=== PATIENT | female | born 1955 | race Caucasian/White ===

== ENCOUNTER 2016-10-15 13:09 | Emergency (ER) | payer MEDICARE, OTHER ==
[~2016-10-15 13:09] MED LIST: CIPR500T89 PO; CYMB60CA3 PO; OMEP40CA2 PO; SYNT150T PO; VICO5TAB PO
[2016-10-15 13:54] LABS: YEAST LIKE CELL URINE AUTO LARGE
[2016-10-15] MEDS ORDERED: BACTRIM 160MG/800MG DS TAB As Ordered ONE (16:17)
[2016-10-15] MEDS ORDERED: PHENAZOPYRIDINE 100 MG TAB As Ordered ONE (16:20)
--- NOTE | 2016-10-15 16:30 | EDDOCDS ---
Physician Documentation [facility] Name: Trina Frye Age: 60 yrs Sex: Female : 1955 Arrival Date: 10/15/2016 Time: 13:09 Bed TR7 Private MD: NO PRIMARY PHYSICIAN, . Disposition: 10/15/16 16:18 Discharged to Home/Self Care. Impression: Urinary tract infection, site not specified. - Condition is Stable. - Discharge Instructions: Urinary Tract Infection. - Prescriptions for Bactrim DS 800- 160 mg Oral Tablet - take 1 tablet by ORAL route every 12 hours for 10 days; 20 tablet. Pyridium 200 mg Oral Tablet - take 1 tablet by ORAL route every 8 hours for 3 days; 9 tablet. - Medication Reconciliation, Local Pharmacy Hours form. - Follow up: Private Physician; When: Call to arrange an appointment; Reason: Recheck today's complaints, Continuance of care. - Problem is new. - Symptoms are unchanged. Historical: - Allergies: no known allergies; - Home Meds: 1. duloxetine 60 mg Oral cpDR 1 cap once daily 2. folic acid 1 mg Oral tab 1 tab once daily 3. levothyroxine 125 mcg Oral cap once daily 4. magnesium oxide 400 mg Oral tab daily 5. pantoprazole 40 mg oral TbEC 1 tab once daily 6. vit B comp & C-calcium carb 1000mg oral tab daily 7. Vitamin B-12 Oral daily - PMHx: Depression; GERD; Hypothyroidism; Non-Hodgkin's Lymphoma; - PSHx: Appendectomy; Hysterectomy; Cholecystectomy; - Social history: Smoking status: Patient uses tobacco products, heavy tobacco smoker. No barriers to communication noted, The patient speaks fluent Slovak. - Family history: Not pertinent. - : The pt / caregiver states he / she is not on anticoagulants. Home medication list is obtained from the patient, [employer] import data. - Exposure Risk Screening:: None identified. Vital Signs: 10/15 13:12 BP 128 / 81; Pulse 86; Resp 18 S; Temp 97.0(O); Pulse Ox 98% on R/A; Weight 72.57 kg / gr2 159.99 lbs (R); Height 5 ft. 2 in. (157.48 cm) (R); Pain 3/10; 13:12 Body Mass Index 29.26 (72.57 kg, 157.48 cm) gr2 MDM: 13:29 Urinalysis Ordered. EDMS 15:08 Urinalysis Reviewed. cc10 16:15 Trimethoprim-Sulfamethoxazole 160 mg-800 mg (DS) 1 tabs PO once ordered. mo1 16:17 Urine Culture Ordered. EDMS 16:19 Phenazopyridine 200 mg PO once ordered. mo1 Administered Medications: 16:18 Drug: Trimethoprim-Sulfamethoxazole 1 tabs [sulfamethoxazole 800 mg-trimethoprim 160 mg mk4 tablet (1 tabs)] Route: PO; 16:29 Follow up: Response: Pt left department before re-evaluation is appropriate mk4 16:29 Follow up: Response: Pt left department before re-evaluation is appropriate mk4 16:24 Drug: Phenazopyridine 200 mg [phenazopyridine 100 mg tablet (2 tabs)] Route: PO; mk4 Signatures: Dispatcher [employer] Yaquelin Valencia RN RN dls Marcus Dias PA PA mo1 Katt Umana RN RN mk4 Forrest Llamas PA-C PABnei cc10 MICHAELLE
--- NOTE | 2016-10-15 16:31 | EDDOCDS ---
Nurse's Notes [facility] Name: Trina Frye Age: 60 yrs Sex: Female : 1955 Arrival Date: 10/15/2016 Time: 13:09 Bed TR7 Private MD: NO PRIMARY PHYSICIAN, . Diagnosis: Urinary tract infection, site not specified Presentation: 10/15 13:19 Presenting complaint: Patient states: Pt presents with c/o UTI sx x 5 days was out of [facility] town tried AZO ran out today still having burning urgency and frequency. Adult Sepsis Screening: The patient does not have new or worsening altered mentation. Patient's respiratory rate is less than 22. Systolic blood pressure is greater than 100. Patient has a qSOFA score of 0- Negative Sepsis Screen. Suicide/Homicide risk assessment- the patient denies having any suicidal and/or homicidal ideations and does not present with any other emotional, behavioral or mental health complaints. 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 Transition of care: patient was not received from another setting of care. 13:19 Acuity: TRUNG Level 4 dls 13:19 Method Of Arrival: Walkin/Carried/Asstd dls Triage Assessment: 13:22 General: Appears in no apparent distress, well developed, Behavior is cooperative. dls Pain: Pain currently is 9 out of 10 on a pain scale. HIV screening NA for this visit Offered previously. Historical: - Allergies: no known allergies; - Home Meds: 1. duloxetine 60 mg Oral cpDR 1 cap once daily 2. folic acid 1 mg Oral tab 1 tab once daily 3. levothyroxine 125 mcg Oral cap once daily 4. magnesium oxide 400 mg Oral tab daily 5. pantoprazole 40 mg oral TbEC 1 tab once daily 6. vit B comp & C-calcium carb 1000mg oral tab daily 7. Vitamin B-12 Oral daily - PMHx: Depression; GERD; Hypothyroidism; Non-Hodgkin's Lymphoma; - PSHx: Appendectomy; Hysterectomy; Cholecystectomy; - Social history: Smoking status: Patient uses tobacco products, heavy tobacco smoker. No barriers to communication noted, The patient speaks fluent Chinese. - Family history: Not pertinent. - : The pt / caregiver states he / she is not on anticoagulants. Home medication list is obtained from the patient, [employer] import data. - Exposure Risk Screening:: None identified. Screenin:24 Screening information is obtained from the patient. Fall risk: No risks identified. mk4 Assistance ADL's: requires no assistance with activities of daily living. Abuse/DV Screen: The patient / caregiver reports he/she is: not in a situation that causes fear, pain or injury. Nutritional screening: No deficits noted. Advance Directives: Currently, there is no health care proxy. There is no active DNR order. There is no living will. There is no Power of [employer]. Advance directive information has not previously been placed in an [facility] medical record. home support is adequate. Assessment: 16:24 General: Appears in no apparent distress, comfortable, Behavior is cooperative. mk4 Neurological: Level of Consciousness is awake, alert. GI: Abdomen is non- distended Abd is soft and non tender. : Reports burning with urination hematuria urgency since a few days ago urinary frequency. Vital Signs: 13:12 BP 128 / 81; Pulse 86; Resp 18 S; Temp 97.0(O); Pulse Ox 98% on R/A; Weight 72.57 kg gr2 (R); Height 5 ft. 2 in. (157.48 cm) (R); Pain 3/10; 13:12 Body Mass Index 29.26 (72.57 kg, 157.48 cm) gr2 Vitals: 13:12 Log In Time: October 15, 2016 at 13:12. gr2 ED Course: 13:11 Patient visited by Dariel Roberts. gr2 13:11 Patient moved to Waiting gr2 13:12 NO PRIMARY PHYSICIAN, . is Private Physician. gr2 13:12 Patient visited by Dariel Roberts. gr2 13:13 Patient moved to Pre RCE gr2 13:20 Triage Initiated dls 15:52 Patient moved to Triage 1 kcs 16:08 Marcus Dias PA is PHCP. mo1 16:08 Katherine Pratt MD is Attending Physician. mo1 16:13 Patient visited by Marcus Dias PA. mo1 16:18 Urine Culture Sent. mk4 16:23 Patient moved to TR7 kcs 16:24 The patient / caregiver is instructed regarding the plan of care and ED course. mk4 16:24 No IV's were initiated during this patient's visit. No procedures done that require mk4 assistance. Administered Medications: 16:18 Drug: Trimethoprim-Sulfamethoxazole 1 tabs [sulfamethoxazole 800 mg-trimethoprim 160 mg mk4 tablet (1 tabs)] Route: PO; 16:29 Follow up: Response: Pt left department before re-evaluation is appropriate mk4 16:29 Follow up: Response: Pt left department before re-evaluation is appropriate mk4 16:24 Drug: Phenazopyridine 200 mg [phenazopyridine 100 mg tablet (2 tabs)] Route: PO; mk4 Order Results: Lab Order: Urinalysis; SPEC'M 10/15/16 13:31 Test: APPEARANCE, URINE; Value: CLOUDY; Range: CLEAR; Abnormal: Above high normal; Status: F Test: COLOR, URINE; Value: STEVE; Range: YELLOW; Status: F Test: PH,URINE; Value: 6.0; Range: 5.0-9.0; Units: UNITS; Status: F Test: SPECIFIC GRAVITY URINE AUTO; Value: 1.011; Range: 1.002-1.035; Status: F Test: PROTEIN, URINE AUTO; Value: 2+; Range: NEGATIVE; Abnormal: Above high normal; Units: mg/dL; Status: F Test: GLUCOSE, URINE (UA) AUTO; Value: NEGATIVE; Range: NEGATIVE; Units: mg/dL; Status: F Test: KETONE, URINE AUTO; Value: NEGATIVE; Range: NEGATIVE; Units: mg/dL; Status: F Test: UROBILINOGEN, URINE AUTO; Value: 2.0; Range: 0.0-2.0; Abnormal: Above high normal; Units: mg/dL; Status: F Test: BILIRUBIN, URINE AUTO; Value: NEGATIVE; Range: NEGATIVE; Status: F Test: NITRITE, URINE AUTO; Value: POSITIVE; Range: NEGATIVE; Status: F Test: LEUKOCYTE ESTERASE, URINE AUTO; Value: 3+; Range: NEGATIVE; Abnormal: Above high normal; Status: F Test: BLOOD, URINE BLOOD; Value: 2+; Range: NEGATIVE; Abnormal: Above high normal; Status: F Test: WBC, URINE AUTO; Value: TNTC; Range: 0-3; Abnormal: Above high normal; Units: /HPF; Status: F Test: RBC, URINE AUTO; Value: 86; Range: 0-3; Abnormal: Above high normal; Units: /HPF; Status: F Test: BACTERIA, URINE AUTO; Value: 3+; Range: NEGATIVE; Abnormal: Above high normal; Status: F Test: YEAST LIKE CELL URINE AUTO; Value: LARGE; Range: NONE; Abnormal: Above high normal; Status: F Test: SQUAMOUS EPITHELIAL CELL UR AU; Value: 2; Range: 0-6; Units: /HPF; Status: F Test: MUCUS, URINE; Value: SMALL; Range: NEGATIVE; Status: F Test: HYALINE CAST, URINE AUTO; Value: 0; Range: 0-1; Units: /LPF; Status: F Outcome: 16:18 Discharge ordered by Provider. mo1 16:24 Discharge Assessment: Patient awake, alert and oriented x 3. No cognitive and/or mk4 functional deficits noted. Patient verbalized understanding of disposition instructions. Patient awake and alert. Discharge Assessment: patient administered narcotics - no. The following High Risk Discharge criteria are identified: None. Condition: good Condition: stable. No special radiology studies were completed. Property sent home with patient. 16:28 Patient left the ED. mk4 Signatures: Yoli Jennings RN RN Yaquelin Porter RN RN Dariel Montez gr2 Marcus Dias PA PA mo1 Katt Umana RN RN mk4 MICHAELLE
--- NOTE | 2016-10-17 17:30 | EDDOCDS ---
Physician Documentation [facility] Name: Trina Frye Age: 60 yrs Sex: Female : 1955 Arrival Date: 10/15/2016 Time: 13:09 Bed TR7 Private MD: NO PRIMARY PHYSICIAN, . Disposition: 10/15/16 16:18 Discharged to Home/Self Care. Impression: Urinary tract infection, site not specified. - Condition is Stable. - Discharge Instructions: Urinary Tract Infection. - Prescriptions for Bactrim DS 800- 160 mg Oral Tablet - take 1 tablet by ORAL route every 12 hours for 10 days; 20 tablet. Pyridium 200 mg Oral Tablet - take 1 tablet by ORAL route every 8 hours for 3 days; 9 tablet. - Medication Reconciliation, Local Pharmacy Hours form. - Follow up: Private Physician; When: Call to arrange an appointment; Reason: Recheck today's complaints, Continuance of care. - Problem is new. - Symptoms are unchanged. Historical: - Allergies: no known allergies; - Home Meds: 1. duloxetine 60 mg Oral cpDR 1 cap once daily 2. folic acid 1 mg Oral tab 1 tab once daily 3. levothyroxine 125 mcg Oral cap once daily 4. magnesium oxide 400 mg Oral tab daily 5. pantoprazole 40 mg oral TbEC 1 tab once daily 6. vit B comp & C-calcium carb 1000mg oral tab daily 7. Vitamin B-12 Oral daily - PMHx: Depression; GERD; Hypothyroidism; Non-Hodgkin's Lymphoma; - PSHx: Appendectomy; Hysterectomy; Cholecystectomy; - Social history: Smoking status: Patient uses tobacco products, heavy tobacco smoker. No barriers to communication noted, The patient speaks fluent Burundian. - Family history: Not pertinent. - : The pt / caregiver states he / she is not on anticoagulants. Home medication list is obtained from the patient, [employer] import data. - Exposure Risk Screening:: None identified. Vital Signs: 10/15 13:12 BP 128 / 81; Pulse 86; Resp 18 S; Temp 97.0(O); Pulse Ox 98% on R/A; Weight 72.57 kg / gr2 159.99 lbs (R); Height 5 ft. 2 in. (157.48 cm) (R); Pain 3/10; 13:12 Body Mass Index 29.26 (72.57 kg, 157.48 cm) gr2 MDM: 13:29 Urinalysis Ordered. EDMS 15:08 Urinalysis Reviewed. cc10 16:15 Trimethoprim-Sulfamethoxazole 160 mg-800 mg (DS) 1 tabs PO once ordered. mo1 16:17 Urine Culture Ordered. EDMS 16:19 Phenazopyridine 200 mg PO once ordered. mo1 16:55 [facility] Payment Agreement was scanned into [employer] and attached to record. gjb 16:55 Financial registration complete. gjb 10/16 13:51 T-Sheet-- Draft Copy was scanned into [employer] and attached to record. gb Administered Medications: 10/15 16:18 Drug: Trimethoprim-Sulfamethoxazole 1 tabs [sulfamethoxazole 800 mg-trimethoprim 160 mg mk4 tablet (1 tabs)] Route: PO; 16:29 Follow up: Response: Pt left department before re-evaluation is appropriate mk4 16:29 Follow up: Response: Pt left department before re-evaluation is appropriate mk4 16:24 Drug: Phenazopyridine 200 mg [phenazopyridine 100 mg tablet (2 tabs)] Route: PO; mk4 Signatures: Dispatcher [employer] EDMS Yaquelin Singh, RN RN dls Liliana Du, Reg Reg gb Marcus Dias PA PA mo1 Katt Umana RN RN mk4 Forrest Llamas, PA-C PA-C cc10 Suzanne Forbes [facility] The chart was reviewed and I authenticate all verbal orders and agree with the evaluation and treatment provided.Attachments: 16:55 [facility] Payment Agreement [facility] 10/16 13:51 T-Sheet-- Draft Copy gb Chart Complete MTDD
--- NOTE | 2016-10-17 17:30 | EDDOCDS ---
Nurse's Notes [facility] Name: Trina Frye Age: 60 yrs Sex: Female : 1955 Arrival Date: 10/15/2016 Time: 13:09 Bed TR7 Private MD: NO PRIMARY PHYSICIAN, . Diagnosis: Urinary tract infection, site not specified Presentation: 10/15 13:19 Presenting complaint: Patient states: Pt presents with c/o UTI sx x 5 days was out of [facility] town tried AZO ran out today still having burning urgency and frequency. Adult Sepsis Screening: The patient does not have new or worsening altered mentation. Patient's respiratory rate is less than 22. Systolic blood pressure is greater than 100. Patient has a qSOFA score of 0- Negative Sepsis Screen. Suicide/Homicide risk assessment- the patient denies having any suicidal and/or homicidal ideations and does not present with any other emotional, behavioral or mental health complaints. 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 Transition of care: patient was not received from another setting of care. 13:19 Acuity: TRUNG Level 4 dls 13:19 Method Of Arrival: Walkin/Carried/Asstd dls Triage Assessment: 13:22 General: Appears in no apparent distress, well developed, Behavior is cooperative. dls Pain: Pain currently is 9 out of 10 on a pain scale. HIV screening NA for this visit Offered previously. Historical: - Allergies: no known allergies; - Home Meds: 1. duloxetine 60 mg Oral cpDR 1 cap once daily 2. folic acid 1 mg Oral tab 1 tab once daily 3. levothyroxine 125 mcg Oral cap once daily 4. magnesium oxide 400 mg Oral tab daily 5. pantoprazole 40 mg oral TbEC 1 tab once daily 6. vit B comp & C-calcium carb 1000mg oral tab daily 7. Vitamin B-12 Oral daily - PMHx: Depression; GERD; Hypothyroidism; Non-Hodgkin's Lymphoma; - PSHx: Appendectomy; Hysterectomy; Cholecystectomy; - Social history: Smoking status: Patient uses tobacco products, heavy tobacco smoker. No barriers to communication noted, The patient speaks fluent Lao. - Family history: Not pertinent. - : The pt / caregiver states he / she is not on anticoagulants. Home medication list is obtained from the patient, [employer] import data. - Exposure Risk Screening:: None identified. Screenin:24 Screening information is obtained from the patient. Fall risk: No risks identified. mk4 Assistance ADL's: requires no assistance with activities of daily living. Abuse/DV Screen: The patient / caregiver reports he/she is: not in a situation that causes fear, pain or injury. Nutritional screening: No deficits noted. Advance Directives: Currently, there is no health care proxy. There is no active DNR order. There is no living will. 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 Advance directive information has not previously been placed in an [facility] medical record. home support is adequate. Assessment: 16:24 General: Appears in no apparent distress, comfortable, Behavior is cooperative. mk4 Neurological: Level of Consciousness is awake, alert. GI: Abdomen is non- distended Abd is soft and non tender. : Reports burning with urination hematuria urgency since a few days ago urinary frequency. Vital Signs: 13:12 BP 128 / 81; Pulse 86; Resp 18 S; Temp 97.0(O); Pulse Ox 98% on R/A; Weight 72.57 kg gr2 (R); Height 5 ft. 2 in. (157.48 cm) (R); Pain 3/10; 13:12 Body Mass Index 29.26 (72.57 kg, 157.48 cm) gr2 Vitals: 13:12 Log In Time: October 15, 2016 at 13:12. gr2 ED Course: 13:11 Patient visited by Dariel Roberts. gr2 13:11 Patient moved to Waiting gr2 13:12 NO PRIMARY PHYSICIAN, . is Private Physician. gr2 13:12 Patient visited by Dariel Roberts. gr2 13:13 Patient moved to Pre RCE gr2 13:20 Triage Initiated dls 15:52 Patient moved to Triage 1 kcs 16:08 Marcus Dias PA is PHCP. mo1 16:08 Katherine Pratt MD is Attending Physician. mo1 16:13 Patient visited by Marcus Dias PA. mo1 16:18 Urine Culture Sent. mk4 16:23 Patient moved to TR7 kcs 16:24 The patient / caregiver is instructed regarding the plan of care and ED course. mk4 16:24 No IV's were initiated during this patient's visit. No procedures done that require mk4 assistance. 16:55 [facility] Payment Agreement was scanned into [employer] and attached to record. gjb 10/16 13:51 T-Sheet-- Draft Copy was scanned into [employer] and attached to record. gb Administered Medications: 10/15 16:18 Drug: Trimethoprim-Sulfamethoxazole 1 tabs [sulfamethoxazole 800 mg-trimethoprim 160 mg mk4 tablet (1 tabs)] Route: PO; 16:29 Follow up: Response: Pt left department before re-evaluation is appropriate mk4 16:29 Follow up: Response: Pt left department before re-evaluation is appropriate mk4 16:24 Drug: Phenazopyridine 200 mg [phenazopyridine 100 mg tablet (2 tabs)] Route: PO; mk4 Order Results: Lab Order: Urinalysis; SPEC'M 10/15/16 13:31 Test: APPEARANCE, URINE; Value: CLOUDY; Range: CLEAR; Abnormal: Above high normal; Status: F Test: COLOR, URINE; Value: STEVE; Range: YELLOW; Status: F Test: PH,URINE; Value: 6.0; Range: 5.0-9.0; Units: UNITS; Status: F Test: SPECIFIC GRAVITY URINE AUTO; Value: 1.011; Range: 1.002-1.035; Status: F Test: PROTEIN, URINE AUTO; Value: 2+; Range: NEGATIVE; Abnormal: Above high normal; Units: mg/dL; Status: F Test: GLUCOSE, URINE (UA) AUTO; Value: NEGATIVE; Range: NEGATIVE; Units: mg/dL; Status: F Test: KETONE, URINE AUTO; Value: NEGATIVE; Range: NEGATIVE; Units: mg/dL; Status: F Test: UROBILINOGEN, URINE AUTO; Value: 2.0; Range: 0.0-2.0; Abnormal: Above high normal; Units: mg/dL; Status: F Test: BILIRUBIN, URINE AUTO; Value: NEGATIVE; Range: NEGATIVE; Status: F Test: NITRITE, URINE AUTO; Value: POSITIVE; Range: NEGATIVE; Status: F Test: LEUKOCYTE ESTERASE, URINE AUTO; Value: 3+; Range: NEGATIVE; Abnormal: Above high normal; Status: F Test: BLOOD, URINE BLOOD; Value: 2+; Range: NEGATIVE; Abnormal: Above high normal; Status: F Test: WBC, URINE AUTO; Value: TNTC; Range: 0-3; Abnormal: Above high normal; Units: /HPF; Status: F Test: RBC, URINE AUTO; Value: 86; Range: 0-3; Abnormal: Above high normal; Units: /HPF; Status: F Test: BACTERIA, URINE AUTO; Value: 3+; Range: NEGATIVE; Abnormal: Above high normal; Status: F Test: YEAST LIKE CELL URINE AUTO; Value: LARGE; Range: NONE; Abnormal: Above high normal; Status: F Test: SQUAMOUS EPITHELIAL CELL UR AU; Value: 2; Range: 0-6; Units: /HPF; Status: F Test: MUCUS, URINE; Value: SMALL; Range: NEGATIVE; Status: F Test: HYALINE CAST, URINE AUTO; Value: 0; Range: 0-1; Units: /LPF; Status: F Lab Order: Urine Culture; SPEC'M 10/15/16 13:31 Test: URINE CULTURE; Value: <EXTERNAL COMMENT eCWMed> FULL REPORT IN LAB NOTES (eCW and Medent).; Status: F Test: URINE CULTURE; Value: ORGANISM 1: ESCHERICHIA COLI; Status: F Test: URINE CULTURE; Value: ESCHERICHIA COLI; Status: F Test: URINE CULTURE; Value: COLONY COUNT CFU/ml >100,000; Status: F Test: URINE CULTURE; Value: GRAM NEG SENSI - VITEK 80; Status: F Test: URINE CULTURE; Value: Method: VIT2; Status: F Test: URINE CULTURE; Value: EXTD BRD SPCTRM BETA LACTAMASE -; Status: F Test: URINE CULTURE; Value: TRIMETHOPRIM/SULFAMETHOXAZOLE <=20 S; Status: F Test: URINE CULTURE; Value: AMPICILLIN <=2 S; Status: F Test: URINE CULTURE; Value: GENTAMICIN <=1 S; Status: F Test: URINE CULTURE; Value: NITROFURANTOIN 64 I; Status: F Test: URINE CULTURE; Value: CEFAZOLIN <=4 S; Status: F Test: URINE CULTURE; Value: LEVOFLOXACIN <=0.12 S; Status: F Test: URINE CULTURE; Value: TOBRAMYCIN <=1 S; Status: F Test: URINE CULTURE; Value: CEFTRIAXONE <=1 S; Status: F Test: URINE CULTURE; Value: CEFTAZIDIME <=1 S; Status: F Test: URINE CULTURE; Value: AMPICILLIN/SULBACTAM <=2 S; Status: F Test: URINE CULTURE; Value: PIPERACILLIN/TAZOBACTAM <=4 S; Status: F Test: URINE CULTURE; Value: AZTREONAM <=1 S; Status: F Test: URINE CULTURE; Value: ERTAPENEM <=0.5 S; Status: F Test: URINE CULTURE; Value: MEROPENEM <=0.25 S; Status: F Test: URINE CULTURE; Value: TIGECYCLINE <=0.5 S; Status: F Test: URINE CULTURE; Value: CEFEPIME <=1 S; Status: F Outcome: 16:18 Discharge ordered by Provider. mo1 16:24 Discharge Assessment: Patient awake, alert and oriented x 3. No cognitive and/or mk4 functional deficits noted. Patient verbalized understanding of disposition instructions. Patient awake and alert. Discharge Assessment: patient administered narcotics - no. The following High Risk Discharge criteria are identified: None. Condition: good Condition: stable. No special radiology studies were completed. Property sent home with patient. 16:28 Patient left the ED. 4 Signatures: Yoli Jennings RN RN Yaquelin Porter RN RN dls Liliana Du, Reg Reg gb Dariel Roberts gr2 Marcus Dias PA PA mo1 Katt Umana RN RN Suzanne Santana Chart Complete MTDD
--- NOTE | 2016-10-17 17:30 | EDDOCDS ---
Physician Documentation [facility] Name: Trina Frye Age: 60 yrs Sex: Female : 1955 Arrival Date: 10/15/2016 Time: 13:09 Bed TR7 Private MD: NO PRIMARY PHYSICIAN, . Disposition: 10/15/16 16:18 Discharged to Home/Self Care. Impression: Urinary tract infection, site not specified. - Condition is Stable. - Discharge Instructions: Urinary Tract Infection. - Prescriptions for Bactrim DS 800- 160 mg Oral Tablet - take 1 tablet by ORAL route every 12 hours for 10 days; 20 tablet. Pyridium 200 mg Oral Tablet - take 1 tablet by ORAL route every 8 hours for 3 days; 9 tablet. - Medication Reconciliation, Local Pharmacy Hours form. - Follow up: Private Physician; When: Call to arrange an appointment; Reason: Recheck today's complaints, Continuance of care. - Problem is new. - Symptoms are unchanged. Historical: - Allergies: no known allergies; - Home Meds: 1. duloxetine 60 mg Oral cpDR 1 cap once daily 2. folic acid 1 mg Oral tab 1 tab once daily 3. levothyroxine 125 mcg Oral cap once daily 4. magnesium oxide 400 mg Oral tab daily 5. pantoprazole 40 mg oral TbEC 1 tab once daily 6. vit B comp & C-calcium carb 1000mg oral tab daily 7. Vitamin B-12 Oral daily - PMHx: Depression; GERD; Hypothyroidism; Non-Hodgkin's Lymphoma; - PSHx: Appendectomy; Hysterectomy; Cholecystectomy; - Social history: Smoking status: Patient uses tobacco products, heavy tobacco smoker. No barriers to communication noted, The patient speaks fluent Maldivian. - Family history: Not pertinent. - : The pt / caregiver states he / she is not on anticoagulants. Home medication list is obtained from the patient, [employer] import data. - Exposure Risk Screening:: None identified. Vital Signs: 10/15 13:12 BP 128 / 81; Pulse 86; Resp 18 S; Temp 97.0(O); Pulse Ox 98% on R/A; Weight 72.57 kg / gr2 159.99 lbs (R); Height 5 ft. 2 in. (157.48 cm) (R); Pain 3/10; 13:12 Body Mass Index 29.26 (72.57 kg, 157.48 cm) gr2 MDM: 13:29 Urinalysis Ordered. EDMS 15:08 Urinalysis Reviewed. cc10 16:15 Trimethoprim-Sulfamethoxazole 160 mg-800 mg (DS) 1 tabs PO once ordered. mo1 16:17 Urine Culture Ordered. EDMS 16:19 Phenazopyridine 200 mg PO once ordered. mo1 16:55 [facility] Payment Agreement was scanned into [employer] and attached to record. gjb 16:55 Financial registration complete. gjb 10/16 13:51 T-Sheet-- Draft Copy was scanned into [employer] and attached to record. gb Administered Medications: 10/15 16:18 Drug: Trimethoprim-Sulfamethoxazole 1 tabs [sulfamethoxazole 800 mg-trimethoprim 160 mg mk4 tablet (1 tabs)] Route: PO; 16:29 Follow up: Response: Pt left department before re-evaluation is appropriate mk4 16:29 Follow up: Response: Pt left department before re-evaluation is appropriate mk4 16:24 Drug: Phenazopyridine 200 mg [phenazopyridine 100 mg tablet (2 tabs)] Route: PO; mk4 Signatures: Dispatcher [employer] EDMS Yaquelin Singh, RN RN dls Liliana Du, Reg Reg gb Marcus Dias PA PA mo1 Katt Umana RN RN mk4 Forrest Llamas, PA-C PA-C cc10 Suzanne Forbes [facility] The chart was reviewed and I authenticate all verbal orders and agree with the evaluation and treatment provided.Attachments: 16:55 [facility] Payment Agreement [facility] 10/16 13:51 T-Sheet-- Draft Copy gb Chart Complete MTDD
--- NOTE | 2016-10-19 16:14 | EDDOCDS ---
Physician Documentation [facility] Name: Trina Frye Age: 60 yrs Sex: Female : 1955 Arrival Date: 10/15/2016 Time: 13:09 Bed TR7 Private MD: NO PRIMARY PHYSICIAN, . Disposition: 10/15/16 16:18 Discharged to Home/Self Care. Impression: Urinary tract infection, site not specified. - Condition is Stable. - Discharge Instructions: Urinary Tract Infection. - Prescriptions for Bactrim DS 800- 160 mg Oral Tablet - take 1 tablet by ORAL route every 12 hours for 10 days; 20 tablet. Pyridium 200 mg Oral Tablet - take 1 tablet by ORAL route every 8 hours for 3 days; 9 tablet. - Medication Reconciliation, Local Pharmacy Hours form. - Follow up: Private Physician; When: Call to arrange an appointment; Reason: Recheck today's complaints, Continuance of care. - Problem is new. - Symptoms are unchanged. Historical: - Allergies: no known allergies; - Home Meds: 1. duloxetine 60 mg Oral cpDR 1 cap once daily 2. folic acid 1 mg Oral tab 1 tab once daily 3. levothyroxine 125 mcg Oral cap once daily 4. magnesium oxide 400 mg Oral tab daily 5. pantoprazole 40 mg oral TbEC 1 tab once daily 6. vit B comp & C-calcium carb 1000mg oral tab daily 7. Vitamin B-12 Oral daily - PMHx: Depression; GERD; Hypothyroidism; Non-Hodgkin's Lymphoma; - PSHx: Appendectomy; Hysterectomy; Cholecystectomy; - Social history: Smoking status: Patient uses tobacco products, heavy tobacco smoker. No barriers to communication noted, The patient speaks fluent Dominican. - Family history: Not pertinent. - : The pt / caregiver states he / she is not on anticoagulants. Home medication list is obtained from the patient, [employer] import data. - Exposure Risk Screening:: None identified. Vital Signs: 10/15 13:12 BP 128 / 81; Pulse 86; Resp 18 S; Temp 97.0(O); Pulse Ox 98% on R/A; Weight 72.57 kg / gr2 159.99 lbs (R); Height 5 ft. 2 in. (157.48 cm) (R); Pain 3/10; 13:12 Body Mass Index 29.26 (72.57 kg, 157.48 cm) gr2 MDM: 13:29 Urinalysis Ordered. EDMS 15:08 Urinalysis Reviewed. cc10 16:15 Trimethoprim-Sulfamethoxazole 160 mg-800 mg (DS) 1 tabs PO once ordered. mo1 16:17 Urine Culture Ordered. EDMS 16:19 Phenazopyridine 200 mg PO once ordered. mo1 16:55 [facility] Payment Agreement was scanned into [employer] and attached to record. gjb 16:55 Financial registration complete. gjb 10/16 13:51 T-Sheet-- Draft Copy was scanned into [employer] and attached to record. gb Administered Medications: 10/15 16:18 Drug: Trimethoprim-Sulfamethoxazole 1 tabs [sulfamethoxazole 800 mg-trimethoprim 160 mg mk4 tablet (1 tabs)] Route: PO; 16:29 Follow up: Response: Pt left department before re-evaluation is appropriate mk4 16:29 Follow up: Response: Pt left department before re-evaluation is appropriate mk4 16:24 Drug: Phenazopyridine 200 mg [phenazopyridine 100 mg tablet (2 tabs)] Route: PO; mk4 Signatures: Dispatcher [employer] EDMS Yaquelin Singh, RN RN dls Liliana Du, Reg Reg gb Marcus Dias PA PA mo1 Katt Umana RN RN mk4 Forrest Llamas, PA-C PA-C cc10 Suzanne Forbes [facility] The chart was reviewed and I authenticate all verbal orders and agree with the evaluation and treatment provided.Attachments: 16:55 [facility] Payment Agreement [facility] 10/16 13:51 T-Sheet-- Draft Copy gb Chart Complete MTDD
--- NOTE | 2016-10-19 16:14 | EDDOCDS ---
Physician Documentation [facility] Name: Trina Frye Age: 60 yrs Sex: Female : 1955 Arrival Date: 10/15/2016 Time: 13:09 Bed TR7 Private MD: NO PRIMARY PHYSICIAN, . Disposition: 10/15/16 16:18 Discharged to Home/Self Care. Impression: Urinary tract infection, site not specified. - Condition is Stable. - Discharge Instructions: Urinary Tract Infection. - Prescriptions for Bactrim DS 800- 160 mg Oral Tablet - take 1 tablet by ORAL route every 12 hours for 10 days; 20 tablet. Pyridium 200 mg Oral Tablet - take 1 tablet by ORAL route every 8 hours for 3 days; 9 tablet. - Medication Reconciliation, Local Pharmacy Hours form. - Follow up: Private Physician; When: Call to arrange an appointment; Reason: Recheck today's complaints, Continuance of care. - Problem is new. - Symptoms are unchanged. Historical: - Allergies: no known allergies; - Home Meds: 1. duloxetine 60 mg Oral cpDR 1 cap once daily 2. folic acid 1 mg Oral tab 1 tab once daily 3. levothyroxine 125 mcg Oral cap once daily 4. magnesium oxide 400 mg Oral tab daily 5. pantoprazole 40 mg oral TbEC 1 tab once daily 6. vit B comp & C-calcium carb 1000mg oral tab daily 7. Vitamin B-12 Oral daily - PMHx: Depression; GERD; Hypothyroidism; Non-Hodgkin's Lymphoma; - PSHx: Appendectomy; Hysterectomy; Cholecystectomy; - Social history: Smoking status: Patient uses tobacco products, heavy tobacco smoker. No barriers to communication noted, The patient speaks fluent Syrian. - Family history: Not pertinent. - : The pt / caregiver states he / she is not on anticoagulants. Home medication list is obtained from the patient, [employer] import data. - Exposure Risk Screening:: None identified. Vital Signs: 10/15 13:12 BP 128 / 81; Pulse 86; Resp 18 S; Temp 97.0(O); Pulse Ox 98% on R/A; Weight 72.57 kg / gr2 159.99 lbs (R); Height 5 ft. 2 in. (157.48 cm) (R); Pain 3/10; 13:12 Body Mass Index 29.26 (72.57 kg, 157.48 cm) gr2 MDM: 13:29 Urinalysis Ordered. EDMS 15:08 Urinalysis Reviewed. cc10 16:15 Trimethoprim-Sulfamethoxazole 160 mg-800 mg (DS) 1 tabs PO once ordered. mo1 16:17 Urine Culture Ordered. EDMS 16:19 Phenazopyridine 200 mg PO once ordered. mo1 16:55 [facility] Payment Agreement was scanned into [employer] and attached to record. gjb 16:55 Financial registration complete. gjb 10/16 13:51 T-Sheet-- Draft Copy was scanned into [employer] and attached to record. gb Administered Medications: 10/15 16:18 Drug: Trimethoprim-Sulfamethoxazole 1 tabs [sulfamethoxazole 800 mg-trimethoprim 160 mg mk4 tablet (1 tabs)] Route: PO; 16:29 Follow up: Response: Pt left department before re-evaluation is appropriate mk4 16:29 Follow up: Response: Pt left department before re-evaluation is appropriate mk4 16:24 Drug: Phenazopyridine 200 mg [phenazopyridine 100 mg tablet (2 tabs)] Route: PO; mk4 Signatures: Dispatcher [employer] EDMS Yaquelin Singh, RN RN dls Liliana Du, Reg Reg gb Marcus Dias PA PA mo1 Katt Umana RN RN mk4 Forrest Lalmas, PA-C PA-C cc10 Suzanne Forbes [facility] The chart was reviewed and I authenticate all verbal orders and agree with the evaluation and treatment provided.Attachments: 16:55 [facility] Payment Agreement [facility] 10/16 13:51 T-Sheet-- Draft Copy gb Chart Complete MTDD
--- NOTE | 2016-10-19 16:14 | EDDOCDS ---
Nurse's Notes [facility] Name: Trina Frye Age: 60 yrs Sex: Female : 1955 Arrival Date: 10/15/2016 Time: 13:09 Bed TR7 Private MD: NO PRIMARY PHYSICIAN, . Diagnosis: Urinary tract infection, site not specified Presentation: 10/15 13:19 Presenting complaint: Patient states: Pt presents with c/o UTI sx x 5 days was out of [facility] tried AZO ran out today still having burning urgency and frequency. Adult Sepsis Screening: The patient does not have new or worsening altered mentation. Patient's respiratory rate is less than 22. Systolic blood pressure is greater than 100. Patient has a qSOFA score of 0- Negative Sepsis Screen. Suicide/Homicide risk assessment- the patient denies having any suicidal and/or homicidal ideations and does not present with any other emotional, behavioral or mental health complaints. Status: Patient is not a senior administrative services officer or dependent. Transition of care: patient was not received from another setting of care. 13:19 Acuity: TRUNG Level 4 dls 13:19 Method Of Arrival: Walkin/Carried/Asstd dls Triage Assessment: 13:22 General: Appears in no apparent distress, well developed, Behavior is cooperative. dls Pain: Pain currently is 9 out of 10 on a pain scale. HIV screening NA for this visit Offered previously. Historical: - Allergies: no known allergies; - Home Meds: 1. duloxetine 60 mg Oral cpDR 1 cap once daily 2. folic acid 1 mg Oral tab 1 tab once daily 3. levothyroxine 125 mcg Oral cap once daily 4. magnesium oxide 400 mg Oral tab daily 5. pantoprazole 40 mg oral TbEC 1 tab once daily 6. vit B comp & C-calcium carb 1000mg oral tab daily 7. Vitamin B-12 Oral daily - PMHx: Depression; GERD; Hypothyroidism; Non-Hodgkin's Lymphoma; - PSHx: Appendectomy; Hysterectomy; Cholecystectomy; - Social history: Smoking status: Patient uses tobacco products, heavy tobacco smoker. No barriers to communication noted, The patient speaks fluent Estonian. - Family history: Not pertinent. - : The pt / caregiver states he / she is not on anticoagulants. Home medication list is obtained from the patient, [employer] import data. - Exposure Risk Screening:: None identified. Screenin:24 Screening information is obtained from the patient. Fall risk: No risks identified. mk4 Assistance ADL's: requires no assistance with activities of daily living. Abuse/DV Screen: The patient / caregiver reports he/she is: not in a situation that causes fear, pain or injury. Nutritional screening: No deficits noted. Advance Directives: Currently, there is no health care proxy. There is no active DNR order. There is no living will. There is no Power of Urgent Care Physician Assistant. Advance directive information has not previously been placed in an [facility] medical record. home support is adequate. Assessment: 16:24 General: Appears in no apparent distress, comfortable, Behavior is cooperative. mk4 Neurological: Level of Consciousness is awake, alert. GI: Abdomen is non- distended Abd is soft and non tender. : Reports burning with urination hematuria urgency since a few days ago urinary frequency. Vital Signs: 13:12 BP 128 / 81; Pulse 86; Resp 18 S; Temp 97.0(O); Pulse Ox 98% on R/A; Weight 72.57 kg gr2 (R); Height 5 ft. 2 in. (157.48 cm) (R); Pain 3/10; 13:12 Body Mass Index 29.26 (72.57 kg, 157.48 cm) gr2 Vitals: 13:12 Log In Time: October 15, 2016 at 13:12. gr2 ED Course: 13:11 Patient visited by Dariel Roberts. gr2 13:11 Patient moved to Waiting gr2 13:12 NO PRIMARY PHYSICIAN, . is Private Physician. gr2 13:12 Patient visited by Dariel Roberts. gr2 13:13 Patient moved to Pre RCE gr2 13:20 Triage Initiated dls 15:52 Patient moved to Triage 1 kcs 16:08 Marcus Dias PA is PHCP. mo1 16:08 Katherine Pratt MD is Attending Physician. mo1 16:13 Patient visited by Marcus Dias PA. mo1 16:18 Urine Culture Sent. mk4 16:23 Patient moved to TR7 kcs 16:24 The patient / caregiver is instructed regarding the plan of care and ED course. mk4 16:24 No IV's were initiated during this patient's visit. No procedures done that require mk4 assistance. 16:55 [facility] Payment Agreement was scanned into [employer] and attached to record. gjb 10/16 13:51 T-Sheet-- Draft Copy was scanned into [employer] and attached to record. gb Administered Medications: 10/15 16:18 Drug: Trimethoprim-Sulfamethoxazole 1 tabs [sulfamethoxazole 800 mg-trimethoprim 160 mg mk4 tablet (1 tabs)] Route: PO; 16:29 Follow up: Response: Pt left department before re-evaluation is appropriate mk4 16:29 Follow up: Response: Pt left department before re-evaluation is appropriate mk4 16:24 Drug: Phenazopyridine 200 mg [phenazopyridine 100 mg tablet (2 tabs)] Route: PO; mk4 Order Results: Lab Order: Urinalysis; SPEC'M 10/15/16 13:31 Test: APPEARANCE, URINE; Value: CLOUDY; Range: CLEAR; Abnormal: Above high normal; Status: F Test: COLOR, URINE; Value: STEVE; Range: YELLOW; Status: F Test: PH,URINE; Value: 6.0; Range: 5.0-9.0; Units: UNITS; Status: F Test: SPECIFIC GRAVITY URINE AUTO; Value: 1.011; Range: 1.002-1.035; Status: F Test: PROTEIN, URINE AUTO; Value: 2+; Range: NEGATIVE; Abnormal: Above high normal; Units: mg/dL; Status: F Test: GLUCOSE, URINE (UA) AUTO; Value: NEGATIVE; Range: NEGATIVE; Units: mg/dL; Status: F Test: KETONE, URINE AUTO; Value: NEGATIVE; Range: NEGATIVE; Units: mg/dL; Status: F Test: UROBILINOGEN, URINE AUTO; Value: 2.0; Range: 0.0-2.0; Abnormal: Above high normal; Units: mg/dL; Status: F Test: BILIRUBIN, URINE AUTO; Value: NEGATIVE; Range: NEGATIVE; Status: F Test: NITRITE, URINE AUTO; Value: POSITIVE; Range: NEGATIVE; Status: F Test: LEUKOCYTE ESTERASE, URINE AUTO; Value: 3+; Range: NEGATIVE; Abnormal: Above high normal; Status: F Test: BLOOD, URINE BLOOD; Value: 2+; Range: NEGATIVE; Abnormal: Above high normal; Status: F Test: WBC, URINE AUTO; Value: TNTC; Range: 0-3; Abnormal: Above high normal; Units: /HPF; Status: F Test: RBC, URINE AUTO; Value: 86; Range: 0-3; Abnormal: Above high normal; Units: /HPF; Status: F Test: BACTERIA, URINE AUTO; Value: 3+; Range: NEGATIVE; Abnormal: Above high normal; Status: F Test: YEAST LIKE CELL URINE AUTO; Value: LARGE; Range: NONE; Abnormal: Above high normal; Status: F Test: SQUAMOUS EPITHELIAL CELL UR AU; Value: 2; Range: 0-6; Units: /HPF; Status: F Test: MUCUS, URINE; Value: SMALL; Range: NEGATIVE; Status: F Test: HYALINE CAST, URINE AUTO; Value: 0; Range: 0-1; Units: /LPF; Status: F Lab Order: Urine Culture; SPEC'M 10/15/16 13:31 Test: URINE CULTURE; Value: <EXTERNAL COMMENT eCWMed> FULL REPORT IN LAB NOTES (eCW and Medent).; Status: F Test: URINE CULTURE; Value: ORGANISM 1: ESCHERICHIA COLI; Status: F Test: URINE CULTURE; Value: ESCHERICHIA COLI; Status: F Test: URINE CULTURE; Value: COLONY COUNT CFU/ml >100,000; Status: F Test: URINE CULTURE; Value: GRAM NEG SENSI - VITEK 80; Status: F Test: URINE CULTURE; Value: Method: VIT2; Status: F Test: URINE CULTURE; Value: EXTD BRD SPCTRM BETA LACTAMASE -; Status: F Test: URINE CULTURE; Value: TRIMETHOPRIM/SULFAMETHOXAZOLE <=20 S; Status: F Test: URINE CULTURE; Value: AMPICILLIN <=2 S; Status: F Test: URINE CULTURE; Value: GENTAMICIN <=1 S; Status: F Test: URINE CULTURE; Value: NITROFURANTOIN 64 I; Status: F Test: URINE CULTURE; Value: CEFAZOLIN <=4 S; Status: F Test: URINE CULTURE; Value: LEVOFLOXACIN <=0.12 S; Status: F Test: URINE CULTURE; Value: TOBRAMYCIN <=1 S; Status: F Test: URINE CULTURE; Value: CEFTRIAXONE <=1 S; Status: F Test: URINE CULTURE; Value: CEFTAZIDIME <=1 S; Status: F Test: URINE CULTURE; Value: AMPICILLIN/SULBACTAM <=2 S; Status: F Test: URINE CULTURE; Value: PIPERACILLIN/TAZOBACTAM <=4 S; Status: F Test: URINE CULTURE; Value: AZTREONAM <=1 S; Status: F Test: URINE CULTURE; Value: ERTAPENEM <=0.5 S; Status: F Test: URINE CULTURE; Value: MEROPENEM <=0.25 S; Status: F Test: URINE CULTURE; Value: TIGECYCLINE <=0.5 S; Status: F Test: URINE CULTURE; Value: CEFEPIME <=1 S; Status: F Outcome: 16:18 Discharge ordered by Provider. mo1 16:24 Discharge Assessment: Patient awake, alert and oriented x 3. No cognitive and/or mk4 functional deficits noted. Patient verbalized understanding of disposition instructions. Patient awake and alert. Discharge Assessment: patient administered narcotics - no. The following High Risk Discharge criteria are identified: None. Condition: good Condition: stable. No special radiology studies were completed. Property sent home with patient. 16:28 Patient left the ED. 4 Signatures: Yoli Jennings RN RN Yaquelin Porter RN RN dls Liliana Du, Reg Reg gb Dariel Roberts gr2 Marcus Dias PA PA mo1 Katt Umana RN RN Suzanne Santana Chart Complete MTDD
== END 2016-10-15 16:28 | disposition home or self-care (01) ==
LOC: M ED 13:09
DX: N30.00 Acute cystitis without hematuria (principal); F32.9 Major depressive disorder, single episode, unspecified; C85.90 Non-Hodgkin lymphoma, unspecified, unspecified site; K21.9 Gastro-esophageal reflux disease without esophagitis; E03.9 Hypothyroidism, unspecified; Z79.899 Other long term (current) drug therapy; F17.210 Nicotine dependence, cigarettes, uncomplicated

== ENCOUNTER → 2016-10-24 | Outpatient (CLI) | payer MEDICARE, OTHER ==
--- NOTE | 2016-10-26 08:48 | RADONC ---
RADIATION ONCOLOGY FOLLOWUP NOTE DATE: 10/24/2016 CHART NUMBER: [id number] DIAGNOSIS: Non-Hodgkin's lymphoma. STAGE: IV, recurrent. ECOG PERFORMANCE STATUS: 0 ASSESSMENT: Ms. Frye is a very pleasant, 61-year-old white female with the diagnosis of a stage IV follicular and diffuse grade 1 non-Hodgkin's lymphoma who is presenting to us today for routine followup visit 1 year and 8 months post completion of external beam radiation therapy to her left pelvis and femoral region. The patient presents today reporting that she is doing quite well with no complaints at this time related to her radiation therapy or disease. She has no urinary or bowel difficulties. No bone pain. REVIEW OF SYSTEMS: The patient's review of systems is noncontributory. Denies nausea, vomiting, fevers, chills, night sweats, diplopia, headaches, anxiety or depression, anorexia, weight loss, visual disturbances, chest pain, urinary or bowel difficulties, bone pain, or neurological problems. PHYSICAL EXAMINATION: The patient is a well-developed, well-nourished, 60-year-old female, in no acute distress. HEENT exam is normocephalic, atraumatic. Extraocular movements are intact. There is no palpable cervical, supraclavicular, infraclavicular, axillary, or inguinal lymphadenopathy present. Lungs are clear to auscultation and percussion. Heart has a regular rate and rhythm. Abdomen is benign with no hepatosplenomegaly, masses, or tenderness. Skeletal examination reveals no tenderness to pressure or percussion of the bony skeleton. Extremities reveal no clubbing, cyanosis, or edema. Neurologic exam is grossly intact, as is the remainder of the physical examination. ASSESSMENT: The patient is clinically JORGE at this time and will be seen by us again in 6 months for further followup. She will also continue to be followed by her other physicians as well. cc: Sherri Brewster RN *Clara Boykin MD
== END ==
LOC: M ONCR 15:28
PROVIDERS: ATTEND Radiology Radiation Oncology
DX: C82.05 Follicular lymphoma grade I, lymph nodes of inguinal region and lower limb (principal)

== ENCOUNTER → 2017-01-14 | Outpatient (CLI) | payer MEDICARE, OTHER ==
[2017-01-14 13:08] LABS: BASO % 0.6 % (0.0-1.0); EOS # 0.3 K/mm3 (0.0-0.50); EOS % 3.4 % (0.0-3.0); LARGE UNSTAINED CELL # 0.2 K/mm3 (0.0-0.4); LARGE UNSTAINED CELL % 2.1 % (0.0-4.0); LYMPH # 2.3 K/mm3 (1.5-4.5); LYMPH % 29.1 % (24.0-44.0); MEAN CORPUSCULAR HEMOGLOBIN 30.7 pg (27.0-33.0); MEAN CORPUSCULAR HGB CONC 33.9 g/dl (32.0-36.5); MEAN CORPUSCULAR VOLUME 90.6 fl (80.0-96.0); MONO # 0.4 K/mm3 (0.0-0.8); MONO % 4.4 % (0.0-5.0); NEUTROPHILS # 4.7 K/mm3 (1.8-7.7); NEUTROPHILS % 60.4 % (36.0-66.0); PLATELET COUNT, AUTOMATED 198 k/mm3 (150-450); RED CELL DISTRIBUTION WIDTH 13.5 % (11.5-14.5); WHITE BLOOD COUNT 7.8 K/mm3 (4.0-10.0)
[2017-01-14 13:36] LABS: VITAMIN B12 LEVEL 982 PG/ML
[2017-01-14 13:37] LABS: FOLATE > 24.0 NG/ML
[2017-01-14 13:41] LABS: ALBUMIN 3.6 GM/DL (3.2-5.2); ALBUMIN/GLOBULIN RATIO 1.16 (1.00-1.93); ALKALINE PHOSPHATASE 81 U/L (45-117); ALT/SGPT 23 U/L (12-78); ANION GAP 7 MEQ/L (8-16); AST/SGOT 16 U/L (15-37); BILIRUBIN,TOTAL 0.5 MG/DL (0.2-1.0); BLOOD UREA NITROGEN 13 MG/DL (7-18); CARBON DIOXIDE LEVEL 30 MEQ/L (21-32); CHLORIDE LEVEL 103 MEQ/L (98-107); CREATININE FOR GFR 1.31 MG/DL (0.55-1.02); GLOMERULAR FILTRATION RATE 43.7 (>45); GLUCOSE, FASTING 85 MG/DL (80-110); POTASSIUM SERUM 4.2 MEQ/L (3.5-5.1); SODIUM LEVEL 140 MEQ/L (136-145); TOTAL PROTEIN 6.7 GM/DL (6.4-8.2)
== END ==
LOC: M LAB 12:01
PROVIDERS: ATTEND Psychiatry & Neurology Neurology
DX: E55.9 Vitamin D deficiency, unspecified (principal)

== ENCOUNTER 2017-02-14 04:17 | Inpatient (IN) | payer MEDICARE, OTHER ==
[~2017-02-14] VITALS: Ht 160 cm; Wt 75.5 kg
[2017-02-14] MEDS ORDERED: ONDA1TAB15 PO (04:41)
[2017-02-14] MEDS ORDERED: PRED10TA PO (04:41)
[2017-02-14] MEDS ORDERED: SYMB16INH INH (04:41)
[2017-02-14] MEDS ORDERED: PRIM50TA6 PO (04:41)
[2017-02-14] MEDS ORDERED: PANT40TA2 PO (04:41)
[2017-02-14 05:11] LABS: BASO % 0.1 % (0.0-1.0); EOS % 0.2 % (0.0-3.0); LARGE UNSTAINED CELL # 0.2 K/mm3 (0.0-0.4); LYMPH # 2.1 K/mm3 (1.5-4.5); LYMPH % 10.4 % (24.0-44.0); MEAN CORPUSCULAR HEMOGLOBIN 30.4 pg (27.0-33.0); MEAN CORPUSCULAR HGB CONC 34.2 g/dl (32.0-36.5); MEAN CORPUSCULAR VOLUME 88.8 fl (80.0-96.0); MONO # 0.6 K/mm3 (0.0-0.8); MONO % 3.1 % (0.0-5.0); NEUTROPHILS # 17.3 K/mm3 (1.8-7.7); NEUTROPHILS % 85.2 % (36.0-66.0); PLATELET COUNT, AUTOMATED 273 k/mm3 (150-450); RED CELL DISTRIBUTION WIDTH 13.4 % (11.5-14.5); WHITE BLOOD COUNT 20.3 K/mm3 (4.0-10.0)
[2017-02-14] MEDS ORDERED: ACETAMINOPHEN TAB 650MG DOSE (2X325MG) PO ONE (05:15)
[2017-02-14] MEDS ORDERED: dexameTHASONE 20 MG/5 ML VIAL (J1100) IV ONE (05:15)
[2017-02-14] MEDS: IPRATROPIUM 0.5MG/ALBUTEROL 2.5MG INH SOL UD 3ML (DUONEB)(J7620) NEB SCH ×6 (05:24→20:00)
[2017-02-14 05:57] LABS: CALCIUM LEVEL 8.9 MG/DL (8.8-10.2); CREATININE FOR GFR 1.24 MG/DL (0.55-1.02); GLOMERULAR FILTRATION RATE 46.5 (>45); POTASSIUM SERUM 3.3 MEQ/L (3.5-5.1)
[2017-02-14] MEDS ORDERED: FOLI1TAB2 PO (05:58)
[2017-02-14] MEDS ORDERED: MAGN400T PO (05:58)
[2017-02-14] MEDS ORDERED: DULO1CAP3 PO (05:58)
[2017-02-14] MEDS ORDERED: VITA50TA43 PO (05:58)
[2017-02-14] MEDS ORDERED: SYNT125T PO (05:58)
[2017-02-14] MEDS ORDERED: VITA10002 PO (05:58)
[2017-02-14] MEDS ORDERED: AZITHROMYCIN INJ 500 MG, VIAL MATE ADAPTER 1 EACH in D5W 250 ML IV ONE (06:00)
[2017-02-14] MEDS ORDERED: CEFUROXIME SODIUM 1.5 GM in D5W MINI-BAG PLUS 50 ML IV ONE (06:00)
[2017-02-14] MEDS ORDERED: AZITHROMYCIN INJ 500 MG, VIAL MATE ADAPTER 1 EACH in D5W 250 ML IV SCH ×2 (06:00→09:00)
[2017-02-14] MEDS ORDERED: IPRATROPIUM 0.5MG/ALBUTEROL 2.5MG INH SOL UD 3ML (DUONEB)(J7620) NEB PRN (06:15)
[2017-02-14] MEDS ORDERED: ACETAMINOPHEN TAB 650MG DOSE (2X325MG) PO PRN (06:15)
[2017-02-14] MEDS ORDERED: ONDANSETRON 4MG/2ML VIAL (J2405) IV PRN (06:15)
[2017-02-14] MEDS ORDERED: KCL 20MEQ in NS 1000ML 1,000 ML IV SCH (06:30)
[2017-02-14] MEDS ORDERED: POTASSIUM CHLORIDE 10 MEQ SR TABLET PO ONE (06:30)
[2017-02-14] MEDS: LEVOTHYROXINE 125MCG TABLET (0.125MG) PO SCH (06:42)
[2017-02-14 06:49] LABS: ABG HCO3 23.7 MEQ/L (22.0-26.0); ABG PARTIAL PRESSURE O2 71.3 mmHg (75.0-100.0); ABG STANDARD HCO3 26.2 MEQ/L (22.0-26.0); ABG TOTAL CO2 24.6 MEQ/L (23.0-31.0); ABG pH (ARTERIAL) 7.531 UNITS (7.350-7.450)
--- NOTE | 2017-02-14 06:53 | HPE ---
DATE OF ADMISSION: 02/14/2017 PRIMARY CARE PROVIDER: Sherri Brewster. CHIEF COMPLAINT: Shortness of breath and cough. HISTORY OF PRESENT ILLNESS: This is a 61-year-old female patient, active smoker, history of chronic obstructive pulmonary disease (COPD), not oxygen dependent or steroid dependent, history of non-Hodgkin lymphoma status post stem-cell transplant in 2009, follows hematology/oncology in [facility], hypothyroidism, fibromyalgia, depression, history of kidney stone with nephrostomy, who presented with three weeks of progressively worsening shortness of breath and cough productive of yellow, thick sputum with nasal congestion, subjective fevers and chills, with at home who recently had upper respiratory infection (URI) and is recovering. No recent hospital admission for the last three months. No recent travels. Recently started on prednisone by patient's primary care provider. Denies any chest pain, pressure, discomfort, abdominal pain, diabetes, history of coronary arterial disease, congestive heart failure (CHF). PAST MEDICAL HISTORY: 1. Non-Hodgkin lymphoma status post stem-cell transplant 2009. 2. Hypothyroidism. 3. Fibromyalgia. 4. Depression. 5. Smoker. 6. Kidney stone. PAST SURGICAL HISTORY: 1. Hysterectomy. 2. Ovarian cyst removal. 3. Appendectomy. 4. Cholecystectomy. 5. Nephrostomy tube. ALLERGIES: 1. CODEINE 2. BACTRIM. 3. STATIN. FAMILY HISTORY: Mother at age 69 from CHF. SOCIAL HISTORY: The patient is a current smoker. Smokes one pack per day. Interested in quitting. Denies alcohol usage or illicit drug use. REVIEW OF SYSTEMS: Other than shortness of breath and cough with nasal congestion, chills and fevers, other review of systems has been negative. HOME MEDICATIONS: - Symbicort 160/4.5 mcg inhalation twice a day - vitamin B12 1000 mcg by mouth twice a day - duloxetine 60 mg by mouth at bedtime - folic acid 1 mg by mouth daily - Synthroid 125 mcg by mouth daily - magnesium oxide 400 mg by mouth twice a day - Zofran 4 mg by mouth three times a day - Protonix 40 mg by mouth daily - prednisone taper - primidone 50 mg by mouth twice a day - vitamin B6 50 mg by mouth twice a day PHYSICAL EXAMINATION: VITAL SIGNS: Temperature 101.1, pulse 130, respirations 25, blood pressure 143/67, pulse oximetry 89% on room air. GENERAL: The patient in mild respiratory distress. Alert and oriented times three. Speaks in full sentences. HEENT: Normocephalic, atraumatic. PULMONARY: Diminished breath sounds bilaterally. Bilateral expiratory wheeze. Fine crackles. CARDIAC: Regular, tachycardia. No murmurs detected. ABDOMEN: Soft, nontender, nondistended. EXTREMITIES: No edema bilateral lower extremities. LABORATORY DATA: WBC 20.3, hemoglobin and hematocrit 14 over 40.9, platelets 273. Chemistry: Sodium 133, potassium 3.3, chloride 98, bicarbonate 25, BUN 12, creatinine 1.24. IMAGING: Chest x-ray no focal consolidations. ASSESSMENT AND PLAN: This is a 61-year-old female patient with underlying medical history of non-Hodgkin lymphoma, depression, hypothyroidism, fibromyalgia, smoker, admitted for acute COPD exacerbation. 1. Acute chronic obstructive pulmonary disease (COPD) exacerbation, likely secondary to acute bronchitis versus early community-acquired bacterial pneumonia. Azithromycin, Rocephin, Solu-Medrol, nebulizer treatments. Respiratory panel. Sputum culture, blood cultures. Followup C-reactive protein. Continue Symbicort, DuoNeb. Monitor for clinical improvement. 2. Fevers with tachycardia. Patient's tachycardia possibly secondary to nebulizer treatment. Will get EKG. Started on antibiotics. Followup cultures. Started on Rocephin and Azithromycin. Follow blood cultures, sputum culture. 3. Hypothyroidism. Followup thyroid panel. Continue Synthroid. 4. Depression. Continue home medication. 5. Smoking. Smoking cessation counseling provided. The patient preferred to be Chantix. 6. Constipation. Bowel regimen ordered. 7. Hypokalemia. Potassium supplemented. Followup magnesium. 8. Fibromyalgia. Continue current medication. 9. Chronic kidney disease (CKD), creatinine at baseline. Continue to monitor. 10. Deep venous thrombosis (DVT) prophylaxis. Lovenox subcutaneous. DISPOSITION PLANNING: Pending clinical improvement.
[2017-02-14 07:55] VITALS: BP 111/65
[2017-02-14] MEDS ORDERED: cefTRIAXone SOD 2 GM in D5W MINI-BAG PLUS 50 ML IV SCH ×2 (08:00→12:00)
--- NOTE | 2017-02-14 08:35 | REP ---
Chest two views HISTORY: Dyspnea Comparison: 07/25/2016 A minimal increase in interstitial markings is present in the lungs consistent with chronic interstitial change. The heart is normal in size. The pulmonary vasculature is normal in appearance. The bony structure is intact. IMPRESSION: Chronic interstitial change. Signed by Erasmo Castano MD 02/14/2017 08:26 A
[2017-02-14] MEDS: methylPREDNISolone INJ 125 MG/2 ML VIAL (J2930) IV SCH ×2 (08:54→16:23)
[2017-02-14] MEDS: ENOXAPARIN 30 MG/0.3 ML SYR (J1650) SC SCH (08:54)
[2017-02-14] MEDS: CYANOCOBALAMIN 500 MCG TAB PO SCH ×2 (08:55→21:31)
[2017-02-14] MEDS: MAGNESIUM OXIDE 400 MG TAB (MAG-OX) PO SCH ×2 (08:55→21:30)
[2017-02-14] MEDS: guaiFENesin ER 600 MG TAB PO SCH ×2 (08:55→21:30)
[2017-02-14] MEDS: SENOKOT S TAB PO SCH ×2 (08:55→21:30)
[2017-02-14] MEDS: FOLIC ACID 1 MG TAB PO SCH (08:55)
[2017-02-14] MEDS: PANTOPRAZOLE 40MG TAB (PROTONIX) PO SCH (08:55)
[2017-02-14] MEDS: VARENICLINE 0.5 MG TABLET PO SCH (10:05)
[2017-02-14] MEDS: PRIMIDONE 50 MG TAB PO SCH ×2 (10:06→21:30)
[2017-02-14] MEDS: PYRIDOXINE 50 MG TAB PO SCH ×2 (10:06→21:30)
[2017-02-14] MEDS: SYMBICORT 160/4.5MCG INHALER 6GM INH SCH ×2 (11:10→21:15)
[2017-02-14 11:11] VITALS: O2SAT 96
[2017-02-14 12:00] VITALS: BP 96/65
[2017-02-14 16:00] VITALS: BP 115/68
--- NOTE | 2017-02-14 17:08 | ECGEPIP ---
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
[2017-02-14 17:47] VITALS: BP 129/67
[2017-02-14] MEDS ORDERED: SLF 3 ML SYR IV PRN (18:30)
[2017-02-14 19:30] VITALS: BP 143/72
[2017-02-14] MEDS: DULoxetine 30 MG CAP (CYMBALTA) PO SCH (21:30)
[2017-02-14] MEDS: SLF 3 ML SYR IV SCH (21:31)
[2017-02-15] VITALS (7 sets, daily range): BP systolic 110–143; BP diastolic 61–86; O2SAT 93
[2017-02-15] MEDS: methylPREDNISolone INJ 125 MG/2 ML VIAL (J2930) IV SCH (01:22)
[2017-02-15] MEDS: IPRATROPIUM 0.5MG/ALBUTEROL 2.5MG INH SOL UD 3ML (DUONEB)(J7620) NEB SCH ×3 (02:00→20:00)
[2017-02-15 05:28] LABS: MEAN CORPUSCULAR HEMOGLOBIN 30.2 pg (27.0-33.0); MEAN CORPUSCULAR HGB CONC 34.2 g/dl (32.0-36.5); MEAN CORPUSCULAR VOLUME 88.4 fl (80.0-96.0); RED CELL DISTRIBUTION WIDTH 13.7 % (11.5-14.5); WHITE BLOOD COUNT 13.2 K/mm3 (4.0-10.0)
[2017-02-15 05:49] LABS: CALCIUM LEVEL 8.9 MG/DL (8.8-10.2); CREATININE FOR GFR 1.13 MG/DL (0.55-1.02); GLOMERULAR FILTRATION RATE 51.8 (>45); MAGNESIUM LEVEL 2.5 MG/DL (1.8-2.4); POTASSIUM SERUM 4.1 MEQ/L (3.5-5.1)
[2017-02-15] MEDS: SLF 3 ML SYR IV SCH ×3 (05:58→22:17)
[2017-02-15] MEDS: LEVOTHYROXINE 125MCG TABLET (0.125MG) PO SCH (05:58)
[2017-02-15] MEDS: SYMBICORT 160/4.5MCG INHALER 6GM INH SCH ×2 (07:29→20:18)
[2017-02-15] MEDS ORDERED: PRED10TA PO (08:17)
[2017-02-15] MEDS ORDERED: AVEL1TAB PO (08:17)
[2017-02-15] MEDS ORDERED: VARE05TA PO (08:20)
[2017-02-15] MEDS: FOLIC ACID 1 MG TAB PO SCH (08:53)
[2017-02-15] MEDS: guaiFENesin ER 600 MG TAB PO SCH ×2 (08:53→22:17)
[2017-02-15] MEDS: VARENICLINE 0.5 MG TABLET PO SCH (08:53)
[2017-02-15] MEDS: MAGNESIUM OXIDE 400 MG TAB (MAG-OX) PO SCH ×2 (08:53→21:00)
[2017-02-15] MEDS: PYRIDOXINE 50 MG TAB PO SCH ×2 (08:54→21:00)
[2017-02-15] MEDS: CYANOCOBALAMIN 500 MCG TAB PO SCH ×2 (08:54→21:00)
[2017-02-15] MEDS: predniSONE 20 MG TAB PO SCH (08:54)
[2017-02-15] MEDS: PANTOPRAZOLE 40MG TAB (PROTONIX) PO SCH (08:54)
[2017-02-15] MEDS: PRIMIDONE 50 MG TAB PO SCH ×2 (08:55→22:17)
[2017-02-15] MEDS: SENOKOT S TAB PO SCH ×2 (08:56→22:16)
[2017-02-15] MEDS: ENOXAPARIN 30 MG/0.3 ML SYR (J1650) SC SCH (08:56)
[2017-02-15] MEDS ORDERED: MOXIFLOXACIN 400 MG TAB PO ONE (09:00)
[2017-02-15] MEDS: DULoxetine 30 MG CAP (CYMBALTA) PO SCH (22:16)
--- NOTE | 2017-02-15 23:13 | IPN ---
DATE: 02/15/2017 The patient is seen and examined at the bedside. Chart has been reviewed. This morning, the patient is anxious to go home. She remains on 3 liters of oxygen, 89% on room air with ambulation. Decrease in cough. Still slightly short of breath. Decrease in wheezing. Afebrile overnight. No complaints of chest, pain, pressure, tightness, lightheadedness, dizziness. Complains of some fatigue when she walked around the nurses station once this morning. Temperature 96.9, pulse 89, respiratory rate 18, blood pressure 118/86, 94% on 3 liters nasal cannula. GENERAL: The patient is awake, alert and oriented times three. Answering questions appropriately. LUNGS: Diminished but with occasional wheezing. HEART: S1, S2. Sinus rhythm. ABDOMEN: Soft, nontender, nondistended. EXTREMITIES: Have no pitting edema. LABORATORY DATA: White count 13, hemoglobin 11, hematocrit 34, platelet count 206. Sodium 134, potassium 4, chloride 101, bicarbonate 27, BUN 21, creatinine 1.13. Glucose of 131. Microbiology: Human rhinovirus, enterovirus. Respiratory panel, sputum culture: Preliminary normal parish present. IMAGING: Chest x-ray shows chronic interstitial changes. ASSESSMENT AND PLAN: This is a 61-year-old female with history of non-Hodgkin lymphoma status post stem cell transplant 201, hypothyroidism, fibromyalgia, depression, smoker, and kidney stone. No prior diagnosis of chronic obstructive pulmonary disease (COPD). Not oxygen dependent with found to be hypoxic, admitted for subjective fevers and chills, and upper respiratory infection, most likely viral in nature. Chest x-ray shows chronic fibrosis and chronic interstitial changes. IMPRESSION: 1. Acute COPD exacerbation. No pulmonary function testing has been done as outpatient. Strongly recommend obtaining pulmonary function test once acute issues are resolved and pulmonary referral. Currently on IV Solu-Medrol. Decrease to prednisone taper. DC azithromycin, Rocephin, one dose of Avelox for now. Once sputum culture is formalized, will discontinue antibiotics. 2. Upper respiratory infection, secondary to viral infection, causing acute bronchitis and COPD exacerbation. At this time the patient is still on antibiotics. Will decide in the morning once sputum culture is finalized, discontinue antibiotics and discharge her on a steroid taper, nebulizer treatments. Will need referral as outpatient. 3. Hypothyroidism. On Synthroid. 3. Depression. Controlled on home medication. 4. Active smoking. Currently tobacco cessation counseling and Chantix. 5. Constipation. On bowel regimen. 6. Hypokalemia. Supplemented. 7. Fibromyalgia. Continue on home medications. 8. Chronic kidney disease. At baseline. Avoid nephrotoxins. Renally dose all medications.
[2017-02-16] MEDS: IPRATROPIUM 0.5MG/ALBUTEROL 2.5MG INH SOL UD 3ML (DUONEB)(J7620) NEB SCH ×2 (02:00→07:41)
[2017-02-16] MEDS: SLF 3 ML SYR IV SCH (05:50)
[2017-02-16] MEDS: LEVOTHYROXINE 125MCG TABLET (0.125MG) PO SCH (05:50)
[2017-02-16 06:00] VITALS: BP 131/83
[2017-02-16] MEDS ORDERED: MOXIFLOXACIN 400 MG TAB PO SCH (06:00)
[2017-02-16 06:03] LABS: MEAN CORPUSCULAR HEMOGLOBIN 29.6 pg (27.0-33.0); MEAN CORPUSCULAR HGB CONC 33.5 g/dl (32.0-36.5); MEAN CORPUSCULAR VOLUME 88.5 fl (80.0-96.0); RED CELL DISTRIBUTION WIDTH 13.9 % (11.5-14.5)
[2017-02-16 06:33] LABS: CALCIUM LEVEL 8.6 MG/DL (8.8-10.2); CREATININE FOR GFR 1.24 MG/DL (0.55-1.02); GLOMERULAR FILTRATION RATE 46.5 (>45); POTASSIUM SERUM 3.4 MEQ/L (3.5-5.1)
[2017-02-16] MEDS: SYMBICORT 160/4.5MCG INHALER 6GM INH SCH (07:33)
[2017-02-16] MEDS ORDERED: POTASSIUM CHLORIDE 10 MEQ SR TABLET PO ONE (09:00)
[2017-02-16] MEDS: ENOXAPARIN 30 MG/0.3 ML SYR (J1650) SC SCH (09:09)
[2017-02-16] MEDS: MAGNESIUM OXIDE 400 MG TAB (MAG-OX) PO SCH (09:09)
[2017-02-16] MEDS: PANTOPRAZOLE 40MG TAB (PROTONIX) PO SCH (09:09)
[2017-02-16] MEDS: predniSONE 20 MG TAB PO SCH (09:09)
[2017-02-16] MEDS: guaiFENesin ER 600 MG TAB PO SCH (09:09)
[2017-02-16] MEDS: PYRIDOXINE 50 MG TAB PO SCH (09:09)
[2017-02-16] MEDS: SENOKOT S TAB PO SCH (09:09)
[2017-02-16] MEDS: PRIMIDONE 50 MG TAB PO SCH (09:10)
[2017-02-16] MEDS: VARENICLINE 0.5 MG TABLET PO SCH (09:10)
[2017-02-16] MEDS: FOLIC ACID 1 MG TAB PO SCH (09:10)
[2017-02-16] MEDS: CYANOCOBALAMIN 500 MCG TAB PO SCH (09:10)
[2017-02-16] MEDS ORDERED: ALBU83IN INH (09:17)
--- NOTE | 2017-02-17 11:21 | DSES ---
DATE OF ADMISSION: 02/14/2017 DATE OF DISCHARGE: 02/16/2017 Patient was adamant about being discharged today as she has her anniversary coming up and would like to be home. She is still wheezing on examination. PRIMARY CARE PHYSICIAN: Sherri Brewster. PRIMARY DISCHARGE DIAGNOSES: 1. Acute chronic obstructive pulmonary disease (COPD) exacerbation with acute bronchitis and possible reactive airway disease. Patient has not had any pulmonary function testing officially as outpatient. 2. Human rhinovirus, Enterovirus and respiratory syncytial virus (RSV). 3. Early bacterial pneumonia, community acquired. 4. Hypothyroidism. 5. Depression. 6. Active smoking. 7. Constipation. 8. Hypokalemia. 9. Fibromyalgia. 10. Chronic kidney disease at baseline creatinine of 1.2. Low potassium level. DISCHARGE MEDICATIONS: - Avelox 400 mg to complete a 5 day course - prednisone taper - nebulizer albuterol every 2 hours as needed for wheezing - Chantix 0.5 daily - Symbicort two puffs twice daily - Vitamin B12 1 mg twice daily - duloxetine 60 daily at bedtime - folic acid 1 mg daily - levothyroxine 125 mcg daily - magnesium oxide 400 twice daily - Zofran 4 mg twice daily - Protonix 40 daily - primidone 50 twice daily - pyridoxine 50 twice daily HOSPITAL COURSE: This is a 61-year-old female active smoker stencil transplant with non-Hodgkin's lymphoma, hypothyroidism, fibromyalgia, depression, kidney stone, prior diagnosis of chronic obstructive pulmonary disease (COPD), no prior pulmonary tests, not oxygen dependent, was found to be hypoxic admitted for subjective fevers and chills, possible upper respiratory infection. Respiratory panel is positive for human rhinovirus. Chest x-ray showed chronic fibrosis and interstitial changes. Patient was started on ceftriaxone, azithromycin, transitioned to Avelox. Sputum culture grew out Haemophilus influenzae and treated for community acquired pneumonia to complete a full course as outpatient. Patient improved slightly with IV Solu-Medrol. She was adamant about going home for her anniversary and was given Chantix for smoking cessation.
== END 2017-02-16 10:10 | disposition home or self-care (01) | DRG 190 ==
LOC: M ED 05:23 → M ED INP 06:14 → M ICU 07:40 → M PCU 17:40 → M MS5PR 02-15 11:15
PROVIDERS: ADMIT Hospitalist; ATTEND General Practice
DX: J44.1 Chronic obstructive pulmonary disease with (acute) exacerbation (principal); J14 Pneumonia due to Hemophilus influenzae; Z94.84 Stem cells transplant status; J44.0 Chronic obstructive pulmonary disease with (acute) lower respiratory infection; E03.9 Hypothyroidism, unspecified; F32.9 Major depressive disorder, single episode, unspecified; F17.200 Nicotine dependence, unspecified, uncomplicated; K59.00 Constipation, unspecified; N18.9 Chronic kidney disease, unspecified; E87.6 Hypokalemia; M79.7 Fibromyalgia; Z79.899 Other long term (current) drug therapy; Z88.5 Allergy status to narcotic agent; Z88.8 Allergy status to other drugs, medicaments and biological substances; R00.0 Tachycardia, unspecified

== ENCOUNTER → 2017-03-07 | Outpatient (CLI) | payer MEDICARE, OTHER ==
[~2017-03-07] MED LIST changes: +ALBU1.25 INH; +ALBU83IN INH; +AVEL1TAB3 PO; +DULO1CAP3 PO; +FOLI1TAB4 PO; +MAGN400T PO; +METHACHOLINE KIT (J7674) INH ONE; +ONDA4TAB5 PO; +PANT40TA2 PO; +PRED10TA2 PO; +PRIM50TA6 PO; +SYMB16INH INH; +SYNT125T PO; +VARE05TA PO; +VITA10002 PO; +VITA400T13 PO; +VITA500T3 PO; +VITA50TA43 PO; +VITACAP9 PO
--- NOTE | 2017-03-07 14:40 | PFTRPT ---
Tech: Jarvis JAY RRT Age: 61 Sex: Female Race: Height: 62.00 Inches Weight: 163.00 Lbs BSA: 1.75 Diagnosis: J44.1 PULMONARY FUNCTION REPORT ORDERING PROVIDER: CHECO Rosas DATE OF SERVICE: 03/07/17 SPIROMETRY: Excellent technical quality. The forced vital capacity is normal. The FEV1 is in proportion. The obstructive index is, therefore, normal. FLOW VOLUME LOOP: The expiratory limb of the flow volume loop is reasonably normal. LUNG VOLUMES: The total lung capacity mildly elevated. The residual volume suggests air trapping. DIFFUSION CAPACITY: The diffusion capacity is reduced and is borderline when corrected for alveolar volume. HEMOGLOBIN: No hemoglobin is available for correction. AIRWAY MECHANICS: Airways resistance and conductance are normal. IMPRESSION: Suspect some degree of air trapping. Diffusion capacity impairment. Please correlate clinically. MTDD
--- NOTE | 2017-03-07 14:40 | PFTRPT ---
Tech: Jarvis JAY RRT Age: 61 Sex: Female Race: Height: 62.00 Inches Weight: 163.00 Lbs BSA: 1.75 Diagnosis: J44.1 METHACHOLINE CHALLENGE REPORT: ORDERING PROVIDER: CHECO Rosas DATE OF SERVICE: 03/07/17 INTERPRETATION: The study was of excellent technical quality. Under protocol, methacholine was administered. At a dose of 0.25 mg (1.375 CDUs), a 45% decline in the FEV1 was noted. The PC20 of 0.03 is significant. Flow rates returned to baseline post bronchodilator administration. IMPRESSION: Positive methacholine challenge study. MTDD
== END ==
LOC: M CARPUL 12:48
PROVIDERS: ATTEND Nurse Practitioner Adult Health
DX: J44.1 Chronic obstructive pulmonary disease with (acute) exacerbation (principal); Z72.0 Tobacco use
CPT/HCPCS: 94010; 94070; 94726; 94729; 95070; J7674

== ENCOUNTER 2017-04-09 06:44 | Outpatient (CLI) | payer MEDICARE, OTHER ==
[~2017-04-09] VITALS: Ht 157.5 cm; Wt 76.7 kg
[~2017-04-09 06:44] MED LIST changes: -ALBU1.25 INH; -METHACHOLINE KIT (J7674) INH ONE; -VITA400T13 PO
[2017-04-09] MEDS ORDERED: VITA400T13 PO (07:08)
[2017-04-09] MEDS ORDERED: NS 1,000 ML IV SCH (07:15)
[2017-04-09] MEDS ORDERED: ALBU1.25 INH (07:29)
[2017-04-09] MEDS ORDERED: PROPOFOL 200 MG/20 ML VIAL As Ordered ONE ×2 (07:36→08:02)
[2017-04-09] MEDS ORDERED: LIDOCAINE 2% INJ 100 MG/5 ML SDV (FOR ANES.) As Ordered ONE (07:37)
--- NOTE | 2017-04-09 08:23 | ROOR ---
Patient Name: Trina Frye Procedure Date: 04/09/2017 7:24 AM Date of : 1955 Age: 61 Room: [facility] Gender: Female Note Status: Finalized Procedure: Total Colonoscopy to Cecum + Cold Snare Polypectomy + Hemoclip Indications: High risk colon cancer surveillance: Personal history of colonic polyps, Last colonoscopy: 2009 Providers: Cesar Badillo MD Referring MD: Sherri Brewster NP Requesting Provider: Medicines: Monitored Anesthesia Care Complications: No immediate complications. Procedure: Pre-Anesthesia Assessment: - The heart rate, respiratory rate, oxygen saturations, blood pressure, adequacy of pulmonary ventilation, and response to care were monitored throughout the procedure. The Colonoscope was introduced through the anus and advanced to the cecum, identified by appendiceal orifice and ileocecal valve. The colonoscopy was performed without difficulty. The patient tolerated the procedure well. The quality of the bowel preparation was excellent. Findings: The perianal and digital rectal examinations were normal. Non-bleeding internal hemorrhoids were found during retroflexion. The hemorrhoids were small and Grade I (internal hemorrhoids that do not prolapse). Scattered small-mouthed diverticula were found in the recto-sigmoid colon, sigmoid colon and descending colon. A small polyp was found in the cecum. The polyp was sessile. The polyp was removed with a jumbo cold forceps. Resection and retrieval were complete. A medium polyp was found in the hepatic flexure. The polyp was sessile. The polyp was removed with a cold snare. Resection and retrieval were complete. Multiple sessile polyps were found at 50 cm proximal to the anus. The polyps were medium in size. These polyps were removed with a cold snare. Resection and retrieval were complete. To prevent bleeding after the polypectomy, four hemostatic clips were successfully placed (MR conditional). There was no bleeding at the end of the procedure. The exam was otherwise without abnormality on direct and retroflexion views. Impression: - Non-bleeding internal hemorrhoids. - Diverticulosis in the recto-sigmoid colon, in the sigmoid colon and in the descending colon. - One small polyp in the cecum, removed with a jumbo cold forceps. Resected and retrieved. - One medium polyp at the hepatic flexure, removed with a cold snare. Resected and retrieved. - Multiple medium polyps at 50 cm proximal to the anus, removed with a cold snare. Resected and retrieved. Clips (MR conditional) were placed. - The examination was otherwise normal on direct and retroflexion views. - The exam was otherwise normal to the cecum. Recommendation: - Patient has a contact number available for emergencies. The signs and symptoms of potential delayed complications were discussed with the patient. Return to normal activities tomorrow. Written discharge instructions were provided to the patient. - High fiber diet. - Discharge patient to home. - Continue present medications. - Await pathology results. - Telephone GI clinic for pathology results in 1 week. - Repeat colonoscopy for surveillance based on pathology results. - Return to referring physician. - The findings and recommendations were discussed with the patient's family. Cesar Badillo MD Cesar Badillo MD 04/09/2017 8:23:11 AM This report has been signed electronically. Number of Addenda: 0 Note Initiated On: 04/09/2017 7:24 AM Estimated Blood Loss: Estimated blood loss: none.
[2017-04-09 08:35] VITALS: BP 114/66
== END 2017-04-09 08:40 | disposition home or self-care (01) ==
LOC: M OPP 06:44
PROVIDERS: ATTEND Internal Medicine Gastroenterology
DX: Z12.11 Encounter for screening for malignant neoplasm of colon (principal); D12.0 Benign neoplasm of cecum; D12.3 Benign neoplasm of transverse colon; D12.5 Benign neoplasm of sigmoid colon; K64.0 First degree hemorrhoids; K57.30 Diverticulosis of large intestine without perforation or abscess without bleeding; Z86.010 Personal history of colon polyps; E03.9 Hypothyroidism, unspecified; E04.1 Nontoxic single thyroid nodule; E05.00 Thyrotoxicosis with diffuse goiter without thyrotoxic crisis or storm; R19.7 Diarrhea, unspecified; R12 Heartburn; Z85.72 Personal history of non-Hodgkin lymphomas; F41.9 Anxiety disorder, unspecified; F32.9 Major depressive disorder, single episode, unspecified; J45.909 Unspecified asthma, uncomplicated; J44.9 Chronic obstructive pulmonary disease, unspecified; Z92.21 Personal history of antineoplastic chemotherapy; Z92.3 Personal history of irradiation; Z87.891 Personal history of nicotine dependence; Z88.5 Allergy status to narcotic agent; Z88.8 Allergy status to other drugs, medicaments and biological substances; Z79.899 Other long term (current) drug therapy

== ENCOUNTER → 2017-05-01 | Outpatient (CLI) | payer MEDICARE, OTHER ==
[~2017-05-01] MED LIST changes: +ALBU1.25 INH; +VITA400T13 PO
--- NOTE | 2017-05-03 09:16 | RADONC ---
RADIATION ONCOLOGY FOLLOWUP NOTE DATE: 05/01/2017 CHART NUMBER: [id number] DIAGNOSIS: Non-Hodgkin's lymphoma. STAGE: IV, recurrent. ECOG PERFORMANCE STATUS: 0 FOLLOWUP NOTE: Ms. Frye is a very pleasant 61-year-old white female with the diagnosis of a stage IV follicular and diffuse grade 1 non-Hodgkin's lymphoma, who is presenting to us today for routine followup visit 2 years and 1 month post completion of external beam radiation therapy to her left pelvis and femoral region. The patient presents today reporting that she is doing quite well with no complaints at this time related to her radiation therapy or disease. She is having no fevers, chills, or night sweats. The patient's review of systems is noncontributory. She denies nausea, vomiting, fevers, chills, night sweats, diplopia, headaches, anxiety or depression, anorexia, weight loss, visual disturbances, chest pain, urinary or bowel difficulties, bone pain, or neurological problems. PHYSICAL EXAMINATION: The patient is a well-developed, well-nourished female in no acute distress. HEENT exam is normocephalic, atraumatic. Extraocular movements are intact. There is no palpable cervical, supraclavicular, infraclavicular, axillary, or inguinal lymphadenopathy present. Lungs are clear to auscultation and percussion. Heart has a regular rate and rhythm. Abdomen is benign with no hepatosplenomegaly, masses, or tenderness. Skeletal examination reveals no tenderness to pressure or percussion of the bony skeleton. Extremities reveal no clubbing, cyanosis, or edema. Neurologic exam is grossly intact, as is the remainder of the physical examination. ASSESSMENT: The patient is clinically JORGE at this time and will be seen by us again in 6 months for further followup. She will also continue to be followed by her other physicians as well. cc: MD Sherri Simmons RN
== END ==
LOC: M ONCR 13:56
PROVIDERS: ATTEND Radiology Radiation Oncology
DX: C82.05 Follicular lymphoma grade I, lymph nodes of inguinal region and lower limb (principal)

== ENCOUNTER → 2017-05-10 | Outpatient (REF) | payer MEDICARE, OTHER ==
[2017-05-10 16:19] LABS: FOLATE > 24.0 NG/ML; VITAMIN B12 LEVEL 1277 PG/ML
[2017-05-10 16:22] LABS: ALBUMIN 3.6 GM/DL (3.2-5.2); ALBUMIN/GLOBULIN RATIO 1.13 (1.00-1.93); ALKALINE PHOSPHATASE 67 U/L (45-117); ALT/SGPT 30 U/L (12-78); ANION GAP 9 MEQ/L (8-16); AST/SGOT 19 U/L (15-37); BILIRUBIN,TOTAL 0.3 MG/DL (0.2-1.0); BLOOD UREA NITROGEN 16 MG/DL (7-18); CALCIUM LEVEL 8.5 MG/DL (8.8-10.2); CARBON DIOXIDE LEVEL 28 MEQ/L (21-32); CHLORIDE LEVEL 105 MEQ/L (98-107); CREATININE FOR GFR 1.17 MG/DL (0.55-1.02); FREE T4 1.53 NG/DL (0.76-1.46); GLOMERULAR FILTRATION RATE 49.7 (>45); GLUCOSE, FASTING 81 MG/DL (80-110); SODIUM LEVEL 142 MEQ/L (136-145); TOTAL PROTEIN 6.8 GM/DL (6.4-8.2)
[2017-05-10 18:28] LABS: BASO % 0.7 % (0.0-1.0); EOS # 0.3 K/mm3 (0.0-0.50); EOS % 4.5 % (0.0-3.0); LARGE UNSTAINED CELL # 0.1 K/mm3 (0.0-0.4); LARGE UNSTAINED CELL % 1.9 % (0.0-4.0); LYMPH # 2.1 K/mm3 (1.5-4.5); MEAN CORPUSCULAR HEMOGLOBIN 29.3 pg (27.0-33.0); MEAN CORPUSCULAR HGB CONC 33.2 g/dl (32.0-36.5); MEAN CORPUSCULAR VOLUME 88.3 fl (80.0-96.0); MONO # 0.3 K/mm3 (0.0-0.8); MONO % 5.2 % (0.0-5.0); NEUTROPHILS # 3.4 K/mm3 (1.8-7.7); NEUTROPHILS % 55.7 % (36.0-66.0); PLATELET COUNT, AUTOMATED 165 k/mm3 (150-450); RED CELL DISTRIBUTION WIDTH 14.3 % (11.5-14.5); WHITE BLOOD COUNT 6.1 K/mm3 (4.0-10.0)
== END ==
LOC: M SFHCPLAZ 12:02
PROVIDERS: ATTEND Nurse Practitioner Family
DX: R53.83 Other fatigue (principal); E55.9 Vitamin D deficiency, unspecified; E53.8 Deficiency of other specified B group vitamins
CPT/HCPCS: 80053; 82306; 82607; 82746; 84439; 84443; 85025; G0463

== ENCOUNTER → 2017-07-23 | Outpatient (CLI) | payer MEDICARE, OTHER | LOC: M WUC 11:33 | PROVIDERS: ATTEND Nurse Practitioner Adult Health | DX: E03.9 Hypothyroidism, unspecified (principal) ==

== ENCOUNTER 2017-10-27 12:49 | Emergency (ER) | payer MEDICARE, OTHER ==
[2017-10-27 13:29] LABS: CALCIUM OXALATE CRYSTALS RFX SMALL; KETONE, URINE AUTO RFX NEGATIVE (NEGATIVE); MUCUS, URINE RFX SMALL (NEGATIVE); NITRITE, URINE AUTO RFX NEGATIVE (NEGATIVE); RBC, URINE AUTO RFX 60 /HPF (0-3); SPECIFIC GRAVITY UR AUTO RFX 1.012 (1.002-1.035); SQUAM EPITHELIAL CELL UR AURFX 2 /HPF (0-6)
[2017-10-27 13:34] LABS: LEUKOCYTE ESTERASE UR AUTO RFX 3+ (NEGATIVE); WBC, URINE AUTO RFX TNTC /HPF (0-3)
[2017-10-27] MEDS: PHENAZOPYRIDINE 100 MG TAB PO (14:15)
== END 2017-10-27 15:18 | disposition home or self-care (01) ==
LOC: M ED 12:49
DX: N30.90 Cystitis, unspecified without hematuria (principal); Z87.440 Personal history of urinary (tract) infections; Z87.891 Personal history of nicotine dependence; Z88.5 Allergy status to narcotic agent; Z88.8 Allergy status to other drugs, medicaments and biological substances; Z79.899 Other long term (current) drug therapy
CPT/HCPCS: 81001

== ENCOUNTER → 2018-01-21 | Outpatient (REF) | payer MEDICARE, OTHER ==
[2018-01-25 00:08] LABS: CALPROTECTIN STOOL <16 ug/g (0-120)
== END ==
LOC: M LAB REF 12:47
DX: R19.7 Diarrhea, unspecified (principal); R10.31 Right lower quadrant pain
CPT/HCPCS: 83993

== ENCOUNTER → 2018-01-28 | Outpatient (CLI) | payer MEDICARE, OTHER | LOC: M RAD 17:56 | DX: R19.7 Diarrhea, unspecified (principal); R10.31 Right lower quadrant pain; Z83.79 Family history of other diseases of the digestive system | CPT/HCPCS: 74176 ==

== ENCOUNTER → 2018-03-11 | Outpatient (CLI) | payer MEDICARE, OTHER | LOC: M WUC 11:36 | DX: E03.9 Hypothyroidism, unspecified (principal) | CPT/HCPCS: 84443 ==

== ENCOUNTER 2018-03-12 16:44 | Emergency (ER) | payer MEDICARE, OTHER ==
[2018-03-12 17:43] LABS: VENOUS BASE EXCESS -0.4 (-2.0-2.0); VENOUS HCO3 22.6 MEQ/L (23.0-27.0); VENOUS O2 SATURATION 97.3 % (60.0-80.0); VENOUS PARTIAL PRESSURE CO2 32.7 mmHg (38.0-50.0); VENOUS PARTIAL PRESSURE O2 92.3 mmHg (30.0-50.0); VENOUS PH 7.458 UNITS (7.330-7.430); VENOUS STANDARD HCO3 24.2 MEQ/L; VENOUS TOTAL CO2 23.6 MEQ/L (24.0-28.0)
[2018-03-12 17:44] LABS: BASO % 0.3 % (0.0-1.0); EOS # 0.1 10^3/uL (0.0-0.50); EOS % 1.3 % (0.0-3.0); HEMATOCRIT 40.7 % (36.0-47.0); IMMATURE GRANULOCYTE % 0.3 % (0-3.0); LYMPH # 1.6 10^3/uL (1.5-4.5); LYMPH % 22.7 % (24.0-44.0); MEAN CORPUSCULAR HEMOGLOBIN 29.8 pg (27.0-33.0); MEAN CORPUSCULAR HGB CONC 34.4 g/dl (32.0-36.5); MEAN CORPUSCULAR VOLUME 86.6 fl (80.0-96.0); MONO # 0.4 10^3/uL (0.0-0.8); MONO % 6.1 % (0.0-5.0); NEUTROPHILS # 4.8 10^3/uL (1.8-7.7); NEUTROPHILS % 69.3 % (36.0-66.0); PLATELET COUNT, AUTOMATED 127 10^3/uL (150-450); RED CELL DISTRIBUTION WIDTH 14.6 % (11.5-14.5); WHITE BLOOD COUNT 6.9 10^3/uL (4.0-10.0)
[2018-03-12 17:55] LABS: PROTHROMBIN TIME 12.3 SECONDS (12.1-14.4)
[2018-03-12 18:02] LABS: LACTIC ACID SEPSIS PROTOCOL 1.1 MMOL/L (0.4-2.0)
[2018-03-12 18:05] LABS: ALBUMIN 3.9 GM/DL (3.2-5.2); ALBUMIN/GLOBULIN RATIO 1.05 (1.00-1.93); ALKALINE PHOSPHATASE 73 U/L (45-117); ALT/SGPT 61 U/L (12-78); ANION GAP 11 MEQ/L (8-16); AST/SGOT 37 U/L (7-37); BILIRUBIN,DIRECT 0.1 MG/DL (0.0-0.2); BILIRUBIN,TOTAL 0.4 MG/DL (0.2-1.0); BLOOD UREA NITROGEN 12 MG/DL (7-18); CALCIUM LEVEL 8.6 MG/DL (8.8-10.2); CARBON DIOXIDE LEVEL 24 MEQ/L (21-32); CHLORIDE LEVEL 103 MEQ/L (98-107); CPK CREATINE PHOSPHOKINASE 98 U/L (26-192); CREATININE FOR GFR 1.39 MG/DL (0.55-1.30); GLOMERULAR FILTRATION RATE 40.6 (>45); GLUCOSE, FASTING 117 MG/DL (70-100); POTASSIUM SERUM 3.6 MEQ/L (3.5-5.1); SODIUM LEVEL 138 MEQ/L (136-145); TOTAL PROTEIN 7.6 GM/DL (6.4-8.2); TROPONIN I < 0.02 NG/ML (< 0.10)
[2018-03-12 18:11] LABS: CK-MB VALUE MASS < 1.0 NG/ML (<3.6); MB/CK RELATIVE INDEX 1.02 (< OR =4); NT-PRO BNP 188 PG/ML (<125)
[2018-03-12] MEDS: IPRATROPIUM 0.5MG/ALBUTEROL 2.5MG INH SOL UD 3ML (DUONEB)(J7620) NEB ×3 (20:11→21:35)
[2018-03-12] MEDS: MOXIFLOXACIN HCL 400 MG in APPROPRIATE DILUENT 1 EA IV (20:11)
[2018-03-12] MEDS: methylPREDNISolone INJ 125 MG/2 ML VIAL (J2930) IV (20:11)
== END 2018-03-12 22:05 | disposition home or self-care (01) ==
LOC: M ED 16:44
DX: J44.1 Chronic obstructive pulmonary disease with (acute) exacerbation (principal); R00.0 Tachycardia, unspecified; K21.9 Gastro-esophageal reflux disease without esophagitis; J98.9 Respiratory disorder, unspecified; Z87.891 Personal history of nicotine dependence; Z79.899 Other long term (current) drug therapy; Z88.5 Allergy status to narcotic agent; Z88.8 Allergy status to other drugs, medicaments and biological substances
CPT/HCPCS: J2280

== ENCOUNTER 2018-05-28 11:48 | Emergency (ER) | payer MEDICARE, OTHER ==
[2018-05-28] MEDS: ALBUTEROL SULFATE 2.5 MG/0.5 ML INH NEB SOLN NEB (13:27)
[2018-05-28] MEDS: predniSONE 20 MG TAB PO (13:28)
== END 2018-05-28 14:03 | disposition home or self-care (01) ==
LOC: M ED 11:48
DX: J44.1 Chronic obstructive pulmonary disease with (acute) exacerbation (principal); H66.91 Otitis media, unspecified, right ear; J45.909 Unspecified asthma, uncomplicated; F41.9 Anxiety disorder, unspecified; F32.9 Major depressive disorder, single episode, unspecified; E03.9 Hypothyroidism, unspecified; K21.9 Gastro-esophageal reflux disease without esophagitis; C85.90 Non-Hodgkin lymphoma, unspecified, unspecified site; Z87.442 Personal history of urinary calculi; Z88.8 Allergy status to other drugs, medicaments and biological substances; Z88.5 Allergy status to narcotic agent; Z79.899 Other long term (current) drug therapy; Z79.51 Long term (current) use of inhaled steroids
CPT/HCPCS: 71046

== ENCOUNTER 2018-06-16 09:33 | Emergency (ER) | payer MEDICARE, OTHER ==
[2018-06-16 10:36] LABS: AMORPHOUS SEDIMENT RFX SMALL (NEGATIVE); KETONE, URINE AUTO RFX NEGATIVE (NEGATIVE); LEUKOCYTE ESTERASE UR AUTO RFX 3+ (NEGATIVE); NITRITE, URINE AUTO RFX NEGATIVE (NEGATIVE); RBC, URINE AUTO RFX TNTC /HPF (0-3); SPECIFIC GRAVITY UR AUTO RFX 1.014 (1.002-1.035); SQUAM EPITHELIAL CELL UR AURFX 4 /HPF (0-6); TRANSITIONAL EPITHELIAL AU RFX 2 /HPF; WBC, URINE AUTO RFX TNTC /HPF (0-3)
[2018-06-16] MEDS: CIPROFLOXACIN 250 MG TAB PO (11:10)
[2018-06-16] MEDS: PHENAZOPYRIDINE 100 MG TAB PO (11:10)
== END 2018-06-16 11:15 | disposition home or self-care (01) ==
LOC: M ED 09:33
DX: N30.90 Cystitis, unspecified without hematuria (principal); J44.9 Chronic obstructive pulmonary disease, unspecified; J45.909 Unspecified asthma, uncomplicated; C85.90 Non-Hodgkin lymphoma, unspecified, unspecified site; K21.9 Gastro-esophageal reflux disease without esophagitis; E03.9 Hypothyroidism, unspecified; F33.9 Major depressive disorder, recurrent, unspecified; F41.9 Anxiety disorder, unspecified; Z87.442 Personal history of urinary calculi; Z79.899 Other long term (current) drug therapy; Z79.890 Hormone replacement therapy; Z88.5 Allergy status to narcotic agent; Z88.8 Allergy status to other drugs, medicaments and biological substances
CPT/HCPCS: 81001

== ENCOUNTER → 2018-07-04 | Outpatient (CLI) | payer MEDICARE, OTHER ==
[2018-07-04 14:12] LABS: HEMOGLOBIN 12.2 g/dl (12.0-15.5); MEAN CORPUSCULAR HEMOGLOBIN 29.7 pg (27.0-33.0); PLATELET COUNT, AUTOMATED 133 10^3/uL (150-450); RED BLOOD COUNT 4.11 10^6/uL (4.00-5.40); RED CELL DISTRIBUTION WIDTH 14.7 % (11.5-14.5); WHITE BLOOD COUNT 7.1 10^3/uL (4.0-10.0)
[2018-07-04 14:45] LABS: ALBUMIN 3.2 GM/DL (3.2-5.2); ALBUMIN/GLOBULIN RATIO 0.97 (1.00-1.93); ALKALINE PHOSPHATASE 71 U/L (45-117); ALT/SGPT 30 U/L (12-78); ANION GAP 11 MEQ/L (8-16); AST/SGOT 20 U/L (7-37); BILIRUBIN,TOTAL 0.3 MG/DL (0.2-1.0); BLOOD UREA NITROGEN 10 MG/DL (7-18); CALCIUM LEVEL 8.1 MG/DL (8.8-10.2); CARBON DIOXIDE LEVEL 26 MEQ/L (21-32); CHLORIDE LEVEL 104 MEQ/L (98-107); CHOLESTEROL LEVEL 195 MG/DL (<200); CHOLESTEROL RISK RATIO 3.362 (<5); CREATININE FOR GFR 1.27 MG/DL (0.55-1.30); GLOMERULAR FILTRATION RATE 45.1 (>45); GLUCOSE, FASTING 107 MG/DL (70-100); HDL CHOLESTEROL 58 MG/DL (>40); LDL CHOLESTEROL 100 MG/DL (<100); NON-HDL-C 137 MG/DL; POTASSIUM SERUM 3.8 MEQ/L (3.5-5.1); SODIUM LEVEL 141 MEQ/L (136-145); TOTAL 25(OH) VITAMIN D 27.4 NG/ML (30.0-100.0); TOTAL PROTEIN 6.5 GM/DL (6.4-8.2); TRIGLYCERIDES LEVEL 187 MG/DL (<150)
== END ==
LOC: M WUC 11:45
DX: G25.0 Essential tremor (principal); E55.9 Vitamin D deficiency, unspecified; E03.9 Hypothyroidism, unspecified
CPT/HCPCS: 84443

== ENCOUNTER 2018-10-14 05:51 | Emergency (ER) | payer MEDICARE ==
[~2018-10-14] VITALS: Ht 157.5 cm; Wt 81.8 kg
[~2018-10-14 05:51] MED LIST changes: +AUGM875T28 PO; +BACT800T5 PO; +CIPR-250 PO; +COLE1TAB PO; +FOLI1TAB11 PO; -FOLI1TAB4 PO; -PANT40TA2 PO; +PANT40TA3 PO; +PRED20TA PO; +PROBCAP14 PO; +PYRI1TAB5 PO
[2018-10-14] MEDS ORDERED: FAMOTIDINE IV BAG 20 MG in APPROPRIATE DILUENT 1 EA IV ONE (06:30)
[2018-10-14] MEDS ORDERED: NS 1,000 ML IV ONE (06:30)
[2018-10-14 06:49] LABS: BASO # 0.1 10^3/uL (0.0-0.2); BASO % 0.8 % (0.0-1.0); EOS # 0.1 10^3/uL (0.0-0.50); EOS % 2.1 % (0.0-3.0); HEMOGLOBIN 13.1 g/dl (12.0-15.5); LYMPH # 1.7 10^3/uL (1.5-4.5); LYMPH % 26.3 % (24.0-44.0); MEAN CORPUSCULAR HEMOGLOBIN 29.6 pg (27.0-33.0); MEAN CORPUSCULAR HGB CONC 34.5 g/dl (32.0-36.5); MONO # 0.6 10^3/uL (0.0-0.8); MONO % 9.2 % (0.0-5.0); NEUTROPHILS # 3.9 10^3/uL (1.8-7.7); NEUTROPHILS % 61.1 % (36.0-66.0); RED BLOOD COUNT 4.42 10^6/uL (4.00-5.40); WHITE BLOOD COUNT 6.3 10^3/uL (4.0-10.0)
[2018-10-14 07:00] LABS: INR 0.96; PROTHROMBIN TIME 12.9 SECONDS (12.1-14.4)
[2018-10-14 07:01] LABS: PARTIAL THROMBOPLASTIN TIME 27.9 SECONDS (25.4-37.6)
[2018-10-14 07:19] LABS: ALBUMIN 3.9 GM/DL (3.2-5.2); BILIRUBIN,DIRECT 0.2 MG/DL (0.0-0.2); BILIRUBIN,TOTAL 0.6 MG/DL (0.2-1.0); C REACTIVE PROTEIN QUANTITATIV 0.93 MG/DL (0.00-0.30); CALCIUM LEVEL 9.1 MG/DL (8.8-10.2); CREATININE FOR GFR 1.28 MG/DL (0.55-1.30); ERYTHROCYTE SEDIMENTATION RATE 44 mm/hr (0-30); GLOMERULAR FILTRATION RATE 44.7 (>45); POTASSIUM SERUM 3.4 MEQ/L (3.5-5.1); TOTAL PROTEIN 7.4 GM/DL (6.4-8.2)
[2018-10-14 07:45] LABS: PLATELET COUNT, AUTOMATED 76 10^3/uL (150-450)
[2018-10-14] MEDS ORDERED: ISOVUE-370 76% 100ML VIAL (Q9967) As Ordered ONE (09:12)
[2018-10-14] MEDS ORDERED: MORPHINE 4 MG/ML 1ML VIAL/SYRINGE (J2270) IV ONE (09:15)
--- NOTE | 2018-10-14 10:11 | REP ---
CT of the abdomen pelvis with IV contrast, without bowel contrast: Comparison is 01/28/2018. The visualized lung hoang demonstrate a small parenchymal scar at the inferior tip of the lingula, unchanged. The hepatic parenchyma is homogeneous and unremarkable. There are surgical clips in the gallbladder fossa. This is unchanged. The pancreas is unremarkable. The spleen is enlarged measuring 13.8 x 13.8 by 6.3 cm of for a splenic index of 1199. Normal is up to 480. There are no focal splenic lesions. The adrenals are unremarkable. The kidneys are unremarkable except for cortical scarring of the left kidney anteriorly. Abdominal aorta is unremarkable except for calcified atheroma. There are occasional periaortic nodes measuring up to 8 mm short axis, not significantly changed from the prior study. There is no bowel distension or obstruction. There is wall thickening of the sigmoid colon, nonspecific, artifact from under distension versus colitis in the appropriate clinical setting. This is not significantly changed from the prior study. Pelvis: The the patient reportedly has an appendectomy. There is a hysterectomy. Vaginal cuff and adnexa are unremarkable. The bladder is adequately distended and cannot be further evaluated. There is no ascites or adenopathy. Impression: Splenomegaly. Stable periaortic nodes. Findings compatible with colitis of the sigmoid colon in the appropriate clinical setting versus artifact from under distension. Cholecystectomy, appendectomy, hysterectomy. Electronically Signed by Ralph Stark MD 10/14/2018 10:02 A
[2018-10-14 10:30] VITALS: BP 115/73
[2018-10-14 10:31] LABS: APPEARANCE, URINE CLEAR (CLEAR); BACTERIA, URINE AUTO NEGATIVE (NEGATIVE); BILIRUBIN, URINE AUTO NEGATIVE (NEGATIVE); BLOOD, URINE BLOOD 1+ (NEGATIVE); COLOR, URINE STRAW (YELLOW); GLUCOSE, URINE (UA) AUTO NEGATIVE (NEGATIVE); KETONE, URINE AUTO NEGATIVE (NEGATIVE); LEUKOCYTE ESTERASE, URINE AUTO NEGATIVE (NEGATIVE); NITRITE, URINE AUTO NEGATIVE (NEGATIVE); PROTEIN, URINE AUTO NEGATIVE (NEGATIVE); RBC, URINE AUTO 1 /HPF (0-3); SPECIFIC GRAVITY URINE AUTO 1.029 (1.002-1.035); SQUAMOUS EPITHELIAL CELL UR AU 1 /HPF (0-6); UROBILINOGEN, URINE AUTO 0.2 mg/dL (0.0-2.0); WBC, URINE AUTO 0 /HPF (0-3)
[2018-10-14] MEDS ORDERED: CLAR1TAB2 PO (10:32)
[2018-10-14] MEDS ORDERED: FAMO20TA PO (10:32)
--- NOTE | 2018-10-14 11:48 | ED PDOC ---
Post-Departure Follow-Up sandi perales faxed formal report of ct abd/p for fu Katherine Connors MD Oct 14, 2018 11:48
== END 2018-10-14 10:39 | disposition home or self-care (01) ==
LOC: M ED 05:51
DX: K29.70 Gastritis, unspecified, without bleeding (principal); R10.13 Epigastric pain
CPT/HCPCS: 74177; 80048; 80076; 81001; 82150; 83690; 85025; 85049; 85055; 85610; 85652; 85730; 86140; 96361; 96365; 96375; 99284; J2270; Q9967

== ENCOUNTER → 2019-01-05 | Outpatient (CLI) | payer MEDICARE ==
[~2019-01-05] MED LIST changes: +CLAR1TAB2 PO; +FAMO20TA PO
[2019-01-05 13:24] LABS: HEMATOCRIT 36.4 % (36.0-47.0); HEMOGLOBIN 12.5 g/dl (12.0-15.5); MEAN CORPUSCULAR HEMOGLOBIN 29.7 pg (27.0-33.0); MEAN CORPUSCULAR HGB CONC 34.3 g/dl (32.0-36.5); MEAN CORPUSCULAR VOLUME 86.5 fl (80.0-96.0); PLATELET COUNT, AUTOMATED 127 10^3/uL (150-450); RED BLOOD COUNT 4.21 10^6/uL (4.00-5.40); WHITE BLOOD COUNT 6.7 10^3/uL (4.0-10.0)
[2019-01-05 13:52] LABS: ALBUMIN 3.5 GM/DL (3.2-5.2); BILIRUBIN,TOTAL 0.3 MG/DL (0.2-1.0); CALCIUM LEVEL 8.5 MG/DL (8.8-10.2); CREATININE FOR GFR 1.07 MG/DL (0.55-1.30); GLOMERULAR FILTRATION RATE 54.8 (>45); POTASSIUM SERUM 3.7 MEQ/L (3.5-5.1); THYROID STIMULATING HORMONE 2.75 uIU/ML (0.358-3.740)
[2019-01-05 14:08] LABS: TOTAL 25(OH) VITAMIN D 36.1 NG/ML (30.0-100.0)
== END ==
LOC: M LAB 12:25
PROVIDERS: ATTEND Nurse Practitioner Adult Health
DX: C85.90 Non-Hodgkin lymphoma, unspecified, unspecified site (principal); G25.0 Essential tremor; E03.9 Hypothyroidism, unspecified; E55.9 Vitamin D deficiency, unspecified; R25.1 Tremor, unspecified

== ENCOUNTER → 2019-01-05 | Outpatient (CLI) | payer MEDICARE ==
[2019-01-05 13:47] LABS: ALBUMIN 3.4 GM/DL (3.2-5.2); BILIRUBIN,TOTAL 0.4 MG/DL (0.2-1.0); CALCIUM LEVEL 8.4 MG/DL (8.8-10.2); CREATININE FOR GFR 1.1 MG/DL (0.55-1.30); GLOMERULAR FILTRATION RATE 53.1 (>45); POTASSIUM SERUM 3.6 MEQ/L (3.5-5.1); TOTAL PROTEIN 6.9 GM/DL (6.4-8.2)
== END ==
LOC: M LAB 12:21
PROVIDERS: ATTEND Psychiatry & Neurology Neurology
DX: R25.1 Tremor, unspecified (principal)

== ENCOUNTER 2019-06-28 12:56 | Emergency (ER) | payer MEDICARE ==
[~2019-06-28] VITALS: Ht 157.5 cm; Wt 82.8 kg
[~2019-06-28 12:56] MED LIST changes: +CYAN100049 PO; +CYAN500T8 PO; -DULO1CAP3 PO; +DULO1CAP6 PO; -MAGN400T PO; +MAGN400T3 PO; -VITA10002 PO; -VITA500T3 PO
[2019-06-28] MEDS ORDERED: PRIM50TA6 PO (13:06)
[2019-06-28] MEDS ORDERED: LEVO125T4 PO (13:06)
[2019-06-28] MEDS ORDERED: LEVA1TAB2 PO (14:11)
[2019-06-28] MEDS ORDERED: PYRI1TAB5 PO (14:26)
[2019-06-28 14:30] VITALS: BP 123/70
== END 2019-06-28 14:31 | disposition home or self-care (01) ==
LOC: M ED 12:56
DX: N39.0 Urinary tract infection, site not specified (principal); E03.9 Hypothyroidism, unspecified; J44.9 Chronic obstructive pulmonary disease, unspecified; Z88.8 Allergy status to other drugs, medicaments and biological substances; Z87.891 Personal history of nicotine dependence

== ENCOUNTER → 2019-07-06 | Outpatient (REF) | payer MEDICARE ==
[~2019-07-06] MED LIST changes: +LEVA1TAB2 PO; +LEVO125T4 PO
[2019-07-06 15:41] LABS: HEMATOCRIT 37.4 % (36.0-47.0); HEMOGLOBIN 12.8 g/dl (12.0-15.5); MEAN CORPUSCULAR HEMOGLOBIN 29.4 pg (27.0-33.0); MEAN CORPUSCULAR HGB CONC 34.2 g/dl (32.0-36.5); PLATELET COUNT, AUTOMATED 150 10^3/uL (150-450); RED BLOOD COUNT 4.35 10^6/uL (4.00-5.40); WHITE BLOOD COUNT 11.2 10^3/uL (4.0-10.0)
[2019-07-06 16:15] LABS: ALBUMIN 3.6 GM/DL (3.2-5.2); BILIRUBIN,TOTAL 0.3 MG/DL (0.2-1.0); CALCIUM LEVEL 8.8 MG/DL (8.8-10.2); CREATININE FOR GFR 1.16 MG/DL (0.55-1.30); GLOMERULAR FILTRATION RATE 49.9 (>45); POTASSIUM SERUM 3.1 MEQ/L (3.5-5.1); THYROID STIMULATING HORMONE 3.14 uIU/ML (0.358-3.740)
[2019-07-06 16:17] LABS: TOTAL 25(OH) VITAMIN D 28.9 NG/ML (30.0-100.0)
== END ==
LOC: M SFHCPLAZ 14:37
PROVIDERS: ATTEND Nurse Practitioner Adult Health
DX: C85.90 Non-Hodgkin lymphoma, unspecified, unspecified site (principal); E03.9 Hypothyroidism, unspecified; E55.9 Vitamin D deficiency, unspecified
CPT/HCPCS: 36415; 80053; 82306; 84443; 85027; 90682; G0008

== ENCOUNTER 2020-02-02 13:22 | Emergency (ER) | payer MEDICARE ==
[~2020-02-02] VITALS: Ht 157.5 cm; Wt 84.7 kg
[~2020-02-02 13:22] MED LIST changes: +ONDA-83 PO; -ONDA4TAB5 PO
[2020-02-02] MEDS ORDERED: VITATAB74 PO (13:34)
[2020-02-02] MEDS ORDERED: PRIM50TA6 PO (13:34)
[2020-02-02] MEDS ORDERED: MICR1TAB5 PO (13:34)
[2020-02-02 13:39] VITALS: BP 146/72
[2020-02-02] MEDS ORDERED: VENTAER INH (13:39)
[2020-02-02] MEDS ORDERED: VITAD1000T PO (13:39)
[2020-02-02] MEDS ORDERED: METH1TAB40 PO (14:36)
--- NOTE | 2020-02-02 16:11 | REP ---
CHEST, TWO VIEWS: Two views of the chest performed and compared to a prior study of 05/28/2018. There is mild linear fibroatelectatic change in each lung base essentially unchanged compared to the prior study. There is no acute infiltrate or pulmonary edema. The heart is normal in size. The mediastinal silhouette is unchanged. There are moderate degenerative changes of the spine. . IMPRESSION: No evidence of acute pulmonary disease. Electronically Signed by Ralph Sanchez MD 02/03/2020 12:35 P
--- NOTE | 2020-02-02 18:54 | ECGEPIP ---
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
== END 2020-02-02 14:42 | disposition home or self-care (01) ==
LOC: M ED 13:22
DX: S23.3XXA Sprain of ligaments of thoracic spine, initial encounter (principal); M62.830 Muscle spasm of back; Z87.891 Personal history of nicotine dependence; Z88.8 Allergy status to other drugs, medicaments and biological substances; Y92.89 Other specified places as the place of occurrence of the external cause; Y93.9 Activity, unspecified

== ENCOUNTER → 2020-06-09 | Outpatient (CLI) | payer MEDICARE ==
[~2020-06-09] MED LIST changes: +D31000TA2 PO; +METH1TAB40 PO; +MICR1TAB5 PO; +PANT40TA29 PO; -PANT40TA3 PO; +VENTAER INH; +VITATAB74 PO
[2020-06-09 11:22] LABS: HEMATOCRIT 39.9 % (36.0-47.0); HEMOGLOBIN 13.3 g/dl (12.0-15.5); MEAN CORPUSCULAR HEMOGLOBIN 28.9 pg (27.0-33.0); MEAN CORPUSCULAR HGB CONC 33.3 g/dl (32.0-36.5); MEAN CORPUSCULAR VOLUME 86.6 fl (80.0-96.0); PLATELET COUNT, AUTOMATED 180 10^3/uL (150-450); RED BLOOD COUNT 4.61 10^6/uL (4.00-5.40); WHITE BLOOD COUNT 6.9 10^3/uL (4.0-10.0)
[2020-06-09 11:57] LABS: ALBUMIN 3.5 GM/DL (3.2-5.2); BILIRUBIN,TOTAL 0.5 MG/DL (0.2-1.0); CALCIUM LEVEL 9.1 MG/DL (8.8-10.2); CHOLESTEROL RISK RATIO 3.766 (<5); CREATININE FOR GFR 1.19 MG/DL (0.55-1.30); GLOMERULAR FILTRATION RATE 48.3 (>45); POTASSIUM SERUM 3.8 MEQ/L (3.5-5.1); THYROID STIMULATING HORMONE 0.546 uIU/ML (0.358-3.740)
== END ==
LOC: M LAB 10:20
PROVIDERS: ATTEND Nurse Practitioner Adult Health
DX: C85.90 Non-Hodgkin lymphoma, unspecified, unspecified site (principal); E55.9 Vitamin D deficiency, unspecified; E03.9 Hypothyroidism, unspecified; E53.8 Deficiency of other specified B group vitamins; Z13.220 Encounter for screening for lipoid disorders; Z79.899 Other long term (current) drug therapy

== ENCOUNTER → 2020-10-06 | Outpatient (CLI) | payer MEDICARE ==
[~2020-10-06] MED LIST changes: +CYAN500T14 PO; -CYAN500T8 PO
== END ==
LOC: M LAB 12:12
PROVIDERS: ATTEND Ophthalmology
DX: E05.00 Thyrotoxicosis with diffuse goiter without thyrotoxic crisis or storm (principal)

== ENCOUNTER 2020-12-23 23:32 | Emergency (ER) | payer MEDICARE ==
[~2020-12-23] VITALS: Ht 160 cm; Wt 90.1 kg
[~2020-12-23 23:32] MED LIST changes: +METH-1164 PO; -METH1TAB40 PO
[2020-12-24] MEDS ORDERED: PHENAZOPYRIDINE 100 MG TAB PO ONE (00:45)
[2020-12-24] MEDS ORDERED: BACTRIM 160MG/800MG DS TAB PO ONE (01:45)
[2020-12-24] MEDS ORDERED: traMADol 50 MG TAB PO ONE (01:45)
[2020-12-24] MEDS ORDERED: PYRI1TAB5 PO (01:51)
[2020-12-24] MEDS ORDERED: BACT800T5 PO (01:51)
[2020-12-24 02:08] VITALS: BP 145/70
== END 2020-12-24 02:12 | disposition home or self-care (01) ==
LOC: M ED 23:32
DX: N39.0 Urinary tract infection, site not specified (principal); J44.9 Chronic obstructive pulmonary disease, unspecified; F17.200 Nicotine dependence, unspecified, uncomplicated

== ENCOUNTER 2021-02-07 09:52 | Outpatient (CLI) | payer MEDICARE ==
[~2021-02-07] VITALS: Ht 160 cm; Wt 86.1 kg
[2021-02-07] MEDS ORDERED: NS IV ONE (10:00)
[2021-02-07] MEDS ORDERED: TEPROTUMUMAB TRBW IV ONE (10:00)
[2021-02-07] MEDS ORDERED: methylPREDNISolone (125 MG/2 ML) IV IV PRN (10:00)
[2021-02-07 10:12] VITALS: BP 132/88
[2021-02-07 10:18] VITALS: BP 132/88
[2021-02-07 12:40] VITALS: BP 126/79
== END 2021-02-07 12:40 | disposition home or self-care (01) ==
LOC: M INFU 09:52
PROVIDERS: ATTEND Ophthalmology
DX: H05.242 Constant exophthalmos, left eye (principal)
CPT/HCPCS: 96413; J3241

== ENCOUNTER 2021-02-28 09:50 | Outpatient (CLI) | payer MEDICARE ==
[~2021-02-28] VITALS: Ht 160 cm; Wt 86.5 kg
[2021-02-28] MEDS ORDERED: TEPROTUMUMAB TRBW IV ONE (10:00)
[2021-02-28] MEDS ORDERED: NS IV ONE (10:00)
[2021-02-28 10:29] VITALS: BP 132/74
[2021-02-28 10:34] VITALS: BP 132/74
[2021-02-28 12:53] VITALS: BP 122/83
== END 2021-02-28 12:55 | disposition home or self-care (01) ==
LOC: M INFU 09:50
PROVIDERS: ATTEND Ophthalmology
DX: H05.242 Constant exophthalmos, left eye (principal)
CPT/HCPCS: 96413; J3241

== ENCOUNTER → 2021-03-15 | Outpatient (REF) | payer MEDICARE | LOC: M LAB REF 20:40 | PROVIDERS: ATTEND Physician Assistant | DX: R30.0 Dysuria (principal) ==

== ENCOUNTER 2021-03-21 09:48 | Outpatient (CLI) | payer MEDICARE ==
[~2021-03-21] VITALS: Ht 160 cm; Wt 87.0 kg
[2021-03-21] MEDS ORDERED: NS IV ONE (10:00)
[2021-03-21] MEDS ORDERED: TEPROTUMUMAB TRBW IV ONE (10:00)
[2021-03-21 10:04] VITALS: BP 141/86
== END 2021-03-21 12:10 | disposition home or self-care (01) ==
LOC: M INFU 09:48
PROVIDERS: ATTEND Ophthalmology
DX: H05.242 Constant exophthalmos, left eye (principal); Z88.8 Allergy status to other drugs, medicaments and biological substances
CPT/HCPCS: 96365; J3241

== ENCOUNTER 2021-03-29 10:47 | Emergency (ER) | payer MEDICARE ==
[~2021-03-29] VITALS: Ht 157.5 cm; Wt 88.2 kg
[2021-03-29] MEDS ORDERED: AZO-95TA3 PO (11:29)
[2021-03-29 11:40] LABS: BILIRUBIN, URINE MANUAL OBSCURED (NEGATIVE); GLUCOSE, URINE (UA) MANUAL OBSCURED mg/dL (NEGATIVE); KETONE, URINE MANUAL OBSCURED mg/dL (NEGATIVE); UROBILINOGEN, URINE MANUAL OBSCURED mg/dl (NORMAL)
[2021-03-29 11:56] LABS: RBC, URINE TNTC /hpf (0-3); SQUAMOUS EPITHELIAL CELL URINE SMALL AMOUNT /hpf (SMALL AMT)
[2021-03-29 11:57] LABS: BACTERIA, URINE SMALL AMOUNT; MUCUS, URINE SMALL AMOUNT (NEGATIVE); TRANSITIONAL EPI CELLS, URINE SMALL AMOUNT /hpf
[2021-03-29] MEDS ORDERED: PHENAZOPYRIDINE 100 MG TAB PO ONE (13:05)
[2021-03-29] MEDS ORDERED: ACETAMINOPHEN 325 MG TAB PO ONE (13:05)
[2021-03-29 13:20] LABS: BASO # 0.1 10^3/uL (0.0-0.2); EOS # 0.2 10^3/uL (0.0-0.5); EOS % 1.5 % (0.0-3.0); HEMATOCRIT 40.8 % (36.0-47.0); HEMOGLOBIN 13.9 g/dl (12.0-15.5); LYMPH # 2.5 10^3/uL (1.5-5.0); LYMPH % 21.7 % (24.0-44.0); MEAN CORPUSCULAR HEMOGLOBIN 30.4 pg (27.0-33.0); MEAN CORPUSCULAR HGB CONC 34.1 g/dl (32.0-36.5); MEAN CORPUSCULAR VOLUME 89.3 fl (80.0-96.0); MONO # 0.5 10^3/uL (0.0-0.8); MONO % 4.3 % (2.0-8.0); NEUTROPHILS # 8.2 10^3/uL (1.5-8.5); NEUTROPHILS % 71.2 % (36.0-66.0); PLATELET COUNT, AUTOMATED 156 10^3/uL (150-450); RED BLOOD COUNT 4.57 10^6/uL (4.00-5.40); WHITE BLOOD COUNT 11.5 10^3/uL (4.0-10.0)
[2021-03-29] MEDS ORDERED: BACT800T5 PO (13:28)
[2021-03-29 13:47] VITALS: BP 126/78
== END 2021-03-29 13:49 | disposition home or self-care (01) ==
LOC: M ED 10:47
DX: N30.00 Acute cystitis without hematuria (principal); J44.9 Chronic obstructive pulmonary disease, unspecified; E03.9 Hypothyroidism, unspecified; C85.90 Non-Hodgkin lymphoma, unspecified, unspecified site; Z79.899 Other long term (current) drug therapy

== ENCOUNTER 2021-04-11 09:51 | Outpatient (CLI) | payer MEDICARE ==
[~2021-04-11] VITALS: Ht 160 cm; Wt 86.3 kg
[~2021-04-11 09:51] MED LIST changes: +AZO-95TA3 PO
[2021-04-11 10:00] VITALS: BP 127/71
[2021-04-11] MEDS ORDERED: NS IV ONE (10:00)
[2021-04-11] MEDS ORDERED: TEPROTUMUMAB TRBW IV ONE (10:00)
[2021-04-11 12:05] VITALS: BP 138/86
== END 2021-04-11 12:05 | disposition home or self-care (01) ==
LOC: M INFU 09:51
PROVIDERS: ATTEND Ophthalmology
DX: H05.242 Constant exophthalmos, left eye (principal); Z88.8 Allergy status to other drugs, medicaments and biological substances
CPT/HCPCS: 96365; J3241

== ENCOUNTER 2021-05-02 09:42 | Outpatient (CLI) | payer MEDICARE ==
[~2021-05-02] VITALS: Ht 160 cm; Wt 86.1 kg
[~2021-05-02 09:42] MED LIST changes: +methylPREDNISolone 250 MG in D5W 100 ML IV PRN
[2021-05-02] MEDS ORDERED: TEPROTUMUMAB TRBW IV ONE (10:00)
[2021-05-02] MEDS ORDERED: NS IV ONE (10:00)
[2021-05-02 10:10] VITALS: BP 119/70
[2021-05-02 12:27] VITALS: BP 144/78
== END 2021-05-02 12:30 | disposition home or self-care (01) ==
LOC: M INFU 09:42
PROVIDERS: ATTEND Ophthalmology
DX: H05.242 Constant exophthalmos, left eye (principal); Z88.8 Allergy status to other drugs, medicaments and biological substances
CPT/HCPCS: 96365; J3241

== ENCOUNTER 2021-05-23 10:00 | Outpatient (CLI) | payer MEDICARE ==
[~2021-05-23] VITALS: Ht 157.5 cm; Wt 86.8 kg
[~2021-05-23 10:00] MED LIST changes: -methylPREDNISolone 250 MG in D5W 100 ML IV PRN
[2021-05-23 10:12] VITALS: BP 130/78
[2021-05-23] MEDS ORDERED: NS IV ONE (10:30)
[2021-05-23] MEDS ORDERED: methylPREDNISolone 250 MG in D5W 100 ML IV PRN (10:30)
[2021-05-23] MEDS ORDERED: TEPROTUMUMAB TRBW IV ONE (10:30)
[2021-05-23 12:55] VITALS: BP 140/80
== END 2021-05-23 12:55 | disposition home or self-care (01) ==
LOC: M INFU 10:00
PROVIDERS: ATTEND Ophthalmology
DX: H05.242 Constant exophthalmos, left eye (principal); Z88.8 Allergy status to other drugs, medicaments and biological substances
CPT/HCPCS: 96365; J3241

== ENCOUNTER 2021-05-29 16:21 | Emergency (ER) | payer MEDICARE ==
[~2021-05-29] VITALS: Ht 157.5 cm; Wt 86.4 kg
[2021-05-29 16:22] VITALS: BP 165/80
== END 2021-05-29 17:43 | disposition left against medical advice (07) ==
LOC: M ED 16:21
DX: Z53.21 Procedure and treatment not carried out due to patient leaving prior to being seen by health care provider (principal)

== ENCOUNTER → 2021-06-13 | Outpatient (CLI) | payer MEDICARE ==
[~2021-06-13] MED LIST changes: +BENZ-18; +CYAN100050 PO; +D200CAP PO; +DOXY100C3 PO; +DOXY100T; +DULO30CA9 PO; +NS IV ONE; +PROAAER10 INH; +SYMB80INH INH; +TEPROTUMUMAB TRBW IV ONE; +TESS100C PO; +methylPREDNISolone 250 MG in D5W 100 ML IV PRN
== END ==
LOC: M INFU 09:48
PROVIDERS: ATTEND Ophthalmology
DX: Z53.9 Procedure and treatment not carried out, unspecified reason (principal)

== ENCOUNTER 2021-06-14 14:40 | Inpatient (IN) | payer MEDICARE ==
[~2021-06-14] VITALS: Ht 157.5 cm; Wt 89.0 kg
[~2021-06-14 14:40] MED LIST changes: -BENZ-18; -CYAN100050 PO; -D200CAP PO; -DOXY100C3 PO; -DOXY100T; -DULO30CA9 PO; -NS IV ONE; -PROAAER10 INH; -SYMB80INH INH; -TEPROTUMUMAB TRBW IV ONE; -TESS100C PO; -methylPREDNISolone 250 MG in D5W 100 ML IV PRN
--- OUTSIDE RECORDS SUMMARY | 2021-06-14 14:48 | CCD ---
Author Author Jarvis Choi MD [facility] Organization Jarvis Choi MD [facility] Address [phone] [address] Phone Care Team Providers Care Waist Pleater Name Role Phone Jimbo MEDEL, Jarvis WHITMORE Unavailable [phone] Reason for Referral No Reason for Referral Recorded Problems Includes: Active, inactive, and resolved Problems All Visits Onset Date - Time Resolved Date - Time Provider Co ndition Status Cataract Senile Cortical 10/05/2020 - 12:00AM Jarvis Choi MD, MYRANDA Active Cataract Senile Nuclear 10/05/2020 - 12:00AM Jarvis Choi MD, FACS Active Dry Eye Syndrome Both Eyes 10/05/2020 - 12:00AM Jarvis Choi MD, MYRANDA Active Graves' Ophthalmopathy 10/05/2020 - 12:00AM Jarvis Cohen MD, MYRANDA Active 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 10/05/2020 - 12:00AM Jarvis Choi MD, MYRANDA Active Vitreous Disorders Degeneration 10/05/2020 - 12:00AM Jarvis Choi MD, FACS Active Plan of Treatment Future Appointments Date Time Location Provider 5 Month Follow-Up 05/17/2021 12:15PM [facility] Jarvis Rowell MD, FACS Assessments Includes: Assessments for all patient encounters Findings Encounter Date Dry eye syndrome of both eyes 3 Month Follow-Up with Yael Choi MD, FACS 12/15/2020 Graves' ophthalmopathy 3 Month Follow-Up with Jarvis Coronel MD, MYRANDA 12/15/2020 Cortical senile cataract NEW PATIENT WITH REFERRAL [facility] Jarvis Choi MD, MYRANDA 10/05/2020 Dry eye syndrome of both eyes NEW PATIENT WITH REFERRA L with Jarvis Choi MD, FACS 10/05/2020 Graves' ophthalmopathy NEW PATIENT WITH REFERRAL [facility] Jarvis Choi MD, FACS 10/05/2020 Nuclear senile cataract NEW PATIENT WITH REFERRAL [facility] Jarvis Choi MD, FACS 10/05/2020 Vitreous degeneration NEW PATIENT WITH REFERRAL [facility] Jarvis Choi MD, MYRANDA 10/05/2020 Instructions Instructions not supported for this document typeNo Instructions Recorded Medical Equipment - Implanted Devices Includes: Current and historical DevicesNo Medical Equipment Recorded Medications Includes: Current and historical MedicationsNo Medications Taken Medications Administered Includes: Administered Medications in patient's chartNo Administered Medications Recorded Vital Signs Includes: Vital Signs from 05/10/2020 through 05/10/2021No Vital Signs Recorded For Specified Dates Results Includes: Results from 05/10/2020 through 05/10/2021 Thyroid Stimulating Immunoglobulin [facility] enter Lab Ordered by Jarvis Choi MD, FACS on 10/05/[address] [place] [address], [facility] Collected: Reported: 10/08/2020 00:00 tel:[phone] Thyroid Stimulating Immunoglobulin <0.10 IU/L (0.00-0.55) N (Normal) Reviewed by Jarvis Choi MD, FACS on 02/07/2021; All test results are final unless otherwise noted. 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, Dry eye syndrome of bilateral lacrimal glands Jarvis Choi MD, FACS Jarvis Choi MD [facility] 12/15/2020 Medical Eye Exam 68035 Thyrotoxicosis w dif fuse goiter w/o thyrotoxic crisis, Dry eye syndrome of bilateral lacrimal glands, Cortical age-related cataract, bilateral, Age-related nuclear cataract, bilateral Jarvis Choi MD, FACS Jarvis Choi MD [facility] 10/05/2020 Surgical History Last Updated Surgical / procedural history Gall Blad seng 2015, Appendectomy 2012, Hysterectomy 2019, 10/05/2020 Medical History Includes: Medical History in patient's chart Description Last Updated Currently wearing eyeglasses 12/15/2020 No recent change in medical history 12/15/2020 History of arthritis 10/05/2020 Reported medical history COPD, Graves D isease, Fast Heart Rate, Hearing loss, Anxiety, Depression, Cancer 10/05/2020 History of thyroid disorder 10/05/2020 Family History Includes: Family History in patient's chart Description Last Updated Maternal history of blindness 12/15/2020 Maternal history of cataract 12/15/2020 Maternal history of diabetes mellitus 12/15/2020 Maternal history of heart disease 12/15/2020 Sororal history of stroke/cerebrovascular accident Review of Systems Review of Systems not supported for this document typeNo Review of Systems Recorded Mental Status Mental Status not supported for this document type Description Oriented to time, place, and person Anxiety Functional Status Functional Status not supported for this document typeNo Functional Status Recorded Physical Exam Physical Exam not supported for this document typeNo Physical Exam Recorded Immunizations Includes: Immunizations in patient's chartNo Immunizations Recorded Allergies Includes: Active, inactive, and resolved AllergiesNo Known Allergies Encounters Includes: Encounters from 05/10/2020 through 05/10/2021 Encounter Provider Location Date Check-In Time Check-Out Time D iagnosis 3 Month Follow-Up Jarvis Choi MD, FACS Jarvis Choi MD [facility] 12/15/2020 12:17PM 1:01PM Graves' Ophthalmopat hy, Dry Eye Syndrome Both Eyes NEW PATIENT WITH REFERRAL Jarvis Choi MD, MYRANDA Kirkland MD [facility] 10/05/2020 1:36PM 2:51PM Cataract Senile Dc ical, Cataract Senile Nuclear, Vitreous Disorders Degeneration, Dry Eye Syndrome Both Eyes, Graves' Ophthalmopathy Insurance Includes: Active Insurance Policies Plan Name Member ID Group # Subscriber Relationship Effective Da khalida 1 - [employer] MEDICARE ADVANTAGE [id number] Trina peters Advance Directives Includes: Current Advance DirectivesNo Advance Directives Recorded Health Concerns Includes: Active Health ConcernsNo Active Health Concerns Recorded Goals Includes: Active GoalsNo Active Goals Recorded Interventions Includes: Interventions for active GoalsNo Interventions Recorded Evaluations & Outcomes Includes: Evaluations & Outcomes for active GoalsNo Outcomes Recorded
--- OUTSIDE RECORDS SUMMARY | 2021-06-14 14:48 | CCD ---
Author Author [facility] Organization [facility] Address Unknown Phone Unavailable Care Team Providers Care Money Market Clerk Name Role Phone Sherri Brewster Unavailable PROBLEMS Type Condition ICD9-CM Code [id number] Code Onset Dates Condition S tatus W/U Status Risk SNOMED Code Notes Problem Hiatal hernia K44.9 Active confirmed 635730 09 Problem Tobacco abuse Z72.0 Active confirmed 795455 05 Problem Fibromyalgia M79.7 Active confirmed 2733197 7 Problem Hypothyroidism E03.9 Active confirmed 73302 008 Problem Vaginal atrophy N95.2 Active confirmed 2971 15800 Problem Depressed mood F32.9 Active confirmed 25210 9004 Problem Moderate persistent asthma with status asthmaticus J45.42 Active confirmed 480502045 Problem Non Hodgkin's lymphoma C85.90 Active confirmed 238920614 Problem 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 Active confirmed 30748782 Problem Altered bowel habits R19.4 Active confirmed 43236455 Problem Follicular lymphoma C82.90 Active confirmed 028016617 Problem COPD exacerbation J44.1 Active confirmed 19 2961386 Problem Chronic obstructive pulmonary disease, unspecified COPD ty pe J44.9 Active confirmed 30140627 Problem Adenomatous polyp D36.9 Active confirmed 44 0001493 Problem Vitamin D deficiency E55.9 Active confirmed 55518886 Problem Functional diarrhea K59.1 Active confirmed 69690236 Problem Xerosis cutis L85.3 Active confirmed 278591 00 Problem Actinic keratoses L57.0 Active confirmed 40 7667975 Problem COPD with exacerbation J44.1 Active confirmed 082287800 Problem Gastroesophageal reflux disease K21.9 Active confi rmed 603636424 Problem Stress incontinence N39.3 Active confirmed 28630188 Problem Benign essential tremor G25.0 Active confirmed 208903364 Problem Vitamin B12 deficiency E53.8 Active confirmed 129285461 Problem Seborrheic dermatitis L21.9 Active confirmed 57910055 Problem Seborrheic keratoses L82.1 Active confirmed 030817967 Problem Acrochordon L91.8 Active confirmed 97911301 2 Problem Quit smoking Z87.891 Active confirmed 270073 001 ALLERGIES Allergen (clinical drug ingredient) Drug/Non Drug Allergy do cumented on EMR Reaction Allergy Type Onset Date Status Statins Support([facility] Code:41094-20665) Unknown Drug [employer] [facility] Active BAXTRA DYSPNEA Non Drug Allergy Active ENCOUNTERS from 1955 to 2021-06-07 Encounter Location Date Provider Diagnosis [address] [phone] [place] [address] Jun, Sherri Servage Hypothyroidism E03.9 ; Non H odgkin's lymphoma C85.90 ; Gastroesophageal reflux disease K21.9 ; Benign essential tremor G25.0 ; Fibromyalgia M79.7 ; Chronic obstructive pulmonary disease, unspecified COPD type J44.9 ; Adenomatous polyp D36.9 ; Functional diarrhea K59.1 ; Encounter for immunization Z23 ; Vitamin D deficiency E55.9 ; Quit smoking Z87.891 ; Stress incontinence N39.3 and Vision changes H53.9 IMMUNIZATIONS Vaccine Route Administration Date Status COVID-19 dose #2 given elsewhere Unspecified Unknown Dec Administered Influenza 18 yrs & older Flublok IM Intramuscular Jun 06, 2021 Administered [facility] Given Unknown May 23, 2020 Administ ered COVID-19 dose #1 given elsewhere Unspecified Unknown Oct Administered Influenza 6mo & up Fluzone Unknown December 17, 2014 Refus ed Influenza 18 yrs & older Flublok IM Intramuscular Jun 07, 2020 Administered Influenza 18 yrs & older Flublok IM Intramuscular Jul 06, 2019 Administered Influenza 18 yrs & older Flublok IM Intramuscular Jun 26, 2018 Administered Pneumococcal Adult 0.5mL Pneumovax 23 Unknown Aug 19 12 Administered Pneumococcal 0.5mL Prevnar 13 IM Intramuscular Aug 14, 2016 A dministered Influenza 6mo & up Fluzone IM Intramuscular Jun 20, 2017 Admi nistered Influenza 6mo & up Fluzone IM Intramuscular Jun 13, 2016 Admi nistered Influenza 6mo & up Fluzone IM Intramuscular Jun 15, 2015 Admi nistered SOCIAL HISTORY Tobacco Use: Social History Observation Description Date Details (start date - stop date) Former Smoker Sex Assigned At : Social History Observation Description Sex Assigned At Unknown Education: Question Answer Notes Level of Education: Finished High School Audit Question Answer Notes Total Score: 0 Interpretation: Alcohol Education Drug and Alcohol Question Answer Notes Total Score: 0 Interpretation: No problems reported BMI Care Goal Follow-Up Question Answer Notes Above Normal BMI Follow-Up Giving encouragement to exercise Tobacco Use: Question Answer Notes Are you a: former smoker How long has it been since you last smoked? 6-12 months quit February 23, 2017 REASON FOR REFERRAL from 1955 to 2021-06-07 Reason please eval and treat for in crease issues with incontinence to the point where urine will run out of her wears pads 25/03 Diagnosis 1 Stress incontinence (N39.3) Referral Organization [facility] Donte Referring Provider First Name Sherri Referring Provider Last Name Ney Referring Provider Specialty Family Medicine Referred Organization [facility] Urology Referred Provider Cali Euceda Referred Address [address] ,[phone] ,[place], [place],[address] Referred Provider Specialty Urology Referral Priority Routine Referral Appointment Date 2021-07-20 General Notes Yesenia Ward 06/06/2021 2:3 1:01 PM > referral faxed and sent electronically VITAL SIGNS Weight 198.6 lbs Jun, Weight-kg 90.08 kg Jun, Height 62 in Jun, BMI 36.32 kg/m2 Jun, Heart Rate 85 /min Jun, Respiratory Rate 18 /min Jun, Temperature 97.9 degrees Fahrenheit Jun, Oximetry 100 Jun, Blood pressure systolic 122 mm Hg Jun, Blood pressure diastolic 74 mm Hg Jun, MEDICATIONS Medication SIG (Take, Route, Frequency, Duration) Notes Start Da te End Date Status Vitamin B-Complex 1000mg as directed Orally Not-Taking Betamethasone Dipropionate Aug 0.05 % 1 application to affected area Externally Once a day prn itchy pink rash on scalp for 30 day(s) 18 Feb, 20 19 Not-Taking Albuterol Sulfate 0.63 MG/3ML 3 ml as needed Inhalatio n every 6 hrs Dx:J44.9 for 30 day(s) Active Colestipol HCl 1 GM 1 tab Orally twice daily December, Active Cymbalta 30 MG 1 capsule Orally Once a day with 60 mg = 90 mg for 90 days Active Symbicort 160-4.5 MCG/ACT 2 puffs Inhalation Twice a day for 30 day(s) Jan, Active Vitamin B-6 100 MG 1 tablet Orally Once a day for 30 day(s) weaning down Dr. Garcia Active Folic Acid 1 MG 1 tablet Orally Once a day for 30 day(s) Active Cymbalta 60 MG 1 capsule Orally Once a day with 30 mg=9 0 mg for 90 days pain management Active Vitamin B 12 1000 mcg 1 lozenge Orally Once a day thru Dr. Souza Active Synthroid 125 MCG 1 tablet on an empty stomach in the morning Orally Once a day for 90 days Jul, Active Vitamin D 50 MCG (2000 UT) 2 capsule Orally Once a day Active Albuterol Sulfate HFA 2 puffs Inhalation every 4 hours as needed Active Primidone 50 MG [address] Souza Act gregg Temovate 0.05 % 1 application topically to h airline rash Twice a day prn itching for 10 day(s) Dec, Not-Taking PROCEDURES from 1955 to 2021-06-07 Procedure Date Ordered Result Body Site Imm: Flublok Quadrivalent 18 years & older 0.5mL IM Influenza 20 22-06-05 N/A RESULTS No Results REASON FOR VISIT 6m MEDICAL (GENERAL) HISTORY Type Description Date Medical History Cancer follicular lymphoma s tage IV diagnosesd 2008, R-CVP, R- CHOP relapase December 2009 off chemo [facility] 2011 SHANE Simmons Hematology/Oncology Medical History Hypothyroidism Medical History fibromyalgia Medical History depression Medical History Benign Essential Tremor Medical History Tobacco Abuse Medical History Stress Test 2003 LVEF 50-55% wants no fu rther follow up Medical History Hiatel HerniaEDG 2011...LVY5021 (biliary stent removal) Medical History Kidney Stones Medical History Flu vaccine 07/09/14 Medical History Refuses Mammograms several s cripts given in past. 02/24/18. 06/07/20 Medical History Stem Cell Transplant history of Medical History 03/08/2017, PFTs with methac holine challenge, study was positive, patient has some degree of air trapping, diffusion capacity impairment. Medical History CT of the abdomen pelvis no acute cardiopulmonary process Medical History Colonoscopy 2004 and 2011 and 04/09/2017 and 01/2018 Medical History colonoscopy June 2012 sma ll nonbleeding hemorrhoids small polyp removed x4 (adenomatousx3 /hyperplastic x 1) Medical History colonoscopy 04/09/2017, dive rticulosis in the rectosigmoid colon, sigmoid colon, descending colon. Polyps removed, tubular adenoma IV year follow-up Medical History Colonoscopy 02/19/18 Dr. Vanessa Garcia 6-8 polyps removed, requested report Medical History Fall 2019 PET Scan [place] [address] Boykin -negative Surgical History Hysterectomy Surgical History Cyst on ovaries Surgical History Appendectomy Surgical History cholecystectomy Surgical History colonoscopy 04-09-17 Hospitalization History Cancer 2008 Hospitalization History surgical related Hospitalization History UTI-ER 09/2014 Hospitalization History [facility]-COPD with acute bronchit is, possible reactive airway disease, RSV, early bacterial pneumonia, hypothyroidism, depression, active smoking, constipation, hypokalemia, fibromyalgia, CKD 02/14-02/16/2017 Goals Section No Information Health Concerns No Information MEDICAL EQUIPMENT No Information MENTAL STATUS No Information FUNCTIONAL STATUS No Information ASSESSMENTS Encounter Date Diagnosis Assessment Notes Treatment Notes Treatm ent Clinical Notes Jun, Hypothyroidism (ICD-10 - E03.9) Requesting 90 day prescription TSH levels are always variable, stressed with patient to take thyroid on an empty stomach half an hour before she eats Jun, Non Hodgkin's lymphoma (ICD-10 - C85.90) followied with Dr. Gaxiola and Dr. Tracey Chávez in [place]. She has finished all her treatents at the current time. had diarrhea from radiation controlled with colestipol, Dr. Gaxiola retired, is going back to Dr. Boykin at [facility], PET scan 2019 fall negative Jun, Gastroesophageal reflux disease (ICD-10 - K21.9) controlled at the current time with protonix EDG 2012, bilary stent removed. Dr. Vaughan has her her wean off the Protonix uses it on a prn basis Jun, Benign essential tremor (ICD-10 - G25.0) follows with Dr. Gilliland, remains on primidone with effect Jun, Fibromyalgia (ICD-10 - M79.7) on Cymbalta initially through Dr. Campoverde this office took over remains effective Jun, Chronic obstructive pulmonar y disease, unspecified COPD type (ICD- 10 - J44.9) chest xray chronic interstitial changes and chronic linear fibrosis in the left lung base. She had PFTs March 2017, with a positive methacholine challenge study 45% decline in FEV1 was noted. Patient had degree of air trapping, diffusion capacity impairment. using symbicot with effect refuses referral to pulmonary at the current time fall 2019 PET Scan negative 05/22/2021, stable today per patient Jun, Adenomatous polyp (ICD-10 - D36.9) Last colonoscopy was 04/19 Dr. Garcia, nonbleeding internal hemorrhoids, diverticulosis in the rectosigmoid colon, and the sigmoid colon and in the descending colon. Polyps removed. Polyps returned tubular adenoma, five-year follow-up follows with Dr. Vanessa Vaughan . 06/21/2021, colonoscopy just completed on 927, 3-year follow-up Jun, Functional diarrhea (ICD-10 - K59.1) 05/29/17:At her last visit she was started on WelChol 625 mg tab twice a day. 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 She has loose stools, numerous times per day without warning. 06/20/17 states it did not help,feels it made her stool looser, will continue to take immodium discussed she can take up to 4 tabs per day for control. 06/26/18 on colestipol with effect [address] Garcia 07/21 remains on colestipol with effect 06/21 remains on colestipol with effect 12/2020 remains on colestipol with effect 06/22 remains on colestipol with effect Jun, Encounter for immunization (ICD-10 - Z23) Jun, Vitamin D deficiency (ICD-10 - E55.9) checking levels remains on replacement otc Jun, Quit smoking (ICD-10 - Z87.891) Quit smoking in 2016, has not restarted!! Jun, Stress incontinence (ICD-10 - N39.3) Discussed physical therapy, discussed pessaries, discussed surgical interventions, as well as medications, agrees to referral today wears pas 24/Jun, Vision changes (ICD-10 - H53.9) saw Dr. Badillo for examination, now with Dr. Escoto, receiving eye infusions PLAN OF TREATMENT Medication Medication Name Sig Start Date Stop Date Cymbalta 60 MG 1 capsule Orally Once a day with 30 mg=90 mg for 90 days Cymbalta 30 MG 1 capsule Orally Once a day with 60 mg = 90 mg f or 90 days Primidone 50 MG 1 tab Orally bid Treatment Notes Assessment Notes Clinical Notes Hypothyroidism Requesting 90 day pr escriptionTSH levels are always variable, stressed with patient to take thyroid on an empty stomach half an hour before she eats Non Hodgkin's lymphoma followied with Dr Rama Gaxiola and Dr. Tracey Chávez in [place]. She has finished all her treatents at the current time. had diarrhea from radiation controlled with colestipol, Dr. Gaxiola retired, is going back to Dr. Boykin at [facility], PET scan 2019 fall negative Gastroesophageal reflux disease controll ed at the current time with protonix EDG 2012, bilary stent removed.Dr. Vaughan has her her wean off the Protonix uses it on a prn basis Benign essential tremor follows with Dr. Gilliland, remains on primidone with effect Fibromyalgia on Cymbalta initiall y through Dr. Campoverde this office took over remains effective Chronic obstructive pulmonary disease, unspecified COPD type chest xray chronic interstitial changes and chronic linear fibrosis in the left lung base. She had PFTs March 2017, with a positive methacholine challenge study 45% decline in FEV1 was noted. Patient had degree of air trapping, diffusion capacity impairment.using symbicot with effect refuses referral to pulmonary at the current timefall 2019 PET Scan negative05/22/2021, stable today per patient Adenomatous polyp Last colonoscopy was 04/19 Dr. Garcia, nonbleeding internal hemorrhoids, diverticulosis in the rectosigmoid colon, and the sigmoid colon and in the descending colon. Polyps removed. Polyps returned tubular adenoma, five-year follow-up follows with Dr. Vanessa Vaughan .06/21/2021, colonoscopy just completed on 92, 3-year follow-up Functional diarrhea 05/29/17:At her last visit she was started on WelChol 625 mg tab twice a day.She has a history of stage IV follicular and diffuse grade 1 non-Hodgkin's lymphoma, she has completed external beam radiation therapy to her left pelvis and femoral region, and 2014.She has loose stools, numerous times per day without warning.06/20/17 states it did not help,feels it made her stool looser, will continue to take immodium discussed she can take up to 4 tabs per day for control.06/26/18 on colestipol with effect [address] Garcia07/21 remains on colestipol with rhefey01/20 remains on colestipol with effect12/2020 remains on colestipol with txyrbn78/21 remains on colestipol with effect Vitamin D deficiency checking levels rem ains on replacement otc Quit smoking Quit smoking in 2016 , has not restarted!! Vision changes saw Dr. Badillo fo r examination, now with Dr. Escoto, receiving eye infusions Stress incontinence Discussed physical t herapy, discussed pessaries, discussed surgical interventions, as well as medications, agrees to referral today wears pas 25/03 Treatment Notes Test Name Order Date Comprehensive Metabolic Profile (CMP) 2021-06-06 VITAMIN D 25-HYDROXY 2021-06-06 TSH 2021-06-06 Referrals Referral Date Details 2021-07-20 2021-07-20, please eval and treat for increase issues with incontinence to the point where urine will run out of her wears pads 25/03, Cali Euceda, [address], [place], [address], Next Appt Details december Reason: Provider Name:Shannon Gallegos Max, 2021-07-03 8 02:30:00 PM, [address], , [place], [address], Insurance Providers Payer Name Payer Address Payer Phone Insured Name Patient Relati onship to Insured Coverage Start Date Coverage End Date A[employer]NA MEDICARE [employer] [address] [place] [address] ROMEL ALEXANDRE
--- OUTSIDE RECORDS SUMMARY | 2021-06-14 14:48 | CCD | Continuity of Care Document ---
Author Author Trina WILKINSON [place] Organization Unknown Address [address] [place] [id number] Phone [phone] Care Team Providers Care Kaiako Kohanga Reo Name Role Phone Sherri Brewster [facility] AUTM [phone] Problems Description No Information Available Social History Type Date Description Comments Sex Unknown ETOH Use Rarely consumes alcohol Tobacco Use Start: Unknown End: Unknown Patient is a former smoker quit 2016 Tobacco Use Start: Unknown The patient has never vaped Allergies, Adverse Reactions, Alerts Description No Known Drug Allergies Medications Active Medications SIG Qnty Indications Ordering Provide r Date Macrobid 100mg Capsules 1 tab by mouth twice a day x 7 days 14caps R30.0 Kamila Zhang JR. 03/15/2021 Azo Unknown Levothyroxine Sodium Unknown Cymbalta Unknown B-6 Unknown B 3 Unknown Colestipol HCL 1gm Tablets Take 1 Tablet By Mouth Twice Daily Unknown Primidone 50mg Tablets Take 1 Tablet By Mouth Twice Daily . DO Not Exceed 2 Per 24 Hours Unknown Folic Acid 1mg Tablets Take 1 Tablet By Mouth Once Daily . DO Not Exceed 1 Per 24 Hours Unknown Infusions Q 3 Weeks Unknown Immunizations Description No Information Available Vital Signs Date Vital Result Comment 03/15/2021 4:54pm BP Systolic 114 mmHg BP Diastolic 74 mmHg Heart Rate 98 /min Respiratory Rate 18 /min O2 % BldC Oximetry 97 % Body Temperature 96.8 F Weight 190.00 lb Height 62 inches 5'2" BMI (Body Mass Index) 34.7 kg/m2 Pain Level 10 Results Test Acquired Date Facility Test Result H/L Range Note Laboratory test finding 03/15/2021 [facility] [address] [place] [address] [phone] Urine Culture FULL REPORT IN L <SEE NOTE> Normal 1 1 FULL REPORT IN LAB NOTES ([facility] and [facility]). SPECIMEN APPEARS CONTAMINATED Procedures Date Code Description Status 03/15/2021 [address] Office/Outpatient New Low MDM 30 -44 Minutes Completed Medical Devices Description No Information Available Encounters Type Date Location Provider Dx Diagnosis Office Visit 03/15/2021 4:50p Main Office [facility] R30 .0 Dysuria Assessments Date Code Description Provider 03/15/2021 R30.0 Dysuria [facility] [place] Plan of Treatment No Information Available Functional Status Description No Information Available Mental Status Description No Information Available Referrals Description No Information Available
--- OUTSIDE RECORDS SUMMARY | 2021-06-14 14:49 | CCD ---
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 Name Role Phone Servage, L Sherri GRINDING ROOM INSPECTOR Unavailable Unavailable Servage, L Sherri GRINDING ROOM INSPECTOR Unavailable Unavailable Servage, L Sherri GRINDING ROOM INSPECTOR Unavailable Unavailable Servage, L Sherri GRINDING ROOM INSPECTOR Unavailable Unavailable Servage, L Sherri GRINDING ROOM INSPECTOR Unavailable Unavailable Servage, L Sherri GRINDING ROOM INSPECTOR Unavailable Unavailable Servage, L Sherri GRINDING ROOM INSPECTOR Unavailable Unavailable Servage, L Sherri GRINDING ROOM INSPECTOR Unavailable Unavailable Servage, L Sherri GRINDING ROOM INSPECTOR Unavailable Unavailable Servage, L Sherri GRINDING ROOM INSPECTOR Unavailable Unavailable Servage, L Sherri GRINDING ROOM INSPECTOR Unavailable Unavailable Servage, L Sherri GRINDING ROOM INSPECTOR Unavailable Unavailable Servage, L Sherri GRINDING ROOM INSPECTOR Unavailable Unavailable Servage, L Sherri GRINDING ROOM INSPECTOR Unavailable Unavailable Servage, L Sherri GRINDING ROOM INSPECTOR Unavailable Unavailable Servage, L Sherri GRINDING ROOM INSPECTOR Unavailable Unavailable Servage, L Sherri GRINDING ROOM INSPECTOR Unavailable Unavailable Servage, L Sherri GRINDING ROOM INSPECTOR Unavailable Unavailable Servage, L Sherri GRINDING ROOM INSPECTOR Unavailable Unavailable Servage, L Sherri GRINDING ROOM INSPECTOR Unavailable Unavailable Servage, L Sherri GRINDING ROOM INSPECTOR Unavailable Unavailable Servage, L Sherri GRINDING ROOM INSPECTOR Unavailable Unavailable Servage, L Sherri GRINDING ROOM INSPECTOR Unavailable Unavailable Servage, L Sherri GRINDING ROOM INSPECTOR Unavailable Unavailable Servage, L Sherri GRINDING ROOM INSPECTOR Unavailable Unavailable Servage, L Sherri GRINDING ROOM INSPECTOR Unavailable Unavailable Servage, L Sherri GRINDING ROOM INSPECTOR Unavailable Unavailable Servage, L Sherri GRINDING ROOM INSPECTOR Unavailable Unavailable Servage, L Sherri GRINDING ROOM INSPECTOR Unavailable Unavailable Servage, L Sherri GRINDING ROOM INSPECTOR Unavailable Unavailable Servage, L Sherri GRINDING ROOM INSPECTOR Unavailable Unavailable Servage, L Sherri GRINDING ROOM INSPECTOR Unavailable Unavailable Servage, L Sherri GRINDING ROOM INSPECTOR Unavailable Unavailable Servage, L Sherri GRINDING ROOM INSPECTOR Unavailable Unavailable Servage, L Sherri GRINDING ROOM INSPECTOR Unavailable Unavailable Servage, L Sherri GRINDING ROOM INSPECTOR Unavailable Unavailable Servage, L Sherri GRINDING ROOM INSPECTOR Unavailable Unavailable Servage, L Sherri GRINDING ROOM INSPECTOR Unavailable Unavailable Servage, L Sherri GRINDING ROOM INSPECTOR Unavailable Unavailable Servage, L Sherri GRINDING ROOM INSPECTOR Unavailable Unavailable Servage, L Sherri GRINDING ROOM INSPECTOR Unavailable Unavailable Servage, L Sherri GRINDING ROOM INSPECTOR Unavailable Unavailable Servage, L Sherri GRINDING ROOM INSPECTOR Unavailable Unavailable Servage, L Sherri GRINDING ROOM INSPECTOR Unavailable Unavailable Servage, L Sherri GRINDING ROOM INSPECTOR Unavailable Unavailable Servage, L Sherri GRINDING ROOM INSPECTOR Unavailable Unavailable Servage, L Sherri GRINDING ROOM INSPECTOR Unavailable Unavailable Servage, L Sherri GRINDING ROOM INSPECTOR Unavailable Unavailable Servage, L Sherri GRINDING ROOM INSPECTOR Unavailable Unavailable Servage, L Sherri GRINDING ROOM INSPECTOR Unavailable Unavailable Servage, L Sherri GRINDING ROOM INSPECTOR Unavailable Unavailable Servage, L Sherri GRINDING ROOM INSPECTOR Unavailable Unavailable Servage, L Sherri GRINDING ROOM INSPECTOR Unavailable Unavailable Servage, L Sherri GRINDING ROOM INSPECTOR Unavailable Unavailable Servage, L Sherri GRINDING ROOM INSPECTOR Unavailable Unavailable Servage, L Sherri GRINDING ROOM INSPECTOR Unavailable Unavailable Servage, L Sherri GRINDING ROOM INSPECTOR Unavailable Unavailable Servage, L Sherri GRINDING ROOM INSPECTOR Unavailable Unavailable Servage, L Sherri GRINDING ROOM INSPECTOR Unavailable Unavailable Servage, L Sherri GRINDING ROOM INSPECTOR Unavailable Unavailable Servage, L Sherri GRINDING ROOM INSPECTOR Unavailable Unavailable Servage, L Sherri GRINDING ROOM INSPECTOR Unavailable Unavailable Servage, L Sherri GRINDING ROOM INSPECTOR Unavailable Unavailable Servage, L Sherri GRINDING ROOM INSPECTOR Unavailable Unavailable Servage, L Sherri GRINDING ROOM INSPECTOR Unavailable Unavailable LETTIERE, Rohit BOBBY PA Unavailable Unavailable LETTIERE, Rohit BOBBY PA Unavailable Unavailable LETTIERE, Rohit BOBBY PA Unavailable Unavailable LETTIERE, Rohit BOBBY PA Unavailable Unavailable LETTIERE, Rohit BOBBY PA Unavailable Unavailable LETTIERE, Rohit BOBBY PA Unavailable Unavailable LETTIERE, Rohit BOBBY PA Unavailable Unavailable LETTIERE, Rohit BOBBY PA Unavailable Unavailable LETTIERE, Rohit BOBBY PA Unavailable Unavailable LETTIERE, A DIAMANTE PA Unavailable Unavailable LETTIERE, A DIAMANTE PA Unavailable Unavailable LETTIERE, A DIAMANTE PA Unavailable Unavailable LETTIERE, A DIAMANTE PA Unavailable Unavailable LETTIERE, A DIAMANTE PA Unavailable Unavailable LETTIERE, A DIAMANTE PA Unavailable Unavailable LETTIERE, A DIAMANTE PA Unavailable Unavailable LETTIERE, A DIAMANTE PA Unavailable Unavailable LETTIERE, A DIAMANTE PA Unavailable Unavailable LETTIERE, A DIAMANTE PA Unavailable Unavailable LETTIERE, A DIAMANTE PA Unavailable Unavailable LETTIERE, A DIAMANTE PA Unavailable Unavailable LETTIERE, A DIAMANTE PA Unavailable Unavailable LETTIERE, A DIAMANTE PA Unavailable Unavailable LETTIERE, A DIAMANTE PA Unavailable Unavailable LETTIERE, A DIAMANTE PA Unavailable Unavailable LETTIERE, A DIAMANTE PA Unavailable Unavailable LETTIERE, A DIAMANTE PA Unavailable Unavailable LETTIERE, A DIAMANTE PA Unavailable Unavailable LETTIERE, A DIAMANTE PA Unavailable Unavailable LETTIERE, A DIAMANTE PA Unavailable Unavailable LETTIERE, A DIAMANTE PA Unavailable Unavailable CATHERINE (LORI), Janie MARCOS MD Unavailable Unavailab le CATHERINE (LORI), Janie MARCOS MD Unavailable Unavailab le CATHERINE (LORI), Janie MARCOS MD Unavailable Unavailab le CATHERINE (LORI), Janie MARCOS MD Unavailable Unavailab le CATHERINE (LORI), Janie MARCOS MD Unavailable Unavailab le CATHERINE (LORI), Janie MARCOS MD Unavailable Unavailab le CATHERINE (LORI), Janie MARCOS MD Unavailable Unavailab le CATHERINE (LORI), Janie MARCOS MD Unavailable Unavailab le CATHERINE (LORI), Janie MARCOS MD Unavailable Unavailab le CATHERINE (LORI), Janie MARCOS MD Unavailable Unavailab le CATHERINE (LORI), Janie MARCOS MD Unavailable Unavailab le CATHERINE (LORI), Janie MARCOS MD Unavailable Unavailab le CATHERINE (LORI), Janie MARCOS MD Unavailable Unavailab le CAHTERINE (LORI), Janie MARCOS MD Unavailable Unavailab le CATHERINE (LORI), Janie MARCOS MD Unavailable Unavailab le CATHERINE (LORI), Janie MARCOS MD Unavailable Unavailab le CATHERINE (LORI), Janie MARCOS MD Unavailable Unavailab le CATHERINE (LORI), Janie MARCOS MD Unavailable Unavailab le CATHERINE (LORI), Janie MARCOS MD Unavailable Unavailab le CATHERINE (LORI), Janie MARCOS MD Unavailable Unavailab le CATHERINE (LORI), Janie MARCOS MD Unavailable Unavailab le CATHERNIE (LORI), Janie MARCOS MD Unavailable Unavailab le CATHERINE (LORI), Janie MARCOS MD Unavailable Unavailab le CATHERINE (LORI), Janie MARCOS MD Unavailable Unavailab le CATHERINE (LORI), Janie MARCOS MD Unavailable Unavailab le CATHERINE (LORI), Janie MARCOS MD Unavailable Unavailab le CATHERINE (LORI), Janie MARCOS MD Unavailable Unavailab le CATHERINE (LORI), Janie MARCOS MD Unavailable Unavailab le CATHERINE (LORI), Janie MARCOS MD Unavailable Unavailab le CATHERINE (LORI), Janie MARCOS MD Unavailable Unavailab le CATHERINE (LORI), Janie MARCOS MD Unavailable Unavailab le CATHERINE (LORI), Janie MARCOS MD Unavailable Unavailab le CATHERINE (LORI), Janie MARCOS MD Unavailable Unavailab le CATHERINE (LORI), Janie MARCOS MD Unavailable Unavailab le CATHERINE (LORI), Janie MARCOS MD Unavailable Unavailab le CATHERINE (LORI), Janie MARCOS MD Unavailable Unavailab le CATHERINE (LORI), Janie MARCOS MD Unavailable Unavailab le CATHERINE (LORI), Janie MARCOS MD Unavailable Unavailab le CATHERINE (LORI), Janie MARCOS MD Unavailable Unavailab le CATHERINE (LORI), Janie MARCOS MD Unavailable Unavailab le CATHERINE (LORI), Janie MARCOS MD Unavailable Unavailab le CATHERINE (LORI), Janie MARCOS MD Unavailable Unavailab le CATHERINE (LORI), Janie MARCOS MD Unavailable Unavailab le CATHERINE (LORI), Janie MARCOS MD Unavailable Unavailab le CATHERINE (LORI), Janie MARCOS MD Unavailable Unavailab le CATHERINE (LORI), Janie MARCOS MD Unavailable Unavailab le CATHERINE (LORI), Janie MARCOS MD Unavailable Unavailab le CATHERINE (LORI), Janie MARCOS MD Unavailable Unavailab le CATHERINE (LORI), Janie MARCOS MD Unavailable Unavailab le CATHERINE (LORI), Janie MARCOS MD Unavailable Unavailab le CATHERINE (LORI), Janie MARCOS MD Unavailable Unavailab le CATHERINE (LORI), Janie MARCOS MD Unavailable Unavailab le CATHERINE (LORI), Janie MARCOS MD Unavailable Unavailab le CATHERINE (LORI), Janie MARCOS MD Unavailable Unavailab le CATHERINE (LORI), Janie MARCOS MD Unavailable Unavailab le CATHERINE (LORI), Janie MARCOS MD Unavailable Unavailab le CATHERINE (LORI), Janie MARCOS MD Unavailable Unavailab le CATHERINE (LORI), Janie MARCOS MD Unavailable Unavailab le CATHERINE (LORI), Janie MARCOS MD Unavailable Unavailab le CATHERINE (LORI), Janie MARCOS MD Unavailable Unavailab le CATHERINE (LORI), Janie MARCOS MD Unavailable Unavailab le CATHERINE (LORI), Janie MARCOS MD Unavailable Unavailab le CATHERINE (LORI), Janie MARCOS MD Unavailable Unavailab le CATHERINE (LORI), Janie MARCOS MD Unavailable Unavailab le CATHERINE (LORI), Janie MARCOS MD Unavailable Unavailab le CATHERINE (LORI), Janie MARCOS MD Unavailable Unavailab le CATHERINE (LORI), Janie MARCOS MD Unavailable Unavailab le CATHERINE (LORI), Janie MARCOS MD Unavailable Unavailab le CATHERINE (LORI), Janie MARCOS MD Unavailable Unavailab le CATHERINE (LORI), Janie MARCOS MD Unavailable Unavailab le CATHERINE (LORI), Janie MARCOS MD Unavailable Unavailab le CATHERINE (LORI), Janie MARCOS MD Unavailable Unavailab le CATHERINE (LORI), Janie MARCOS MD Unavailable Unavailab le CATHERINE (LORI), Janie MARCOS MD Unavailable Unavailab le CATHERINE (LORI), Janie MARCOS MD Unavailable Unavailab le CATHERINE (LORI), Janie MARCOS MD Unavailable Unavailab le CATHERINE (LORI), Janie MARCOS MD Unavailable Unavailab le CATHERINE (LORI), Janie MARCOS MD Unavailable Unavailab le CATHERINE (LORI), Janie MARCOS MD Unavailable Unavailab le CATHERINE (LORI), Janie MARCOS MD Unavailable Unavailab le CATHERINE (LORI), Janie MARCOS MD Unavailable Unavailab le CATHERINE (LORI), Janie MARCOS MD Unavailable Unavailab le CATHERINE (LORI), Janie MARCOS MD Unavailable Unavailab le CATHERINE (LORI), Janie MARCOS MD Unavailable Unavailab le CATHERINE (LORI), Janie MARCOS MD Unavailable Unavailab le CATHERINE (LORI), Janie MARCOS MD Unavailable Unavailab le CATHERINE (LORI), Janie MARCOS MD Unavailable Unavailab TATIANA Morgan MD Unavailable Unavailable TATIANA SMITH MD Unavailable Unavailable TATIANA SMITH MD Unavailable Unavailable TATIANA SMITH MD Unavailable Unavailable Florina Souza MD Unavailable Unavailable Florina Souza MD Unavailable Unavailable Florina Souza MD Unavailable Unavailable Florina Souza MD Unavailable Unavailable Florina Souza MD Unavailable Unavailable Florina Souza MD Unavailable Unavailable Florina Souza MD Unavailable Unavailable Ali, Florina MD Unavailable Unavailable Ali, Florina MD Unavailable Unavailable Ali, Florina MD Unavailable Unavailable Ali, Florina MD Unavailable Unavailable Ali, Florina MD Unavailable Unavailable Ali, Florina MD Unavailable Unavailable Ali, Florina MD Unavailable Unavailable Ali, Florina MD Unavailable Unavailable Ali, Florina MD Unavailable Unavailable Ali, Florina MD Unavailable Unavailable Ali, Florina MD Unavailable Unavailable Ali, Florina MD Unavailable Unavailable Ali, Florina MD Unavailable Unavailable Ali, Florina MD Unavailable Unavailable Ali, Florina MD Unavailable Unavailable Ali, Florina MD Unavailable Unavailable Ali, Florina MD Unavailable Unavailable Ali, Florina MD Unavailable Unavailable Ali, Florina MD Unavailable Unavailable Ali, Florina MD Unavailable Unavailable Ali, Florina MD Unavailable Unavailable Ali, Florina MD Unavailable Unavailable Ali, Florina MD Unavailable Unavailable Ali, Florina MD Unavailable Unavailable Ali, Florina MD Unavailable Unavailable Ali, Florina MD Unavailable Unavailable Ali, Florina MD Unavailable Unavailable Ali, Florina MD Unavailable Unavailable Ali, Florina MD Unavailable Unavailable Ali, Florina MD Unavailable Unavailable Ali, Florina MD Unavailable Unavailable Ali, Florina MD Unavailable Unavailable Ali, Florina MD Unavailable Unavailable Ali, Florina MD Unavailable Unavailable Ali, Florina MD Unavailable Unavailable Ali, Florina MD Unavailable Unavailable Ali, Florina MD Unavailable Unavailable Ali, Florina MD Unavailable Unavailable Ali, Florina MD Unavailable Unavailable Ali, Florina MD Unavailable Unavailable Ali, Florina MD Unavailable Unavailable Ali, Florina MD Unavailable Unavailable Ali, Florina MD Unavailable Unavailable Janie ANTON MD Unavailable Unavailable Janie ANTON MD Unavailable Unavailable Janie ANTON MD Unavailable Unavailable Janie ANTON MD Unavailable Unavailable Janie ANTON MD Unavailable Unavailable Janie ANTON MD Unavailable Unavailable Janie ANTON MD Unavailable Unavailable Janie ANTON MD Unavailable Unavailable Janie ANTON MD Unavailable Unavailable Janie ANTON MD Unavailable Unavailable Janie ANTON MD Unavailable Unavailable Janie ANTON MD Unavailable Unavailable Janie ANTON MD Unavailable Unavailable Janie ANTON MD Unavailable Unavailable Janie ANTON MD Unavailable Unavailable Janie ANTON MD Unavailable Unavailable Janie ANTON MD Unavailable Unavailable Janie ANTON MD Unavailable Unavailable Janie ANTON MD Unavailable Unavailable Janie ANTON MD Unavailable Unavailable Janie ANTON MD Unavailable Unavailable Janie ANTON MD Unavailable Unavailable Janie ANTON MD Unavailable Unavailable Janie ANTON MD Unavailable Unavailable Janie ANTON MD Unavailable Unavailable Janie ANTON MD Unavailable Unavailable Janie ANTON MD Unavailable Unavailable Janie ANTON MD Unavailable Unavailable Janie ANTON MD Unavailable Unavailable Janie ANTON MD Unavailable Unavailable Janie ANTON MD Unavailable Unavailable Janie ANTON MD Unavailable Unavailable Janie ANTON MD Unavailable Unavailable Janie ANTON MD Unavailable Unavailable Janie ANTON MD Unavailable Unavailable Janie ANTON MD Unavailable Unavailable Janie ANTON MD Unavailable Unavailable Janie ANTON MD Unavailable Unavailable Janie ANTON MD Unavailable Unavailable Janie ANTON MD Unavailable Unavailable Janie ANTON MD Unavailable Unavailable Janie ANTON MD Unavailable Unavailable Janie ANTON MD Unavailable Unavailable Janie ANTON MD Unavailable Unavailable Janie ANTON MD Unavailable Unavailable Janie ANTON MD Unavailable Unavailable Janie ANTON MD Unavailable Unavailable Janie ANTON MD Unavailable Unavailable Janie ANTON MD Unavailable Unavailable Janie ANTON MD Unavailable Unavailable Janie ANTON MD Unavailable Unavailable Janie ANTON MD Unavailable Unavailable Janie ANTON MD Unavailable Unavailable Janie ANTON MD Unavailable Unavailable Janie ANTON MD Unavailable Unavailable Janie ANTON MD Unavailable Unavailable Janie ANTON MD Unavailable Unavailable Janie ANTON MD Unavailable Unavailable Janie ANTON MD Unavailable Unavailable MADISON RESTREPO MD Unavailable Unavailable MADISON RESTREPO MD Unavailable Unavailable MADISON RESTREPO MD Unavailable Unavailable MADISON RESTREPO MD Unavailable Unavailable MADISON RESTREPO MD Unavailable Unavailable MADISON RESTREPO MD Unavailable Unavailable MADISON RESTREPO MD Unavailable Unavailable MADISON RESTREPO MD Unavailable Unavailable MADISON RESTREPO MD Unavailable Unavailable MADISON RESTREPO MD Unavailable Unavailable MADISON RESTREPO MD Unavailable Unavailable MADISON RESTREPO MD Unavailable Unavailable MADISON RESTREPO MD Unavailable Unavailable MADISON RESTREPO MD Unavailable Unavailable MADISON RESTREPO MD Unavailable Unavailable MADISON RESTREPO MD Unavailable Unavailable MADISON RESTREPO MD Unavailable Unavailable MADISON RESTREPO MD Unavailable Unavailable MADISON RESTREPO MD Unavailable Unavailable MADISON RESTREPO MD Unavailable Unavailable MADISON RESTREPO MD Unavailable Unavailable RESTREPO, MADISON MD Unavailable Unavailable RESTREPO, MADISON MD Unavailable Unavailable RESTREPO, MADISON MD Unavailable Unavailable RESTREPO, MADISON MD Unavailable Unavailable RESTREPO, MADISON MD Unavailable Unavailable RESTREPO, MADISON MD Unavailable Unavailable RESTREPO, MADISON MD Unavailable Unavailable RESTREPO, MADISON MD Unavailable Unavailable RESTREPO, MADISON MD Unavailable Unavailable RESTREPO, MADISON MD Unavailable Unavailable RESTREPO, MADISON MD Unavailable Unavailable RESTREPO, MADISON MD Unavailable Unavailable RESTREPO, MADISON MD Unavailable Unavailable RESTREPO, MADISON MD Unavailable Unavailable RESTREPO, MADISON MD Unavailable Unavailable RESTREPO, MADISON MD Unavailable Unavailable RESTREPO, MADISON MD Unavailable Unavailable RESTREPO, MADISON MD Unavailable Unavailable RESTREPO, MADISON MD Unavailable Unavailable RESTREPO, MADISON MD Unavailable Unavailable RESTREPO, MADISON MD Unavailable Unavailable RESTREPO, MADISON MD Unavailable Unavailable RESTREPO, MADISON MD Unavailable Unavailable RESTREPO, MADISON MD Unavailable Unavailable RESTREPO, MADISON MD Unavailable Unavailable RESTREPO, MADISON MD Unavailable Unavailable RESTREPO, MADISON MD Unavailable Unavailable Cronin Rowell, Rohit Conley MD, FACS Unavailable Unavailable Cronin Rowell, Rohit Conley MD, FACS Unavailable Unavailable Cronin Rowell, Rohit Conley MD, FACS Unavailable Unavailable Cronin Rowell, Rohit Conley MD, FACS Unavailable Unavailable Cronin Rowell, Rohit Conley MD, FACS Unavailable Unavailable Cronin Rowell, Rohit Conley MD, FACS Unavailable Unavailable Cronin Rowell, Rohit Conley MD, FACS Unavailable Unavailable Cronin Rowell, Rohit Conley MD, FACS Unavailable Unavailable Cornin Rowell, Rohit Conley MD, FACS Unavailable Unavailable Cronin Rowell, Rohit Conley MD, FACS Unavailable Unavailable Croinn Rowell, Rohit Conley MD, FACS Unavailable Unavailable Cronin Rowell, Rohit Conley MD, FACS Unavailable Unavailable Cronin Rowell, Rohit Conley MD, FACS Unavailable Unavailable Cronin Rowell, Rohit Conley MD, FACS Unavailable Unavailable Cronin Rowell, Rohit Conley MD, FACS Unavailable Unavailable Cronin Rowell, Rohit Conley MD, FACS Unavailable Unavailable Cronin Rowell, Rohit Conley MD, FACS Unavailable Unavailable Cronin Rowell, Rohit Conley MD, FACS Unavailable Unavailable Cronin Rowell, Rohit Conley MD, FACS Unavailable Unavailable Cronin Rowell, Rohit Conley MD, FACS Unavailable Unavailable Cronin Rowell, Rohit Conley MD, FACS Unavailable Unavailable Cronin Rowell, Rohit Conley MD, FACS Unavailable Unavailable Cronin Rowell, Rohit Conley MD, FACS Unavailable Unavailable Cronin Rowell, Rohit Conley MD, FACS Unavailable Unavailable Cronin Rowell, Rohit Conley MD, FACS Unavailable Unavailable Cronin Rowell, Rohit Conley MD, FACS Unavailable Unavailable Cronin Rowell, Rohit Conley MD, FACS Unavailable Unavailable Cronin Rowell, Rohit Conley MD, FACS Unavailable Unavailable Cronin Rowell, Rohit Conley MD, FACS Unavailable Unavailable Cronin Rowell, Rohit Conley MD, FACS Unavailable Unavailable Mehrdad Rowell, Rohit Conley MD, FACS Unavailable Unavailable Mehrdad Rowell, Rohit Conley MD, FACS Unavailable Unavailable Mehrdad Rowell, Rohit Conley MD, FACS Unavailable Unavailable Mehrdad Rowell, Rohit Conley MD, FACS Unavailable Unavailable Mehrdad Rowell, Rohit Conley MD, FACS Unavailable Unavailable Mehrdad Rowell, Rohit Conley MD, FACS Unavailable Unavailable Mehrdad Rowell, Rohit Conley MD, FACS Unavailable Unavailable Mehrdad Rowell, Rohit Conley MD, FACS Unavailable Unavailable Mehrdad Rowell, Rohit Conley MD, FACS Unavailable Unavailable YeisonAbbie escamilla MD Unavailable Unavailable YeisonAbbie escamilla MD Unavailable Unavailable YeisonAbbie escamilla MD Unavailable Unavailable YeisonAbbie escamilla MD Unavailable Unavailable YeisonAbbie escamilla MD Unavailable Unavailable YeisonAbbie escamilla MD Unavailable Unavailable YeisonAbbie escamilla MD Unavailable Unavailable YeisonAbbie escamilla MD Unavailable Unavailable YeisonAbbie escamilla MD Unavailable Unavailable YeisonAbbie escamilla MD Unavailable Unavailable YeisonAbbie escamilla MD Unavailable Unavailable YeisonAbbie escamilla MD Unavailable Unavailable YeisonAbbie escamilla MD Unavailable Unavailable YeisonAbbie escamilla MD Unavailable Unavailable YeisonAbbie escamilla MD Unavailable Unavailable YeisonAbbie escamilla MD Unavailable Unavailable YeisonAbbie escamilla MD Unavailable Unavailable YeisonAbbie escamilla MD Unavailable Unavailable YeisonAbbie escamilla MD Unavailable Unavailable YeisonAbbie escamilla MD Unavailable Unavailable YeisonAbbie escamilla MD Unavailable Unavailable YeisonAbbie escamilla MD Unavailable Unavailable YeisonAbbie escamilla MD Unavailable Unavailable YeisonAbbie escamilla MD Unavailable Unavailable YeisonAbbie escamilla MD Unavailable Unavailable YeisonAbbie escamilla MD Unavailable Unavailable YeisonAbbie escamilla MD Unavailable Unavailable YeisonAbbie escamilla MD Unavailable Unavailable YeisonAbbie escamilla MD Unavailable Unavailable YeisonAbbie escamilla MD Unavailable Unavailable YeisonAbbie escamilla MD Unavailable Unavailable YeisonAbbie escamilla MD Unavailable Unavailable YeisonAbbie escamilla MD Unavailable Unavailable YeisonAbbie escamilla MD Unavailable Unavailable YeisonAbbie escamilla MD Unavailable Unavailable YeisonAbbie escamilla MD Unavailable Unavailable YeisonAbbie escamilla MD Unavailable Unavailable YeisonAbbie escamilla MD Unavailable Unavailable YeisonAbbie escamilla MD Unavailable Unavailable Yeison, C Dina MD Unavailable Unavailable Yeison, C Dina MD Unavailable Unavailable Yeison, C Dina MD Unavailable Unavailable Yeison, C Dina MD Unavailable Unavailable Yeison, C Dina MD Unavailable Unavailable Yeison, C Dina MD Unavailable Unavailable Yeison, C Dina MD Unavailable Unavailable Yeison, C Dina MD Unavailable Unavailable Yeison, C Dina MD Unavailable Unavailable Yeison, C Dina MD Unavailable Unavailable Yeison, C Dina MD Unavailable Unavailable Yeison, C Dina MD Unavailable Unavailable Yeison, C Dina MD Unavailable Unavailable Yeison, C Dina MD Unavailable Unavailable Yeison, C Dina MD Unavailable Unavailable Yeison, C Dina MD Unavailable Unavailable Yeison, C Dina MD Unavailable Unavailable Yeison, C Dina MD Unavailable Unavailable Yeison, C Dina MD Unavailable Unavailable Yeison, C Dina MD Unavailable Unavailable Re-disclosure Warning The records that you are about to access may contain information from federally-assisted alcohol or drug abuse programs. If such information is present, then the following federally mandated warning applies: This information has been disclosed to you from records protected by federal confidentiality rules (42 CFR part 2). The federal rules prohibit you from making any further disclosure of this information unless further disclosure is expressly permitted by the written consent of the person to whom it pertains or as otherwise permitted by 42 CFR part 2. A general authorization for the release of medical or other information is NOT sufficient for this purpose. The Federal rules restrict any use of the information to criminally investigate or prosecute any alcohol or drug abuse patient.The records that you are about to access may contain highly sensitive health information, the redisclosure of which is protected by Article 27-F of the [facility] law. If you continue you may have access to information: Regarding HIV / AIDS; Provided by facilities licensed or operated by the [facility] Office of Mental Health; or Provided by the [facility] Office for People With Developmental Disabilities. If such information is present, then the following [facility] mandated warning applies: This information has been disclosed to you from confidential records which are protected by state law. State law prohibits you from making any further disclosure of this information without the specific written consent of the person to whom it pertains, or as otherwise permitted by law. Any unauthorized further disclosure in violation of state law may result in a fine or skilled nursing sentence or both. A general authorization for the release of medical or other information is NOT sufficient authorization for further disc losure. Allergies and Adverse Reactions Type Description Substance Reaction Status Data Source(s ) Allergy to substance No Known Allergies No known allergies (situation ) BRUNO (Jarvis Rowell MD [facility]) Family History Family Member Name Family Member Gender Family Member Status Date o f Status Description Data Source(s) Unknown Female Problem MEDENT ([facility]) Encounters Encounter Providers Location Date Indications Data Source(s ) Outpatient Attender: TR ANTON MD 07/24/2021 12:00:00 AM [facility] Outpatient Attender: TR ANTON MD 07/17/2021 12:00:00 AM [facility] [address] [facility] [address] 06/13/2021 12:00:00 AM EDT eCW1 ([facility]) Office Visit, Est Pt., Level 4 [address] [place] [address] 06/06/2021 12:00:00 AM EDT eCW1 ([facility]) Attender: PRITI MOREJON) MDReferrer: B onnie Servage GRINDING ROOM INSPECTOR 04/25/2021 08:21:08 PM EDT [facility] Attender: PRITI MOREJON) MDReferrer: B onnie Servage GRINDING ROOM INSPECTOR 03/28/2021 08:21:07 PM EDT [facility] Attender: PRITI MOREJON) MDReferrer: B onnie Servage GRINDING ROOM INSPECTOR 03/28/2021 08:21:07 PM EDT [facility] Attender: PRITI MOREJON) MDReferrer: B onnie Servage GRINDING ROOM INSPECTOR 03/28/2021 08:21:07 PM EDT [facility] Attender: PRITI MOREJON) MDReferrer: B onnie Servage GRINDING ROOM INSPECTOR 03/28/2021 08:21:07 PM EDT [facility] Attender: PRITI ALEXANDER ([place]) MDReferrer: Digna Brewster GRINDING ROOM INSPECTOR 03/28/2021 08:21:07 PM EDT [facility] Outpatient Attender: DIAMANTE corrales 03/15/2021 04:50:00 PM EDT MEDENT ([facility], [facility]) Office Visit Attender: Florina Souza MD Main office - [place] 01/11/2021 10:45:00 AM EDT MEDENT ([facility] [address] [facility], [facility] [address] 12/22/2020 12:00:00 AM EDT eCW1 ([facility]) Outpatient<td ID="encounterTypeDescripti onID0">3 Month Follow-Up</td><td>Jarvis Choi MD, FACS</td><td>Jarvis Choi MD [facility]</td><td>12/15/2020</td><td>12:17PM</td><td>1:01PM</td><td><content ID="encounterDiagnosisID0-0">Graves' Ophthalmopathy</content>, <content ID="encounterDiagnosisID0-1">Dry Eye Syndrome Both Eyes</content></td> Attender: Jarvis Rowell MD, MYRANDA Choi MD [facility] 12/15/2020 12:17:00 PM EDT - 12/15/2020 01:01:00 PM EDT Dry Eye Syndrome Both EyesGraves' Ophthalmopathy [place] (Jarvis Rowell MD [facility]) Dry Eye Syndrome Both Eyes Graves' Ophthalmopathy Office Visit, Est Pt., Level 2 FC [address] [place] [address] 12/06/2020 12:00:00 AM EDT eCW1 ([facility]) Outpatient<td ID="encounterTypeDescripti onID1">NEW PATIENT WITH REFERRAL</td><td>Jarvis Choi MD, FACS</td><td>Jarvis Choi MD [facility]</td><td>10/05/2020</td><td>1:36PM</td><td>2:51PM</td><td><content ID="encounterDiagnosisID1-0">Cataract Senile Cortical</content>, <content ID="encounterDiagnosisID1-1">Cataract Senile Nuclear</content>, <content ID="encounterDiagnosisID1-2">Vitreous Disorders Degeneration</content>, <content ID="encounterDiagnosisID1-3">Dry Eye Syndrome Both Eyes</content>, <content ID="encounterDiagnosisID1-4">Graves' Ophthalmopathy</content></td> Attender: Jarvis Rowell MD, FACS Jarvis Choi MD [facility] 10/05/2020 01:36:00 PM EST - 10/05/2020 02:51:00 PM EST Graves' OphthalmopathyDry Eye Syndrome B oth EyesVitreous Disorders DegenerationCataract Senile NuclearCataract Senile Cortical BRUNO (Jarvis Rowell MD [facility]) Graves' Ophthalmopathy Dry Eye Syndrome Both Eyes Vitreous Disorders Degeneration Cataract Senile Nuclear Cataract Senile Cortical Unknown [address] [facility] [address] 09/05/2020 12:00:00 AM EST eCW1 ([facility]) Outpatient Attender: TR ANTON MD [id number] 07/18/2020 12 :00:00 AM [facility] Outpatient Referrer: TATIANA SMITH MD 07/14/2020 12:00: 00 AM EST Follicular lymphoma, unspecified, unspecified site [facility] Follicular lymphoma, unspecified, unspec ified site Outpatient Attender: TR ANTON MD 07/11/2020 12:00:00 AM [facility] Outpatient Attender: TR Hayden-ONCCACTR 06/03 12:00:00 AM EDT - 06/27/2020 12:01:41 PM EDT Follicular lymphoma, unspecified, unspecified site [facility] Follicular lymphoma, unspecified, unspec ified site [place] [address] [facility] [address] 06/16/2020 12:00:00 AM EDT eCW1 ([facility]) Outpatient [address] [facility] [address] 06/07/2020 12:00:00 AM EDT eCW1 ([facility]) Attender: PRITI MOREJON) MDReferrer: Digna Brewster NP 04/18/2020 08:20:08 PM EDT [facility] Outpatient Attender: Dina Latham MDReferrer: MADISON GUZMAN MD 08/09/2011 10:42:45 AM [facility] - 08/09/2011 10:42:45 AM [facility] Outpatient Attender: MADISON RESTREPO MD 04/2011 10:42:45 AM [facility] - 08/09/2011 10:42:45 AM [facility] Inpatient Referrer: MADISON RESTREPO MD 12/2009 08:25:00 AM [facility] - 10/10/2009 10:00:00 AM [facility] Immunizations Vaccine Date Status Description Data Source(s) influenza, recombinant, quadrIvalent,injectable, prese rvative free 06/06/2021 01:24:00 PM EDT completed eCW1 ([facility]) influenza, recombinant, quadrIvalent,injectable, prese rvative free 06/06/2021 01:24:00 PM EDT completed eCW1 ([facility]) COVID-19 dose #2 given elsewhere Unspecified 12/02/2020 01:5 1:00 PM EDT completed eCW1 ([facility]) COVID-19 dose #2 given elsewhere Unspecified 12/02/2020 01:5 1:00 PM EDT completed eCW1 ([facility]) COVID-19 dose #2 given elsewhere Unspecified 12/02/2020 01:5 1:00 PM EDT completed eCW1 ([facility]) COVID-19 dose #2 given elsewhere Unspecified 12/02/2020 01:5 1:00 PM EDT completed eCW1 ([facility]) COVID-19 VACCINE Moderna 12/02/2020 12:00:00 AM EDT completed [facility] Vaccine Series Complete: YESThis Data wa s Submitted to [facility] Via [employer]. COVID-19 dose #1 given elsewhere Unspecified 11/04/2020 01:5 1:00 PM EST completed eCW1 ([facility]) COVID-19 dose #1 given elsewhere Unspecified 11/04/2020 01:5 1:00 PM EST completed eCW1 ([facility]) COVID-19 dose #1 given elsewhere Unspecified 11/04/2020 01:5 1:00 PM EST completed eCW1 ([facility]) COVID-19 dose #1 given elsewhere Unspecified 11/04/2020 01:5 1:00 PM EST completed eCW1 ([facility]) COVID-19 VACCINE Moderna 11/04/2020 12:00:00 AM EST completed [facility] Vaccine Series Complete: NOThis Data was Submitted to [facility] Via [employer]. influenza, recombinant, quadrIvalent,injectable, prese rvative free 06/07/2020 01:55:00 PM EDT completed eCW1 ([facility]) influenza, recombinant, quadrIvalent,injectable, prese rvative free 06/07/2020 01:55:00 PM EDT completed eCW1 ([facility]) influenza, recombinant, quadrIvalent,injectable, prese rvative free 06/07/2020 01:55:00 PM EDT completed eCW1 ([facility]) influenza, recombinant, quadrIvalent,injectable, prese rvative free 06/07/2020 01:55:00 PM EDT completed eCW1 ([facility]) influenza, recombinant, quadrIvalent,injectable, prese rvative free 06/07/2020 01:55:00 PM EDT completed eCW1 ([facility]) influenza, recombinant, quadrIvalent,injectable, prese rvative free 06/07/2020 01:55:00 PM EDT completed eCW1 ([facility]) influenza, recombinant, quadrIvalent,injectable, prese rvative free 06/07/2020 01:55:00 PM EDT completed eCW1 ([facility]) zoster 05/23/2020 01:33:00 PM EDT completed e CW1 ([facility]) zoster 05/23/2020 01:33:00 PM EDT completed e CW1 ([facility]) zoster 05/23/2020 01:33:00 PM EDT completed e CW1 ([facility]) zoster 05/23/2020 01:33:00 PM EDT completed e CW1 ([facility]) zoster 05/23/2020 01:33:00 PM EDT completed e CW1 ([facility]) zoster 05/23/2020 01:33:00 PM EDT completed e CW1 ([facility]) zoster 05/23/2020 01:33:00 PM EDT completed e CW1 ([facility]) Medications Medication Brand Name Start Date Product Form Dose Route Admi nistrative Instructions Pharmacy Instructions Status Indications Reaction Description Data Source(s) doxycycline hyclate 100 MG Oral Tablet Doxycycline Hyc late 100 MG Doxycycline Hyclate 100 MG 06/13/2021 12:00:00 AM EDT 1.0 {tablet} active Doxycycline Hyclate 100 MG eCW1 ([facility]) benzonatate 100 MG Oral Capsule [Tessalon Perles] Halima glenna Perles 100 MG Tessalon Perles 100 MG 06/13/2021 12:00:00 AM EDT 1.0 {capsule} active Tessalon Perles 100 MG eCW1 ([facility]) NITROFURANTOIN, MACROCRYSTALS 25 MG / Ni trofurantoin, Monohydrate 75 MG Oral Capsule [Macrobid] Macrobid 03/15/2021 12:00:00 AM EDT ORAL active MEDENT ([facility]) Clobetasol Propionate 0.0005 MG/MG Topical Ointment [T emovate] Temovate 0.05 % Temovate 0.05 % 12/06/2020 12:00:00 AM EDT 1.0 {application} active Temovate 0.05 % eCW1 ([facility]) Clobetasol Propionate 0.0005 MG/MG Topical Ointment [T emovate] Temovate 0.05 % Temovate 0.05 % 12/06/2020 12:00:00 AM EDT 1.0 {application} active Temovate 0.05 % eCW1 ([facility]) Clobetasol Propionate 0.0005 MG/MG Topical Ointment [T emovate] Temovate 0.05 % Temovate 0.05 % 12/06/2020 12:00:00 AM EDT 1.0 {application} suspended Temovate 0.05 % eCW1 ([facility]) Clobetasol Propionate 0.0005 MG/MG Topical Ointment [T emovate] Temovate 0.05 % Temovate 0.05 % 12/06/2020 12:00:00 AM EDT 1.0 {application} suspended Temovate 0.05 % eCW1 ([facility]) duloxetine 30 MG Delayed Release Oral Capsule [Cymbalt a] Cymbalta 30 MG Cymbalta 30 MG 06/07/2020 12:00:00 AM EDT 1.0 {capsule} acti ve Cymbalta 30 MG eCW1 ([facility]) duloxetine 30 MG Delayed Release Oral Capsule [Cymbalt a] Cymbalta 30 MG Cymbalta 30 MG 06/07/2020 12:00:00 AM EDT 1.0 {capsule} acti ve Cymbalta 30 MG eCW1 ([facility]) duloxetine 30 MG Delayed Release Oral Capsule [Cymbalt a] Cymbalta 30 MG Cymbalta 30 MG 06/07/2020 12:00:00 AM EDT 1.0 {capsule} acti ve Cymbalta 30 MG eCW1 ([facility]) Insurance Providers Payer name Policy type / Coverage type Policy ID Covered green party ID Covered green party's relationship to humphrey Policy Humphrey Plan Information MEDICARE [id number] SP [id number] A MEDICARE A [id number] Self [id number] A HUMANA HMO [id number] SP [id number] HUMANA H [id number] Self [id number] HUMANA HMO [id number] SP [id number] HUMANA H [id number] Self [id number] HUMANA H [id number] Self [id number] HUMANA H [id number] Self [id number] HUMANA HMO [id number] SP [id number] HUMANA HMO [id number] SP [id number] HUMANA CLAIMS PFFS [id number] Medicare Part B [facility] [id number] 0 [id number] HUMANA CLAIMS (PFFS) [id number] HUMANA CLAIMS (PFFS) [id number] [facility] [id number] 0 [id number] Medicare Part B [facility] [id number] 0 [id number] [facility] [id number] 0 [id number] [facility] Option [id number] 0 [id number] [employer] HEALTH PLANS CLAIMS DEPT [id number] [employer] PLANS CLAIMS DEPT [id number] [employer]ICARE HMO G [id number] Self [id number] AETNA MEDICARE [id number] SP [id number] AETNA MEDICARE [id number] 0 [id number] ANSI-Commercial [id number] ANSI-Medicare Part B [id number] HUMANA HMO [id number] SP [id number] MEDICARE [id number] SP [id number] A HUMANA HMO [id number] SP [id number] ANSI-Medicare Part B [id number] ANSI-Commercial [id number] ANSI-Medicare Part B [id number] ANSI-Commercial [id number] ANSI-Medicare Part B [id number] ANSI-Commercial [id number] ANSI-Medicare Part B [id number] ANSI-Commercial [id number] ANSI-Commercial [id number] ANSI-Medicare Part B [id number] ANSI-Medicare Part B [id number] ANSI-Commercial [id number] HUMANA HMO O [id number] S [id number] MEDICARE C [id number] S [id number] A MEDICARE [id number] SP [id number] A HUMANA HMO [id number] SP [id number] Hum[employer] Claims Office Commercial [id number] Self [place] Primary [id number] Self HUMANA HMO S [id number] S [id number] HUMANA PPO [id number] [employer] O [id number] S [id number] [employer] O [id number] S [id number] MEDICARE OUTPATIENT M [id number] S [id number] AETNA MEDICARE [id number] SP [id number] AETNA MEDICARE [id number] SP [id number] [facility] [id number] SP [id number] [facility] HEALTH CARE OPTIONS [id number] SP [id number] MEDICARE [id number] SP [id number] MEDICARE [id number] SELF [id number] HUMANA MEDICARE [id number] SELF [id number] HUMANA MEDICARE [id number] SELF [id number] [id number] ANSI-Commercial [id number] ANSI-Medicare Part B [id number] ANSI-Commercial [id number] ANSI-Commercial [id number] ANSI-Commercial [id number] ANSI-Medicare Part B [id number] ANSI-Medicare Part B [id number] ANSI-Commercial [id number] ANSI-Commercial [id number] ANSI-Medicare Part B [id number] ANSI-Commercial [id number] ANSI-Commercial [id number] ANSI-Medicare Part B [id number] ANSI-Commercial [id number] ANSI-Commercial [id number] Problems, Conditions, and Diagnoses Code Display Name Description Problem Type Effective Dates Data Source(s) D51.3 Cobalamin deficiency Cobalamin deficiency Problem 01/11/2021 12:00:00 AM EDT MEDENT ([facility] ) 379.21 Vitreous Disorders Degeneration Vitreous Disorders Deg eneration Problem 10/05/2020 12:00:00 AM EST BRUNO (Jarvis Rowell MD [facility]) [id number] 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) Graves' Dis (Diff Toxic Goiter) with Thyrotoxic Crisis/storm Problem 10/05 12:00:00 AM EST BRUNO (Jarvis Rowell MD [facility]) 242.00 Graves' Ophthalmopathy Graves' Ophthalmopathy Problem 10/05/2020 12:00:00 AM EST BRNUO (Jarvis Rowell MD [facility]) [id number] Dry Eye Syndrome Both Eyes Dry Eye Syndrome Both Eyes Problem 10/05/2020 12:00:00 AM EST BRUNO (Jarvis Rowell MD [facility]) 366.16 Cataract Senile Nuclear Cataract Senile Nuclear Proble m 10/05/2020 12:00:00 AM EST BRUNO (Jarvis Rowell MD [facility]) 366.15 Cataract Senile Cortical Cataract Senile Cortical Prob jennifer 10/05/2020 12:00:00 AM EST BRUNO (Jarvis Rowell MD [facility]) N39.3 [id number] Stress incontinence Problem 06/07/2020 12:00 :00 AM EDT eCW1 ([facility]) Surgeries/Procedures Procedure Description Date Indications Data Source(s) Imm: Flublok Quadrivalent 18 years & older 0.5mL IM Influenz a 06/06/2021 12:00:00 AM EDT eCW1 ([facility]) OFFICE OUTPATIENT NEW 30 MINUTES 03/15/2021 12:00:00 A M EDT MEDENT ([facility], [facility]) Intermediate Eye Exam Established Patient Intermediate Eye Exam Established Patient 12/15/2020 12:00:00 AM EDT BRUNO (Forest Rowell MD [facility]) Surgical / procedural history Gall Blad seng 2016, Appendectomy 2012, Hysterectomy 2019, Surgical / procedural history Gall Blad seng 2016, Appendectomy 2012, Hysterectomy 2019, 10/05/2020 12:00:[address] [facility] (Jarvis Rowell MD [facility]) Medical Eye Exam Medical Eye Exam 10/05/2020 12:00:[address] [facility] (Jarvis Rowell MD [facility]) BLOOD COUNT COMPLETE AUTO&AUTO DIFRNTL WBC COUNT <td>C BC AND DIFFERENTIAL</td><td>STAT</td><td>06/27/2020 12:20 PM EDT</td><td> Follicular lymphoma, unspecified follicular lymphoma type, unspecified body region</td><td> </td> 06/27/2020 12:20:00 PM EDT Follicular lymphoma, unspecified follicu lar lymphoma type, unspecified body region [facility] Follicular lymphoma, unspecified follicu lar lymphoma type, unspecified body region THYROID STIMULATING HORMONE TSH <td>TSH</td><td>Routin e</td><td>06/27/2020 12:20 PM EDT</td><td> Follicular lymphoma, unspecified follicular lymphoma type, unspecified body region</td><td> </td> 06/27/2020 12:20:00 PM EDT Follicular lymphoma, unspecified follicu lar lymphoma type, unspecified body region [facility] Follicular lymphoma, unspecified follicu lar lymphoma type, unspecified body region LACTATE DEHYDROGENASE LDH <td>LACTATE DEHYDROGENASE</td><td>STAT</td><td>06/27/2020 12:20 PM EDT</td><td> Follicular lymphoma, unspecified follicular lymphoma type, unspecified body region</td><td> </td> 06/27/2020 12:20:00 PM EDT Follicular lymphoma, unspecified follicu lar lymphoma type, unspecified body region [facility] Follicular lymphoma, unspecified follicu lar lymphoma type, unspecified body region COMPREHENSIVE METABOLIC PANEL <td>COMPREHENSIVE METABO LIC PANEL</td><td>Routine</td><td>06/27/2020 12:20 PM EDT</td><td> Follicular lymphoma, unspecified follicular lymphoma type, unspecified body region</td><td> </td> 06/27/2020 12:20:00 PM EDT Follicular lymphoma, unspecified follicu lar lymphoma type, unspecified body region [facility] Follicular lymphoma, unspecified follicu lar lymphoma type, unspecified body region Immunization: Flublok Quadrivalent (18 years & older) 0.5mL IM (Influenza) 06/07/2020 12:00:00 AM EDT eCW1 ([facility]) Results ID Date Data Source [id number] 05/25/2021 08:45:00 AM EDT [facility] Name Value Range Interpretation Code Description Data Brenna rce(s) Supporting Document(s) Colonoscopy [facility] VEIYZy4sPeUFGmFcIEUwFoxAIPdsMLdhWLHaT2L5SGjgSc6BCBgpdtOtYVMvMr2+DMMxSH4hde0vCLBe gMy [file] H/fPwwYdA+paaFH+FSd07mBg/e7CgDQk6vQgbDm+svp digital ad sales [file] HD72P3O9m8mm1hmzsk4zg5Gx2deyCjIT13wwLDtlJUaE4e5mpDayZriugXbcbC/qK163Zs/Misty+qeb01 t30ueEEo0qdMtKTFpL4X9N25YbsJBpW78kpThcdcmWWHJgxkgbixq8Abch64/EEmdQQN5MM1bImPMf7D etdJb9im/4Yj8+Amg8smv2DPPUfJP2bHBACq/A2snn 27Djlz3IHnRCsQOQqc87nmVu/L2oeXXiwjqMSZ2TNw4pPBz7zDQDgd0pUYGJw/xEuPP4GfjgLzxiSErj Il0iIem+9g0YFW/kMoISRmaDWL0WygRc33GxOuEGPvHbi9ylzcobmlLXtB0Ijw3L53a7FR+kPImw96Ua iLYkcL4TCeP0sqJrsd/6IR2NcWkH1JfxIlX+T6S3F2 qcDT+iOcZ8O+t0DPHivIPN85j+pZw4ViAoCwku3vF/cFnQVXt+UtnXc4HYARaD5stHa/mR/g8TuYUAPA 0Jp/U3GLNZdrG50gaRk4fuYa4agOtrn0hCDuIjrDPCbTsIHt2tSwFLHlwNGsybMlh/Miqbiz5FV9W5dO 1wyetk3yOCT+marco antonio/VEAoBKCtvw21xl4GljvvXWGSQG [file] rep [file] guqUUJW2qw4k+lLaZ1CeAoXNWMxBkg+Vw82Lhr42sLzluGVdCZ3MDHpY5VubUSrg/+NURSE OFFICE+kILJFN3Rpl [file] zoPkWtdFlKeF33T4aJUq1lVDEWpOrrRrnZ33sEUY9X8fPEebBdET6CjNLd7jXAybAESWnTKt9OI+quotation clerk [file] M0VU0BYtn2i+R2Nb/6c7iN7qkjP55+I8DX2Is3E/F9RaYOF5aMkie7ppLW8lKmSnqUe58NZbJ1dl+Vp & General Counsel WEubxrlGcORiNXy7yrjQT8rJDzrwqiWpN4schAFMsOQuqucQlCeUToj1iAD73NnTf4UekMgzARPN+zAU EVdampRXKo+XrqnHw7gRHhfiZkeMn20U8sZRjUR5GM 0zxZksRqU3g0VAGEHZwE+uRNjY22PjVAY8cqz8SA9O3QA5h5rZoeFpfBSJaEN0SAMjfg/kH9n1kIk0sv 2TFg1cFb24qrj+XCl2yrzoVuRG1GSoguaDcv29JWstwnRp25NMJnl+PbmzpJeVgooZM3OD0cGO9eWENy tJ/hVwUia7B10uji1+GBn5LbHjFvn2Uw6Bjlg9h38q rosy/CO30XpRBnHrccglf0YvSS4DDQBzy6Ui4R3QfzS5OeOCMsdY6JYqTuAaY34VEQexpXNe/PITCN7mkE [file] xKcHzkkC6ULK9i5AcAunSmsYlOYYBlSr+GRINDING ROOM INSPECTOR+bJVDru [file] X+Artist Representative+Medc4n7HRRRr0B+tM/Bu0BDsOGAWcGUiwWXSP [file] KJA3drZsdE2SOV9qw0EpXO7Kp4NtlvN2vlApLZd0SWBdPwAZZeIqZN6B ID Date Data Source [id number] 03/28/2021 10:45:00 AM EDT [facility] Name Value Range Interpretation Code Description Data Brenna rce(s) Supporting Document(s) Follow Up [facility] IUMHFw2eDuUSYlByDSMyJfgYUNrmKHhsPNQvY8Z3OSujYf2SLChtreWzDGZiLw4+FDFxHH0gwl1yPVAg gMy [file] svYY8ON2pW2cX7dL+jmK7YVUH7vp5UP9sJjnPJg/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 [file] 8N5EON4NOUlJHHxfJ6ew3xGtXqOz5TW6Ar/nt3y0lZwjyGGt/[facility]//iRedwH48Y0E1at10c6/cM [file] HvffPa94/bar captain+HQLPnxN/6K+9cBa97T0q4u70umzwJ1Kq/9LJYJsUSWGlkZNm9vVXmSCSraXbHYMcZ02 [file] svp digital ad sales+lGy6j2J8Q5vrTbqbSxFbfhGx+SLi9YFK0HToDj8X3UPdZmje8IdyCnrWmam929IkxiriuEBXP2igI [file] 8O8b+pZ1uf01pDWGI5s0bZVUeax6BzOHBt5VeRLCmw2M3vFqUarZZ/7EJEFp6LwInUVZBwmEu+Saravanan/ kpqlPJQsqOopq0z6b4uphfZqcTbSQ/j6FHBN7QOGOBvwmUjP6lZPHn1jSlHN1645KKlfYikCX6Z/hZQf cuBl8lq2RYW5Q8FQJJBgo/SQscB+pk9tpg6n8b6rCU Xnc0QfZ5ic9cPkvThCBqlnYPwjg7ObYkMzLrGs1xAccPAnluuyouJZrNT3mABDntp+Hzv01J8D9IrfMR g0lWBjwgiwU/PG0o/+z6zwzw4iryM0j4A4yZV2guQFk7GBq5fb0hSR9zzCxyzCEaV4f6LynN+zw5n16P meaJeOtfLWNcqbbKntMC+eoeicYSXwgiyi+M3B8Zac vY4Yf7aQuaMtsmeoF5fp0ikbpxOSq/fhom2GR0BQrrXPdln7mAz9kcr2kRtg4A4EUdQQmUwpdR/PagUa ijlUGLs4EN17ynMG2T/sbKVfU/hgnR8iPH2SZLk4lvCmcbqWwathEDI+CQ0utnlOGbDElBfJik9/YDGe 2Og7r0Omgtkz/R05gMdVnZrlh3Rdlke6H1711Y3N1E zrL/kWBtbqX0jpw4+O60M34bctp3366HpwQGpWlUf/S+/9K/Rw3cSNAyOPhNl445nOR03fiLuiIPnJ8+ UwIzJpZbWsPOa+8ekI127nc4WfFsG4v9R31ua164/0/V+CfO4tTh/jzWKbIxrwhhXsddfFa0+7n8kTYy ISmItTOJJZeZ+3eC7OiL4y6ePJv/RbCFt4zuinLUy8 1Ea8falW5HTKsItFQL03zCEZ0DJ60Xfka7VbBYJICBvkM+oAleEfFAsdA5pPn9cV+PKm813JUXrLQmbZ Ilu0pHT/A2BhghfhmNQaItQuIMJklsJubpcSznVbzpdVKg2itIJ48OJ4q2+Qk6rqj1j5JQZgMxMu528f KU08+8fz297a4NA5npaHX78J3bO36+1PgCtz3P3c7r i7yc25cK6c6Bz7LbV9/zCMc4KgLPm1pK/B9XLA+9eOLDGftBWXy1ROWJMpzeJ0BtXAH4gu5P9E5KEXYA bRyPm8vOLs9oI8AewaR8bgwyxI5FX5S7M/H7/s2c77Ao/r+rbA4MxXjZ+j35FUODD8M9IpXQkyVo4c5l 9k2P/IoRDJdlMudwFC5F0wt21L90b/nL5b9Zq7ZigN Wy2o9Xc26/wQikvDjeihSBLATPqknJp6Qznsh2CBzRLSMBb6JlEQP+WXxmsqQLNbyxzyevX3h9eCmS+s 07+sFFP8gfMooIPD2ks86/g+lwo7VpugF6umTyA/8vyEBtfzq1QcSWtxuBNtetDOKCV0McDvjmxw85Ba ylaFBZxZ0rQdQ9qGq73NjQoXlCi0QUGY/oVHkaqj6f PmYDWwN7nBQKxZCrvR/sRtJLsb3ssgt+xWVi0ddLTc7jMF/OahDq+i2qA9iLlGK76rQdZXbFJVLQO7T1 QJDWb/3ZAJn3yPJ5Lu2xl3cbC55c9nDtGbfjI7L6iiYjFfSlJrVngZZVB2XW7K4ukF3ildMi4QAex93r u6SM5HQFkGlx3aXpjpZWsFgUETManEEBsvjl7Gk2vr THz3tu7uzf9gT9OvS6Mt6RzCbp4nBLDkjDYIjw5mHv0VyS91nckgB7ZCinhyWxmTC2BGgIZRzZz7Rd6r yykdxkh+aJNbSRgCCrBPftx1IDKJx5foVlcJ/msCzLA4gcI0vFJCJsw1BxJA0cig+R+/RsI5kb0v17zu F2PKiDZ08wpJAnC8IUQrqvP7Uv9XyCqazsxRogYtot mITlBJBNK7ffKdrBDQW5KHO9PTbOZA+Pyf5hkR6o0yJahMgNSH9JjYWgdBfUeQzc2Qo/Y3Ej8n8zT0Zz mgp8VxngKRcY7y2zj3EUwNdX/8XQtlHvuBjslriwSUqZEBHJEQeGftUZ3u8ghZJbOOgzosZwbrLnxXpA /XCh0ZPchR/4GI5BEM00vtWht3Sgy/hey+fzW8I [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/MV36i9c77PmMeJm7g0joM68/npUubQVFXhb2iNlPmQ7EUKEGxjTnCGv3m7/YXXr5q7AjZX7CB6WD [file] caXDIkpGOCZmMBmex0fhmH7znE+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 [file] G1H7BbHSRVPeAVAISYEOZTVGAMYx8uYIdjNcrSRiqSZTGzKMG6ECOVENDEIxE5KTRONcRSO9ZkLv3eBh 0esYQuAYDzDx0SijHdLXWuVLDKY3DfpjRhRNsaRIwbRLFuXLQhOw5SARawBBZpES6+McI5scTccU8QsM knWDVuGUDpSBVuQFKNYA5ZrSvOXMKqaOCQHtbHr7Ac vYAO6SlgQLP/XZVaU8FxehGhWR5SMELkbMYSKqLC3ZMVDMsRDgKGRkTfRZY7ldLuaK9VPM9ff4BaGF1R s2IzrwX2fyNgWQqqPDI1HOS9PDurHOMDVw== ID Date Data Source [id number] 03/15/2021 05:08:00 PM EDT [facility] ([facility]) Name Value Range Interpretation Code Description Data Brenna rce(s) Supporting Document(s) Bacteria identified in Urine by Culture Laboratory test result [facility] ([facility]) FULL REPORT IN LAB NOTES (eCW and [facility] ). SPECIMEN APPEARS CONTAMINATED ID Date Data Source [id number] 10/08/2020 12:00:00 AM EST [place] (Forset Rowell MD [facility]) Name Value Range Interpretation Code Description Data Brenna rce(s) Supporting Document(s) Thyroid Stimulating Immunoglobulin <0.10 IU/L Normal Thyroid Stimulating Immunoglobulin [place] (Jarvis Rowell MD [facility]) ID Date Data Source [id number] 07/20/2020 01:11:39 PM [facility] PET W CT IMAGING SKULL TO TOES [id number] ED RESULT - FINALInterpreted by:Tanvir Braswell MDAddendum BeginsSigned on SatJul 20, 2020 1:09 PM by Bhavana Odonnell MD to technique:TECHNIQUE: The study was performed at the [facility]. Approximately 60 minutes following IV tracer administration, positron emission tomography was performed from the vertex of the skull through the toes. Non-contrast helical CT imaging was performed over the same range without breath-hold for attenuation correction of PET images and anatomic correlation, but not for primary interpretation as it is not of standard diagnostic quality. Images were reviewed in the axial, coronal and sagittal planes.Addendum EndsINDICATION: 64-year-old female with history of follicular lymphomaRADIOPHARMACEUTICAL: F18-FDG.DOSE: 10.4 mCi.BLOOD GLUCOSE: 101 mg/dL.TECHNIQUE: The study was performed at the [facility]. Approximately 60 minutes following IV tracer administration, positron emission tomography was performed from the vertex of the skull through the proximal thighs. Non-contrast helical CT imaging was performed over the same range without breath-hold for attenuation correction of PET images and anatomic correlation, but not for primary interpretation as it is not of standard diagnostic quality. Images were reviewed in the axial, coronal and sagittal planes.COMPARISON: PET scan dated 04/14/2014FINDINGS:LIVER SUV MAX: 3.5BLOOD POOL SUV MAX: 2.6HEAD AND NECK: There is focal increased activity within bilateral palatine tonsils as well as adenoi ds which may be reactive or physiological in nature. Multiple mildly FDG avid lymph nodes are seen throughout the cervical chains, with SUV max up to 3.3. There is normal distribution of F-18 radiopharmaceutical in the visualized brain with no evidence of abnormal radiopharmaceutical uptake. It should be noted that a contrast enhanced CT or MRI is more sensitive for evaluation of brain masses. CHEST: There is no FDG-avid disease in the chest. There is no axillary, mediastinal or hilar lymphadenopathy. There is no pleural or pericardial effusion. There is no air-space disease or suspicious lung nodule. Heavy calcifications are seen within the aortic arch as well as in the coronary arteries.ABDOMEN/PELVIS: Multiple mildly FDG avid mesenteric and periaortic abdominal lymph nodes are identified with SUV max up to 4.6. No significant pelvic lymphadenopathy is present. The tracer is otherwise distributed physiologically in the gastrointestinal and genitourinary tracts.Concentric calcified lesions of the abdominal aorta extending into bilateral iliac vessels. Patient is status post cholecystectomy with surgical clips in the gallbladder fossa.MUSCULOSKELETAL: Within the visualized osseous structures, no suspicious osseous lesion or focus of abnormal metabolic activity is identified to suggest metastatic disease.IMPRESSION:1. Mildly FDG avid cervical and mesenteric lymph nodes. No significant pelvic lymphadenopathy is identified.2. Mildly hypermetabolic palatine tonsils and adenoids. These may be inflammatory or infectious in etiology and clinical correlation is recommended.3. Other chronic changes as described.This document has been electronically signed by Bhavana Odonnell MD on 07/15/2020 11:39 AM Name Value Range Interpretation Code Description Data Brenna rce(s) Supporting Document(s) ID Date Data Source [id number] 07/18/2020 10:56:41 AM [facility] Name Value Range Interpretation Code Description Data [facility] rce(s) Supporting Document(s) Progress Note [facility] NWDLYz0rJbRMRmWu71/QGPwfISLri5EaJQplEWx8FVodXZZbF0LdHAW5fF2mMZM8MZtXQcLyJsXrCMZ1 lbm [file] AgICAgICAgICAgICAgICAgICAgICAgICAgICAgICAgICAgICAgICAgICAgICAgICAgICAgICAgICAgIC AgICAgICAgICAgICAgICAgICAgICAgDQogICAgICAg ICAgICAgICAgICAgICAgICAgICAgICAgICAgICAgICAgICAgICAgICAgICAgICAgICAgICAgICAgICAg ICAgICAgICAgICAgICAgICAgICAgICAgICAgICAgICAgDQogICAgICAgICAgICAgICAgICAgICAgICAg ICAgICAgICAgICAgICAgICAgICAgICAgICAgICAgIC AgICAgICAgICAgICAgICAgICAgICAgICAgICAgICAgICAgICAgICAgICAgDQogICAgICAgICAgICAgIC AgICAgICAgICAgICAgICAgICAgICAgICAgICAgICAgICAgICAgICAgICAgICAgICAgICAgICAgICAgIC AgICAgICAgICAgICAgICAgICAgICAgICAgDQogICAg ICAgICAgICAgICAgICAgICAgICAgICAgICAgICAgICAgICAgICAgICAgICAgICAgICAgICAgICAgICAg ICAgICAgICAgICAgICAgICAgICAgICAgICAgICAgICAgICAgDQogICAgICAgICAgICAgICAgICAgICAg ICAgICAgICAgICAgICAgICAgICAgICAgICAgICAgIC AgICAgICAgICAgICAgICAgICAgICAgICAgICAgICAgICAgICAgICAgICAgICAgDQogICAgICAgICAgIC AgICAgICAgICAgICAgICAgICAgICAgICAgICAgICAgICAgICAgICAgICAgICAgICAgICAgICAgICAgIC AgICAgICAgICAgICAgICAgICAgICAgICAgICAgDQog ICAgICAgICAgICAgICAgICAgICAgICAgICAgICAgICAgICAgICAgICAgICAgICAgICAgICAgICAgICAg ICAgICAgICAgICAgICAgICAgICAgICAgICAgICAgICAgICAgICAgDQogICAgICAgICAgICAgICAgICAg ICAgICAgICAgICAgICAgICAgICAgICAgICAgICAgIC AgICAgICAgICAgICAgICAgICAgICAgICAgICAgICAgICAgICAgICAgICAgICAgICAgDQogICAgICAgIC AgICAgICAgICAgICAgICAgICAgICAgICAgICAgICAgICAgICAgICAgICAgICAgICAgICAgICAgICAgIC AgICAgICAgICAgICAgICAgICAgICAgICAgICAgICAg JKd9N9vgHIKxAHFxBK6lPOs7Cv8+EGbKYuXmCVQ8jtVacA5NQZ7sh8PiAIxmMSNpt8WtVAl7WN0QKJJi WDwjSZ7LAQswyl6YZEIyEPDtsQIJy9mkOjUbYXD1QLJrUcwyRQ4CJMXyN0rthcBhRNCvYFURTTzkTSWQ TYifLICRRTQzIWAnBbUmKiSjCFJaQATyNXCIUWV1NB OcAbWlCMnlIN8Tb9YdsAJ7ZKb+Kr9IMK6cg5EgVBt9EMQdBP4mcw0RFDxWEjFzG4FgyfJ2NEMoRHFbJd 5YAYKlZQMtaHK9OMYwYYJOLaTgA1HqfK18GMGFCz2+DXtkoqTnKoqZXtHhEDOoa8BbWKg4AV8QLCLdDW s7iRXjAAXvS4Gkp3UdZo84QDUbRldpCEvpgjOsWBWC yKmbrIuurwmmXVBjOGHfTZTbGPQfMiLzDLZnYRp2YAAJGMdBKsEcE8Xcf1HvUaR0FDIyWtUmQPjlFDSd XyN5XI83mHinOS3CHIMwGLKuVZ90YDTyCNJbGp5RXw0VOtKdHD6bri9LZBWmOCNhBxjZCxp3CUjpER1C tJHyT0IqiACoh1kKJoMkH8DSZXX3NSFcKa0GGRVeLm BfJNDzSWupUD5wIJFaCCKSmYbntsW6DZ4HHO0xahRlFN5BNjJcQd0eZg8EJiPlZ2HrJ6WtNLMtIMETJG yaMC6ULTglJP1sVO1If2TWqLVvyV7twk2WWTIyJOCmAcjrtz8NKhfdD8N7jDmoQHTsMUVkASXADAnqCB 8FYOTwSPE0RSZmAAJtMSHCZuCqC44kFR3ET5Sfr59u QrR4FJEnTfWmSKeeHU23cOpjnjKolQVrnOzzKO8RBz1+DQplbmRvYmoNCnhyZWYNCjAgNDMNCjAwMDAw BLHxUZFuSoU4WjSrQb8DMHHlUEIkDQLqQvIeXCWiFMVsLGpdYWZxRVE1Yql6JIIrAJOrJE6UWrOgRSKi JWU7HFYfYFEhFFParf1CLICrWVGjRUN2OmUkLBVlFR TxKCeaEQFjOSOjPSK4BDYkIOWvNJ0QWeUfXWVvLQS3XOqlQYBpHEAffg5XZWGpSKOgBcLxTuDkUREbSZ EnOJrkWMDgINR1VbDwJAHdMBYfIM4EQyLbZWFlUEBySJvtQIVtWSEpdc7XHJWxDKUxPWM7ISOvBROyOU FdWTybRRQeOGWeSAL6OWAwARYqSD9DIcChBECdPRVg QnJrMRXiLQXtkx7VMQCoOTIyFDJ6VAQjXSThTQNcGAyyJKAdBUU9Hcz1UMFxDGNeOW4NRrFgMFKmVMoj CbGfADWtUDTzkd1DPLEeHTYfWDE3GmQoQQAuPUTkWYhtBVOpHBWoOBf5ZROyDBWyUP5UIhFgYRTlZcL4 IFVwROEzPKWwvu7VRTBwUNRaMCv4NqViUAQnMJZgTP isNAJuJZGpARH8ZBWeXPVyZL9XLyVpQXAuOfZmOrPaGYMbMSKkor3XFYXnAEUmCyE6SLHbDKRaOTNkRH zkYLOuRPRaMugoBFCpSZTkWW1JHwBjCYDmVoV5NDHdPTZwYZTnga4BUAMvIHJmJCkxZNQtHQXeOIDhNL jyJDYiYZU4YoV3HTUwAALgYH9HSfVhZAAwHcR3PTFt BEMeEFUsyz4SEKHfWQInVPD0UHXtLRDwDRDyXIhqSQExGJI9RCVhTIHtPAQkKZ8RTvNwZLIxNxF6DRBt FLRfLEPtuw5GKPUvWBFfUnt4ZdPuKRChYHUvIYxuNXFhCNI8IZY9LLKpPWPlKK7NBzUwLFBnOpurZGFl GAUaHKMgzt6KDRGvSKThWWH3KkJvHQGzGPDzCNlxGP HuZIS7YZZ8IGOzMWIhEE0FGfQbNRZoPqf9AMNoZWHsQTLkex2MNQDfVTRrWUK1RZKlFQMsTSBxDTywVT TsEBQ2PjQ3AYJbDQVoHI7CPoUdYKMaQAZkWQBsEXZsWFFnfm8BKHYvNUA6SOY1MuSuBYHyZKPdAZikUL BuVRJmNgS4TSAzWWRyPL2EYiWrVYDhSCI3POUdBHCr XYIsks7TdQXbpCnoej6AOJwQIk4IpBeeXPQdVPoqEq3eqOT7RcNzBDAZJo1XlzClSNKjOVSMDSfxLNBf IITaWFAjTCT7WgF8GBI3IST2GTHrDrZvMfNgHTUxHLIyReG1ItT4NpVpGUMxMBG7YVJ4Fyq7NAPuGwR7 VDN9YLI2PON+YP7kJVq+Cq2As9OvgcC6bzHdASz5XwM7WG4PYOXRP2HKWv== ID Date Data Source [id number] 07/10/2020 08:36:16 PM EST [facility] Name Value Range Interpretation Code Description Data Brenna rce(s) Supporting Document(s) Progress Note [facility] LRVDAh4sPyCBOoYf05/CDPxuABRdu8WoCIvrUQk0SZzsLODlB1GzPIW2fR9bTMK5DVwWEyHtFtQaENN7 lbm [file] Q3L0QjTDSyQDk6NsDtSlWeTH1OIw8RIqD1DTN4fJCoAa8QKNruHLLDOyVdWN5EDZt= ID Date Data Source [id number] 07/10/2020 08:36:11 PM [facility] Name Value Range Interpretation Code Description Data Brenna rce(s) Supporting Document(s) Progress Note [facility] HZMQIa2pSxOKGwRw40/KNPyaXCGvk4MiMTqvCEg9HAiyLKNpX1PjGGW3vU0wVPV5XPdUCsEvXvGcLVA6 lbm [file] aJBxgEnrBZOKEtY0PzJjRKyyJIMLDs9W ID Date Data Source [id number] 06/27/2020 12:39:07 PM [facility] Name Value Range Interpretation Code Description Data Brenna rce(s) Supporting Document(s) Leukocytes [#/volume] in Blood by Automated count 9.1 10*3/uL 4-10 [facility] Erythrocytes [#/volume] in Blood by Automated count 4.42 10*6/uL 4.1- 5.3 [facility] Hemoglobin [Mass/volume] in Blood 13.1 g/dL 11.5-15.5 [facility] Hematocrit [Volume Fraction] of Blood by Automated count 37.9 % 3 6-45 [facility] Erythrocyte mean corpuscular volume [Entitic volume] by Auto mated count 85.8 fL 80-96 [facility] Erythrocyte mean corpuscular hemoglobin [Entitic mass] by Automated count 29.6 pg 27-33 [facility] Erythrocyte mean corpuscular hemoglobin concentration [Mass/volume] by Automated count 34.5 g/dL 32.0-36.0 [facility] width [Ratio] by Automated count 15.2 % 11.5-14.5 H [facility] Platelets [#/volume] in Blood by Automated count 175 10*3/uL 150-400 [facility] Differential cell count method - Blood [facility] Neutrophils/100 leukocytes in Blood by Automated count 63 % [facility] Lymphocytes/100 leukocytes in Blood by Automated count 29 % [facility] Monocytes/100 leukocytes in Blood by Automated count 5 % [facility] Eosinophils/100 leukocytes in Blood by Automated count 2 % [facility] Basophils/100 leukocytes in Blood by Automated count 1 % [facility] Neutrophils [#/volume] in Blood by Automated count 5.66 10*3/uL 1.8-7 .0 [facility] Lymphocytes [#/volume] in Blood by Automated count 2.64 10*3/uL 1.2-4 .0 [facility] Monocytes [#/volume] in Blood by Automated count 0.47 10*3/uL 0-0.8 [facility] Eosinophils [#/volume] in Blood by Automated count 0.20 10*3/uL 0-0.5 [facility] Basophils [#/volume] in Blood by Automated count 0.12 10*3/uL 0-0.2 [facility] Nucleated erythrocytes/100 leukocytes [Ratio] in Blood by Automated count 0 /100{WBCs} 0-0 [facility] ID Date Data Source [id number] 06/27/2020 01:28:28 PM EDT [facility] Name Value Range Interpretation Code Description Data Brenna rce(s) Supporting Document(s) Lactate dehydrogenase [Enzymatic activit y/volume] in Serum or Plasma by Lactate to pyruvate reaction 224 U/L 122-214 H [facility] ID Date Data Source [id number] 06/27/2020 01:28:28 PM [facility] Name Value Range Interpretation Code Description Data Brenna rce(s) Supporting Document(s) Thyrotropin [Units/volume] in Serum or Plasma 0.758 u[IU]/mL 0.270-4. 200 [facility] ID Date Data Source [id number] 06/27/2020 01:28:28 PM [facility] Name Value Range Interpretation Code Description Data Brenna rce(s) Supporting Document(s) Albumin [Mass/volume] in Serum or Plasma by Bromocresol green (BCG) dye binding method 4.4 g/dL 3.5-5.2 [facility] Bilirubin.total [Mass/volume] in Serum or Plasma 0.3 mg/dL <1.2 [facility] Calcium [Mass/volume] in Serum or Plasma 9.5 mg/dL 8.8-10.2 [facility] Chloride [Moles/volume] in Serum or Plasma 102 mmol/L 98-107 [facility] Creatinine [Mass/volume] in Serum or Plasma 1.23 mg/dL 0.50-0.90 H [facility] Glucose [Mass/volume] in Serum or Plasma 96 mg/dL 70-140 [facility] Alkaline phosphatase [Enzymatic activity/volume] in Serum or Plasma 73 U/L 35-104 [facility] Potassium [Moles/volume] in Serum or Plasma 3.9 mmol/L 3.4-5.1 [facility] Protein [Mass/volume] in Serum or Plasma 7.4 g/dL 6.4-8.3 [facility] Sodium [Moles/volume] in Serum or Plasma 141 mmol/L 136-145 [facility] Aspartate aminotransferase [Enzymatic activity/volume] in Serum or Plasma 19 U/L <32 [facility] Urea nitrogen [Mass/volume] in Serum or Plasma 15 mg/dL 8-23 [facility] Osmolality of Serum or Plasma by calculation 293 mosm/kg 275-300 [facility] Creatinine/Urea nitrogen [Mass Ratio] in Serum or Plasma 12 [facility] Bicarbonate [Moles/volume] in Serum 28 mmol/L 22-29 [facility] Alanine aminotransferase [Enzymatic activity/volume] in Seru m or Plasma 21 U/L <33 [facility] Anion gap 3 in Serum or Plasma 11 mmol/L 8-15 [facility] Glomerular filtration rate/1.73 sq M pre dicted among non-blacks [Volume Rate/Area] in Serum or Plasma by Creatinine-based formula (MDRD) 45 mL/min/1.73m2 >60 L [facility] Glomerular filtration rate/1.73 sq M pre dicted among blacks [Volume Rate/Area] in Serum or Plasma by Creatinine-based formula (MDRD) 52 mL/min/1.73m2 >60 L [facility] Procedure Social History Code Duration Value Status Description Data Source(s ) Smoking 06/13/2021 12:00:00 AM EDT Former Smoker completed Former Smoker eCW1 ([facility]) Smoking 06/06/2021 12:00:00 AM EDT Former Smoker completed Former Smoker eCW1 ([facility]) Smoking 05/10/2021 08:00:30 AM EDT Ex-smoker (finding) complet ed Ex-smoker (finding) [place] (Jarvis Rowell MD [facility]) Smoking 12/06/2020 12:00:00 AM EDT Former Smoker completed Former Smoker eCW1 ([facility]) Smoking 12/06/2020 12:00:00 AM EDT Former Smoker completed Former Smoker eCW1 ([facility]) Alcohol intake 06/27/2020 12:00:00 AM EDT Current drinker of al cohol (finding) completed Current drinker of alcohol (finding) [facility] Tobacco use and exposure 06/27/2020 12:00:00 AM EDT Never used co mpleted Never used [facility] Cigarette pack-years 06/27/2020 12:00:00 AM EDT UNK completed [facility] Cigarettes smoked current (pack per day) - Reported 06/27/20 20 12:00:00 AM EDT UNK completed [facility] Smoking 06/27/2020 12:00:00 AM EDT Current every day smoker co mpleted Current every day smoker [facility] Smoking 06/07/2020 12:00:00 AM EDT Former Smoker completed Former Smoker eCW1 ([facility]) Smoking 06/07/2020 12:00:00 AM EDT Former Smoker completed Former Smoker eCW1 ([facility]) Smoking 06/07/2020 12:00:00 AM EDT Former Smoker completed Former Smoker eCW1 ([facility]) Vital Signs ID Date Data Source UNK Name Value Range Interpretation Code Description Data Source(s) Body weight 198.6 [lb_av] 198.6 [lb_av] eCW1 ([facility]) Body weight 90.08 kg 90.08 kg eCW1 ([facility]) Body height 62 [in_i] 62 [in_i] eCW1 ([facility]) Body mass index (BMI) [Ratio] 36.32 kg/m2 36.32 kg/m2 eCW1 ([facility]) Heart rate 85 /min 85 /min eCW1 ([facility]) Respiratory rate 18 /min 18 /min eCW1 ([facility]) Body temperature 97.9 [degF] 97.9 [degF] eCW1 ( [facility]) Systolic blood pressure 122 mm[Hg] 122 mm[Hg] e CW1 ([facility]) Diastolic blood pressure 74 mm[Hg] 74 mm[Hg] eCW1 ([facility]) Systolic blood pressure 114 mm[Hg] 114 mm[Hg] M EDENT ([facility], [facility]) Diastolic blood pressure 74 mm[Hg] 74 mm[Hg] MEDENT ([facility], [facility]) Heart rate 98 /min 98 /min MEDENT ([facility], [facility]) Respiratory rate 18 /min 18 /min MEDENT ( [facility], [facility]) Oxygen saturation in Arterial blood by Pulse oximetry 97 % 97 % MEDENT ([facility], [facility]) Body temperature 96.8 [degF] 96.8 [degF] MEDENT ([facility], [facility]) Body weight 190.00 [lb_av] 190.00 [lb_av] MEDEN T ([facility], [facility]) Body height 62 [in_i] 62 [in_i] MEDENT ([facility], [facility]) 5'2" Body mass index (BMI) [Ratio] 34.7 kg/m2 34.7 k g/m2 MEDENT ([facility], [facility]) Systolic blood pressure 110 mm[Hg] 110 mm[Hg] e CW1 ([facility]) Body weight 192.2 [lb_av] 192.2 [lb_av] eCW1 ([facility]) Body height 62 [in_i] 62 [in_i] eCW1 ([facility]) Body mass index (BMI) [Ratio] 35.15 kg/m2 35.15 kg/m2 eCW1 ([facility]) Heart rate 86 /min 86 /min eCW1 ([facility]) Respiratory rate 18 /min 18 /min eCW1 ([facility]) Body temperature 97.8 [degF] 97.8 [degF] eCW1 ( [facility]) Diastolic blood pressure 70 mm[Hg] 70 mm[Hg] eCW1 ([facility]) Heart rate 90 /min 90 /min eCW1 ([facility]) Body height 62 [in_i] 62 [in_i] eCW1 ([facility]) Body mass index (BMI) [Ratio] 34.13 kg/m2 34.13 kg/m2 eCW1 ([facility]) Body weight 186.6 [lb_av] 186.6 [lb_av] eCW1 ([facility]) Respiratory rate 18 /min 18 /min eCW1 ([facility]) Body temperature 98.6 [degF] 98.6 [degF] eCW1 ( [facility]) Systolic blood pressure 120 mm[Hg] 120 mm[Hg] e CW1 ([facility]) Diastolic blood pressure 80 mm[Hg] 80 mm[Hg] eCW1 ([facility]) ID Date Data Source [id number] 07/10/2020 08:36:16 PM [facility] Name Value Range Interpretation Code Description Data Source(s) WEIGHT RECORDED 191.4 lb 191.4 lb [facility] Patient Treatment Plan of Care Planned Activity Planned Date Details Description Data Source (s) benzonatate 100 MG Oral Capsule [Trace Regalado] 06/13/2021 12: 00:00 AM EDT eCW1 ([facility]) doxycycline hyclate 100 MG Oral Tablet 06/13/2021 12:00:00 AM EDT eCW1 ([facility]) Clobetasol Propionate 0.0005 MG/MG Topical Ointment [T emovate] 12/06/2020 12:00:00 AM EDT eCW1 ([facility]) Clobetasol Propionate 0.0005 MG/MG Topical Ointment [T emovate] 12/06/2020 12:00:00 AM EDT eCW1 ([facility]) duloxetine 30 MG Delayed Release Oral Capsule [Cymbalt a] 06/07/2020 12:00:00 AM EDT eCW1 ([facility]) duloxetine 30 MG Delayed Release Oral Capsule [Cymbalt a] 06/07/2020 12:00:00 AM EDT eCW1 ([facility]) duloxetine 30 MG Delayed Release Oral Capsule [Cymbalt a] 06/07/2020 12:00:00 AM EDT eCW1 ([facility])
[2021-06-14] MEDS ORDERED: DOXY100T (14:53)
[2021-06-14] MEDS ORDERED: BENZ-18 (14:53)
[2021-06-14 18:28] LABS: BASO % 0.4 % (0.0-1.0); HEMATOCRIT 39.5 % (36.0-47.0); HEMOGLOBIN 13.8 g/dl (12.0-15.5); LYMPH # 1.5 10^3/uL (1.5-5.0); LYMPH % 13.2 % (24.0-44.0); MEAN CORPUSCULAR HGB CONC 34.9 g/dl (32.0-36.5); MEAN CORPUSCULAR VOLUME 88.8 fl (80.0-96.0); MONO # 0.3 10^3/uL (0.0-0.8); MONO % 2.7 % (2.0-8.0); NEUTROPHILS # 9.4 10^3/uL (1.5-8.5); NEUTROPHILS % 83.3 % (36.0-66.0); PLATELET COUNT, AUTOMATED 172 10^3/uL (150-450); RED BLOOD COUNT 4.45 10^6/uL (4.00-5.40); WHITE BLOOD COUNT 11.2 10^3/uL (4.0-10.0)
--- NOTE | 2021-06-14 18:53 | REP ---
INDICATION: DYSPNEA/COUGH. COMPARISON: None. TECHNIQUE: Single portable AP view of the chest was performed. FINDINGS: There is no acute infiltrate or pulmonary edema. There is mild bibasilar fibrotic change. The heart is not significantly enlarged. The mediastinal silhouette is unremarkable. The visualized osseous structures are intact. IMPRESSION: No acute pulmonary disease. <Electronically signed by Ralph Sanchez > 06/14/21 [id number]
[2021-06-14 19:01] LABS: ALBUMIN 3.8 GM/DL (3.2-5.2); BILIRUBIN,DIRECT 0.2 MG/DL (0.0-0.2); BILIRUBIN,TOTAL 0.4 MG/DL (0.2-1.0); CALCIUM LEVEL 8.6 MG/DL (8.8-10.2); CREATININE FOR GFR 1.63 MG/DL (0.55-1.30); GLOMERULAR FILTRATION RATE 33.5 (>45); POTASSIUM SERUM 3.9 MEQ/L (3.5-5.1)
--- OUTSIDE RECORDS SUMMARY | 2021-06-14 19:15 | CCD ---
Author Author [facility] Organization [facility] Address Unknown Phone Unavailable Care Team Providers Care Filling Hauler Name Role Phone Servage, L Sherri MID LEVEL CLINICIAN Unavailable Unavailable Servage, L Sherri MID LEVEL CLINICIAN Unavailable Unavailable Servage, L Sherri MID LEVEL CLINICIAN Unavailable Unavailable Servage, L Sherri MID LEVEL CLINICIAN Unavailable Unavailable Servage, L Sherri MID LEVEL CLINICIAN Unavailable Unavailable Servage, L Sherri MID LEVEL CLINICIAN Unavailable Unavailable Servage, L Sherri MID LEVEL CLINICIAN Unavailable Unavailable Servage, L Sherri MID LEVEL CLINICIAN Unavailable Unavailable Servage, L Sherri MID LEVEL CLINICIAN Unavailable Unavailable Servage, L Sherri MID LEVEL CLINICIAN Unavailable Unavailable Servage, L Sherri MID LEVEL CLINICIAN Unavailable Unavailable Servage, L Sherri MID LEVEL CLINICIAN Unavailable Unavailable Servage, L Sherri MID LEVEL CLINICIAN Unavailable Unavailable Servage, L Sherri MID LEVEL CLINICIAN Unavailable Unavailable Servage, L Sherri MID LEVEL CLINICIAN Unavailable Unavailable Servage, L Sherri MID LEVEL CLINICIAN Unavailable Unavailable Servage, L Sherri MID LEVEL CLINICIAN Unavailable Unavailable Servage, L Sherri MID LEVEL CLINICIAN Unavailable Unavailable Servage, L Sherri MID LEVEL CLINICIAN Unavailable Unavailable Servage, L Sherri MID LEVEL CLINICIAN Unavailable Unavailable Servage, L Sherri MID LEVEL CLINICIAN Unavailable Unavailable Servage, L Sherri MID LEVEL CLINICIAN Unavailable Unavailable Servage, L Sherri MID LEVEL CLINICIAN Unavailable Unavailable Servage, L Sherri MID LEVEL CLINICIAN Unavailable Unavailable Servage, L Sherri MID LEVEL CLINICIAN Unavailable Unavailable Servage, L Sherri MID LEVEL CLINICIAN Unavailable Unavailable Servage, L Sherri MID LEVEL CLINICIAN Unavailable Unavailable Servage, L Sherri MID LEVEL CLINICIAN Unavailable Unavailable Servage, L Sherri MID LEVEL CLINICIAN Unavailable Unavailable Servage, L Sherri MID LEVEL CLINICIAN Unavailable Unavailable Servage, L Sherri MID LEVEL CLINICIAN Unavailable Unavailable Servage, L Sherri MID LEVEL CLINICIAN Unavailable Unavailable Servage, L Sherri MID LEVEL CLINICIAN Unavailable Unavailable Servage, L Sherri MID LEVEL CLINICIAN Unavailable Unavailable Servage, L Sherri MID LEVEL CLINICIAN Unavailable Unavailable Servage, L Sherri MID LEVEL CLINICIAN Unavailable Unavailable Servage, L Sherri MID LEVEL CLINICIAN Unavailable Unavailable Servage, L Sherri MID LEVEL CLINICIAN Unavailable Unavailable Servage, L Sherri MID LEVEL CLINICIAN Unavailable Unavailable Servage, L Sherri MID LEVEL CLINICIAN Unavailable Unavailable Servage, L Sherri MID LEVEL CLINICIAN Unavailable Unavailable Servage, L Sherri MID LEVEL CLINICIAN Unavailable Unavailable Servage, L Sherri MID LEVEL CLINICIAN Unavailable Unavailable Servage, L Sherri MID LEVEL CLINICIAN Unavailable Unavailable Servage, L Sherri MID LEVEL CLINICIAN Unavailable Unavailable Servage, L Sherri MID LEVEL CLINICIAN Unavailable Unavailable Servage, L Sherri MID LEVEL CLINICIAN Unavailable Unavailable Servage, L Sherri MID LEVEL CLINICIAN Unavailable Unavailable Servage, L Sherri MID LEVEL CLINICIAN Unavailable Unavailable Servage, L Sherri MID LEVEL CLINICIAN Unavailable Unavailable Servage, L Sherri MID LEVEL CLINICIAN Unavailable Unavailable Servage, L Sherri MID LEVEL CLINICIAN Unavailable Unavailable Servage, L Sherri MID LEVEL CLINICIAN Unavailable Unavailable Servage, L Sherri MID LEVEL CLINICIAN Unavailable Unavailable Servage, L Sherri MID LEVEL CLINICIAN Unavailable Unavailable Servage, L Sherri MID LEVEL CLINICIAN Unavailable Unavailable Servage, L Sherri MID LEVEL CLINICIAN Unavailable Unavailable Servage, L Sherri MID LEVEL CLINICIAN Unavailable Unavailable Servage, L Sherri MID LEVEL CLINICIAN Unavailable Unavailable Servage, L Sherri MID LEVEL CLINICIAN Unavailable Unavailable Servage, L Sherri MID LEVEL CLINICIAN Unavailable Unavailable Servage, L Sherri MID LEVEL CLINICIAN Unavailable Unavailable Servage, L Sherri MID LEVEL CLINICIAN Unavailable Unavailable Servage, L Sherri MID LEVEL CLINICIAN Unavailable Unavailable Servage, L Sherri MID LEVEL CLINICIAN Unavailable Unavailable LETTIERE, Rohit BOBBY PA Unavailable [...] Unavailable LETTIERE, A DIAMANTE PA Unavailable Unavailable Janie ANTON MD Unavailable Unavailable [...] Unavailable Unavailable Janie ANTON MD Unavailable Unavailable SLOANEJanie ALLISON MD Unavailable Unavailable SLOANEJanie ALLISON MD Unavailable Unavailable SLOANEJanie ALLISON MD Unavailable Unavailable SLOANEJanie ALLISON MD Unavailable Unavailable SLOANEJanie ALLISON MD Unavailable Unavailable SLOANEJanie ALLISON MD Unavailable Unavailable SLOANEJanie ALLISON MD Unavailable Unavailable SLOANEJanie ALLISON MD Unavailable Unavailable SLOANEJanie ALLISON MD Unavailable Unavailable SLOANEJanie ALLISON MD Unavailable Unavailable SLOANEJanie ALLISON MD Unavailable Unavailable SLOANEJanie MD Unavailable Unavailable SLOANEJanie MD Unavailable Unavailable SLOANEJanie MD Unavailable Unavailable SLOANEJanie MD Unavailable Unavailable SLOANEJanie ALLISON MD Unavailable Unavailable SLOANEJanie ALLISON MD Unavailable Unavailable SLOANEJanie ALLISON MD Unavailable Unavailable SLOANEJanie MD Unavailable Unavailable SLOANEJanie ALLISON MD Unavailable Unavailable SLOANEJanie ALLISON MD Unavailable Unavailable SLOANEJanie ALLISON MD Unavailable Unavailable SLOANEJanie ALLIOSN MD Unavailable Unavailable SLOANEJanie ALLISON MD Unavailable Unavailable SLOANEJanie ALLISON MD Unavailable Unavailable CATHERINE (LORI), Janie MARCOS MD [...] (LORI), Janie MARCOS MD Unavailable Unavailab le TAMTATIANA ARGUELLO MD Unavailable Unavailable TATIANA SMITH MD Unavailable [...] Unavailable Unavailable Ali, Florina MD Unavailable Unavailable MADISON RESTREPO MD Unavailable Unavailable MADISON RESTREPO MD Unavailable Unavailable MADISON RESTREPO MD Unavailable Unavailable MADISON RESTREPO MD Unavailable Unavailable MADISON RESTREPO MD Unavailable Unavailable MADISON RESTREPO MD Unavailable Unavailable MADISON RESTREPO MD Unavailable Unavailable MADISON RESTREPO MD Unavailable Unavailable MADISON RESTREPO MD Unavailable Unavailable MADISON RESTREPO MD Unavailable Unavailable MADISON RSETREPO MD Unavailable Unavailable MADISON RESTREPO MD Unavailable [...] MADISON MD Unavailable Unavailable Cronin Rowell, Rohit Colney MD, FACS Unavailable Unavailable Cronin Rowell, Rohit [...] is protected by Article 27-F of the [facility] Public Health law. If you continue you may have access to information: Regarding HIV / AIDS; Provided by facilities licensed or operated by the [facility] Office of Mental Health; or Provided by the [facility] Office for People With Developmental Disabilities. If such information is present, then the following [facility] mandated warning applies: This information has been [...] law may result in a fine or senior living sentence or both. A general authorization for the release of medical or other information is NOT sufficient authorization for further disc losure. Allergies and Adverse Reactions Type Description Substance Reaction Status Data Source(s ) Allergy to substance No Known Allergies No known allergies (situation ) BRUNO (Jarvis Rowell MD [facility]) Family History Family Member Name Family Member Gender Family Member Status Date o f Status Description Data Source(s) Unknown Female Problem MEDENT ([facility]) Encounters Encounter Providers Location Date Indications Data Source(s ) Outpatient Attender: TR ANTON MD 07/24/2021 12:00:00 AM [facility] Outpatient Attender: TR ANTON MD 07/17/2021 12:00:[address] [facility] [address] [facility] [address] 06/13/2021 12:00:00 AM EDT eCW1 ([facility]) Office Visit, Est Pt., Level 4 [address] [place] [address] 06/06/2021 12:00:00 AM EDT eCW1 (Critical access hospital) Attender: PRITI MOREJON) MDReferrer: B onnie Servage MID LEVEL CLINICIAN 04/25/2021 08:21:08 PM EDT [facility] Attender: PRITI MOREJON) MDReferrer: B onnie Servage MID LEVEL CLINICIAN 03/28/2021 08:21:07 PM EDT [facility] Attender: PRITI MOREJON) MDReferrer: B onnie Servage MID LEVEL CLINICIAN 03/28/2021 08:21:07 PM EDT [facility] Attender: PRITI MOREJON) MDReferrer: B onnie Servage MID LEVEL CLINICIAN 03/28/2021 08:21:07 PM EDT [facility] Attender: PRITI MOREJON) MDReferrer: B onnie Servage MID LEVEL CLINICIAN 03/28/2021 08:21:07 PM EDT [facility] Attender: PRITI ALEXANDER ([place]) MDReferrer: Digna Brewster MID LEVEL CLINICIAN 03/28/2021 08:21:07 PM EDT [facility] Outpatient Attender: DIAMANTE corrales 03/15/2021 04:50:00 PM EDT MEDENT ([facility]) Office Visit Attender: Florina Souza MD Main office - [facility] 01/11/2021 10:45:00 AM EDT MEDENT ([facility] [address] [facility], [facility] [address] 12/22/2020 12:00:00 AM EDT eCW1 ([facility]) Outpatient<td ID="encounterTypeDescripti onID0">3 Month Follow-Up</td><td>Jarvis Choi MD, FACS</td><td>Jarvis Choi MD [facility]</td><td>12/15/2020</td><td>12:17PM</td><td>1:01PM</td><td><content ID="encounterDiagnosisID0-0">Graves' Ophthalmopathy</content>, <content ID="encounterDiagnosisID0-1">Dry Eye Syndrome Both Eyes</content></td> Attender: Jarvis Rowell MD, MYRANDA Choi MD [facility] 12/15/2020 12:17:00 PM EDT - 12/15/2020 01:01:00 PM EDT Dry Eye Syndrome Both EyesGraves' Ophthalmopathy WINIFRED (Jarvis Rowell MD [facility]) Dry Eye Syndrome Both Eyes Graves' Ophthalmopathy Office Visit, Est Pt., Level 2 FC [address] [place] [address] 12/06/2020 12:00:00 AM EDT eCW1 (Critical [facility] hospital) Outpatient<td ID="encounterTypeDescripti onID1">NEW PATIENT WITH REFERRAL</td><td>Jarvis Choi MD, FACS</td><td>Jarvis Choi MD [facility]</td><td>10/05/2020</td><td>1:36PM</td><td>2:51PM</td><td><content ID="encounterDiagnosisID1-0">Cataract Senile Cortical</content>, <content ID="encounterDiagnosisID1-1">Cataract Senile Nuclear</content>, <content ID="encounterDiagnosisID1-2">Vitreous Disorders Degeneration</content>, <content ID="encounterDiagnosisID1-3">Dry Eye Syndrome Both Eyes</content>, <content ID="encounterDiagnosisID1-4">Graves' Ophthalmopathy</content></td> Attender: Jarvis Rowell MD, FACS Jarvis Choi MD [facility] 10/05/2020 01:36:00 PM EST - 10/05/2020 02:51:00 PM EST Graves' OphthalmopathyDry Eye Syndrome B oth EyesVitreous Disorders DegenerationCataract Senile NuclearCataract Senile Cortical BRUNO (Jarvis Rowell MD [facility]) Graves' Ophthalmopathy Dry Eye Syndrome Both Eyes Vitreous Disorders Degeneration Cataract Senile Nuclear Cataract Senile Cortical Unknown [address] [facility] [address] 09/05/2020 12:00:00 AM EST eCW1 ([facility]) Outpatient Attender: TR ANTON MD [id number] 07/18/2020 12 :00:00 AM [facility] Outpatient Referrer: TATIANA SMITH MD 07/14/2020 12:00: 00 AM EST Follicular lymphoma, unspecified, unspecified site [facility] Follicular lymphoma, unspecified, unspec ified site Outpatient Attender: TR ANTON MD 07/11/2020 12:00:00 AM [facility] Outpatient Attender: TR Hayden-ONCCACTR 06/03 12:00:00 AM EDT - 06/27/2020 12:01:41 PM EDT Follicular lymphoma, unspecified, unspecified site [facility] Follicular lymphoma, unspecified, unspec ified site [place] [address] [facility] [address] 06/16/2020 12:00:00 AM EDT eCW1 ([facility]) Outpatient [address] [facility] [address] 06/07/2020 12:00:00 AM EDT eCW1 ([facility]) Attender: PRITI MOREJON) MDReferrer: Digna Brewster NP 04/18/2020 08:20:08 PM EDT [facility] Outpatient Attender: Dina Latham MDReferrer: MADISON GUZMAN MD 08/09/2011 10:42:45 AM [facility] - 08/09/2011 10:42:45 AM [facility] Outpatient Attender: MADISON RESTREPO MD 04/2011 10:42:45 AM [facility] - 08/09/2011 10:42:45 AM [facility] Inpatient Referrer: MADISON RESTREPO MD 12/2009 08:25:00 AM [facility] - 10/10/2009 10:00:00 AM [facility] Immunizations Vaccine Date Status Description Data Source(s) influenza, recombinant, quadrIvalent,injectable, prese rvative free 06/06/2021 01:24:00 PM EDT completed eCW1 ([facility]) influenza, recombinant, quadrIvalent,injectable, prese rvative free 06/06/2021 01:24:00 PM EDT completed eCW1 ([facility]) COVID-19 dose #2 given elsewhere Unspecified 12/02/2020 01:5 1:00 PM EDT completed eCW1 ([facility]) COVID-19 dose #2 given elsewhere Unspecified 12/02/2020 01:5 1:00 PM EDT completed eCW1 ([facility]) COVID-19 dose #2 given elsewhere Unspecified 12/02/2020 01:5 1:00 PM EDT completed eCW1 ([facility]) COVID-19 dose #2 given elsewhere Unspecified 12/02/2020 01:5 1:00 PM EDT completed eCW1 ([facility]) COVID-19 VACCINE Moderna 12/02/2020 12:00:00 AM EDT completed [place] Vaccine Series Complete: YESThis Data wa s Submitted to [facility]. COVID-19 dose #1 given elsewhere Unspecified 11/04/2020 01:5 1:00 PM EST completed eCW1 ([facility]) COVID-19 dose #1 given elsewhere Unspecified 11/04/2020 01:5 1:00 PM EST completed eCW1 ([facility]) COVID-19 dose #1 given elsewhere Unspecified 11/04/2020 01:5 1:00 PM EST completed eCW1 ([facility]) COVID-19 dose #1 given elsewhere Unspecified 11/04/2020 01:5 1:00 PM EST completed eCW1 ([facility]) COVID-19 VACCINE Moderna 11/04/2020 12:00:00 AM EST completed [place] Vaccine Series Complete: NOThis Data was Submitted to [facility] [employer]. influenza, recombinant, quadrIvalent,injectable, prese rvative free 06/07/2020 01:55:00 PM EDT completed eCW1 ([facility]) influenza, recombinant, quadrIvalent,injectable, prese rvative free 06/07/2020 01:55:00 PM EDT completed eCW1 ([facility]) influenza, recombinant, quadrIvalent,injectable, prese rvative free 06/07/2020 01:55:00 PM EDT completed eCW1 ([facility]) influenza, recombinant, quadrIvalent,injectable, prese rvative free 06/07/2020 01:55:00 PM EDT completed eCW1 ([facility]) influenza, recombinant, quadrIvalent,injectable, prese rvative free 06/07/2020 01:55:00 PM EDT completed eCW1 ([facility]) influenza, recombinant, quadrIvalent,injectable, prese rvative free 06/07/2020 01:55:00 PM EDT completed eCW1 ([facility]) influenza, recombinant, quadrIvalent,injectable, prese rvative free 06/07/2020 01:55:00 PM EDT completed eCW1 ([facility]) zoster 05/23/2020 01:33:00 PM EDT completed e CW1 ([facility]) zoster 05/23/2020 01:33:00 PM EDT completed e CW1 ([facility]) zoster 05/23/2020 01:33:00 PM EDT completed e CW1 ([facility]) zoster 05/23/2020 01:33:00 PM EDT completed e CW1 ([facility]) zoster 05/23/2020 01:33:00 PM EDT completed e CW1 ([facility]) zoster 05/23/2020 01:33:00 PM EDT completed e CW1 ([facility]) zoster 05/23/2020 01:33:00 PM EDT completed e CW1 ([facility]) Medications Medication Brand Name Start Date Product Form Dose Route Admi nistrative Instructions Pharmacy Instructions Status Indications Reaction Description Data Source(s) doxycycline hyclate 100 MG Oral Tablet Doxycycline Hyc late 100 MG Doxycycline Hyclate 100 MG 06/13/2021 12:00:00 AM EDT 1.0 {tablet} active Doxycycline Hyclate 100 MG eCW1 ([facility]) benzonatate 100 MG Oral Capsule [Tessalon Perles] Halima glenna Perles 100 MG Tessalon Perles 100 MG 06/13/2021 12:00:00 AM EDT 1.0 {capsule} active Tessalon Perles 100 MG eCW1 ([facility]) NITROFURANTOIN, MACROCRYSTALS 25 MG / Ni trofurantoin, Monohydrate 75 MG Oral Capsule [Macrobid] Macrobid 03/15/2021 12:00:00 AM EDT ORAL active MEDENT ([facility]) Clobetasol Propionate 0.0005 MG/MG Topical Ointment [T emovate] Temovate 0.05 % Temovate 0.05 % 12/06/2020 12:00:00 AM EDT 1.0 {application} active Temovate 0.05 % eCW1 ([facility]) Clobetasol Propionate 0.0005 MG/MG Topical Ointment [T emovate] Temovate 0.05 % Temovate 0.05 % 12/06/2020 12:00:00 AM EDT 1.0 {application} active Temovate 0.05 % eCW1 ([facility]) Clobetasol Propionate 0.0005 MG/MG Topical Ointment [T emovate] Temovate 0.05 % Temovate 0.05 % 12/06/2020 12:00:00 AM EDT 1.0 {application} suspended Temovate 0.05 % eCW1 ([facility]) Clobetasol Propionate 0.0005 MG/MG Topical Ointment [T emovate] Temovate 0.05 % Temovate 0.05 % 12/06/2020 12:00:00 AM EDT 1.0 {application} suspended Temovate 0.05 % eCW1 ([facility]) duloxetine 30 MG Delayed Release Oral Capsule [Cymbalt a] Cymbalta 30 MG Cymbalta 30 MG 06/07/2020 12:00:00 AM EDT 1.0 {capsule} acti ve Cymbalta 30 MG eCW1 ([facility]) duloxetine 30 MG Delayed Release Oral Capsule [Cymbalt a] Cymbalta 30 MG Cymbalta 30 MG 06/07/2020 12:00:00 AM EDT 1.0 {capsule} acti ve Cymbalta 30 MG eCW1 ([facility]) duloxetine 30 MG Delayed Release Oral Capsule [Cymbalt a] Cymbalta 30 MG Cymbalta 30 MG 06/07/2020 12:00:00 AM EDT 1.0 {capsule} acti ve Cymbalta 30 MG eCW1 ([facility]) Insurance Providers Payer name Policy type / Coverage type Policy ID Covered libertarian ID Covered libertarian's relationship to humphrey Policy Humphrey Plan Information MEDICARE [id number] SP [id number] A MEDICARE A [id number] Self [id number] A HUMANA HMO [id number] SP [id number] HUMANA H [id number] Self [id number] HUMANA HMO [id number] SP [id number] HUMANA H [id number] Self [id number] HUMANA H [id number] Self [id number] HUMANA H [id number] Self [id number] HUMANA HMO [id number] SP [id number] HUMANA HMO [id number] SP [id number] HUMANA CLAIMS PFFS [id number] Medicare Part B [facility] [id number] 0 [id number] HUMANA CLAIMS (PFFS) [id number] HUMANA CLAIMS (PFFS) [id number] [facility] [facility] [id number] Medicare Part B [facility] [id number] 0 [id number] [employer] [facility] [id number] 0 [id number] [employer] Option [id number] 0 [id number] [employer] CLAIMS DEPT [id number] [employer] PLANS CLAIMS DEPT [id number] 0 [id number] WELLC[employer] MEDICARE HMO [id number] Self [id number] AETNA MEDICARE [id number] SP [id number] AETNA MEDICARE [id number] 0 [id number] ANSI-Commercial [id number] ANSI-Medicare Part B [id number] HUMANA HMO [id number] SP [id number] MEDICARE [id number] SP [id number] A HUMANA HMO [id number] SP [id number] ANSI-Medicare Part B [id number] ANSI-Commercial [id number] ANSI-Medicare Part B [id number] ANSI-Commercial [id number] ANSI-Medicare Part B [id number] ANSI-Commercial [id number] ANSI-Medicare Part B [id number] ANSI-Commercial [id number] ANSI-Commercial [id number] ANSI-Medicare Part B [id number] ANSI-Medicare Part B [id number] ANSI-Commercial [id number] HUMANA HMO O [id number] S [id number] MEDICARE C [id number] S [id number] A MEDICARE [id number] SP [id number] A HUMANA HMO [id number] SP [id number] Humana Claims Office Commercial [id number] Self [place] Primary [id number] Self HUMANA HMO S [id number] S [id number] HUMANA PPO [id number] [employer] O [id number] S [id number] [employer] O [id number] S [id number] MEDICARE OUTPATIENT M [id number] S [id number] AETNA MEDICARE [id number] SP [id number] AETNA MEDICARE [id number] SP [id number] [facility] [id number] SP [id number] [facility] OPTIONS [id number] SP [id number] MEDICARE [id number] SP [id number] MEDICARE [id number] SELF [id number] HUMANA MEDICARE [id number] SELF [id number] HUMANA MEDICARE [id number] SELF 1F [id number] ANSI-Commercial [id number] ANSI-Medicare Part B [id number] ANSI-Commercial [id number] ANSI-Commercial [id number] ANSI-Commercial [id number] ANSI-Medicare Part B [id number] ANSI-Medicare Part B [id number] ANSI-Commercial [id number] ANSI-Commercial [id number] ANSI-Medicare Part B [id number] ANSI-Commercial [id number] ANSI-Commercial [id number] ANSI-Medicare Part B [id number] ANSI-Commercial [id number] ANSI-Commercial [id number] Problems, Conditions, and Diagnoses Code Display Name Description Problem Type Effective Dates Data Source(s) D51.3 Cobalamin deficiency Cobalamin deficiency Problem 01/11/2021 12:00:00 AM EDT MEDENT ([facility] ) 379.21 Vitreous Disorders Degeneration Vitreous Disorders Deg eneration Problem 10/05/2020 12:00:00 AM EST BRUNO (Jarvis Rowell MD [facility]) 45455003 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) Graves' Dis (Diff Toxic Goiter) with Thyrotoxic Crisis/storm Problem 10/05 12:00:00 AM EST BRUNO (Jarvis Rowell MD [facility]) 242.00 Graves' Ophthalmopathy Graves' Ophthalmopathy Problem 10/05/2020 12:00:00 AM EST BRUNO (Jarvis Rowell MD [facility]) 41006356 Dry Eye Syndrome Both Eyes Dry Eye Syndrome Both Eyes Problem 10/05/2020 12:00:00 AM EST BRUNO (Jarvis Rowell MD [facility]) 366.16 Cataract Senile Nuclear Cataract Senile Nuclear Proble m 10/05/2020 12:00:00 AM EST BRUNO (Jarvis Rowell MD [facility]) 366.15 Cataract Senile Cortical Cataract Senile Cortical Prob jennifer 10/05/2020 12:00:00 AM EST BRUNO (Jarvis Rowell MD [facility]) N39.3 [id number] Stress incontinence Problem 06/07/2020 12:00 :00 AM EDT eCW1 ([facility]) Surgeries/Procedures Procedure Description Date Indications Data Source(s) Imm: Flublok Quadrivalent 18 years & older 0.5mL IM Influenz a 06/06/2021 12:00:00 AM EDT eCW1 ([facility]) OFFICE OUTPATIENT NEW 30 MINUTES 03/15/2021 12:00:00 A M EDT MEDENT ([facility], [facility]) Intermediate Eye Exam Established Patient Intermediate Eye Exam Established Patient 12/15/2020 12:00:00 AM EDT BRUNO (Forest Rowell MD [facility]) Surgical / procedural history Gall Blad seng 2016, Appendectomy 2012, Hysterectomy 2019, Surgical / procedural history Gall Blad seng 2016, Appendectomy 2012, Hysterectomy 2019, 10/05/2020 12:00:00 AM [facility] (Jarvis Rowell MD [facility]) Medical Eye Exam Medical Eye Exam 10/05/2020 12:00:00 AM [facility] (Jarvis Rowell MD [facility]) BLOOD COUNT COMPLETE AUTO&AUTO DIFRNTL WBC COUNT <td>C BC AND DIFFERENTIAL</td><td>STAT</td><td>06/27/2020 12:20 PM EDT</td><td> Follicular lymphoma, unspecified follicular lymphoma type, unspecified body region</td><td> </td> 06/27/2020 12:20:00 PM EDT Follicular lymphoma, unspecified follicu lar lymphoma type, unspecified body region [facility] Follicular lymphoma, unspecified follicu lar lymphoma type, unspecified body region THYROID STIMULATING HORMONE TSH <td>TSH</td><td>Routin e</td><td>06/27/2020 12:20 PM EDT</td><td> Follicular lymphoma, unspecified follicular lymphoma type, unspecified body region</td><td> </td> 06/27/2020 12:20:00 PM EDT Follicular lymphoma, unspecified follicu lar lymphoma type, unspecified body region [facility] Follicular lymphoma, unspecified follicu lar lymphoma type, unspecified body region LACTATE DEHYDROGENASE LDH <td>LACTATE DEHYDROGENASE</td><td>STAT</td><td>06/27/2020 12:20 PM EDT</td><td> Follicular lymphoma, unspecified follicular lymphoma type, unspecified body region</td><td> </td> 06/27/2020 12:20:00 PM EDT Follicular lymphoma, unspecified follicu lar lymphoma type, unspecified body region [facility] Follicular lymphoma, unspecified follicu lar lymphoma type, unspecified body region COMPREHENSIVE METABOLIC PANEL <td>COMPREHENSIVE METABO LIC PANEL</td><td>Routine</td><td>06/27/2020 12:20 PM EDT</td><td> Follicular lymphoma, unspecified follicular lymphoma type, unspecified body region</td><td> </td> 06/27/2020 12:20:00 PM EDT Follicular lymphoma, unspecified follicu lar lymphoma type, unspecified body region [facility] Follicular lymphoma, unspecified follicu lar lymphoma type, unspecified body region Immunization: Flublok Quadrivalent (18 years & older) 0.5mL IM (Influenza) 06/07/2020 12:00:00 AM EDT eCW1 ([facility]) Results ID Date Data Source [id number] 05/25/2021 08:45:00 AM EDT [facility] Name Value Range Interpretation Code Description Data Brenna rce(s) Supporting Document(s) Colonoscopy [facility] NGZQBz5fDdSYIaAxMQXmClqOTFfbQWpxYFJdO9D8ROsrHr5RCFujeyGpWVGzLx5+QJTcRY4aaf0wRCRw gMy [file] GG60V6I7w3dk8doiva3hy9Vi6uepUpVJ68mjIIozHLfU9z3bsVmoKnrhdTnmtD/bT282Jz/Misty+qeb01 y09vrPWt7uaLxRCDdQ1U2G51WrfZLeI42pmJydmiwKZECmnunakct1Tisd39/WXdvIVD0GL0nJdXFs3W bkyIo4yl/4Yj8+Myy4hev7KVZPmXL5zVPQRu/A2snn 64Pkbv1FXoZRcALRfa87eaFx/C7bvKThxgnDYL8UHx7aGNk6wDBIvp8gJBNIq/xYqUX7IsfwMbwyOKzi Ys2tUwa+9g0YFW/oJrSJQcfEMM2GqlTn69KuWqOXFfTzq8ktpuabovVQmY8Qcg6N12v2RE+uMDdj50Xp fDWwuQ3CDtK3ysVltp/6XY9EtLaH5QqoQjO+T6S3F2 qcDT+iOcZ8O+t1DSNwyOCG61i+gWm5ZhLeHwya6lJ/cFnQVXt+OefFr1NNUXgO6ixIh/mR/i2FrAOAYC 0Jp/J7FGTNmbZ05ncEo9blRl7raCjxn1qQVpEhiOHGdQmCTm7eOeQMKjqXNpnaMjw/Vaqopl9US8F9dK 8sbtwf0cNYN+marco antonio/HXDjKKIfem25lt5TwshgFVQXBY [file] EkYQGQZ1Z3Sim1RWOL+rVxsv7HvWxtNxAJyCm49nGB91wt43Q/ks5EbtWMg1yLIELZhoM6HMPRJy+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 [file] yjyIJOE4gf5t+eJsD9YeMuHIIFvRzi+Ti46Qhb71uIdelJZpDA3ZQHpO4JaeRIyl/+LODGING FACILITIES MANAGER+xZOJEN9Dot [file] zuDbPuaWvNkR82Q5tRZg9eJXUOpXfkHpxY53kSIM0Z8aMZzwKpGB3KuHXd7cLGgaYJERgSPn0AI+wound specialist [file] P2LB0WKgq2m+R2Nb/0u7cN2rfpK10+M2EI0Vz4D/U0KiPOV4mKwoj1stMO9jWjMwjYb76UXkC8ur+Balance And Hairspring Assembler IQzqqpwEyBPvTVj6gscVN9wWIvqwwlPaI6ivxNIFsRKgivhXmLeIJmw0sIZ64YpBw7GutSqyTHAD+zAU EVdampRXKo+LgeqGy5gMZiozSxkDz33K2iJXyHJ6DN 9ejBpdUlW5u4NGJMFZhY+dOWbJ69MzDKG1onv6XI5S0YX5s1eRhgDjtUQFbFL7QEPood/iN7y5lRy6py 6KOz3sHv70syw+AGf5dmwgSaCT7MAarkhZck62GSoniuEz12SZHir+PrfjaOvKspyIP7YL3xXT4jXTAx tJ/vJcFwd4P40joe4+FZs8YdGiPdv1Po2Brsp3o46b rosy/QN56YxSGfHrtjryl7VpMX1JJUWek9Zk7C3EnbD9OnEEUvyA2SQmDpZzH56WIZrdzXWq/WCOXX3amF [file] fTkIvpgE8DHE4w6RdMveHozLyJMFYiBr+MID LEVEL CLINICIAN+bJVDru [file] ESX1buOefI8OCZ7bt5HfGW1Nf2MqccI0jiUyOUz0XXWsWaGMUyCkHO6P ID Date Data Source [id number] 03/28/2021 10:45:00 AM EDT [facility] Name Value Range Interpretation Code Description Data Brenna rce(s) Supporting Document(s) Follow Up [facility] PHEXGj5dRyQKQoAwXMUcUocWCHcoBQmrLFCdP6J4GKavKc8PCGqzjeDpTVFpBd4+PGUuVI1rpf6hGEQh gMy [file] doFU4FB1aS6xD6pV+wyL1GXQI4sx1ER6nSezSGe/INVESTIGATOR UTILITY BILL COMPLAINTS [file] 5B7MGQ9RDStEYXayO8ot3sIgIpYx3CI5Hz/qv6h5zMrnrGYl/J1[facility]//qOephJ88I8G1fu89o6/cM [file] XeruEi73/captain/airline pilot+HQLPnxN/6K+5tOc90S7y3b73epkyC8Nb/1FNQMiUNSFksFQv9pYWqMEJauVqNTRyB11 [file] kDbeibPr7DWk6PAGnb6LCLw/Scaffolding Helper/Abb0Ii98S3AwwOrpqLDbiftLKhv0kXEmnWkUp1KwVckZygN6tUe3w [file] 8O8b+aR1vh33qRJOP7f3iTCMvpf6McCVSn8JnTBBdf2D5mMeZswJW/4UWDHf8TrYsACBDrhFa+Saravanan/ rilsFTAgoWack5t8z7yuqmCmtLaRD/b5EYOE3BFOUCoapKuL8yJZYx4gWrVK2919CZckZoaUN1E/hZQf vuWd3ut5AAH1Q1NVIODch/SQscB+he0jpg9b6z6eII Vhm6FuP4qw6eRxvWdNFqngTCzly4SyWaNuLjWw4dInnZUtvrcnzoPJuRK0gVXHxrm+Yxn96D1U3IojKP i4bAJbyajhJ/PG0o/+y4zibg0dtmX8n6T7aOJ1hfYGl5CQi2dj1cPY0nzSjlfLNdW7e0YzdH+iq6q85H meaJeOtfLWNcqbbKntMC+eoeicYSXwgiyi+A9T5Rbx bI8Fb4rYohLljplkM0fw8eysawZHv/vgsm5TN1VEriDYttr3pEd4zka7lGvi6S1YMwRBsKcgiT/PagUa aslZYAw9SH28awSR0J/sbKVfU/wdxC1rDJ7FNVw8bsGlriaWaphoIOT+LS1rpajCRpNSiAnZgz1/YDGe 8Ie8j3Fwteii/T84aKaIhNlqm0Dopbm0T0411Q2Y3M zrL/sJXmnmY7bsc1+R68K64irxy8416RteLKmAlPk/S+/9K/Vi9wUQDfVCmGw396pGW43veDdmTZxR6+ UwIzJpZbWsPOa+6keW430zt9EbWuM6c0E38ap127/0/V+ZyT1lNt/jzWKbIxrwhhXsddfFa0+6n2nUWp ISmItTOJJZeZ+3rA5EtG8y5bEHb/JtURa7sfrwDFp3 8Dj0dezA4YLAqExRAP82kUDR3XE17Zehr7RfESQOKQnlY+mVfeWkVZolP4nVo2xM+FAb947EYRpPGkzR Akb9pXV/P1LhqwdqlPUgPkLpIVJhamEerztIqnWxzngKJs5vjBM89FO4s5+Hk0rxm2r3TNOnOlWb340i KU08+4zd342q7ME8gveWZ97I5kV12+9IgBdu6G9m2p x4gb95jV9s4Yj6AoS8/pQNl6GnGEv4hG/B9XLA+6fTVDUcqYDYi7WOPOVsxdJ4ZfNNX7iq8Q1C3GQTNQ wCaFc9sZNe8iJ7JkguU4huixiH5QB2D8W/H7/n5c38Kf/r+zqW0FvVhO+v36JYVBM4U3MlPBnwBc1i1a 9k2P/CqZRVbdOzyqEL7P1bm67Z81b/zS6s0Am6WaxX Al3h7Kr73/vBaudDdkhoVHIZRJnwtPc4Atxbv7ELdXMHJNa5UfLFV+YRzijdBRFxxaefkkP1x1pYrH+s 07+tOOW1jiIgtZLB9vy45/g+jmi9XpniR2ynLbZ/5vkILesir9IoLWbndLRvomXBUXC2MoAfnimg94In zzsAXErK0yJgX3kJr81WrKzVmSx8VVZB/iWNqpir9c AxFVQiZ7hKBYmILxhP/rCiDTcq5zkzz+bELu4cpKLl0tVQ/OahDq+y5eX8vNyOB22bQtVSrUHGHGG5Y0 QJDWb/9FGKz2eUW9Tu3wn5chL08f1rRnSkrtB9L2hcYmHcKgLxCewXYHK4ZN2N1gdW5vhmHd4WIyt64k z1IQ6KHPfDbj2uXtxaJMwBjHSJCyaUCHhcpz6Pe7gt SFs6kl6zjk9aK2JxR0Ic4JiHwx2iUKHzrPFNpu9cUa7SlB39acsxR9ZTiildCigPD0HPcFUYcTc9Wa8w yykdxkh+rPYzVCxPNkCXzox8XHOIj6ssNvuB/irFdDS7oyU4vULSPok7GqZX5wea+R+/YwW6cl5i95ck V2NLxQT36nvVXmE3GUFwwdQ1Kz6RyUkawpyRirTmyd dICsEWPEE7jqQsmFNEH6GUO4YBfYDP+Emz0wsU9u7uTntWhRXF1VnEOhkPcXaMyv1Eg/E3Qs1b4fP7Va yxp1OqdvMXjM3u5zy8AGkSfE/8CPyuEuxMybdpqtDItGQOAWVBjNngZX4j5icTWxEOqvmxAbfwMdbAeR /RXt5TXprX/8FG5BCT07paOif5Oka/hey+fzW8I [file] 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/CZ75k7q47GpSaTz1w1umL29/ngIyrSASWfs3oWqDiE5ZHQWGkoEaGMe9h6/FKNj6f7DtHV6RS3QJ [file] vcUWYddEBPCfCJmwi9eglF5ssW+VQviuYhDJ6qJHNG6iekJvDWKGlpp150qOE2IqWeVmRt2HkjDl+groundskeeper 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 [file] Y2M8UrBAEXNkGXSTDBNTCAPWCPMf4aNOelSsfWOmyGLSJuVRX5SDBVOBHAAnA5XRNFBzMCU9TaHr4iOe 9glFNjBGGzRe4DsmNbCEQnQQAZQ7LgytGlHIwoHCbjOAIgPTXcSj1GMWniOVChRM6+LmJ0qrWkyF0UjY aoJJXzMTHyVUHyKADZKK0NwJzBTSVodQROJmqXr0Ap uLGQ8EgfNCJ/UBXnA6OeaqQnWK0IBEKwuWEPLoFV0JJPCZjEHgNCDmYxBXJ6ycMqrR5WXE1vl2AlRC1Z j7BzwbI1vvUmQAkrLJO4GMD4VHbxQRNLTs== ID Date Data Source [id number] 03/15/2021 05:08:00 PM EDT [facility] Name Value Range Interpretation Code Description Data Brenna rce(s) Supporting Document(s) Bacteria identified in Urine by Culture Laboratory test result [facility] ([facility]) FULL REPORT IN LAB NOTES (eCW and Medent ). SPECIMEN APPEARS CONTAMINATED ID Date Data Source [id number] 10/08/2020 12:00:00 AM EST WINIFRED (Forest Rowell MD [facility]) Name Value Range Interpretation Code Description Data Brenna rce(s) Supporting Document(s) Thyroid Stimulating Immunoglobulin <0.10 IU/L Normal Thyroid Stimulating Immunoglobulin WINIFRED (Jarvis Rowell MD [facility]) ID Date Data Source [id number] 07/20/2020 01:11:39 PM [facility] PET W CT IMAGING SKULL TO TOES [id number] ED RESULT - FINALInterpreted by:Tanvir Braswell MDAddendum BeginsSigned on SatJul 20, 2020 1:09 PM by Bhavana Odonnell MD to technique:TECHNIQUE: The study was performed at the [facility]. Approximately 60 minutes following IV tracer [...] mg/dL.TECHNIQUE: The study was performed at the [facility]. Approximately 60 minutes following IV tracer [...] rce(s) Supporting Document(s) ID Date Data Source [id number] 07/18/2020 10:56:41 AM [facility] Name Value Range Interpretation Code Description Data [facility] rce(s) Supporting Document(s) Progress Note [facility] PPKXDn6jGkBQViQb87/QRLycDPBmc7QiYTibXWi5VSvtHINcC0EeORR9wM0lZCY3YWqYPeHaYyIlPOG7 lbm [file] AgICAgICAgICAgICAgICAgICAgICAgICAgICAgICAgICAgICAgICAgICAgICAgICAgICAgICAgICAgIC AgICAgICAgICAgICAgICAgICAgICAgDQogICAgICAg ICAgICAgICAgICAgICAgICAgICAgICAgICAgICAgICAgICAgICAgICAgICAgICAgICAgICAgICAgICAg ICAgICAgICAgICAgICAgICAgICAgICAgICAgICAgICAgDQogICAgICAgICAgICAgICAgICAgICAgICAg ICAgICAgICAgICAgICAgICAgICAgICAgICAgICAgIC AgICAgICAgICAgICAgICAgICAgICAgICAgICAgICAgICAgICAgICAgICAgDQogICAgICAgICAgICAgIC AgICAgICAgICAgICAgICAgICAgICAgICAgICAgICAgICAgICAgICAgICAgICAgICAgICAgICAgICAgIC AgICAgICAgICAgICAgICAgICAgICAgICAgDQogICAg ICAgICAgICAgICAgICAgICAgICAgICAgICAgICAgICAgICAgICAgICAgICAgICAgICAgICAgICAgICAg ICAgICAgICAgICAgICAgICAgICAgICAgICAgICAgICAgICAgDQogICAgICAgICAgICAgICAgICAgICAg ICAgICAgICAgICAgICAgICAgICAgICAgICAgICAgIC AgICAgICAgICAgICAgICAgICAgICAgICAgICAgICAgICAgICAgICAgICAgICAgDQogICAgICAgICAgIC AgICAgICAgICAgICAgICAgICAgICAgICAgICAgICAgICAgICAgICAgICAgICAgICAgICAgICAgICAgIC AgICAgICAgICAgICAgICAgICAgICAgICAgICAgDQog ICAgICAgICAgICAgICAgICAgICAgICAgICAgICAgICAgICAgICAgICAgICAgICAgICAgICAgICAgICAg ICAgICAgICAgICAgICAgICAgICAgICAgICAgICAgICAgICAgICAgDQogICAgICAgICAgICAgICAgICAg ICAgICAgICAgICAgICAgICAgICAgICAgICAgICAgIC AgICAgICAgICAgICAgICAgICAgICAgICAgICAgICAgICAgICAgICAgICAgICAgICAgDQogICAgICAgIC AgICAgICAgICAgICAgICAgICAgICAgICAgICAgICAgICAgICAgICAgICAgICAgICAgICAgICAgICAgIC AgICAgICAgICAgICAgICAgICAgICAgICAgICAgICAg ADo1Z2uxESQgMWTqXJ5rCXs2Mi2+FMzJWnPkZTW3axPboT2AZN7lv1XrCQvzKNNdk5InYDs7TD9ABWJo BNdbUI9RRPsenc6SVAZtLBRbdVGWr9qfQyZwFWA9BTWoFobuZL4IGNWjR3phkfZrSLKoNUTKMMyoQKWE DXnnDHXWDVZmFPTqVyLrVmXmXFZfJLEeGJBHYMQ3OR XzOrOtTCsmSV6Ei4MalIU1SQa+Wq9MFA8lf0TmUKs2WSLaHY0uah2RWCsPCxRvD6PoxmC2IMOmFLAzOf 7CHVSbACFoaYP0XJHgFRXWRzBpD0DolZ62ZFVIXo3+UPbeqlVbHgbWCnLtIQZjn0MiICr6WP6OWAFbVB o8pCAxMWUcW3Zug2XbAz00ZCHxKezmHRsjffMpZNAR nGwbmMtznjrtPCYjQCTpWSYtSIWvDpXrWCBiJKb2KJKJBIfRHlTgM2Ajr1YhXfZ5DHYtMwTgGXghMDAk ZpH6CZ06lXwwEY0BOMQvGPExBJ93PFUmSPCmLf9VWl1GCkYkOU5hyk3TVCBeGUPmCfxHTzh1IJjwLO0Z ePWxC5UhfLQve3qYMjEvQ0KLEHG4WXNiEd3VZTSiXm HlURCqNNhqTB0vXZKhTWQBvWtifkF4BP7FBU9plxYjSD6EVxCwXs7jMg9XYkFkY3BqK1QrQTEnDTDBAJ xsUV8ZLLgwIN3wDA2Kk3OCkHZasM3eit6YABNhOJJhLpvudq8VYesnG1C8wCzfFELxNDGrUMETWDqjVS 7UNWJtJZQ7OXJsECNlVRYXKaKgX48jJQ8EM6Fyr45h WiW2PPXrTnTiUGgeMX18pImcjuPgvRNfzNgbHY5DJc5+DQplbmRvYmoNCnhyZWYNCjAgNDMNCjAwMDAw NDPkVELdVmA9WpLpSg3JKFKdWBAdXTCvViQlPXFiELSdICljBTYdKSW9Ibe9QTOrPLFxLO1WYbWjGSRk IVC0KPErIQWfPELhcb6NXRHxDTNvPGZ7PyJnFFGjNO OkKGwzRLGhXLObYBZ3UJCmRAEyOX8JDfUfJUWkINR0JJjsQUPzUDYrbn6QRJAuDCXmAyXeDqJzAYFqWG SjBByuEXCiYSC4OnKuFBKyVSOmHF6THtPdDASbZIPgFDhdDIPxORZrqy7ONTZdNGRdHXX7ODPtTDOvWQ ShOTxeGCWhSLLgHPA4AVTrNHSwZX2XQvPmWMEbYLZk BiJpMEOyGAUceg7BZONfYZZfBQY9XBLaAUWnOFExWXdsTHAtDXB4Lhu8LTWwMBFiCK3EMuPmMDUmDLpg BsTxCXCaYRDtaw9VFUBzACUuTDC1MbIhNTRtQXFfSLocRGOaNYEuPBz7DLYhIFUxVA3RKmKiWGXySrD8 BMDeIRHyUUYags9NVUFsBUFcNIq8FnLjVBEfBJFiHC yoUUByWEXoSGW2KITqQJYsFU0ZEsCrMDAyEoYsNkOkZLVpNVNczi8RSFAoYMLgJsE5KZUoVKJsYAGcYQ iyWGWvNSNgEtjlUVFsGXQiKI2KAwIwPGUbNmW6XQTcVLFcFRKdfx8FKJLmRYEmNNhhCRGsCFIsMCKcTZ plOEDxQRA0BkF5CYYfMJWrSH6GSdJmZPNrPfA4WLJf IOMqXMPuit1FVHEgXIAvRYC4KVEdGSSeKQQzWUdiHDAlXUR6GEYhWTKtQQNzRG5FOyWsJOUdWiN3CLMr PQToTGOkff1GSHBuXAMcWkx0CuCoFNDrVXXjZLgcWEYlIKH2ILN0XWWmAHPzON3JLdFtEXGhOejfUKOv FLHnYIGdhs0WAAPnZDJaDTJ2BbYnVQZcAWDwHOjeIE OgHFW3HNR5ZYIaPGEdWM9YFlGbGRKmUjg8AEHlAXJnXAEthb7XYZKvDXIsZBE9BGVoOFLqVCWbFMdzGJ GmTLR2VqC6OVVzMIVqOT7LCpRuTIOdJJPdYTRzHVGeKUJpue4LXRSvYPD0IRK7QcKkINKkVBDyEDzoDL FbTZHsYmE8BNOjZBTzVK7IClRrZPTqAEQ2RIKrETDk SQYflp8OcMHyuHaszy2JQPhPHw8XcAkaHLZhANjnVu5lfKI2UwLmRKHVXo0QhbUzKCUrLTRDONlfKIZi SEEtILQzIKN7EfM3XSB6XPH2FGPpQuUhFmWaPSAhNSAjDcC8VxF1OwQgASCcMQE7RAF8Znp8RDJyNtM9 OFU5HVO2BLQ+NM3wMIo+Tf4Hq8KfooM0agMdVMk5EzO2VZ0EJJCSN9IMVi== ID Date Data Source [id number] 07/10/2020 08:36:16 PM EST [facility] Name Value Range Interpretation Code Description Data Brenna rce(s) Supporting Document(s) Progress Note [facility] SQZHYd6bWaCHKkPz21/AQAzyXYUfd6FfMYwvPKp9EJjwHJQyR6ToCJK8aO2cLBH5BFkZZmXwFsIlUHT8 lbm [file] Y8Q2PrOZDxMCv7QeYhJxXwHN6BJg8TWkP9WHE3rRBgIz0OWCrlZWMZYrRmLK1WXCk= ID Date Data Source [id number] 07/10/2020 08:36:11 PM [facility] Name Value Range Interpretation Code Description Data Brenna rce(s) Supporting Document(s) Progress Note [facility] ZJULYj9iGcSMOnRx50/WLWdsRRYjs1RxQOntZOc8QJkkDIOrF2ZqYUC5hV2pWCK7SXlZJyWtSxYvLPO9 lbm [file] xCEbvPttQPEONoJ0RpMvKTwwXTWRSv6T ID Date Data Source [id number] 06/27/2020 12:39:07 PM [facility] Name Value Range Interpretation Code Description Data Brenna rce(s) Supporting Document(s) Leukocytes [#/volume] in Blood by Automated count 9.1 10*3/uL 4-10 [facility] Erythrocytes [#/volume] in Blood by Automated count 4.42 10*6/uL 4.1- 5.3 [facility] Hemoglobin [Mass/volume] in Blood 13.1 g/dL 11.5-15.5 [facility] Hematocrit [Volume Fraction] of Blood by Automated count 37.9 % 3 6-45 [facility] Erythrocyte mean corpuscular volume [Entitic volume] by Auto mated count 85.8 fL 80-96 [facility] Erythrocyte mean corpuscular hemoglobin [Entitic mass] by Automated count 29.6 pg 27-33 [facility] Erythrocyte mean corpuscular hemoglobin concentration [Mass/volume] by Automated count 34.5 g/dL [facility].0-[facility] width [Ratio] by Automated count 15.2 % 11.5-14.5 H [facility] Platelets [#/volume] in Blood by Automated count 175 10*3/uL 150-400 [facility] Differential cell count method - Blood [facility] Neutrophils/100 leukocytes in Blood by Automated count 63 % [facility] Lymphocytes/100 leukocytes in Blood by Automated count 29 % [facility] Monocytes/100 leukocytes in Blood by Automated count 5 % [facility] Eosinophils/100 leukocytes in Blood by Automated count 2 % [facility] Basophils/100 leukocytes in Blood by Automated count 1 % [facility] Neutrophils [#/volume] in Blood by Automated count 5.66 10*3/uL 1.8-7 .0 [facility] Lymphocytes [#/volume] in Blood by Automated count 2.64 10*3/uL 1.2-4 .0 [facility] Monocytes [#/volume] in Blood by Automated count 0.47 10*3/uL 0-0.8 [facility] Eosinophils [#/volume] in Blood by Automated count 0.20 10*3/uL 0-0.5 [facility] Basophils [#/volume] in Blood by Automated count 0.12 10*3/uL 0-0.2 [facility] Nucleated erythrocytes/100 leukocytes [Ratio] in Blood by Automated count 0 /100{WBCs} 0-0 [facility] ID Date Data Source [id number] 06/27/2020 01:28:28 PM EDT [facility] Name Value Range Interpretation Code Description Data Brenna rce(s) Supporting Document(s) Lactate dehydrogenase [Enzymatic activit y/volume] in Serum or Plasma by Lactate to pyruvate reaction 224 U/L 122-214 [facility] ID Date Data Source [id number] 06/27/2020 01:28:28 PM [facility] Name Value Range Interpretation Code Description Data Brenna rce(s) Supporting Document(s) Thyrotropin [Units/volume] in Serum or Plasma 0.758 u[IU]/mL 0.270-4. 200 [facility] ID Date Data Source [id number] 06/27/2020 01:28:28 PM [facility] Name Value Range Interpretation Code Description Data Brenna rce(s) Supporting Document(s) Albumin [Mass/volume] in Serum or Plasma by Bromocresol green (BCG) dye binding method 4.4 g/dL [facility] Bil[facility].total [Mass/volume] in Serum or Plasma 0.3 mg/dL <1.2 [facility] Calcium [Mass/volume] in Serum or Plasma 9.5 mg/dL 8.8-10.2 [facility] Chloride [Moles/volume] in Serum or Plasma 102 mmol/L 98-107 [facility] Creatinine [Mass/volume] in Serum or Plasma 1.23 mg/dL 0.50-0.90 H [facility] Glucose [Mass/volume] in Serum or Plasma 96 mg/dL 70-140 [facility] Alkaline phosphatase [Enzymatic activity/volume] in Serum or Plasma 73 U/L 35-104 [facility] Potassium [Moles/volume] in Serum or Plasma 3.9 mmol/L 3.4-5.1 [facility] Protein [Mass/volume] in Serum or Plasma 7.4 g/dL 6.4-8.3 [facility] Sodium [Moles/volume] in Serum or Plasma 141 mmol/L 136-145 [facility] Aspartate aminotransferase [Enzymatic activity/volume] in Serum or Plasma 19 U/L <32 [facility] Urea nitrogen [Mass/volume] in Serum or Plasma 15 mg/dL 8-23 [facility] Osmolality of Serum or Plasma by calculation 293 mosm/kg 275-300 [facility] Creatinine/Urea nitrogen [Mass Ratio] in Serum or Plasma 12 [facility] Bicarbonate [Moles/volume] in Serum 28 mmol/L 22-29 [facility] Alanine aminotransferase [Enzymatic activity/volume] in Seru m or Plasma 21 U/L <33 [facility] Anion gap 3 in Serum or Plasma 11 mmol/L 8-15 [facility] Glomerular filtration rate/1.73 sq M pre dicted among non-blacks [Volume Rate/Area] in Serum or Plasma by Creatinine-based formula (MDRD) 45 mL/min/1.73m2 >60 L [facility] Glomerular filtration rate/1.73 sq M pre dicted among blacks [Volume Rate/Area] in Serum or Plasma by Creatinine-based formula (MDRD) 52 mL/min/1.73m2 >60 L [facility] Procedure Social History Code Duration Value Status Description Data Source(s ) Smoking 06/13/2021 12:00:00 AM EDT Former Smoker completed Former Smoker eCW1 ([facility]) Smoking 06/06/2021 12:00:00 AM EDT Former Smoker completed Former Smoker eCW1 ([facility]) Smoking 05/10/2021 08:00:30 AM EDT Ex-smoker (finding) complet ed Ex-smoker (finding) BRUNO (Jarvis Rowell MD [facility]) Smoking 12/06/2020 12:00:00 AM EDT Former Smoker completed Former Smoker eCW1 ([facility]) Smoking 12/06/2020 12:00:00 AM EDT Former Smoker completed Former Smoker eCW1 ([facility]) Alcohol intake 06/27/2020 12:00:00 AM EDT Current drinker of al cohol (finding) completed Current drinker of alcohol (finding) [facility] Tobacco use and exposure 06/27/2020 12:00:00 AM EDT Never used co mpleted Never used [facility] Cigarette pack-years 06/27/2020 12:00:00 AM EDT UNK completed [facility] Cigarettes smoked current (pack per day) - Reported 06/27/20 20 12:00:00 AM EDT UNK completed [facility] Smoking 06/27/2020 12:00:00 AM EDT Current every day smoker co mpleted Current every day smoker [facility] Smoking 06/07/2020 12:00:00 AM EDT Former Smoker completed Former Smoker eCW1 ([facility]) Smoking 06/07/2020 12:00:00 AM EDT Former Smoker completed Former Smoker eCW1 ([facility]) Smoking 06/07/2020 12:00:00 AM EDT Former Smoker completed Former Smoker eCW1 ([facility]) Vital Signs ID Date Data Source UNK Name Value Range Interpretation Code Description Data Source(s) Body weight 198.6 [lb_av] 198.6 [lb_av] eCW1 ([facility]) Body weight 90.08 kg 90.08 kg eCW1 [facility] Body height 62 [in_i] 62 [in_i] eCW1 ([facility] Body mass index (BMI) [Ratio] 36.32 kg/m2 36.32 kg/m2 eCW1 ([facility]) Heart rate 85 /min 85 /min eCW1 ([facility]) Respiratory rate 18 /min 18 /min eCW1 ([facility]) Body temperature 97.9 [degF] 97.9 [degF] eCW1 ( [facility]) Systolic blood pressure 122 mm[Hg] 122 mm[Hg] e CW1 ([facility]) Diastolic blood pressure 74 mm[Hg] 74 mm[Hg] eCW1 ([facility]) Systolic blood pressure 114 mm[Hg] 114 mm[Hg] M EDENT ([facility], [facility]) Diastolic blood pressure 74 mm[Hg] 74 mm[Hg] MEDENT ([facility], [facility]) Heart rate 98 /min 98 /min MEDENT ([facility], [facility]) Respiratory rate 18 /min 18 /min MEDENT ( [facility], [facility]) Oxygen saturation in Arterial blood by Pulse oximetry 97 % 97 % MEDENT ([facility], [facility]) Body temperature 96.8 [degF] 96.8 [degF] MEDENT ([facility], [facility]) Body weight 190.00 [lb_av] 190.00 [lb_av] MEDEN T ([facility], [facility]) Body height 62 [in_i] 62 [in_i] MEDENT ([facility], [facility]) 5'2" Body mass index (BMI) [Ratio] 34.7 kg/m2 34.7 k g/m2 MEDENT ([facility], [facility]) Systolic blood pressure 110 mm[Hg] 110 mm[Hg] e CW1 ([facility]) Diastolic blood pressure 70 mm[Hg] 70 mm[Hg] eCW1 ([facility]) Body weight 192.2 [lb_av] 192.2 [lb_av] eCW1 ([facility]) Body height 62 [in_i] 62 [in_i] eCW1 ([facility]) Body mass index (BMI) [Ratio] 35.15 kg/m2 35.15 kg/m2 eCW1 ([facility]) Heart rate 86 /min 86 /min eCW1 ([facility]) Respiratory rate 18 /min 18 /min eCW1 ([facility]) Body temperature 97.8 [degF] 97.8 [degF] eCW1 ( [facility]) Body weight 186.6 [lb_av] 186.6 [lb_av] eCW1 ([facility]) Respiratory rate 18 /min 18 /min eCW1 ([facility]) Body temperature 98.6 [degF] 98.6 [degF] eCW1 ( [facility]) Systolic blood pressure 120 mm[Hg] 120 mm[Hg] e CW1 ([facility]) Diastolic blood pressure 80 mm[Hg] 80 mm[Hg] eCW1 ([facility]) Body height 62 [in_i] 62 [in_i] eCW1 ([facility]) Body mass index (BMI) [Ratio] 34.13 kg/m2 34.13 kg/m2 eCW1 ([facility]) Heart rate 90 /min 90 /min eCW1 ([facility]) ID Date Data Source [id number] 07/10/2020 08:36:16 PM [facility] Name Value Range Interpretation Code Description Data Source(s) WEIGHT RECORDED 191.4 lb 191.4 lb [facility] Patient Treatment Plan of Care Planned Activity Planned Date Details Description Data Source (s) benzonatate 100 MG Oral Capsule [Trace Regalado] 06/13/2021 12: 00:00 AM EDT eCW1 ([facility]) doxycycline hyclate 100 MG Oral Tablet 06/13/2021 12:00:00 AM EDT eCW1 ([facility]) Clobetasol Propionate 0.0005 MG/MG Topical Ointment [T emovate] 12/06/2020 12:00:00 AM EDT eCW1 ([facility]) Clobetasol Propionate 0.0005 MG/MG Topical Ointment [T emovate] 12/06/2020 12:00:00 AM EDT eCW1 ([facility]) duloxetine 30 MG Delayed Release Oral Capsule [Cymbalt a] 06/07/2020 12:00:00 AM EDT eCW1 ([facility]) duloxetine 30 MG Delayed Release Oral Capsule [Cymbalt a] 06/07/2020 12:00:00 AM EDT eCW1 ([facility]) duloxetine 30 MG Delayed Release Oral Capsule [Cymbalt a] 06/07/2020 12:00:00 AM EDT eCW1 ([facility])
--- NOTE | 2021-06-14 19:52 | REPVR ---
PROCEDURE INFORMATION: Exam: CT Head Without Contrast Exam date and time: 06/14/2021 6:47 PM Age: 65 years old Clinical indication: Altered mental status/memory loss; Additional info: AMS TECHNIQUE: Imaging protocol: Computed tomography of the head without contrast. Radiation optimization: All CT scans at this facility use at least one of these dose optimization techniques: automated exposure control; mA and/or kV adjustment per patient size (includes targeted exams where dose is matched to clinical indication); or iterative reconstruction. COMPARISON: PT PET/CT Skull/mid thigh 08/22/2016 12:27 PM FINDINGS: Limitations: Patient motion. Brain: Age-related volume loss. Decreased attenuation of the supratentorial white matter is likely secondary to chronic microvascular ischemia. No definite acute intracranial hemorrhage. No midline shift or intracranial mass effect. Cerebral ventricles: No hydrocephalus. Paranasal sinuses: Mild paranasal sinus disease. Mastoid air cells: Visualized mastoid air cells are well aerated. Bones/joints: No definite acute calvarial fracture. Chronic left zygomatic arch fracture. Soft tissues: Unremarkable. IMPRESSION: Patient motion without definite acute intracranial abnormality. Electronically signed by: Renny Serrano On 06/14/2021 19:51:56 PM
[2021-06-14] MEDS ORDERED: methylPREDNISolone 125MG 2ML VIAL IV ONE (20:30)
[2021-06-14] MEDS: NS 1,000 ML IV SCH (20:30)
[2021-06-14] MEDS ORDERED: DULO1CAP6 PO (20:53)
[2021-06-14] MEDS ORDERED: TESS100C PO (20:53)
[2021-06-14] MEDS ORDERED: D200CAP PO (20:53)
[2021-06-14] MEDS ORDERED: DULO30CA9 PO (20:53)
[2021-06-14] MEDS ORDERED: SYNT125T PO (20:53)
[2021-06-14] MEDS ORDERED: CYAN100050 PO (20:53)
[2021-06-14] MEDS ORDERED: DOXY100C3 PO (20:53)
[2021-06-14] MEDS ORDERED: COLE1TAB PO (20:53)
[2021-06-14] MEDS ORDERED: PRIM50TA6 PO (20:53)
[2021-06-14] MEDS ORDERED: PROAAER10 INH (20:55)
[2021-06-14] MEDS ORDERED: ALBU83IN INH (20:55)
[2021-06-14] MEDS ORDERED: METH-1164 PO (20:55)
[2021-06-14] MEDS ORDERED: SODIUM CHLORIDE 0.9% 1000ML IV STA (20:56)
[2021-06-14] MEDS ORDERED: MOM 30ML SUSPENSION UDC PO PRN (21:00)
[2021-06-14] MEDS ORDERED: ALBUTEROL SULFATE 2.5 MG/0.5 ML INH NEB SOLN NEB PRN (21:00)
[2021-06-14] MEDS ORDERED: MAALOX 30 ML SUSP *UDC PO PRN (21:00)
[2021-06-14] MEDS ORDERED: ACETAMINOPHEN TAB 650MG DOSE (2X325MG) PO PRN (21:00)
--- NOTE | 2021-06-14 21:04 | HPEPDOC ---
[facility] Medical History & Physical Date of Admission Jun 14, 2021 Date of Service: Jun 14, 2021 Primary Care Physician: Sherri Brewster Attending Physician: GUSTAVO MOYER MD History and Physical TIME OF SERVICE: 923pm CHIEF COMPLAINT: shortness of breath HISTORY OF PRESENT ILLNESS: The majority of the history was obtained from the ; the patient has hearing loss and also had difficulties recalling all of the events that led to her coming to the hospital. has a hx of urge incontinence, but on Saturday she urinated in the recliner which is atypical and while walking to the bathroom. She hasnt been eating very much but has continued to drink plenty of fluid. She also been feeling more short of breath, has had to use her inhalers more and had a cough productive of yellow sputum since she got the flu shot about 1 week ago. She saw her PCP on Jun 13 and based on the progress notes was started on Doxycycline for Bronchitis. 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 Urge urinary incontinence Chronic Asthma (PFT 2017: positive methacholine challenge) Hypothyroidism Depression / Anxiety Diverticulosis Fibromyalgia Hiatal Hernia Hearing loss Class 1 obesity GERD Insertion with subsequent resection of a bilateral nephrostomy tubes Resection of adenomatous and hyperplastic polyps of the colon Hysterectomy Appendectomy Cholecystectomy FAMILY HISTORY: Mother had CHF SOCIAL HISTORY: She is a former smoker, completed high school, lives with her and is a mother of 2. ALLERGIES: Please see below. HOME MEDICATIONS: Please see below. PHYSICAL EXAMINATION: Peak Flow = 0 (poor effort) / Expected Peak Flow 343L/min Vital Signs Date Time Temp Pulse Resp B/P (MAP) Pulse Ox O2 Delivery O2 Flow Rate FiO2 06/14/21 14:41 99.1 109 21 143/85 (104) 93 Room Air GENERAL APPEARANCE: well-nourished and developed/ NAD HEENT: EOMI / MM pink but dry CARDIOVASCULAR: RRR/NMRG LUNGS: she is tachypneic / using accessory muscles /has difficulties speaking full sentences w/o stopping to take a breath / + wheezing ABDOMEN: contour convex MUSCULOSKELETAL: NCAT / MAR x 4 extremities INTEGUMENT: she is not flushed, pale or diaphoretic NEUROLOGICAL: face symmetrical / tounge mid-line / speech not dysarthric PSYCHIATRIC: A&O / able to understand and follow simple commands LABORATORY DATA: IMAGING: Chest xray IMPRESSION: No acute pulmonary disease CT head IMPRESSION: Patient motion without definite acute intracranial abnormality. MICROBIOLOGY: Respiratory panel + RSV ASSESSMENT: is a 65 yr old w a hx of Stage NHL s/p chemo, radiation & stem transplant, Asthma, Hypothyroidism, Depression / Anxiety, Obesity, Fibromyalgia & Hearing loss who is admitted for acute Asthma, Sepsis 2/2 RSV QIAN and mild metabolic encephalopathy. PLAN: 1 Acute Asthma 2/2 RSV -The patient has a severe exacerbation bc her peak flow is <40% of her expected peak flow Plan: give IV Mag sulfate now(Mg sulfate has bronchodilator activity possibly due to inhibition of calcium influx into airway smooth muscle cells; it can also help improve lung function in patients with severe asthma exacerbations that are not responding to initial therapy) / c/w supplemental O2 / continuous pulse ox /ask RT monitor peak expiratory flow daily & consider discharge when >70% / Dunebs Q6H, Albuterol with inhaled glucocorticoids / oral Prednisone / will NOT start antibiotics because she has a viral infection / per EMELY 2020 guidelines will switch from FEMI PRN as first step med to budesonide- formoterol (Symbicort) PRN as first step medication for chronic asthma 2 Sepsis 2/2 RSV She has the following SIRS criteria: HR >90 / RR > 20 Plan: f/u blood cx / will not give abx because the source is viral rather than bacterial /Acetaminophen PRN for fever / f/u FSBS w target serum glucose 140-180 while acutely ill 3 QIAN Plan: monitor UOP / IVF / f/u U protein and Cr / renal US / hold nephrotoxic drugs 4 Mild Encephalopathy Likely due to infection Plan: hold methocarbamol 5 Elevated AST Suspect she has fatty liver Plan: f/u Hep panel 6 Acute on chronic Urinary incontinence UA reviewed; the episodes of incontinence were likely because she was not feeling well 7 Hypothyroidism Plan: Levothyroxine 8 Depression / Anxiety Plan: Duloxetine 9 Class 1 obesity -complicates care Plan: will check A1C to screen for DM DVT px w Lovenox Disposition: home after more than 2 midnights stay Home Medications Scheduled Benzonatate (Tessalon Perle) 100 Mg Capsule, 100 MG PO TID STARTED ON 06/13/21 Budesonide/Formoterol (Symbicort 80-4.5 Mcg Inhaler) 6.9 Gm Hfa.aer.ad, 2 PUFF INH BID Cholecalciferol (Vitamin D3) (Vitamin D3) 50 Mcg Capsule, 50 MCG PO DAILY Colestipol HCl (Colestipol HCl) 1 Gm Tablet, 2 GM PO DAILY Cyanocobalamin (Vitamin B-12) (Vitamin B-12) 1,000 Mcg Tablet, 1,000 MCG PO DAILY Doxycycline Hyclate (Doxycycline Hyclate) 100 Mg Capsule, 100 MG PO BID STARTED ON 06/13/21 Duloxetine Hcl (Duloxetine HCl) 30 Mg Capsule.dr, 30 MG PO DAILY TAKES WITH 60MG FOR 90MG TOTAL Duloxetine Hcl (Duloxetine HCl) 60 Mg Capsule.dr, 60 MG PO DAILY TAKES WITH 30MG FOR 90MG TOTAL Folic Acid (Folic Acid) 1 Mg Tab, 1 MG PO DAILY TAKES AROUND NOONTIME Levothyroxine Sodium (Synthroid) 125 Mcg Tablet, 125 MCG PO DAILY Primidone (Primidone) 50 Mg Tablet, 50 MG PO BID Scheduled PRN Albuterol Sulf (Albuterol Sulfate) 2.5 Mg/3 Ml Vial.neb, 2.5 MG INH Q4H PRN for SHORTNESS OF BREATH Albuterol Sulfate (Proair Hfa) 8.5 Gm Hfa.aer.ad, 2 PUFF INH Q4H PRN for SHORTNESS OF BREATH Methocarbamol (Methocarbamol) 500 Mg Tablet, 500 MG PO QHS PRN for MUSCLE SPASMS Allergies Coded Allergies: Mympqic-Wwv-Iiy Reductase Inhibitor (Verified Adverse Reaction, Intermediate, hives, 06/28/19) valdecoxib (Verified Adverse Reaction, Intermediate, rash, 06/28/19) A-FIB/CHADSVASC A-FIB History Current/History of A-Fib/PAF?: No Current PO Anticoag Therapy: No GUSTAVO MOYER MD Jun 14, 2021 21:04
[2021-06-14] MEDS ORDERED: HOME MED LIST COMPLETE! XX SCH (21:05)
--- OUTSIDE RECORDS SUMMARY | 2021-06-14 21:30 | CCD ---
Author Author [facility] Organization [facility] Address Unknown Phone Unavailable Care Team Providers Care Early Intervention Specialist Name Role Phone Servage, L Sherri GROUP EXERCISE INSTRUCTOR Unavailable Unavailable Servage, L Sherri GROUP EXERCISE INSTRUCTOR Unavailable Unavailable Servage, L Sherri GROUP EXERCISE INSTRUCTOR Unavailable Unavailable Servage, L Sherri GROUP EXERCISE INSTRUCTOR Unavailable Unavailable Servage, L Sherri GROUP EXERCISE INSTRUCTOR Unavailable Unavailable Servage, L Sherri GROUP EXERCISE INSTRUCTOR Unavailable Unavailable Servage, L Sherri GROUP EXERCISE INSTRUCTOR Unavailable Unavailable Servage, L Sherri GROUP EXERCISE INSTRUCTOR Unavailable Unavailable Servage, L Sherri GROUP EXERCISE INSTRUCTOR Unavailable Unavailable Servage, L Sherri GROUP EXERCISE INSTRUCTOR Unavailable Unavailable Servage, L Sherri GROUP EXERCISE INSTRUCTOR Unavailable Unavailable Servage, L Sherri GROUP EXERCISE INSTRUCTOR Unavailable Unavailable Servage, L Sherri GROUP EXERCISE INSTRUCTOR Unavailable Unavailable Servage, L Sherri GROUP EXERCISE INSTRUCTOR Unavailable Unavailable Servage, L Sherri GROUP EXERCISE INSTRUCTOR Unavailable Unavailable Servage, L Sherri GROUP EXERCISE INSTRUCTOR Unavailable Unavailable Servage, L Sherri GROUP EXERCISE INSTRUCTOR Unavailable Unavailable Servage, L Sherri GROUP EXERCISE INSTRUCTOR Unavailable Unavailable Servage, L Sherri GROUP EXERCISE INSTRUCTOR Unavailable Unavailable Servage, L Sherri GROUP EXERCISE INSTRUCTOR Unavailable Unavailable Servage, L Sherri GROUP EXERCISE INSTRUCTOR Unavailable Unavailable Servage, L Sherri GROUP EXERCISE INSTRUCTOR Unavailable Unavailable Servage, L Sherri GROUP EXERCISE INSTRUCTOR Unavailable Unavailable Servage, L Sherri GROUP EXERCISE INSTRUCTOR Unavailable Unavailable Servage, L Sherri GROUP EXERCISE INSTRUCTOR Unavailable Unavailable Servage, L Sherri GROUP EXERCISE INSTRUCTOR Unavailable Unavailable Servage, L Sherri GROUP EXERCISE INSTRUCTOR Unavailable Unavailable Servage, L Sherri GROUP EXERCISE INSTRUCTOR Unavailable Unavailable Servage, L Sherri GROUP EXERCISE INSTRUCTOR Unavailable Unavailable Servage, L Sherri GROUP EXERCISE INSTRUCTOR Unavailable Unavailable Servage, L Sherri GROUP EXERCISE INSTRUCTOR Unavailable Unavailable Servage, L Sherri GROUP EXERCISE INSTRUCTOR Unavailable Unavailable Servage, L Sherri GROUP EXERCISE INSTRUCTOR Unavailable Unavailable Servage, L Sherri GROUP EXERCISE INSTRUCTOR Unavailable Unavailable Servage, L Sherri GROUP EXERCISE INSTRUCTOR Unavailable Unavailable Servage, L Sherri GROUP EXERCISE INSTRUCTOR Unavailable Unavailable Servage, L Sherri GROUP EXERCISE INSTRUCTOR Unavailable Unavailable Servage, L Sherri GROUP EXERCISE INSTRUCTOR Unavailable Unavailable Servage, L Sherri GROUP EXERCISE INSTRUCTOR Unavailable Unavailable Servage, L Sherri GROUP EXERCISE INSTRUCTOR Unavailable Unavailable Servage, L Sherri GROUP EXERCISE INSTRUCTOR Unavailable Unavailable Servage, L Sherri GROUP EXERCISE INSTRUCTOR Unavailable Unavailable Servage, L Sherri GROUP EXERCISE INSTRUCTOR Unavailable Unavailable Servage, L Sherri GROUP EXERCISE INSTRUCTOR Unavailable Unavailable Servage, L Sherri GROUP EXERCISE INSTRUCTOR Unavailable Unavailable Servage, L Sherri GROUP EXERCISE INSTRUCTOR Unavailable Unavailable Servage, L Sherri GROUP EXERCISE INSTRUCTOR Unavailable Unavailable Servage, L Sherri GROUP EXERCISE INSTRUCTOR Unavailable Unavailable Servage, L Sherri GROUP EXERCISE INSTRUCTOR Unavailable Unavailable Servage, L Sherri GROUP EXERCISE INSTRUCTOR Unavailable Unavailable Servage, L Sherri GROUP EXERCISE INSTRUCTOR Unavailable Unavailable Servage, L Sherri GROUP EXERCISE INSTRUCTOR Unavailable Unavailable Servage, L Sherri GROUP EXERCISE INSTRUCTOR Unavailable Unavailable Servage, L Sherri GROUP EXERCISE INSTRUCTOR Unavailable Unavailable Servage, L Sherri GROUP EXERCISE INSTRUCTOR Unavailable Unavailable Servage, L Sherri GROUP EXERCISE INSTRUCTOR Unavailable Unavailable Servage, L Sherri GROUP EXERCISE INSTRUCTOR Unavailable Unavailable Servage, L Sherri GROUP EXERCISE INSTRUCTOR Unavailable Unavailable Servage, L Sherri GROUP EXERCISE INSTRUCTOR Unavailable Unavailable Servage, L Sherri GROUP EXERCISE INSTRUCTOR Unavailable Unavailable Servage, L Sherri GROUP EXERCISE INSTRUCTOR Unavailable Unavailable Servage, L Sherri GROUP EXERCISE INSTRUCTOR Unavailable Unavailable Servage, L Sherri GROUP EXERCISE INSTRUCTOR Unavailable Unavailable Servage, L Sherri GROUP EXERCISE INSTRUCTOR Unavailable Unavailable Servage, L Sherri GROUP EXERCISE INSTRUCTOR Unavailable Unavailable LETTIERE, Rohit BOBBY PA Unavailable [...] MARCOS MD Unavailable Unavailab le CATHERINE (LORI), Jaine MARCOS MD Unavailable Unavailab le CATHERINE (LORI), [...] (LORI), Janie MARCOS MD Unavailable Unavailab le CATEHRINE (LORI), Janie MARCOS MD Unavailable Unavailab le [...] Janie MARCOS MD Unavailable Unavailab le CATHERINE (LROI), Janie MARCOS MD Unavailable Unavailab le CATHERINE [...] Unavailable Ali, Florina MD Unavailable Unavailable Ali, Flroina MD Unavailable Unavailable Ali, Florina MD Unavailable [...] is protected by Article 27-F of the [facility] Public Health law. If you continue you may have access to information: Regarding HIV / AIDS; Provided by facilities licensed or operated by the [facility] Office of Mental Health; or Provided by the [facility] Office for People With Developmental Disabilities. If such information is present, then the following [facility] mandated warning applies: This information has [...] may result in a fine or senior care sentence or both. A general authorization for the release of medical or other information is NOT sufficient authorization for further disc losure. Allergies and Adverse Reactions Type Description Substance Reaction Status Data Source(s ) Allergy to substance No Known Allergies No known allergies (situation ) BRUNO (Jarvis Rowell MD [facility]) Family History Family Member Name Family Member Gender Family Member Status Date o f Status Description Data Source(s) Unknown Female Problem MEDENT ([facility]) Encounters Encounter Providers Location Date Indications Data Source(s ) Outpatient Attender: TR ANTON MD 07/24/2021 12:00:00 AM [facility] Outpatient Attender: TR ANTON MD 07/17/2021 12:00:00 AM [facility] [address] [facility] [address] 06/13/2021 12:00:00 AM EDT eCW1 (Formerly [facility], [facility]) Office Visit, Est Pt., Level 4 [address] [place] [address] 06/06/2021 12:00:00 AM EDT eCW1 ([facility]) Attender: PRITI MOREJON) MDReferrer: B onnie Servage GROUP EXERCISE INSTRUCTOR 04/25/2021 08:21:08 PM EDT [facility] Attender: PRITI MOREJON) MDReferrer: B onnie Servage GROUP EXERCISE INSTRUCTOR 03/28/2021 08:21:07 PM EDT [facility] Attender: PRITI MOREJON) MDReferrer: B onnie Servage GROUP EXERCISE INSTRUCTOR 03/28/2021 08:21:07 PM EDT [facility] Attender: PRITI MOREJON) MDReferrer: B onnie Servage GROUP EXERCISE INSTRUCTOR 03/28/2021 08:21:07 PM EDT [facility] Attender: PRITI MOREJON) MDReferrer: B onnie Servage GROUP EXERCISE INSTRUCTOR 03/28/2021 08:21:07 PM EDT [facility] Attender: PRITI ALEXANDER ([place]) MDReferrer: Digna Brewster GROUP EXERCISE INSTRUCTOR 03/28/2021 08:21:07 PM EDT [facility] Outpatient Attender: DIAMANTE corrales 03/15/2021 04:50:00 PM EDT MEDENT ([facility]) Office Visit Attender: Florina Souza MD Main office - [place] 01/11/2021 10:45:00 AM EDT MEDENT ([facility]) Unknown [address] [facility] [address] 12/22/2020 12:00:00 AM EDT eCW1 (Formerly [facility], [facility]) <td ID="encounterTypeDescriptionID0">3 M ont Follow-Up</td><td>Jarvis Rowell MD, FACS</td><td>Jarvis Choi MD [facility]</td><td>12/15/2020</td><td>12:17PM</td><td>1:01PM</td><td><content ID="encounterDiagnosisID0-0">Graves' Ophthalmopathy</content>, <content ID="encounterDiagnosisID0-1">Dry Eye Syndrome Both Eyes</content></td>Outpatient Attender: Jarvis Rowell MD, MYRANDA Choi MD [facility] 12/15/2020 12:17:00 PM EDT - 12/15/2020 01:01:00 PM EDT Dry Eye Syndrome Both EyesGraves' Ophthalmopathy [place] (Jarvis Rowell MD [facility]) Dry Eye Syndrome Both Eyes Graves' Ophthalmopathy Office Visit, Est Pt., Level 2 FC [address] [place] [address] 12/06/2020 12:00:00 AM EDT eCW1 ([facility]) Outpatient<td ID="encounterTypeDescripti onID1">NEW PATIENT WITH REFERRAL</td><td>Jarvis Choi MD, FACS</td><td>Jarvis Choi MD [facility]</td><td>10/05/2020</td><td>1:36PM</td><td>2:51PM</td><td><content ID="encounterDiagnosisID1-0">Cataract Senile Cortical</content>, <content ID="encounterDiagnosisID1-1">Cataract Senile Nuclear</content>, <content ID="encounterDiagnosisID1-2">Vitreous Disorders Degeneration</content>, <content ID="encounterDiagnosisID1-3">Dry Eye Syndrome Both Eyes</content>, <content ID="encounterDiagnosisID1-4">Graves' Ophthalmopathy</content></td> Attender: Jarvis Rowell MD, FACS Jarvis Choi MD [facility] 10/05/2020 01:36:00 PM EST - 10/05/2020 02:51:00 PM EST Graves' OphthalmopathyDry Eye Syndrome B oth EyesVitreous Disorders DegenerationCataract Senile NuclearCataract Senile Cortical BRUNO (Jarvis Rowell MD [facility]) Graves' Ophthalmopathy Dry Eye Syndrome Both Eyes Vitreous Disorders Degeneration Cataract Senile Nuclear Cataract Senile Cortical Unknown [address] [facility] [address] 09/05/2020 12:00:00 AM EST eCW1 (Formerly [facility], [facility]) Outpatient Attender: TR ANTON MD [id number] 07/18/2020 12 :00:00 AM [facility] Outpatient Referrer: TATIANA SMITH MD 07/14/2020 12:00: 00 AM EST Follicular lymphoma, unspecified, unspecified site [facility] Follicular lymphoma, unspecified, unspec ified site Outpatient Attender: TR ANTON MD 07/11/2020 12:00:00 AM [facility] Outpatient Attender: TR Hayden-ONCCACTR 06/03 12:00:00 AM EDT - 06/27/2020 12:01:41 PM EDT Follicular lymphoma, unspecified, unspecified site [facility] Follicular lymphoma, unspecified, unspec ified site Unknown [address] [facility] [address] 06/16/2020 12:00:00 AM EDT eCW1 (Formerly [facility], [facility]) Outpatient [address] [facility] [address] 06/07/2020 12:00:00 AM EDT eCW1 ([facility], [facility]) Attender: PRITI MOREJON) MDReferrer: Digna Brewster NP 04/18/2020 08:20:08 PM EDT [facility] Outpatient Attender: Dina Latham MDReferrer: MADISON GUZMAN MD 08/09/2011 10:42:45 AM [facility] - 08/09/2011 10:42:45 AM [facility] Outpatient Attender: MADISON RESTREPO MD 04/2011 10:42:45 AM [facility] - 08/09/2011 10:42:45 AM [facility] Inpatient Referrer: MADISON RESTREPO MD 12/2009 08:25:00 AM [facility] - 10/10/2009 10:00:00 AM [facility] Immunizations Vaccine Date Status Description Data Source(s) influenza, recombinant, quadrIvalent,injectable, prese rvative free 06/06/2021 01:24:00 PM EDT completed eCW1 (Former[facility]) influenza, recombinant, quadrIvalent,injectable, prese rvative free 06/06/2021 01:24:00 PM EDT completed eCW1 ([facility]) COVID-19 dose #2 given elsewhere Unspecified 12/02/2020 01:5 1:00 PM EDT completed eCW1 (Former[facility], [facility]1983) COVID-19 dose #2 given elsewhere Unspecified 12/02/2020 01:5 1:00 PM EDT completed eCW1 ([facility], [facility]) COVID-19 dose #2 given elsewhere Unspecified 12/02/2020 01:5 1:00 PM EDT completed eCW1 ([facility], [facility]) COVID-19 dose #2 given elsewhere Unspecified 12/02/2020 01:5 1:00 PM EDT completed eCW1 ([facility], [facility]) COVID-19 VACCINE Moderna 12/02/2020 12:00:00 AM EDT completed [place] Vaccine Series Complete: YESThis Data wa s Submitted to [facility] Via [facility]. COVID-19 dose #1 given elsewhere Unspecified 11/04/2020 01:5 1:00 PM EST completed eCW1 ([facility], [facility]) COVID-19 dose #1 given elsewhere Unspecified 11/04/2020 01:5 1:00 PM EST completed eCW1 ([facility], [facility]) COVID-19 dose #1 given elsewhere Unspecified 11/04/2020 01:5 1:00 PM EST completed eCW1 ([facility], [facility]) COVID-19 dose #1 given elsewhere Unspecified 11/04/2020 01:5 1:00 PM EST completed eCW1 ([facility], [facility]) COVID-19 VACCINE Moderna 11/04/2020 12:00:00 AM EST completed [place]IS Vaccine Series Complete: NOThis Data was Submitted to [facility] Via [employer]. influenza, recombinant, quadrIvalent,injectable, prese rvative free 06/07/2020 01:55:00 PM EDT completed eCW1 ([facility]) influenza, recombinant, quadrIvalent,injectable, prese rvative free 06/07/2020 01:55:00 PM EDT completed eCW1 ([facility]) influenza, recombinant, quadrIvalent,injectable, prese rvative free 06/07/2020 01:55:00 PM EDT completed eCW1 ([facility]) influenza, recombinant, quadrIvalent,injectable, prese rvative free 06/07/2020 01:55:00 PM EDT completed eCW1 ([facility]) influenza, recombinant, quadrIvalent,injectable, prese rvative free 06/07/2020 01:55:00 PM EDT completed eCW1 ([facility]) influenza, recombinant, quadrIvalent,injectable, prese rvative free 06/07/2020 01:55:00 PM EDT completed eCW1 ([facility]) influenza, recombinant, quadrIvalent,injectable, prese rvative free 06/07/2020 01:55:00 PM EDT completed eCW1 ([facility]) zoster 05/23/2020 01:33:00 PM EDT completed e CW1 ([facility]) zoster 05/23/2020 01:33:00 PM EDT completed e CW1 ([facility]) zoster 05/23/2020 01:33:00 PM EDT completed e CW1 ([facility]) zoster 05/23/2020 01:33:00 PM EDT completed e CW1 ([facility]) zoster 05/23/2020 01:33:00 PM EDT completed e CW1 ([facility]) zoster 05/23/2020 01:33:00 PM EDT completed e CW1 ([facility]) zoster 05/23/2020 01:33:00 PM EDT completed e CW1 ([facility]) Medications Medication Brand Name Start Date Product Form Dose Route Admi nistrative Instructions Pharmacy Instructions Status Indications Reaction Description Data Source(s) doxycycline hyclate 100 MG Oral Tablet Doxycycline Hyc late 100 MG Doxycycline Hyclate 100 MG 06/13/2021 12:00:00 AM EDT 1.0 {tablet} active Doxycycline Hyclate 100 MG eCW1 ([facility]) benzonatate 100 MG Oral Capsule [Tessalon Perles] Halima glenna Perles 100 MG Tessalon Perles 100 MG 06/13/2021 12:00:00 AM EDT 1.0 {capsule} active Tessalon Perles 100 MG eCW1 ([facility]) NITROFURANTOIN, MACROCRYSTALS 25 MG / Ni trofurantoin, Monohydrate 75 MG Oral Capsule [Macrobid] Macrobid 03/15/2021 12:00:00 AM EDT ORAL active MEDENT ([facility]) Clobetasol Propionate 0.0005 MG/MG Topical Ointment [T emovate] Temovate 0.05 % Temovate 0.05 % 12/06/2020 12:00:00 AM EDT 1.0 {application} active Temovate 0.05 % eCW1 ([facility]) Clobetasol Propionate 0.0005 MG/MG Topical Ointment [T emovate] Temovate 0.05 % Temovate 0.05 % 12/06/2020 12:00:00 AM EDT 1.0 {application} active Temovate 0.05 % eCW1 ([facility]) Clobetasol Propionate 0.0005 MG/MG Topical Ointment [T emovate] Temovate 0.05 % Temovate 0.05 % 12/06/2020 12:00:00 AM EDT 1.0 {application} suspended Temovate 0.05 % eCW1 ([facility]) Clobetasol Propionate 0.0005 MG/MG Topical Ointment [T emovate] Temovate 0.05 % Temovate 0.05 % 12/06/2020 12:00:00 AM EDT 1.0 {application} suspended Temovate 0.05 % eCW1 ([facility]) duloxetine 30 MG Delayed Release Oral Capsule [Cymbalt a] Cymbalta 30 MG Cymbalta 30 MG 06/07/2020 12:00:00 AM EDT 1.0 {capsule} acti ve Cymbalta 30 MG eCW1 ([facility]) duloxetine 30 MG Delayed Release Oral Capsule [Cymbalt a] Cymbalta 30 MG Cymbalta 30 MG 06/07/2020 12:00:00 AM EDT 1.0 {capsule} acti ve Cymbalta 30 MG eCW1 ([facility]) duloxetine 30 MG Delayed Release Oral Capsule [Cymbalt a] Cymbalta 30 MG Cymbalta 30 MG 06/07/2020 12:00:00 AM EDT 1.0 {capsule} acti ve Cymbalta 30 MG eCW1 ([facility]) Insurance Providers Payer name Policy type / Coverage type Policy ID Covered republican ID Covered republican's relationship to humphrey Policy Humphrey Plan Information MEDICARE [id number] SP [id number] A MEDICARE A [id number] Self [id number] A HUMANA HMO [id number] SP [id number] HUMANA H [id number] Self [id number] HUMANA O [id number] SP [id number] HUMANA H [id number] Self [id number] HUMANA H [id number] Self [id number] HUMANA H [id number] Self [id number] HUMANA HMO [id number] SP [id number] HUMANA HMO [id number] SP [id number] HUMANA CLAIMS PFFS [id number] Medicare Part B [facility] [id number] 0 [id number] HUMANA CLAIMS (PFFS) [id number] HUMANA CLAIMS (PFFS) [id number] [facility] [id number] 0 [id number] Medicare Part B [facility] [id number] 0 [id number] [facility] Option [id number] 0 [id number] [facility] [employer] Option [id number] 0 [id number] [employer] CLAIMS DEPT [id number] [employer] PLANS CLAIMS DEPT [id number] [employer] MEDICARE HMO G [id number] Self [id number] AETNA MEDICARE [id number] SP [id number] AETNA MEDICARE [id number] 0 [id number] ANSI-Commercial [id number] ANSI-Medicare Part B [id number] HUMANA HMO [id number] SP [id number] MEDICARE [id number] SP [id number] A HUMANA HMO [id number] SP [id number] ANSI-Medicare Part B [id number] ANSI-Commercial [id number] ANSI-Medicare Part B [id number] ANSI-Commercial [id number] ANSI-Medicare Part B [id number] ANSI-Commercial [id number] ANSI-Medicare Part B [id number] ANSI-Commercial [id number] ANSI-Commercial [id number] ANSI-Medicare Part B [id number] ANSI-Medicare Part B [id number] ANSI-Commercial [id number] HUMANA HMO O [id number] S [id number] MEDICARE C [id number] S [id number] A MEDICARE [id number] SP [id number] A HUMANA HMO [id number] SP [id number] Humana Claims Office Commercial [id number] Self [place] Primary [id number] Self HUMANA HMO S [id number] S [id number] HUMANA PPO [id number] HUMANA [employer] HE[employer] O [id number] S [id number] HUMANA GROUP HEALTH O [id number] S [id number] MEDICARE OUTPATIENT M [id number] S [id number] AETNA MEDICARE [id number] SP [id number] AETNA MEDICARE [id number] SP [id number] [facility] [id number] SP [id number] [facility] OPTIONS [id number] SP [id number] MEDICARE [id number] SP [id number] MEDICARE [id number] SELF [id number] HUMANA MEDICARE [id number] SELF [id number] HUMANA MEDICARE [id number] SELF 1F [id number] ANSI-Commercial [id number] ANSI-Medicare Part B [id number] ANSI-Commercial [id number] ANSI-Commercial [id number] ANSI-Commercial [id number] ANSI-Medicare Part B [id number] ANSI-Medicare Part B [id number] ANSI-Commercial [id number] ANSI-Commercial [id number] ANSI-Medicare Part B [id number] ANSI-Commercial [id number] ANSI-Commercial [id number] ANSI-Medicare Part B [id number] ANSI-Commercial [id number] ANSI-Commercial [id number] Problems, Conditions, and Diagnoses Code Display Name Description Problem Type Effective Dates Data Source(s) D51.3 Cobalamin deficiency Cobalamin deficiency Problem 01/11/2021 12:00:00 AM EDT MEDENT ([facility] ) 379.21 Vitreous Disorders Degeneration Vitreous Disorders Deg eneration Problem 10/05/2020 12:00:00 AM EST BRUNO (Jarvis Rowell [facility]) [id number] 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) Graves' Dis (Diff Toxic Goiter) with Thyrotoxic Crisis/storm Problem 10/05 12:00:00 AM EST BRUNO (Jarvis Rowell MD [facility]) 242.00 Graves' Ophthalmopathy Graves' Ophthalmopathy Problem 10/05/2020 12:00:00 AM EST BRUNO ([facility]arvis Rowell [facility]) [id number] Dry Eye Syndrome Both Eyes Dry Eye Syndrome Both Eyes Problem 10/05/2020 12:00:00 AM EST BRUNO ([facility] Rowell [facility]) 366.16 Cataract Senile Nuclear Cataract Senile Nuclear Proble m 10/05/2020 12:00:00 AM EST BRUNO ([facility] Rowell [facility]) 366.15 Cataract Senile Cortical Cataract Senile Cortical Prob jennifer 10/05/2020 12:00:00 AM EST BRUNO ([facility] Rowell [facility]) N39.3 [id number] Stress incontinence Problem 06/07/2020 12:00 :00 AM EDT eCW1 ([facility]) Surgeries/Procedures Procedure Description Date Indications Data Source(s) Imm: Flublok Quadrivalent 18 years & older 0.5mL IM Influenz a 06/06/2021 12:00:00 AM EDT eCW1 ([facility], [facility]) OFFICE OUTPATIENT NEW 30 MINUTES 03/15/2021 12:00:00 A M EDT MEDENT ([facility]) Intermediate Eye Exam Established Patient Intermediate Eye Exam Established Patient 12/15/2020 12:00:00 AM EDT BRUNO (Forest Rowell MD [facility]) Surgical / procedural history Gall Blad seng 2016, Appendectomy 2012, Hysterectomy 2019, Surgical / procedural history Gall Blad seng 2016, Appendectomy 2012, Hysterectomy 2019, 10/05/2020 12:00:00 AM [facility] (Jarvis Rowell MD [facility]) Medical Eye Exam Medical Eye Exam 10/05/2020 12:00:00 AM [facility] (Jarvis Rowell MD [facility]) BLOOD COUNT COMPLETE AUTO&AUTO DIFRNTL WBC COUNT <td>C BC AND DIFFERENTIAL</td><td>STAT</td><td>06/27/2020 12:20 PM EDT</td><td> Follicular lymphoma, unspecified follicular lymphoma type, unspecified body region</td><td> </td> 06/27/2020 12:20:00 PM EDT Follicular lymphoma, unspecified follicu lar lymphoma type, unspecified body region [facility] Follicular lymphoma, unspecified follicu lar lymphoma type, unspecified body region THYROID STIMULATING HORMONE TSH <td>TSH</td><td>Routin e</td><td>06/27/2020 12:20 PM EDT</td><td> Follicular lymphoma, unspecified follicular lymphoma type, unspecified body region</td><td> </td> 06/27/2020 12:20:00 PM EDT Follicular lymphoma, unspecified follicu lar lymphoma type, unspecified body region [facility] Follicular lymphoma, unspecified follicu lar lymphoma type, unspecified body region LACTATE DEHYDROGENASE LDH <td>LACTATE DEHYDROGENASE</td><td>STAT</td><td>06/27/2020 12:20 PM EDT</td><td> Follicular lymphoma, unspecified follicular lymphoma type, unspecified body region</td><td> </td> 06/27/2020 12:20:00 PM EDT Follicular lymphoma, unspecified follicu lar lymphoma type, unspecified body region [facility] Follicular lymphoma, unspecified follicu lar lymphoma type, unspecified body region COMPREHENSIVE METABOLIC PANEL <td>COMPREHENSIVE METABO LIC PANEL</td><td>Routine</td><td>06/27/2020 12:20 PM EDT</td><td> Follicular lymphoma, unspecified follicular lymphoma type, unspecified body region</td><td> </td> 06/27/2020 12:20:00 PM EDT Follicular lymphoma, unspecified follicu lar lymphoma type, unspecified body region [facility] Follicular lymphoma, unspecified follicu lar lymphoma type, unspecified body region Immunization: Flublok Quadrivalent (18 years & older) 0.5mL IM (Influenza) 06/07/2020 12:00:00 AM EDT eCW1 ([facility]) Results ID Date Data Source [id number] 05/25/2021 08:45:00 AM EDT [facility] Name Value Range Interpretation Code Description Data Brenna rce(s) Supporting Document(s) Colon[facility] MDPQMk6hOwOEHpGsPXDaIvxZJColDXjoJSRgH2K7NHxiJe9IKQndmhCpDZMeFk1+RYXlIB3srv9vIMVx gMy [file] software [file] [id number]ChAF37tzVEusBQrV4y3wsCqkYbdgyBglzQ/oV655Fp/Misty+qeb01 u25odLXa3oaHkDNCkC0S8Y43FjaHWxG85tqNacivdQZATkhzznxne8Bqlu11/RUgcOSX8OK9jZmDFw4K dudVp6uw/4Yj8+Rus0kol3OIOUmSJ8yKKAWe/A2snn 46Emnj8WYtCSkBJEnk26nrBg/G9buEItkjqPLW5GWc5iLQa6sCMHat5wRXIDz/bJlVS4GnlyVmlvVEpy Vx1kYhw+9g0YFW/gWiCLAczNOU8KkyJx35NbMbVLHvRyf4mgtccifvSEvB3Kee1V63c9CM+vXSyx41Qu gFVhyY6EYfT2ivAtsg/2ZN0DpSuL1AtpAvL+T6S3F2 qcDT+iOcZ8O+r0XMAdoGHI00h+xJt8LpCjEdeu4jN/cFnQVXt+WwfKj2NVAOcI7prYl/mR/r8SyBLXLL 0Jp/P8OAVJlyG30pvAp5qsZg4gnLzpl7vRPvRrgLVKlPvHLc4tWbRSKasEKcltHbp/Orbnef7OV9N0dT 1ayrxq3nZSY+marco antonio/CKQjKDRajt89ft3AlxrwNYCWZP [file] PxSGDON1Z4Mtg5DAVG+lOwtl3BhOjyOeXOyJr25aJJ84ct64B/zn5KegCKz8iXCNNLvxR8EYNIKh+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 [file] ozeFPSX3kf4e+rKeM7HjZvVCBPfKgi+Wu93Fgb86qEmweYPhGP6FHOyP6SapEEeb/+ROLL SLICING MACHINE TENDER+lFYEXZ0Xeu [file] teDqTfrRiGkI45D3nJVu7yTCDKfZchGjfO51yAAC1J5fKMawWdCF2YmISx8lILhqNOXZsKXx8YT+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 [file] S8LJ0TUto4h+R2Nb/7t1wJ6gkeR45+S0QX8Ph9M/G4YfZRH6uOcja9ejWK6yDiQxhVb95SGgG4ki+Cardiovascular Operating Room Nurse UJlgltvJiIDpEYn0pmcPC1sTZfecprMwZ0ksuSCSzCWmctwKkBlBDuc0jKC35SrGw5TcoBoiXVBH+zAU EVdampRXKo+ZoxgSq2nOQbjpXpyOm91F3eERcIJ7YU 2xjKodNzT5j0OFJMAWmG+tLHgG73OcXLO4mjg7BF9Y9PU4d7zWvuBugJOBjVN0JELvkc/fI5i7oFp0vh 7IHe1xRz75kuu+QMn3wfxaGxEZ0HXlzieJta78WTtxdeIz34PRVdj+FvhluVmCuttZT8DT2bIR1iAYFk tJ/yEcUxc2Q16bbk1+SOw7QyGnMcb7Ts4Ipvv8v65g rosy/XW03BzVVsYplxeyw2EoGE5BQXJah6Jj9Q6OkfO5LrQZLhoG5FRqQjPdT47JMAkfsTUr/RTMWJ3ntI [file] nIzJykfC3XQJ1p1IxZisTurWiJOESkYn+GROUP EXERCISE INSTRUCTOR+bJVDru [file] X+It Applications Analyst+Gdmy2z1EIMPq7W+tM/Bb8PQsHYMMmTWszXGAX [file] NFT7wgRqoX9RJR9qq6FcGX0Pt7KpalO1ghCvJFm4IENkWnICLpIjLZ0O ID Date Data Source [id number] 03/28/2021 10:45:00 AM EDT [facility] Name Value Range Interpretation Code Description Data Brenna rce(s) Supporting Document(s) [facility] KOMMKa2wAyEXFrUgAEQxTzoODFrrVVjaEIRoR8C1ULyaUy7FGRvsxyGnMCWqSm2+OOEcNY6cct3lVEMh gMy [file] pqUJ5SR9mF2hY2sA+luN3THQP4ic7WH0eWekHOb/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 [file] 1W0FYH2LLWpVGPbdL8cd9cVdGnKx7CU8Qd/ll7g8oBtwoEGn/[facility]//bUlhhY32E9I8bq48v9/cM [file] GmhlOo36/vessel captain+HQLPnxN/6K+5xZf49R0g5b24flcoT3Pv/5WSXMpEJQKlzYVr0gVDcVNDncSjWQEeX26 [file] fHddsuKh0GQv9DPXiz0QNKw/Sewer And Drain Technician/Acb9Ko19X5GifYkikRVzvzcEBxk2hBIjpEwWn8WgLvpFmpR9fWd3g [file] vp software+mRx5f2M1L5buVbqwJxRpbxAs+KBk3QMQ4IAkXp6J2TYvJqgo8QkcLslXiri252BqyvnssZAKD3iwX [file] 8O8b+dR1fk26uWDDS8m3qOQYlnb9DxHHKe7AhRPYaa9G9gCrOwbRP/3HXRAm2NaMeYDURblGs+Saravanan/ gzsiDKPyrDhrz1c4a0rbgsSubBeWU/e9FDKJ7BTJAIrblDhE8iWXEo0aAiBT7093EHnrGikBD7R/hZQf cxQf3hy8MYX1J1UMZOSgy/SQscB+ka0nkn5n6v1zDJ Wnp2PfP0cb6wVceRkZWpypHJecd8HbPdSpVjKn2kEqiITkvdnjgeFExMG5uEHUbia+Juk18X1B1OvfBM u3bEDlihvhN/PG0o/+s0xxjz1thbS7l9J1xPN4frNUr1XBv7wg5yUS4uyPmcbFWgX5o0BbpQ+ha1z48U meaJeOtfLWNcqbbKntMC+eoeicYSXwgiyi+W9M6Bvd jI4Zn1kMleAyaalwF7ug3fcbqjDBg/gktm6LI6KFhxJXzhq8hVu4oew4mRvs2J2TWkKZuCdsbZ/PagUa lbdHSRs2EB72qcCI9Z/sbKVfU/gtxK3rAQ8QKQc7ofGowylWmwpdJHQ+UQ5femlPAzNKqFrDvh7/YDGe 5Np4c1Vzdczg/I89cDbNnMatw7Mvmnw1Y3115I0I2P zrL/gSIfefX0lrd9+F79T74mlbb1109TpqTJsBlCg/S+/9K/As6cLBMiFRdGu230tPP81fvQjlOVsJ8+ UwIzJpZbWsPOa+9sgS688kz7BnTuY1g6V93tl263/0/V+HnO3yYc/jzWKbIxrwhhXsddfFa0+8m0eXCo ISmItTOJJZeZ+2mL3HoU2m8zKRg/TwYNy0eofaYPq5 5Xp4aqkH6RJJqJlOEX15xCMW1CT83Qols6ZbUDPCZYkrG+nByqHzIVflR4oBp2yS+KHt394CMFrOPjyQ Zax6eNU/A6UztiavhVZqXbKrOENfzfUpoaqKaiDftjnPQp8xnIO19TR2o7+Mb8keq8v7PMPkErHn637k KU08+3qe632u1VJ2ycgXG54B1vG61+1FpZpo8N3h8o s8we85vT7y3Ox8JzV3/iJZb9HhIIl4mM/B9XLA+3qPOYFpcGDKq8LUVJEdojK8XrBUT3nj3K1U7CUJSP uVuMg3jWMx4qT6JygbX0sgupuR7NI7U0Z/H7/l4y61Ti/r+tbY3DvKpH+v51XFHYD5U2DtPBubSi2j7r 9k2P/EtELCgdQgznNK1E3yg77W73y/eD6q6Ju7PisK Vq8w3Il93/wIdhaKevvuNBQHSOdpmJj5Rcggh1YTfPZOHQr4NyIXH+KAvaffOKPemruwtaZ3k7hFsB+s 07+vZDX5mxWeyCZE1uh95/g+oxh0QfdcG0zoNfC/7ujMLimxe3VmWTiorOSwdqENPJG3RiSvpwka34Ww hvpRVJnT3uPkE0xVm90XqDzJzIl3DUVX/aJFrjly9s PcLEMiZ7iIPDvUVtxU/kVtDVtk8fhhj+oKKl4xhWGg8aWL/OahDq+r3tL3eOuXI68vVfUJqYZRWIN6J8 QJDWb/5CLGz0aZP2Lh7qh8fcM08u1tFcFtrgD1S1wdZqPrNiLgPweCRET4WG2J8jeY8vtvNm2KIan12u m4VI8CDLaJbg1zZhmsHIvLuBEMJqnUSMykob0Wi4tv MRt5bq4ghu4aC4HmO1Ln1EuNxl0uTIBleWNMkg9pMc9UeV07aelkN4QSuiqjIcbOE1BPiGHIqKt5Ub4r yykdxkh+qNViWQiAPzQVmta0XSDXs1xqOklZ/drChYY0qmV4tHDGAyv5MwQA1hng+R+/VvF5co9i38pj L5NThWH68aaECnW1FKHwyxD4Rt3ApBfgxfiCcoPeyc wKRfLWMON4wwScdOBDL3EOK2YVvLRY+Syl6llC1w7gKxuOvGYI6ObHGsqCnWfKzs5Gu/D9Cf9j3bP4Mz dwt9BkbyISpW5y3rd7SRoRpU/9YAyrXgjKhmivlcDAeWJYMPDWtRbhRW9y5hoCJqQOwfkqYnhnNbkFmH /VSs2BZziR/3QW9CMD19igUlb2Ccg/hey+fzW8I [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] 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/NM31n5s87XjYwVz7i8wbS88/idSbfVHERnf6gSlYfE4JLQXTvaZdPSk9s2/DDRm2y1WrDT2GZ9NU [file] zgWKOvyQNPEaPVout3jqvC8xeO+VIgpqJuLU1uGZME6aqjQgMCALtbv090oFV5CmDgZiRr3LmkLx+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 [file] Z6I9YaBFTAWsHTWEXEFFJUAQWGCc1nNCwkZbbSXabMPDYsCFT1CBDDAVXSStE5UNCVDbQDP5JxNy3hWc 0ffTWxAYNjMp3IewJcKRHfNIWSH0JmfxEmBXlgGVleWGCnVNFsRe8NKRbbKNDiEN4+ChY6txUyvS5EgO uuJOXtJEWhQDOmXBBQPO3QiPeKMEYtmHUAFlbJm5Aq jISA3LdiNKA/PGTmP8KhwxYmMJ0FWPBonMXYMtCL5HGQQWvKXbRHQjFiBHH3jyBpgL3XEC9sl4HbTH7D l4PssyZ3atHxRRjgHSW2BVV6NOloIMKTWu== ID Date Data Source [id number] 03/15/2021 05:08:00 PM EDT [facility] ([facility]) Name Value Range Interpretation Code Description Data Brenna rce(s) Supporting Document(s) Bacteria identified in Urine by Culture Laboratory test result [facility] ([facility]) FULL REPORT IN LAB NOTES (eCW and [facility] ). SPECIMEN APPEARS CONTAMINATED ID Date Data Source [id number] 10/08/2020 12:00:00 AM EST [place] (Forest Rowell [facility]) Name Value Range Interpretation Code Description Data Brenna rce(s) Supporting Document(s) Thyroid Stimulating Immunoglobulin <0.10 IU/L Normal Thyroid Stimulating Immunoglobulin [place] (Jarvis Rowell [facility]) ID Date Data Source [id number] 07/20/2020 01:11:39 PM [facility] PET W CT IMAGING SKULL TO TOES [id number] ED RESULT - FINALInterpreted by:Tanvir Braswell MDAddendum BeginsSigned on SatJul 20, 2020 1:09 PM by Bhavana Odonnell MD to technique:TECHNIQUE: The study was performed at the [facility]. Approximately 60 minutes following IV tracer administration, [...] mg/dL.TECHNIQUE: The study was performed at the [facility]. Approximately 60 minutes following IV tracer administration, [...] rce(s) Supporting Document(s) ID Date Data Source [id number] 07/18/2020 10:56:41 AM [facility] Name Value Range Interpretation Code Description Data [facility] rce(s) Supporting Document(s) Progress Note [facility] VFZVYv2jNpSEAyCd49/TOTcrEBNhd3MlQVhyCRc0NGinPTGrF8IfEPA2eR5lHLR8PDcDEdOzPcKxWKT0 lbm [file] AgICAgICAgICAgICAgICAgICAgICAgICAgICAgICAgICAgICAgICAgICAgICAgICAgICAgICAgICAgIC AgICAgICAgICAgICAgICAgICAgICAgDQogICAgICAg ICAgICAgICAgICAgICAgICAgICAgICAgICAgICAgICAgICAgICAgICAgICAgICAgICAgICAgICAgICAg ICAgICAgICAgICAgICAgICAgICAgICAgICAgICAgICAgDQogICAgICAgICAgICAgICAgICAgICAgICAg ICAgICAgICAgICAgICAgICAgICAgICAgICAgICAgIC AgICAgICAgICAgICAgICAgICAgICAgICAgICAgICAgICAgICAgICAgICAgDQogICAgICAgICAgICAgIC AgICAgICAgICAgICAgICAgICAgICAgICAgICAgICAgICAgICAgICAgICAgICAgICAgICAgICAgICAgIC AgICAgICAgICAgICAgICAgICAgICAgICAgDQogICAg ICAgICAgICAgICAgICAgICAgICAgICAgICAgICAgICAgICAgICAgICAgICAgICAgICAgICAgICAgICAg ICAgICAgICAgICAgICAgICAgICAgICAgICAgICAgICAgICAgDQogICAgICAgICAgICAgICAgICAgICAg ICAgICAgICAgICAgICAgICAgICAgICAgICAgICAgIC AgICAgICAgICAgICAgICAgICAgICAgICAgICAgICAgICAgICAgICAgICAgICAgDQogICAgICAgICAgIC AgICAgICAgICAgICAgICAgICAgICAgICAgICAgICAgICAgICAgICAgICAgICAgICAgICAgICAgICAgIC AgICAgICAgICAgICAgICAgICAgICAgICAgICAgDQog ICAgICAgICAgICAgICAgICAgICAgICAgICAgICAgICAgICAgICAgICAgICAgICAgICAgICAgICAgICAg ICAgICAgICAgICAgICAgICAgICAgICAgICAgICAgICAgICAgICAgDQogICAgICAgICAgICAgICAgICAg ICAgICAgICAgICAgICAgICAgICAgICAgICAgICAgIC AgICAgICAgICAgICAgICAgICAgICAgICAgICAgICAgICAgICAgICAgICAgICAgICAgDQogICAgICAgIC AgICAgICAgICAgICAgICAgICAgICAgICAgICAgICAgICAgICAgICAgICAgICAgICAgICAgICAgICAgIC AgICAgICAgICAgICAgICAgICAgICAgICAgICAgICAg EQx2U5yvSXCcVRJdRS2pQOs6Rh7+SCgPDuGuLJS5pvMfeG3WUK6ba0AtRMkhGKAxc0BfAVh6AH7ZUWDp VKnkOU4GBUoedr7MPOOwGDKmuFVMk1kmWtDkTEW3MOEjEgjwJG8UTEQjA2szkjBkZVNpLTBDPGquAQZH FUcwJJXEKGZrAAGbDaIwXlZzKQZrSIKwXYULOBZ9PV FkRjJyXZhgYA3Ny4RiqUQ2PCq+Ro3GOW9qt3IdNIr3NYTkVM0vze5HJQlTDuRbV7DodqX0HJUdDTHcTu 9RSXXxCXIzbEK3PZMqQEKRDoDaW5WirB98BYYTPw1+KAdvjgRcFkjNStGnITVwp3UjDLx8ZU2JYTDiHA n5gHZtFKTkO7Bid5UfBu45YYCvCcdxQRbvkcXnCRWH pBkcyLnmbxmeAVQcHSLdADZqYTQdHkHaIUHaMLf5BDNFRVdKGrVsC1Gso6KzTfD5BUZgZkWjIVhtQCEy ZrI8AY16tVkgCX3KSYQzWVWkEK49PIKuESRgXz9LHs9OGsGrZN9bxq1SAKYrFGRbNacGAwy1IAauMJ4V oWHbV8ZgkUAdy3dKRdCfR1ALZFD7XWJbRz9YMLOsRq MzLFTmAQfwFG0zOEBoEVVDfUkxoxJ8YZ5RJQ7sgyPhFF7VYrMsXn4cHb1UWoDlV4QbE4AkFEQfVHQSGT kiHQ1TEIqySI0gOY0Oy9OXgBBsrR6lfm3TSSDvVLXkKestyc1RVvuoT1Y7tCpoNJDfKWHjSYBGBHmfXX 8RZWOfBOZ2WMDgMGRbFLSXMzNoJ04wID0KZ9Mtw74t CzX5NWJzEwTdFNzjSO88sFsvljJjwRGryEemHR0VRi9+DQplbmRvYmoNCnhyZWYNCjAgNDMNCjAwMDAw FRGfVDRyEqU7PnIuOm7LCQQlYYOiZIPhVjQkGUAfQJRrTEdcZTKpTYK0Saj1UNCwGKVhFR1NIbYvMVOd ICK0KRFkTBHlWHUdku5ZCWPiWODrZRF6CnEhTCLpMY MvPDuiACYwVJTbNLT8KNAvNBWhRQ0WSpKgWPEjWGU3COzwSVSjAAGihz1VUKDuUFXwOoAcDyPbAIVbHQ AiZAyrATFcGTT5MeRiHTZsWDYnEZ7PYwOmANPnJXJxUKcvCNHwZXSuoa6OQAWiGINiRFB6UPLnWISbCV VuHFozCDHhDBNwHQA6JZXwSUUkCL5FYzLmUTGrNDMu BqPzDLRoPLWndn6ZWUInPOKkQRZ3CLKgYPOaBJMnLOjdUNKpKKY2Oqr7KCGbSJMhZC9BScBhOURbRAap ZcOaGPUzHEKbex5GJQEnXRPeFTG1UrYfEMXyXRKxMQhhDQMpRYCpDPb0OIOnDMBwAT8NVcJcPYRyDjH4 OBSaFQUiIUTnax6TCZObYVMyDZl1ZzOdXQWpGYKaOP hxTTNoRPUtKTT8RMUpFCIsNP3XXxNoBZDmAtHkTrScDRLdYFWvgw0UFXAmCCPvCpU0KRTvNRSrKJDlQT diRSZyTNAwMffrHSSkNBGhRV2RGtJeGUGrMkO0NDDxWVPwOFAjem6KJYJoVHKkCOatFXIvNYCjFYMbZM dyUAKsYUU2RkZ9TEIpDUElFN2EFmZvHXIsXbY0SKGa CGIeOHZvks8GLQGwXAFgUPP3XNMjOJKeHTLmQRydDZOkXTT8PUSeMRIxOWNjWY1SFbOpGJVcQeP2TXFa VZAkJVVpku7ASAAeSOHmGaz0NcOfQZXnSICbTJwtYWLdDNU1UAR6ZNZqJUFcWB3VLkKxWVDwKwmqIRCl JEDgJYMbmz3CIOKdIJBrNOD0CpAkFDIwVPKwFIaqTK KfQQD4EYN9NMBfOBIlIS5FQwWzNKHiUne2DSXbCEDkZLUqpk4ZNXLwEYTeVOW4CBHmXLYyQQRuYDvoME ZcCXU6YxM4JJFtKGZtUX3RMeJcUPRnIWCgERCeJIFsETDxer0EWEZbVMW4BDP7QqMrWVBmBWWxUPwlGA GaVFEeEoS3WWIhUNSnFQ1MXpUoDLXnGAT4BRUjJYFr BKDaxz9ThQMbnKlovw5IUWbTNi5PxHmmRWExDBnaUi6cqHV3XpKoSGNMGv4WfzRuMCTuJDZBQDsuUNGh PQCcIBOpZUQ8JiB4FAA5RJF1ZJBwKaYdGmFcEGTdRRKrFhE6RqM0FgTjFQBwRSS7UZS7Wop7RHYhFxR4 UVH9LCX2GNF+YN9hXRz+Py8Sr1LmwhL8ukDbKEf7IvJ1ZB8BQQMQY9EAFe== ID Date Data Source [id number] 07/10/2020 08:36:16 PM EST [facility] Name Value Range Interpretation Code Description Data Brenna rce(s) Supporting Document(s) Progress Note [facility] XSTSVo5iCfRTMcAz18/CXIylJECcm1OyEUovYMu0QAcxEGTnH3GaLXW1zD1xUPW2VZeVMjXaUdGlTRF6 lbm [file] M8X5WyHCQwUKi5GqZgPwIyQS8WQt7MWrF3JIT3kVIfPl9BBOngPXGQHqIlCP0OAGd= ID Date Data Source [id number] 07/10/2020 08:36:11 PM [facility] Name Value Range Interpretation Code Description Data Brenna rce(s) Supporting Document(s) Progress Note [facility] GZVTJu9fDfPNOuYm18/QOMxwYOQhw3FsSDxfAEv6RUgmHAMmD2WbWJP7uK9uOXT3MEwDRiEdQuWjHWR9 lbm [file] wTTxoMxmZHVHIiC3GbNcVKekJMWWTu6M ID Date Data Source [id number] 06/27/2020 12:39:07 PM T [facility] Name Value Range Interpretation Code Description Data Brenna rce(s) Supporting Document(s) Leukocytes [#/volume] in Blood by Automated count 9.1 10*3/uL 4-10 [facility] Erythrocytes [#/volume] in Blood by Automated count 4.42 10*6/uL 4.1- 5.3 [facility] Hemoglobin [Mass/volume] in Blood 13.1 g/dL 11.5-15.5 [facility] Hematocrit [Volume Fraction] of Blood by Automated count 37.9 % 3 6-45 [facility] Erythrocyte mean corpuscular volume [Entitic volume] by Auto mated count 85.8 fL 80-96 [facility] Erythrocyte mean corpuscular hemoglobin [Entitic mass] by Automated count 29.6 pg 27-33 [facility] Erythrocyte mean corpuscular hemoglobin concentration [Mass/volume] by Automated count 34.5 g/dL 32.0-[facility] width [Ratio] by Automated count 15.2 % 11.5-14.5 H [facility] Platelets [#/volume] in Blood by Automated count 175 10*3/uL 150-400 [facility] Differential cell count method - Blood [facility] Neutrophils/100 leukocytes in Blood by Automated count 63 % [facility] Lymphocytes/100 leukocytes in Blood by Automated count 29 % [facility] Monocytes/100 leukocytes in Blood by Automated count 5 % [facility] Eosinophils/100 leukocytes in Blood by Automated count 2 % [facility] Basophils/100 leukocytes in Blood by Automated count 1 % [facility] Neutrophils [#/volume] in Blood by Automated count 5.66 10*3/uL 1.8-7 .0 [facility] Lymphocytes [#/volume] in Blood by Automated count 2.64 10*3/uL 1.2-4 .0 [facility] Monocytes [#/volume] in Blood by Automated count 0.47 10*3/uL 0-0.8 [facility] Eosinophils [#/volume] in Blood by Automated count 0.20 10*3/uL 0-0.5 [facility] Basophils [#/volume] in Blood by Automated count 0.12 10*3/uL 0-0.2 [facility] Nucleated erythrocytes/100 leukocytes [Ratio] in Blood by Automated count 0 /100{WBCs} 0-0 [facility] ID Date Data Source [id number] 06/27/2020 01:28:28 PM EDT [facility] Name Value Range Interpretation Code Description Data Brenna rce(s) Supporting Document(s) Lactate dehydrogenase [Enzymatic activit y/volume] in Serum or Plasma by Lactate to pyruvate reaction 224 U/L 122-214 H [facility] ID Date Data Source [id number] 06/27/2020 01:28:28 PM [facility] Name Value Range Interpretation Code Description Data Brenna rce(s) Supporting Document(s) Thyrotropin [Units/volume] in Serum or Plasma 0.758 u[IU]/mL 0.270-4. 200 [facility] ID Date Data Source [id number] 06/27/2020 01:28:28 PM [facility] Name Value Range Interpretation Code Description Data Brenna rce(s) Supporting Document(s) Albumin [Mass/volume] in Serum or Plasma by Bromocresol green (BCG) dye binding method 4.4 g/dL 3.5-5.2 [facility] Bilirubin.total [Mass/volume] in Serum or Plasma 0.3 mg/dL <1.2 [facility] Calcium [Mass/volume] in Serum or Plasma 9.5 mg/dL 8.8-10.2 [facility] Chloride [Moles/volume] in Serum or Plasma 102 mmol/L 98-107 [facility] Creatinine [Mass/volume] in Serum or Plasma 1.23 mg/dL 0.50-0.90 H [facility] Glucose [Mass/volume] in Serum or Plasma 96 mg/dL 70-140 [facility] Alkaline phosphatase [Enzymatic activity/volume] in Serum or Plasma 73 U/L 35-104 [facility] Potassium [Moles/volume] in Serum or Plasma 3.9 mmol/L 3.4-5.1 [facility] Protein [Mass/volume] in Serum or Plasma 7.4 g/dL 6.4-8.3 [facility] Sodium [Moles/volume] in Serum or Plasma 141 mmol/L 136-145 [facility] Aspartate aminotransferase [Enzymatic activity/volume] in Serum or Plasma 19 U/L <32 [facility] Urea nitrogen [Mass/volume] in Serum or Plasma 15 mg/dL 8-23 [facility] Osmolality of Serum or Plasma by calculation 293 mosm/kg 275-300 [facility] Creatinine/Urea nitrogen [Mass Ratio] in Serum or Plasma 12 [facility] Bicarbonate [Moles/volume] in Serum 28 mmol/L 22-29 [facility] Alanine aminotransferase [Enzymatic activity/volume] in Seru m or Plasma 21 U/L <33 [facility] Anion gap 3 in Serum or Plasma 11 mmol/L 8-15 [facility] Glomerular filtration rate/1.73 sq M pre dicted among non-blacks [Volume Rate/Area] in Serum or Plasma by Creatinine-based formula (MDRD) 45 mL/min/1.73m2 >60 L [facility] Glomerular filtration rate/1.73 sq M pre dicted among blacks [Volume Rate/Area] in Serum or Plasma by Creatinine-based formula (MDRD) 52 mL/min/1.73m2 >60 L [facility] Procedure Social History Code Duration Value Status Description Data Source(s ) Smoking 06/13/2021 12:00:00 AM EDT Former Smoker completed Former Smoker eCW1 ([facility]) Smoking 06/06/2021 12:00:00 AM EDT Former Smoker completed Former Smoker eCW1 ([facility]) Smoking 05/10/2021 08:00:30 AM EDT Ex-smoker (finding) complet ed Ex-smoker (finding) BRUNO ([facility] Rowell [facility]) Smoking 12/06/2020 12:00:00 AM EDT Former Smoker completed Former Smoker eCW1 ([facility]) Smoking 12/06/2020 12:00:00 AM EDT Former Smoker completed Former Smoker eCW1 ([facility]) Alcohol intake 06/27/2020 12:00:00 AM EDT Current drinker of al cohol (finding) completed Current drinker of alcohol (finding) [facility] Tobacco use and exposure 06/27/2020 12:00:00 AM EDT Never used co mpleted Never used [facility] Cigarette pack-years 06/27/2020 12:00:00 AM EDT UNK completed [facility] Cigarettes smoked current (pack per day) - Reported 06/27/20 20 12:00:00 AM EDT UNK completed [facility] Smoking 06/27/2020 12:00:00 AM EDT Current every day smoker co mpleted Current every day smoker [facility] Smoking 06/07/2020 12:00:00 AM EDT Former Smoker completed Former Smoker eCW1 ([facility]) Smoking 06/07/2020 12:00:00 AM EDT Former Smoker completed Former Smoker eCW1 ([facility]) Smoking 06/07/2020 12:00:00 AM EDT Former Smoker completed Former Smoker eCW1 ([facility]) Vital Signs ID Date Data Source UNK Name Value Range Interpretation Code Description Data Source(s) Body weight 198.6 [lb_av] 198.6 [lb_av] eCW1 ([facility]) Body weight 90.08 kg 90.08 kg eCW1 ([facility]) Body height 62 [in_i] 62 [in_i] eCW1 ([facility]) Body mass index (BMI) [Ratio] 36.32 kg/m2 36.32 kg/m2 eCW1 ([facility]) Heart rate 85 /min 85 /min eCW1 ([facility]) Respiratory rate 18 /min 18 /min eCW1 ([facility]) Body temperature 97.9 [degF] 97.9 [degF] eCW1 ( [facility]) Systolic blood pressure 122 mm[Hg] 122 mm[Hg] e CW1 ([facility]) Diastolic blood pressure 74 mm[Hg] 74 mm[Hg] eCW1 ([facility]) Systolic blood pressure 114 mm[Hg] 114 mm[Hg] M EDENT ([facility], [facility]) Diastolic blood pressure 74 mm[Hg] 74 mm[Hg] MEDENT ([facility], [facility]) Heart rate 98 /min 98 /min MEDENT ([facility], [facility]) Respiratory rate 18 /min 18 /min MEDENT ( [facility], [facility]) Oxygen saturation in Arterial blood by Pulse oximetry 97 % 97 % MEDENT ([facility], [facility]) Body temperature 96.8 [degF] 96.8 [degF] MEDENT ([facility], [facility]) Body weight 190.00 [lb_av] 190.00 [lb_av] MEDEN T ([facility], [facility]) Body height 62 [in_i] 62 [in_i] MEDENT ([facility], [facility]) 5'2" Body mass index (BMI) [Ratio] 34.7 kg/m2 34.7 k g/m2 MEDENT ([facility], [facility]) Body weight 192.2 [lb_av] 192.2 [lb_av] eCW1 ([facility]) Body height 62 [in_i] 62 [in_i] eCW1 ([facility]) Body mass index (BMI) [Ratio] 35.15 kg/m2 35.15 kg/m2 eCW1 ([facility]) Heart rate 86 /min 86 /min eCW1 ([facility]) Respiratory rate 18 /min 18 /min eCW1 ([facility]) Body temperature 97.8 [degF] 97.8 [degF] eCW1 ( [facility]) Systolic blood pressure 110 mm[Hg] 110 mm[Hg] e CW1 ([facility]) Diastolic blood pressure 70 mm[Hg] 70 mm[Hg] eCW1 ([facility]) Body height 62 [in_i] 62 [in_i] eCW1 ([facility]) Body weight 186.6 [lb_av] 186.6 [lb_av] eCW1 ([facility]) Respiratory rate 18 /min 18 /min eCW1 ([facility]) Body temperature 98.6 [degF] 98.6 [degF] eCW1 ( [facility]) Systolic blood pressure 120 mm[Hg] 120 mm[Hg] e CW1 ([facility]) Diastolic blood pressure 80 mm[Hg] 80 mm[Hg] eCW1 ([facility]) Body mass index (BMI) [Ratio] 34.13 kg/m2 34.13 kg/m2 eCW1 ([facility]) Heart rate 90 /min 90 /min eCW1 ([facility]) ID Date Data Source [id number] 07/10/2020 08:36:16 PM [facility] Name Value Range Interpretation Code Description Data Source(s) WEIGHT RECORDED 191.4 lb 191.4 lb [facility] Patient Treatment Plan of Care Planned Activity Planned Date Details Description Data Source (s) benzonatate 100 MG Oral Capsule [Trace Regalado] 06/13/2021 12: 00:00 AM EDT eCW1 ([facility]) doxycycline hyclate 100 MG Oral Tablet 06/13/2021 12:00:00 AM EDT eCW1 ([facility]) Clobetasol Propionate 0.0005 MG/MG Topical Ointment [T emovate] 12/06/2020 12:00:00 AM EDT eCW1 ([facility]) Clobetasol Propionate 0.0005 MG/MG Topical Ointment [T emovate] 12/06/2020 12:00:00 AM EDT eCW1 ([facility]) duloxetine 30 MG Delayed Release Oral Capsule [Cymbalt a] 06/07/2020 12:00:00 AM EDT eCW1 ([facility]) duloxetine 30 MG Delayed Release Oral Capsule [Cymbalt a] 06/07/2020 12:00:00 AM EDT eCW1 (Formerly [facility]) duloxetine 30 MG Delayed Release Oral Capsule [Cymbalt a] 06/07/2020 12:00:00 AM EDT eCW1 (Formerly [facility])
[2021-06-14 22:09] LABS: HEMOGLOBIN A1c 5.2 %
[2021-06-15] MEDS ORDERED: SYMB80INH INH (01:32)
[2021-06-15] MEDS: IPRATROPIUM 0.5MG/ALBUTEROL 2.5MG INH SOL UD 3ML (DUONEB) NEB SCH ×4 (03:34→20:13)
[2021-06-15] MEDS: NS 1,000 ML IV SCH ×2 (04:42→12:34)
[2021-06-15] MEDS: LEVOTHYROXINE 125MCG TABLET (0.125MG) PO SCH (06:05)
--- NOTE | 2021-06-15 07:41 | ECGEPIP ---
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
[2021-06-15 08:11] LABS: VENOUS HCO3 22.7 MEQ/L (23.0-27.0); VENOUS O2 SATURATION 93.7 % (60.0-80.0); VENOUS PARTIAL PRESSURE CO2 43.1 mmHg (38.0-50.0); VENOUS PARTIAL PRESSURE O2 79.6 mmHg (30.0-50.0); VENOUS STANDARD HCO3 21.9 MEQ/L; VENOUS TOTAL CO2 24.1 MEQ/L (24.0-28.0)
[2021-06-15 08:21] LABS: HEMATOCRIT 33.6 % (36.0-47.0); HEMOGLOBIN 11.3 g/dl (12.0-15.5); MEAN CORPUSCULAR HEMOGLOBIN 30.9 pg (27.0-33.0); MEAN CORPUSCULAR HGB CONC 33.6 g/dl (32.0-36.5); MEAN CORPUSCULAR VOLUME 91.8 fl (80.0-96.0); PLATELET COUNT, AUTOMATED 145 10^3/uL (150-450); RED BLOOD COUNT 3.66 10^6/uL (4.00-5.40); WHITE BLOOD COUNT 7.4 10^3/uL (4.0-10.0)
[2021-06-15] MEDS: FOLIC ACID 1 MG TAB PO SCH (08:22)
[2021-06-15] MEDS: ENOXAPARIN 40MG/0.4ML SYRINGE (J1650 PER 10MG) SC SCH (08:22)
[2021-06-15] MEDS: predniSONE 20 MG TAB PO SCH (08:22)
[2021-06-15 08:56] LABS: ALBUMIN 3.1 GM/DL (3.2-5.2); BILIRUBIN,TOTAL 0.3 MG/DL (0.2-1.0); CALCIUM LEVEL 7.6 MG/DL (8.8-10.2); CREATININE FOR GFR 1.16 MG/DL (0.55-1.30); GLOMERULAR FILTRATION RATE 49.6 (>45); POTASSIUM SERUM 3.9 MEQ/L (3.5-5.1); TOTAL PROTEIN 6.7 GM/DL (6.4-8.2)
[2021-06-15] MEDS ORDERED: DULoxetine 30MG CAPSULE (CYMBALTA) PO SCH ×2 (09:00)
[2021-06-15 11:30] VITALS: BP 143/72
[2021-06-15] MEDS: PRIMIDONE 50 MG TAB PO SCH ×2 (12:00→20:30)
[2021-06-15 12:11] LABS: HEPATITIS B CORE ANTIBODY IGM NEGATIVE (NEGATIVE); HEPATITIS B SURFACE ANTIBODY POSITIVE (POSITIVE); HEPATITIS B SURFACE ANTIGEN NEGATIVE (NEGATIVE); HEPATITIS C VIRUS ABY INDEX < 0.0 INDEX (<0.8)
--- NOTE | 2021-06-15 13:02 | REP ---
INDICATION: QIAN and elevated LFTs (fatty liver ?) TECHNIQUE: Real time B-mode worley scale ultrasound examination using curved array transducer. FINDINGS: Liver is hyperechoic and upper limits of normal in size without focal hepatic lesion identified. Liver measures 17 cm in craniocaudal length. Spleen, and pancreas are normal in contour, size, echogenicity, and overall appearance. No focal splenic or pancreatic lesions are identified. Gallbladder is surgically absent. No biliary ductal dilatation is appreciated and the common bile duct measures 4.0 mm in diameter. The bilateral kidneys are normal in reniform shape without hydronephrosis or obvious abnormality. Right kidney measures 9.4 x 4.4 x 3.9 cm. Left kidney measures 8.2 x 4.0 x 3.8 cm. No obvious ascites. IMPRESSION: Hepatosteatosis. <Electronically signed by Yovani Crenshaw > 06/15/21 0006
[2021-06-15] MEDS ORDERED: LEVALBUTEROL 1.25 MG/0.5 ML CONCENTRATE NEB NEB PRN (13:55)
--- NOTE | 2021-06-15 13:58 | IPNPDOC ---
Text Note Date of Service The patient was seen on 06/15/21. NOTE SUBJECTIVE: -No acute events, feels much better. OBJECTIVE: VITALS: see below GENERAL APPEARANCE: well-nourished and developed/ NAD HEENT: EOMI, MMM CARDIOVASCULAR: RRR/NMRG LUNGS: Scattered wheezing, still a little tight, however without tachypnea, no crackles, on room air now ABDOMEN: contour convex MUSCULOSKELETAL: NCAT / MAR x 4 extremities INTEGUMENT: she is not flushed, pale or diaphoretic NEUROLOGICAL: face symmetrical / tounge mid-line / speech not dysarthric PSYCHIATRIC: A&O / able to understand and follow simple commands LABORATORY DATA: Reviewed Resp panel: +RSV WBC 7.4 Hgb 11.3 Platelets 145 Na 141 K 3.9 Cr 1.16 IMAGING: Chest xray IMPRESSION: No acute pulmonary disease CT head IMPRESSION: Patient motion without definite acute intracranial ab normality. MICROBIOLOGY: Respiratory panel + RSV ASSESSMENT: is a 65 yr old w a hx of Stage NHL s/p chemo, radiation & stem transplant, Asthma, Hypothyroidism, Depression / Anxiety, Obesity, Fibromyalgia & Hearing loss who was admitted for acute Asthma exacerbation, sepsis 2/2 RSV, QIAN and mild metabolic encephalopathy. PLAN: 1 Acute Asthma exacerbation 2/2 RSV -The patient has a severe exacerbation bc her peak flow is <40% of her expected peak flow -c/w supplemental O2 -monitor peak expiratory flow daily -stop albuterol q1hp, she is tremulous, start xopenex neb q4hp -continue oral Prednisone, but will give 1 dose of solumedrol 125mg IV today -stop fluids 2 Sepsis 2/2 RSV, resolved. She had the following SIRS criteria: HR >90 / RR > 20 -f/u blood cx, NGTD -Acetaminophen PRN for fever 3 Prerenal QIAN, resolved with hydration -s/p IVF -avoid nephrotoxic meds 4 Mild Encephalopathy: resolved -Likely due to infection 5 Elevated AST -Suspect she has fatty liver, f/u imaging -f/u Hep panel 6 Acute on chronic Urinary incontinence -UA reviewed, bland, will monitor 7 Hypothyroidism -Levothyroxine 8 Depression / Anxiety -Duloxetine 9 Class 1 obesity -complicates care DVT px w Lovenox Disposition: home after more than 2 midnights stay VS,Mica, I+O VS, Fishbone, I+O Laboratory Tests 06/14/21 18:15 06/15/21 07:41 Vital Signs Date Time Temp Pulse Resp B/P (MAP) Pulse Ox O2 Delivery O2 Flow Rate FiO2 06/15/21 08:15 76 18 135/77 (96) 97 Nasal Cannula 2.0 06/15/21 06:53 98.9 JERILYN US MD Jun 15, 2021 11:48
[2021-06-15] MEDS ORDERED: methylPREDNISolone 125MG 2ML VIAL IV ONE (14:15)
[2021-06-15 16:00] VITALS: BP 132/60
[2021-06-16] MEDS: IPRATROPIUM 0.5MG/ALBUTEROL 2.5MG INH SOL UD 3ML (DUONEB) NEB SCH ×2 (01:26→07:26)
[2021-06-16 03:58] LABS: HEMATOCRIT 32.5 % (36.0-47.0); HEMOGLOBIN 11.4 g/dl (12.0-15.5); MEAN CORPUSCULAR HEMOGLOBIN 31.1 pg (27.0-33.0); MEAN CORPUSCULAR HGB CONC 35.1 g/dl (32.0-36.5); MEAN CORPUSCULAR VOLUME 88.8 fl (80.0-96.0); PLATELET COUNT, AUTOMATED 149 10^3/uL (150-450); RED BLOOD COUNT 3.66 10^6/uL (4.00-5.40); WHITE BLOOD COUNT 7.3 10^3/uL (4.0-10.0)
[2021-06-16 04:00] VITALS: BP 123/60
[2021-06-16 04:24] LABS: BILIRUBIN,TOTAL 0.4 MG/DL (0.2-1.0); CALCIUM LEVEL 7.8 MG/DL (8.8-10.2); CREATININE FOR GFR 1.25 MG/DL (0.55-1.30); GLOMERULAR FILTRATION RATE 45.5 (>45); POTASSIUM SERUM 3.4 MEQ/L (3.5-5.1); TOTAL PROTEIN 7.1 GM/DL (6.4-8.2)
[2021-06-16] MEDS: LEVOTHYROXINE 125MCG TABLET (0.125MG) PO SCH (05:26)
[2021-06-16 08:00] VITALS: BP 140/66
[2021-06-16] MEDS: PRIMIDONE 50 MG TAB PO SCH (08:28)
[2021-06-16] MEDS: FOLIC ACID 1 MG TAB PO SCH (08:29)
[2021-06-16] MEDS: predniSONE 20 MG TAB PO SCH (08:29)
[2021-06-16] MEDS: ENOXAPARIN 40MG/0.4ML SYRINGE (J1650 PER 10MG) SC SCH (08:29)
[2021-06-16] MEDS ORDERED: DULoxetine 30MG CAPSULE (CYMBALTA) PO SCH (09:00)
[2021-06-16] MEDS ORDERED: PRED20TA PO (10:28)
[2021-06-16] MEDS ORDERED: POTASSIUM CHLORIDE 10MEQ SR TABLET PO ONE (10:30)
--- NOTE | 2021-06-16 13:57 | DS.PDOC ---
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 Urge urinary incontinence Hypothyroidism Depression / Anxiety Diverticulosis Fibromyalgia Hiatal Hernia Hearing loss Class 1 obesity GERD COMPLICATIONS/CHIEF COMPLAINT: Qian,Copd With Exacerbation,Encephalopathy Acute. HISTORY OF PRESENT ILLNESS: The majority of the history at presentation was obtained from the ; the patient has hearing loss and also had difficulties recalling all of the events that led to her coming to the hospital. has a hx of urge incontinence, but on Saturday she urinated in the recliner which is atypical and while walking to the bathroom. She hadn't been eating very much but had continued to drink plenty of fluids. She also had been feeling more short of breath and had to use her inhalers more and had a cough productive of yellow sputum since she got the flu shot about 1 week ago. She saw her PCP on Jun 13 and based on the progress notes was started on Doxycycline for Bronchitis. HOSPITAL COURSE: On presentation, respiratory panel showed RSV infection and she was wheezing and hypoxemic requiring 2L NC. She was given solumedrol and duonebs with tremendous improvement by the next morning. She is now being discharged home with symbicort, PRN albuterol and 5d of prednisone 40mg for her asthma, with close PCP follow up. Hypoxemia and encephalopathy resolved. DISCHARGE MEDICATIONS: Please see below. ALLERGIES: Please see below. PHYSICAL EXAMINATION ON DISCHARGE: VITAL SIGNS: Please see below. GENERAL APPEARANCE: well-nourished and developed/ NAD HEENT: EOMI, MMM CARDIOVASCULAR: RRR/NMRG LUNGS: Moving air well this morning, no wheezing, no crackles, on room air ABDOMEN: contour convex MUSCULOSKELETAL: NCAT / MAR x 4 extremities INTEGUMENT: she is not flushed, pale or diaphoretic NEUROLOGICAL: face symmetrical / tounge mid-line / speech not dysarthric PSYCHIATRIC: A&O / able to understand and follow simple commands LABORATORY DATA: Please see below. IMAGING: Chest xray IMPRESSION: No acute pulmonary disease CT head IMPRESSION: Patient motion without definite acute intracranial abnormality. Abd US: Liver is hyperechoic and upper limits of normal in size without focal hepatic lesion identified. Liver measures 17 cm in craniocaudal length. Spleen, and pancreas are normal in contour, size, echogenicity, and overall appearance. No focal splenic or pancreatic lesions are identified. Gallbladder is surgically absent. No biliary ductal dilatation is appreciated and the common bile duct measures 4.0 mm in diameter. The bilateral kidneys are normal in reniform shape without hydronephrosis or obvious abnormality. Right kidney measures 9.4 x 4.4 x 3.9 cm. Left kidney measures 8.2 x 4.0 x 3.8 cm. No obvious ascites. IMPRESSION: Hepatosteatosis. PROGNOSIS: Good ACTIVITY: As tolerated DIET: regular DISCHARGE PLAN: Home with pred 40 for 5d and symbicort. Also to see PCP within 7d DISPOSITION: Home DISCHARGE INSTRUCTIONS: Home with pred 40 for 5d and symbicort. Also to see PCP within 7d ITEMS TO FOLLOWUP ON ON OUTPATIENT: Asthma exacerbation 2/2 RSV DISCHARGE CONDITION: Stable TIME SPENT ON DISCHARGE: 40 minutes. Vital Signs/I&Os Vital Signs Date Time Temp Pulse Resp B/P (MAP) Pulse Ox O2 Delivery O2 Flow Rate FiO2 06/16/21 08:00 97.2 76 17 140/66 (90) 92 Room Air 06/15/21 08:15 2.0 I&O- Last 24 Hours up to 6 AM 06/16/21 06:00 Intake Total 1210 ml Output Total 0 ml Balance 1210 ml Laboratory Data Labs 24H Laboratory Tests 2 06/15/21 11:55: Bedside Glucose (Misc Panel) 121H 06/16/21 03:42: Nucleated Red Blood Cells % (auto) 0.0, Anion Gap 6L, Glomerular Filtration Rate 45.5, Calcium Level 7.8L, Total Bilirubin 0.4, Aspartate Amino Transf (AST/SGOT) 28, Alanine Aminotransferase (ALT/SGPT) 54, Alkaline Phosphatase 46, Total Protein 7.1, Albumin 3.0L, Albumin/Globulin Ratio 0.7L CBC/BMP Laboratory Tests 06/16/21 03:42 FSBS Laboratory Tests Test 06/15/21 11:55 Range/Units Bedside Glucose (Misc Panel) 121 80-115 MG/DL Microbiology Microbiology 06/14/21 Blood Culture - Preliminary, Resulted No growth after 24 hours . All specim... 06/14/21 Blood Culture - Preliminary, Resulted No growth after 24 hours . All specim... 06/14/21 Respiratory Virus Panel (PCR) (ERIKA) - Final, Complete Respiratory Syncytial Virus Discharge Medications Scheduled Benzonatate (Tessalon Perle) 100 Mg Capsule, 100 MG PO TID, (Reported) STARTED ON 06/13/21 Budesonide/Formoterol (Symbicort 80-4.5 Mcg Inhaler) 6.9 Gm Hfa.aer.ad, 2 PUFF INH BID Cholecalciferol (Vitamin D3) (Vitamin D3) 50 Mcg Capsule, 50 MCG PO DAILY, (Reported) Colestipol HCl (Colestipol HCl) 1 Gm Tablet, 2 GM PO DAILY, (Reported) Cyanocobalamin (Vitamin B-12) (Vitamin B-12) 1,000 Mcg Tablet, 1,000 MCG PO DAILY, (Reported) Duloxetine Hcl (Duloxetine HCl) 30 Mg Capsule.dr, 30 MG PO DAILY, (Reported) TAKES WITH 60MG FOR 90MG TOTAL Duloxetine Hcl (Duloxetine HCl) 60 Mg Capsule.dr, 60 MG PO DAILY, (Reported) TAKES WITH 30MG FOR 90MG TOTAL Folic Acid (Folic Acid) 1 Mg Tab, 1 MG PO DAILY, (Reported) TAKES AROUND NOONTIME Levothyroxine Sodium (Synthroid) 125 Mcg Tablet, 125 MCG PO DAILY, (Reported) Prednisone (Prednisone) 20 Mg Tablet, 40 MG PO DAILY Primidone (Primidone) 50 Mg Tablet, 50 MG PO BID, (Reported) Scheduled PRN Albuterol Sulf (Albuterol Sulfate) 2.5 Mg/3 Ml Vial.neb, 2.5 MG INH Q4H PRN for SHORTNESS OF BREATH, (Reported) Albuterol Sulfate (Proair Hfa) 8.5 Gm Hfa.aer.ad, 2 PUFF INH Q4H PRN for SHORTNESS OF BREATH, (Reported) Methocarbamol (Methocarbamol) 500 Mg Tablet, 500 MG PO QHS PRN for MUSCLE SPASMS, (Reported) Allergies Coded Allergies: Mxamilg-Roc-Mdi Reductase Inhibitor (Verified Adverse Reaction, Intermediate, hives, 06/28/19) valdecoxib (Verified Adverse Reaction, Intermediate, rash, 06/28/19) JERILYN US MD Jun 16, 2021 10:40
== END 2021-06-16 12:05 | disposition home or self-care (01) | DRG 871 ==
LOC: M ED 14:40 → M ED INP 20:56 → ENRESERV 06-15 10:36 → M PCU 06-15 11:09
PROVIDERS: ADMIT Internal Medicine; ATTEND Internal Medicine
DX: A41.89 Other specified sepsis (principal); G93.41 Metabolic encephalopathy; J45.901 Unspecified asthma with (acute) exacerbation; N17.9 Acute kidney failure, unspecified; Z94.84 Stem cells transplant status; C82.50 Diffuse follicle center lymphoma, unspecified site; J20.5 Acute bronchitis due to respiratory syncytial virus; K21.9 Gastro-esophageal reflux disease without esophagitis; E66.9 Obesity, unspecified; K44.9 Diaphragmatic hernia without obstruction or gangrene; M79.7 Fibromyalgia; K57.30 Diverticulosis of large intestine without perforation or abscess without bleeding; F41.9 Anxiety disorder, unspecified; F32.9 Major depressive disorder, single episode, unspecified; E03.9 Hypothyroidism, unspecified; Z92.3 Personal history of irradiation; Z79.899 Other long term (current) drug therapy; Z88.8 Allergy status to other drugs, medicaments and biological substances; Z87.891 Personal history of nicotine dependence

== ENCOUNTER 2021-07-04 09:56 | Outpatient (CLI) | payer MEDICARE ==
[~2021-07-04] VITALS: Ht 165.1 cm; Wt 86.7 kg
[~2021-07-04 09:56] MED LIST changes: +BENZ-18; +CYAN100050 PO; +D200CAP PO; +DOXY100C3 PO; +DOXY100T; +DULO30CA9 PO; -MAGN400T3 PO; +MAGN400T33 PO; +PROAAER10 INH; +SYMB80INH INH; +TESS100C PO; +methylPREDNISolone 250 MG in D5W 100 ML IV PRN
[2021-07-04 10:16] VITALS: BP 100/58
[2021-07-04] MEDS ORDERED: NS IV ONE (10:30)
[2021-07-04] MEDS ORDERED: TEPROTUMUMAB TRBW IV ONE (10:30)
[2021-07-04 12:10] VITALS: BP 145/85
== END 2021-07-04 12:10 | disposition home or self-care (01) ==
LOC: M INFU 09:56
PROVIDERS: ATTEND Ophthalmology
DX: H05.242 Constant exophthalmos, left eye (principal); Z88.8 Allergy status to other drugs, medicaments and biological substances
CPT/HCPCS: 96365; J3241

== ENCOUNTER → 2021-07-20 | Outpatient (REF) | payer MEDICARE ==
[~2021-07-20] MED LIST changes: -methylPREDNISolone 250 MG in D5W 100 ML IV PRN
[2021-07-21 13:52] LABS: APPEARANCE, URINE CLEAR (CLEAR); BACTERIA, URINE AUTO NEGATIVE (NEGATIVE); BILIRUBIN, URINE AUTO NEGATIVE (NEGATIVE); BLOOD, URINE BLOOD NEGATIVE (NEGATIVE); COLOR, URINE YELLOW (YELLOW); GLUCOSE, URINE (UA) AUTO NEGATIVE (NEGATIVE); KETONE, URINE AUTO NEGATIVE (NEGATIVE); LEUKOCYTE ESTERASE, URINE AUTO NEGATIVE (NEGATIVE); NITRITE, URINE AUTO NEGATIVE (NEGATIVE); PROTEIN, URINE AUTO NEGATIVE (NEGATIVE); RBC, URINE AUTO 1 /HPF (0-3); SPECIFIC GRAVITY URINE AUTO 1.011 (1.002-1.035); SQUAMOUS EPITHELIAL CELL UR AU 0 /HPF (0-6); UROBILINOGEN, URINE AUTO 0.2 mg/dL (0.0-2.0); WBC, URINE AUTO 2 /HPF (0-3)
== END ==
LOC: M SMT 13:01
PROVIDERS: ATTEND Nurse Practitioner Women's Health
DX: R32 Unspecified urinary incontinence (principal)

== ENCOUNTER 2021-07-25 09:53 | Outpatient (CLI) | payer MEDICARE ==
[~2021-07-25] VITALS: Ht 165.1 cm; Wt 86.1 kg
[2021-07-25 10:12] VITALS: BP 177/78
[2021-07-25] MEDS ORDERED: NS IV ONE (10:30)
[2021-07-25] MEDS ORDERED: TEPROTUMUMAB TRBW IV ONE (10:30)
[2021-07-25 12:23] VITALS: BP 143/76
== END 2021-07-25 12:20 | disposition home or self-care (01) ==
LOC: M INFU 09:53
PROVIDERS: ATTEND Ophthalmology
DX: H05.242 Constant exophthalmos, left eye (principal); Z88.8 Allergy status to other drugs, medicaments and biological substances
CPT/HCPCS: 96365; J3241

== ENCOUNTER 2021-10-19 10:50 | Emergency (ER) | payer MEDICARE, OTHER ==
[~2021-10-19] VITALS: Ht 157.5 cm; Wt 89.5 kg
[2021-10-19 12:37] VITALS: BP 129/74
[2021-10-19] MEDS ORDERED: ACETAMINOPHEN TAB 650MG DOSE (2X325MG) PO ONE (13:15)
== END 2021-10-19 19:43 | disposition left against medical advice (07) ==
LOC: M ED 10:50
DX: S09.90XA Unspecified injury of head, initial encounter (principal); W01.0XXA Fall on same level from slipping, tripping and stumbling without subsequent striking against object, initial encounter; W22.8XXA Striking against or struck by other objects, initial encounter; J44.9 Chronic obstructive pulmonary disease, unspecified; E05.00 Thyrotoxicosis with diffuse goiter without thyrotoxic crisis or storm; Z53.21 Procedure and treatment not carried out due to patient leaving prior to being seen by health care provider; Z88.6 Allergy status to analgesic agent; Y92.9 Unspecified place or not applicable; Y93.9 Activity, unspecified; Y99.9 Unspecified external cause status

== ENCOUNTER 2022-02-19 07:23 | Emergency (ER) | payer OTHER ==
[~2022-02-19] VITALS: Ht 160 cm; Wt 86.4 kg
[~2022-02-19 07:23] MED LIST changes: +ALBU2.5V10 INH; -ALBU83IN INH; -D31000TA2 PO; +VITA100093 PO
[2022-02-19] MEDS ORDERED: OXYB5TAB10 (07:35)
[2022-02-19 08:23] LABS: BASO # 0.2 10^3/uL (0.0-0.2); BASO % 1.1 % (0.0-1.0); EOS # 0.2 10^3/uL (0.0-0.5); EOS % 1.1 % (0.0-3.0); HEMATOCRIT 36.6 % (36.0-47.0); HEMOGLOBIN 12.5 g/dl (12.0-15.5); LYMPH # 1.8 10^3/uL (1.5-5.0); LYMPH % 12.8 % (24.0-44.0); MEAN CORPUSCULAR HEMOGLOBIN 29.4 pg (27.0-33.0); MEAN CORPUSCULAR HGB CONC 34.2 g/dl (32.0-36.5); MEAN CORPUSCULAR VOLUME 86.1 fl (80.0-96.0); MONO # 0.9 10^3/uL (0.0-0.8); MONO % 6.3 % (2.0-8.0); NEUTROPHILS # 10.9 10^3/uL (1.5-8.5); PLATELET COUNT, AUTOMATED 273 10^3/uL (150-450); RED BLOOD COUNT 4.25 10^6/uL (4.00-5.40)
[2022-02-19 08:34] LABS: INR 0.96; PROTHROMBIN TIME 13.2 SECONDS (12.7-14.5)
[2022-02-19 08:35] LABS: PARTIAL THROMBOPLASTIN TIME 25.7 SECONDS (25.9-37.0)
[2022-02-19 08:43] LABS: BLOOD UREA NITROGEN 13 MG/DL (7-18); CALCIUM LEVEL 9.7 MG/DL (8.8-10.2); CARBON DIOXIDE LEVEL 24 MEQ/L (21-32); CHLORIDE LEVEL 104 MEQ/L (98-107); CREATININE FOR GFR 1.64 MG/DL (0.55-1.30); GLOMERULAR FILTRATION RATE 33.2 (>45); GLUCOSE, FASTING 136 MG/DL (70-100); POTASSIUM SERUM 3.6 MEQ/L (3.5-5.1); SODIUM LEVEL 137 MEQ/L (136-145)
[2022-02-19 08:47] LABS: CK-MB VALUE MASS < 1.0 NG/ML (<3.6); CPK CREATINE PHOSPHOKINASE 64 U/L (26-192); MB/CK RELATIVE INDEX 1.56 (< OR =4)
[2022-02-19] MEDS ORDERED: NS 1,000 ML IV ONE (09:50)
[2022-02-19 12:23] LABS: ETHYL ALCOHOL (ETHANOL) < 0.003 % (0.000-0.010)
[2022-02-19 12:47] LABS: AMPHETAMINES LEVEL URINE NEGATIVE (NEGATIVE); BARBITURATES URINE POSITIVE (NEGATIVE); BENZODIAZEPINES URINE NEGATIVE (NEGATIVE); CANNABINOIDS URINE NEGATIVE (NEGATIVE); COCAINE METABOLITE URINE NEGATIVE (NEGATIVE); METHADONE URINE NEGATIVE (NEGATIVE); OPIATES URINE NEGATIVE (NEGATIVE); PHENCYCLIDINE URINE NEGATIVE (NEGATIVE)
[2022-02-19 13:13] VITALS: BP 118/63
== END 2022-02-19 14:08 | disposition home or self-care (01) ==
LOC: M ED 07:23
DX: R41.82 Altered mental status, unspecified (principal); T42.3X5A Adverse effect of barbiturates, initial encounter; C85.90 Non-Hodgkin lymphoma, unspecified, unspecified site; Z88.8 Allergy status to other drugs, medicaments and biological substances; Z88.6 Allergy status to analgesic agent; Z87.891 Personal history of nicotine dependence; Z92.21 Personal history of antineoplastic chemotherapy; Z92.3 Personal history of irradiation; Z79.51 Long term (current) use of inhaled steroids; Z79.899 Other long term (current) drug therapy; R47.9 Unspecified speech disturbances

== ENCOUNTER → 2022-02-26 | Outpatient (REF) | payer OTHER ==
[~2022-02-26] MED LIST changes: +OXYB5TAB10
== END ==
LOC: M SFHCPLAZ 12:54
PROVIDERS: ATTEND Physician Assistant
DX: R82.90 Unspecified abnormal findings in urine (principal); D72.829 Elevated white blood cell count, unspecified

== ENCOUNTER → 2022-02-26 | Outpatient (CLI) | payer OTHER ==
[2022-02-26 14:04] LABS: BASO # 0.1 10^3/uL (0.0-0.2); BASO % 1.7 % (0.0-1.0); EOS # 0.2 10^3/uL (0.0-0.5); EOS % 1.9 % (0.0-3.0); HEMATOCRIT 32.3 % (36.0-47.0); LYMPH # 2.7 10^3/uL (1.5-5.0); LYMPH % 32.1 % (24.0-44.0); MEAN CORPUSCULAR HEMOGLOBIN 29.1 pg (27.0-33.0); MEAN CORPUSCULAR HGB CONC 34.1 g/dl (32.0-36.5); MEAN CORPUSCULAR VOLUME 85.4 fl (80.0-96.0); MONO # 0.4 10^3/uL (0.0-0.8); NEUTROPHILS # 4.9 10^3/uL (1.5-8.5); NEUTROPHILS % 58.5 % (36.0-66.0); PLATELET COUNT, AUTOMATED 321 10^3/uL (150-450); RED BLOOD COUNT 3.78 10^6/uL (4.00-5.40); WHITE BLOOD COUNT 8.4 10^3/uL (4.0-10.0)
[2022-02-26 16:15] LABS: ALBUMIN 3.4 GM/DL (3.2-5.2); CALCIUM LEVEL 8.9 MG/DL (8.8-10.2); CREATININE FOR GFR 1.31 MG/DL (0.55-1.30); PHOSPHORUS LEVEL 3.1 MG/DL (2.5-4.9); POTASSIUM SERUM 3.4 MEQ/L (3.5-5.1)
== END ==
LOC: M RAD 13:10
PROVIDERS: ATTEND Physician Assistant
DX: M85.88 Other specified disorders of bone density and structure, other site (principal); M51.36 Other intervertebral disc degeneration, lumbar region; M54.50 Low back pain, unspecified; D72.829 Elevated white blood cell count, unspecified; N17.9 Acute kidney failure, unspecified

== ENCOUNTER → 2022-04-11 | Outpatient (CLI) | payer OTHER ==
[2022-04-11 14:40] LABS: ALBUMIN 3.3 GM/DL (3.2-5.2); BILIRUBIN,TOTAL 0.3 MG/DL (0.2-1.0); CALCIUM LEVEL 8.7 MG/DL (8.8-10.2); CREATININE FOR GFR 1.17 MG/DL (0.55-1.30); THYROID STIMULATING HORMONE 0.424 uIU/ML (0.358-3.740); TOTAL PROTEIN 6.8 GM/DL (6.4-8.2)
== END ==
LOC: M LAB 12:16
PROVIDERS: ATTEND Nurse Practitioner Adult Health
DX: E55.9 Vitamin D deficiency, unspecified (principal); E03.9 Hypothyroidism, unspecified; Z79.899 Other long term (current) drug therapy

== ENCOUNTER → 2022-10-18 | Outpatient (CLI) | payer OTHER, MEDICARE ==
[2022-10-18 13:07] LABS: ALBUMIN 3.7 G/DL (3.2-5.2); BILIRUBIN,TOTAL 0.4 MG/DL (0.3-1.2); CHOLESTEROL RISK RATIO 2.99 (<5); CREATININE FOR GFR 1.33 MG/DL (0.55-1.30); GLOMERULAR FILTRATION RATE 42.2 (>45); HDL CHOLESTEROL 60.5 MG/DL (>40); LDL CHOLESTEROL 86.7 MG/DL (<100); POTASSIUM SERUM 4.1 MMOL/L (3.5-5.1); THYROID STIMULATING HORMONE 2.67 uIU/ML (0.55-4.78); TOTAL 25(OH) VITAMIN D 33.9 NG/ML (20.0-100.0); TOTAL PROTEIN 6.8 G/DL (5.7-8.2)
== END ==
LOC: M LAB 11:20
PROVIDERS: ATTEND Nurse Practitioner Adult Health
DX: E55.9 Vitamin D deficiency, unspecified (principal); E03.9 Hypothyroidism, unspecified; E53.8 Deficiency of other specified B group vitamins; Z13.220 Encounter for screening for lipoid disorders

== ENCOUNTER → 2023-03-04 | Outpatient (CLI) | payer OTHER ==
[~2023-03-04] MED LIST changes: +CYAN-1 PO; -CYAN100050 PO
[2023-03-04 13:02] LABS: BASO # 0.1 10^3/uL (0.0-0.2); EOS # 0.2 10^3/uL (0.0-0.5); HEMOGLOBIN 13.3 g/dl (12.0-15.5); LYMPH # 2.6 10^3/uL (1.5-5.0); LYMPH % 29.7 % (24.0-44.0); MEAN CORPUSCULAR HGB CONC 34.1 g/dl (32.0-36.5); MEAN CORPUSCULAR VOLUME 87.8 fl (80.0-96.0); MONO # 0.5 10^3/uL (0.0-0.8); MONO % 5.8 % (2.0-8.0); NEUTROPHILS # 5.3 10^3/uL (1.5-8.5); PLATELET COUNT, AUTOMATED 235 10^3/uL (150-450); RED BLOOD COUNT 4.44 10^6/uL (4.00-5.40); WHITE BLOOD COUNT 8.6 10^3/uL (4.0-10.0)
[2023-03-04 13:36] LABS: ALBUMIN 3.9 G/DL (3.2-5.2); ALKALINE PHOSPHATASE 81 U/L (46-116); ALT/SGPT < 9 U/L (7.0-40); AST/SGOT 18 U/L (<34); BILIRUBIN,TOTAL 0.3 MG/DL (0.3-1.2); BLOOD UREA NITROGEN 16 MG/DL (9-23); CALCIUM LEVEL 8.8 MG/DL (8.3-10.6); CARBON DIOXIDE LEVEL 31 MMOL/L (20-31); CHLORIDE LEVEL 104 MMOL/L (98-107); GLOMERULAR FILTRATION RATE 43.2 (>45); GLUCOSE, FASTING 92 MG/DL (74-106); POTASSIUM SERUM 4.2 MMOL/L (3.5-5.1); SODIUM LEVEL 141 MMOL/L (136-145)
[2023-03-04 13:40] LABS: THYROID STIMULATING HORMONE 3.405 uIU/ML (0.55-4.78)
[2023-03-04 13:41] LABS: FREE T4 1.47 NG/DL (0.89-1.76)
== END ==
LOC: M LAB 12:31
PROVIDERS: ATTEND Family Medicine
DX: E03.9 Hypothyroidism, unspecified (principal); C85.90 Non-Hodgkin lymphoma, unspecified, unspecified site

== ENCOUNTER 2023-03-25 07:23 | Day surgery (SDC) | payer OTHER ==
[~2023-03-25] VITALS: Ht 152.4 cm; Wt 90.5 kg
[~2023-03-25 07:23] MED LIST changes: +C-251TAB PO; +CYCLOPENTOLATE 1% OPHTH SOLN 2ML BTL OS SCH; +FLURBIPROFEN 0.03% OPHTH SOLN 2.5 ML OS SCH; +LIDOCAINE 1% SDV 5ML VIAL As Ordered ONE; +LR 1,000 ML IV SCH; +MAGN400C PO; -OXYB5TAB10; +OXYB5TAB10 PO; +PHENYLEPHRINE 2.5% OPHTH SOL 2ML OS SCH; +TETRACAINE 0.5% OPHTH SOLN 4ML OS SCH
[2023-03-25] MEDS ORDERED: MIDAZOLAM INJ 2MG/2ML VIAL As Ordered ONE (11:03)
[2023-03-25] MEDS ORDERED: fentaNYL 100 MCG/2 ML INJECTION As Ordered ONE (11:03)
[2023-03-25 11:30] VITALS: BP 119/63; TEMP 97.3; O2SAT 95
== END 2023-03-25 12:25 | disposition home or self-care (01) ==
LOC: M SDC 07:23
PROVIDERS: ATTEND Ophthalmology
DX: H25.12 Age-related nuclear cataract, left eye (principal); E03.9 Hypothyroidism, unspecified; E04.1 Nontoxic single thyroid nodule; M79.7 Fibromyalgia; J44.9 Chronic obstructive pulmonary disease, unspecified; Z79.51 Long term (current) use of inhaled steroids; Z79.899 Other long term (current) drug therapy; F41.9 Anxiety disorder, unspecified; F32.A Depression, unspecified; Z88.8 Allergy status to other drugs, medicaments and biological substances
CPT/HCPCS: 66984; J2250; J3010; V2632

== ENCOUNTER 2023-04-29 09:07 | Day surgery (SDC) | payer OTHER ==
[~2023-04-29] VITALS: Ht 157.5 cm; Wt 91.8 kg
[~2023-04-29 09:07] MED LIST changes: +CYCLOPENTOLATE 1% OPHTH SOLN 2ML BTL OD SCH; -CYCLOPENTOLATE 1% OPHTH SOLN 2ML BTL OS SCH; +FLURBIPROFEN 0.03% OPHTH SOLN 2.5 ML OD SCH; -FLURBIPROFEN 0.03% OPHTH SOLN 2.5 ML OS SCH; +PHENYLEPHRINE 2.5% OPHTH SOL 2ML OD SCH; -PHENYLEPHRINE 2.5% OPHTH SOL 2ML OS SCH; -TETRACAINE 0.5% OPHTH SOLN 4ML OS SCH
[2023-04-29] MEDS ORDERED: CEFUROXIME 1MG/0.1ML INTRACAMERAL INJ As Ordered ONE (09:25)
[2023-04-29] MEDS: TETRACAINE 0.5% OPHTH SOLN 4ML OD SCH ×2 (11:24→11:43)
[2023-04-29] MEDS ORDERED: MIDAZOLAM INJ 2MG/2ML VIAL As Ordered ONE (11:26)
[2023-04-29 11:58] VITALS: BP 157/83; TEMP 98; O2SAT 98
== END 2023-04-29 12:15 | disposition home or self-care (01) ==
LOC: M SDC 09:07
PROVIDERS: ATTEND Ophthalmology
DX: H25.11 Age-related nuclear cataract, right eye (principal); E03.9 Hypothyroidism, unspecified; M79.7 Fibromyalgia; F32.A Depression, unspecified; G25.0 Essential tremor; Z87.891 Personal history of nicotine dependence; K44.9 Diaphragmatic hernia without obstruction or gangrene; Z87.442 Personal history of urinary calculi; K21.9 Gastro-esophageal reflux disease without esophagitis; Z85.72 Personal history of non-Hodgkin lymphomas; J44.9 Chronic obstructive pulmonary disease, unspecified; Z79.899 Other long term (current) drug therapy; Z79.51 Long term (current) use of inhaled steroids; Z88.8 Allergy status to other drugs, medicaments and biological substances
CPT/HCPCS: 66984; J0697; J2250; V2632

== ENCOUNTER → 2023-08-14 | Outpatient (CLI) | payer OTHER ==
[~2023-08-14] MED LIST changes: -CYCLOPENTOLATE 1% OPHTH SOLN 2ML BTL OD SCH; -FLURBIPROFEN 0.03% OPHTH SOLN 2.5 ML OD SCH; -LIDOCAINE 1% SDV 5ML VIAL As Ordered ONE; -LR 1,000 ML IV SCH; -OXYB5TAB10 PO; +OXYB5TAB11 PO; -PHENYLEPHRINE 2.5% OPHTH SOL 2ML OD SCH
[2023-08-14 10:36] LABS: HEMOGLOBIN 12.7 g/dl (12.0-15.5); MEAN CORPUSCULAR HEMOGLOBIN 30.1 pg (27.0-33.0); MEAN CORPUSCULAR HGB CONC 33.4 g/dl (32.0-36.5); PLATELET COUNT, AUTOMATED 364 10^3/uL (150-450); RED BLOOD COUNT 4.22 10^6/uL (4.00-5.40); WHITE BLOOD COUNT 7.2 10^3/uL (4.0-10.0)
[2023-08-14 10:40] LABS: ALBUMIN 3.6 G/DL (3.2-5.2); BILIRUBIN,TOTAL 0.3 MG/DL (0.3-1.2); CALCIUM LEVEL 8.5 MG/DL (8.3-10.6); CREATININE FOR GFR 1.21 MG/DL (0.55-1.30); POTASSIUM SERUM 4.5 MMOL/L (3.5-5.1); TOTAL PROTEIN 6.9 G/DL (5.7-8.2)
[2023-08-14 10:44] LABS: FERRITIN 94.8 NG/ML (7.3-270.7)
[2023-08-14 10:45] LABS: FREE T4 1.12 NG/DL (0.89-1.76)
== END ==
LOC: M PLALAB 08:06
PROVIDERS: ATTEND Nurse Practitioner Adult Health
DX: K59.1 Functional diarrhea (principal); E03.9 Hypothyroidism, unspecified; C85.90 Non-Hodgkin lymphoma, unspecified, unspecified site

== ENCOUNTER → 2023-09-12 | Outpatient (REF) | payer OTHER ==
[2023-09-12 16:02] LABS: APPEARANCE, URINE CLEAR (CLEAR); BACTERIA, URINE AUTO NEGATIVE (NEGATIVE); BILIRUBIN, URINE AUTO NEGATIVE (NEGATIVE); BLOOD, URINE BLOOD NEGATIVE (NEGATIVE); COLOR, URINE YELLOW (YELLOW); GLUCOSE, URINE (UA) AUTO NEGATIVE (NEGATIVE); KETONE, URINE AUTO NEGATIVE (NEGATIVE); LEUKOCYTE ESTERASE, URINE AUTO NEGATIVE (NEGATIVE); NITRITE, URINE AUTO NEGATIVE (NEGATIVE); PROTEIN, URINE AUTO NEGATIVE (NEGATIVE); RBC, URINE AUTO 0 /HPF (0-3); SPECIFIC GRAVITY URINE AUTO 1.015 (1.002-1.035); SQUAMOUS EPITHELIAL CELL UR AU 1 /HPF (0-6); UROBILINOGEN, URINE AUTO 0.2 mg/dL (0.0-2.0); WBC, URINE AUTO 0 /HPF (0-3)
== END ==
LOC: M SMT 15:25
PROVIDERS: ATTEND Physician Assistant
DX: R32 Unspecified urinary incontinence (principal)

== ENCOUNTER → 2023-10-17 | Outpatient (CLI) | payer MEDICARE, OTHER ==
[~2023-10-17] MED LIST changes: -OXYB5TAB11 PO; +OXYB5TAB14 PO
[2023-10-17 13:07] LABS: ALBUMIN 3.5 G/DL (3.2-5.2); ALKALINE PHOSPHATASE 76 U/L (46-116); ALT/SGPT 31 U/L (7.0-40); AST/SGOT 20 U/L (<34); BILIRUBIN,TOTAL 0.3 MG/DL (0.3-1.2); BLOOD UREA NITROGEN 12 MG/DL (9-23); CALCIUM LEVEL 8.4 MG/DL (8.3-10.6); CARBON DIOXIDE LEVEL 30 MMOL/L (20-31); CHLORIDE LEVEL 107 MMOL/L (98-107); CHOLESTEROL LEVEL 187 MG/DL (<200); CHOLESTEROL RISK RATIO 3.41 (<5); CREATININE FOR GFR 1.23 MG/DL (0.55-1.30); GLOMERULAR FILTRATION RATE 46.1 (>45); GLUCOSE, FASTING 107 MG/DL (74-106); HDL CHOLESTEROL 54.8 MG/DL (>40); LDL CHOLESTEROL 98.6 MG/DL (<100); NON-HDL-C 132.2 MG/DL; POTASSIUM SERUM 4.5 MMOL/L (3.5-5.1); SODIUM LEVEL 142 MMOL/L (136-145); TOTAL PROTEIN 6.6 G/DL (5.7-8.2); TRIGLYCERIDES LEVEL 168 MG/DL (<150)
[2023-10-17 13:11] LABS: FREE T4 1.12 NG/DL (0.89-1.76); VITAMIN B12 LEVEL 923 PG/ML (211-911)
[2023-10-17 13:12] LABS: FOLATE > 24.0 NG/ML (>5.4); THYROID STIMULATING HORMONE 18.159 uIU/ML (0.55-4.78)
== END ==
LOC: M LAB 11:41
PROVIDERS: ATTEND Nurse Practitioner Adult Health
DX: K59.1 Functional diarrhea (principal); E03.9 Hypothyroidism, unspecified; E53.8 Deficiency of other specified B group vitamins; Z13.220 Encounter for screening for lipoid disorders

== ENCOUNTER 2024-01-19 12:39 | Emergency (ER) | payer OTHER ==
[~2024-01-19] VITALS: Ht 157.5 cm; Wt 89.3 kg
[2024-01-19] MEDS: ACETAMINOPHEN TAB 650MG DOSE (2X325MG) PO ONE (13:24)
[2024-01-19] MEDS: KETOROLAC 30 MG/ML 1ML VIAL IM ONE (13:25)
[2024-01-19 15:39] VITALS: BP 181/92; TEMP 96.9; O2SAT 98
== END 2024-01-19 15:50 | disposition left against medical advice (07) ==
LOC: M ED 12:39
DX: M62.830 Muscle spasm of back (principal); C85.90 Non-Hodgkin lymphoma, unspecified, unspecified site; N17.9 Acute kidney failure, unspecified; K21.9 Gastro-esophageal reflux disease without esophagitis; E03.9 Hypothyroidism, unspecified; F32.A Depression, unspecified; Z88.8 Allergy status to other drugs, medicaments and biological substances; Z88.6 Allergy status to analgesic agent; Z79.899 Other long term (current) drug therapy; Z79.52 Long term (current) use of systemic steroids; Z53.9 Procedure and treatment not carried out, unspecified reason
CPT/HCPCS: 71250; 72052; 73030; 96372; 99283; J1885

== ENCOUNTER 2024-03-02 13:32 | Observation (INO) | payer OTHER ==
[~2024-03-02] VITALS: Ht 157.5 cm; Wt 86.5 kg
[2024-03-02] MEDS ORDERED: ISOVUE-370 76% 100ML VIAL As Ordered ONE (14:06)
[2024-03-02 14:13] VITALS: BP 151/74; TEMP 98; O2SAT 99
[2024-03-02 14:22] LABS: HEMATOCRIT 25.2 % (36.0-47.0); HEMOGLOBIN 8.4 g/dl (12.0-15.5); MEAN CORPUSCULAR HEMOGLOBIN 28.1 pg (27.0-33.0); MEAN CORPUSCULAR HGB CONC 33.3 g/dl (32.0-36.5); MEAN CORPUSCULAR VOLUME 84.3 fl (80.0-96.0); PLATELET COUNT, AUTOMATED 149 10^3/uL (150-450); RED BLOOD COUNT 2.99 10^6/uL (4.00-5.40); WHITE BLOOD COUNT 5.1 10^3/uL (4.0-10.0)
[2024-03-02 14:42] LABS: CK-MB VALUE MASS < 1.0 NG/ML (<3.6)
[2024-03-02 14:44] LABS: CPK CREATINE PHOSPHOKINASE 61 U/L (34-145); INR 1.05; MB/CK RELATIVE INDEX 1.63 (< OR =4); PARTIAL THROMBOPLASTIN TIME 26.2 SECONDS (24.8-34.2); PROTHROMBIN TIME 13.4 SECONDS (12.5-14.5)
[2024-03-02 14:52] LABS: ANISOCYTOSIS 2+; ATYPICAL LYMPH 8 % (0-5); EOSINOPHILS 2 % (0-3); LYMPHOCYTES 24 % (16-44); METAMYELOCYTES 2 % (0-0); MONOCYTES 4 % (0-5); NEUTROPHILS 56 % (28-66)
[2024-03-02 14:53] LABS: HYPOCHROMASIA 1+; PLATELET ESTIMATE NORMAL (NORMAL)
[2024-03-02] MEDS ORDERED: VITA50TA6 PO (16:38)
[2024-03-02] MEDS ORDERED: OXYB15TA14 PO (16:38)
[2024-03-02] MEDS ORDERED: LEVO150T7 PO (16:38)
[2024-03-02] MEDS ORDERED: MAGN100T PO (16:38)
[2024-03-02] MEDS ORDERED: SYMB80INH INH (16:38)
[2024-03-02] MEDS ORDERED: MYRB50TA PO (16:40)
[2024-03-02] MEDS ORDERED: SERT50TA29 PO (16:40)
[2024-03-02] MEDS ORDERED: HOME MED LIST COMPLETE! XX SCH (16:45)
[2024-03-02] MEDS ORDERED: ACETAMINOPHEN TAB 650MG DOSE (2X325MG) PO PRN (16:55)
[2024-03-02] MEDS ORDERED: ALBUTEROL SULFATE 2.5MG/0.5ML INH NEB SOLN INH PRN (17:30)
[2024-03-02] MEDS: PANTOPRAZOLE 40MG TAB (PROTONIX) PO SCH (17:53)
[2024-03-02] MEDS: oxyBUTYnin *DITROPAN XL* 5 MG TABCR PO SCH (17:53)
[2024-03-02] MEDS: SERTRALINE HCL 50 MG TAB PO SCH (17:53)
[2024-03-02] MEDS ORDERED: PILL CUTTER 1 EACH XX PRN (17:55)
[2024-03-02] MEDS: ASPIRIN 81MG ENTERIC TABLET PO ONE (17:55)
[2024-03-02 17:56] LABS: CHOLESTEROL LEVEL 162 MG/DL (<200); CHOLESTEROL RISK RATIO 3.41 (<5); HDL CHOLESTEROL 47.4 MG/DL (>40); IRON (FE) 109 UG/DL (50-170); LDL CHOLESTEROL 83.2 MG/DL (<100); NON-HDL-C 114.6 MG/DL; PERCENT SATURATION 35.6 % (13.2-45.0); TOTAL IRON BINDING CAPACITY 306 UG/DL (250-425); TRIGLYCERIDES LEVEL 157 MG/DL (<150)
[2024-03-02 17:58] LABS: FERRITIN 305.8 NG/ML (7.3-270.7); FOLATE > 24.00 NG/ML (>5.4)
[2024-03-02 17:59] LABS: VITAMIN B12 LEVEL 983 PG/ML (211-911)
[2024-03-02] MEDS: SYMBICORT 80/4.5MCG INHALER 6GM INH SCH (20:00)
[2024-03-02] MEDS: DULoxetine 30MG CAPSULE (CYMBALTA) PO SCH (20:50)
[2024-03-02] MEDS: EZETIMIBE 10MG TABLET (ZETIA) PO SCH (22:04)
[2024-03-02] MEDS: PRIMIDONE 50MG TAB PO SCH (22:04)
[2024-03-03] VITALS (7 sets, daily range): BP systolic 112–125; BP diastolic 60–86; TEMP 97.2–98.8; O2SAT 94–97
[2024-03-03 05:43] LABS: HEMATOCRIT 22.9 % (36.0-47.0); HEMOGLOBIN 7.7 g/dl (12.0-15.5); MEAN CORPUSCULAR HEMOGLOBIN 27.9 pg (27.0-33.0); MEAN CORPUSCULAR HGB CONC 33.6 g/dl (32.0-36.5); PLATELET COUNT, AUTOMATED 164 10^3/uL (150-450); RED BLOOD COUNT 2.76 10^6/uL (4.00-5.40); WHITE BLOOD COUNT 4.6 10^3/uL (4.0-10.0)
[2024-03-03] MEDS: LEVOTHYROXINE 150MCG TABLET (0.15MG) PO SCH (05:59)
[2024-03-03 06:05] LABS: CALCIUM LEVEL 8.2 MG/DL (8.3-10.6); CREATININE FOR GFR 1.15 MG/DL (0.55-1.30); GLOMERULAR FILTRATION RATE 49.7 (>39); MAGNESIUM LEVEL 1.8 MG/DL (1.8-2.4); POTASSIUM SERUM 3.9 MMOL/L (3.5-5.1)
[2024-03-03 06:23] LABS: ATYPICAL LYMPH 4 % (0-5); BASOPHILS 3 % (0-1); LYMPHOCYTES 32 % (16-44); METAMYELOCYTES 1 % (0-0); MONOCYTES 2 % (0-5); NEUTROPHILS 58 % (28-66)
[2024-03-03 06:24] LABS: PLATELET ESTIMATE NORMAL (NORMAL); POIKILOCYTOSIS 1+; TEAR DROP CELLS 2+
[2024-03-03] MEDS: ASPIRIN 81MG ENTERIC TABLET PO SCH (08:34)
[2024-03-03 11:46] LABS: ALBUMIN 3.1 G/DL (3.2-5.2); BILIRUBIN,DIRECT 0.1 MG/DL (<0.4); BILIRUBIN,TOTAL 0.4 MG/DL (0.3-1.2); TOTAL PROTEIN 6.1 G/DL (5.7-8.2)
[2024-03-04 03:44] VITALS: BP 120/65; TEMP 97.5; O2SAT 95
[2024-03-04 06:19] LABS: HEMATOCRIT 26.3 % (36.0-47.0); HEMOGLOBIN 8.9 g/dl (12.0-15.5); MEAN CORPUSCULAR HEMOGLOBIN 27.8 pg (27.0-33.0); MEAN CORPUSCULAR HGB CONC 33.8 g/dl (32.0-36.5); MEAN CORPUSCULAR VOLUME 82.2 fl (80.0-96.0); PLATELET COUNT, AUTOMATED 138 10^3/uL (150-450)
[2024-03-04 06:38] LABS: CALCIUM LEVEL 8.3 MG/DL (8.3-10.6); CREATININE FOR GFR 1.08 MG/DL (0.55-1.30); GLOMERULAR FILTRATION RATE 53.4 (>39); MAGNESIUM LEVEL 1.9 MG/DL (1.8-2.4); POTASSIUM SERUM 3.9 MMOL/L (3.5-5.1)
[2024-03-04 06:41] LABS: NEUTROPHILS % 52.8 % (36.0-66.0)
[2024-03-04 06:42] LABS: BASO # 0.1 10^3/uL (0.0-0.2); BASO % 1.2 % (0.0-1.0); EOS % 0.8 % (0.0-3.0); LYMPH # 1.5 10^3/uL (1.5-5.0); LYMPH % 29.2 % (24.0-44.0); MONO # 0.4 10^3/uL (0.0-0.8); MONO % 7.8 % (2.0-8.0); NEUTROPHILS # 2.7 10^3/uL (1.5-8.5)
[2024-03-04] MEDS ORDERED: EZET10TA21 PO (10:53)
[2024-03-04] MEDS ORDERED: ASPI81TA26 PO (10:53)
[2024-03-04 12:00] VITALS: BP 117/68; TEMP 97.8; O2SAT 96
== END 2024-03-04 14:14 | disposition home or self-care (01) ==
LOC: M ED 13:32 → M ED INP 13:33 → M MSPAV 03-03 14:03
PROVIDERS: ADMIT Student in an Organized Health Care Education/Training Program; ATTEND Internal Medicine
DX: D64.89 Other specified anemias (principal); R42 Dizziness and giddiness; R20.2 Paresthesia of skin; M79.7 Fibromyalgia; E03.9 Hypothyroidism, unspecified; F32.A Depression, unspecified; F41.9 Anxiety disorder, unspecified; Z85.72 Personal history of non-Hodgkin lymphomas; J44.9 Chronic obstructive pulmonary disease, unspecified; I65.22 Occlusion and stenosis of left carotid artery; Z79.82 Long term (current) use of aspirin; Z79.899 Other long term (current) drug therapy; Z88.8 Allergy status to other drugs, medicaments and biological substances
CPT/HCPCS: 36415; 36430; 70450; 70496; 70498; 70551; 71045; 72125; 80047; 80048; 80061; 80076; 82550; 82553; 82607; 82728; 82746; 83010; 83036; 83550; 83615; 83735; 84484; 85025; 85610; 85730; 86850; 86880; 86900; 86901; 86920; 93005; 93041; 93306; 94640; 94760; 99285; G0378; P9016; Q9967

== ENCOUNTER → 2024-03-04 | Outpatient (CLI) | payer OTHER ==
[~2024-03-04] MED LIST changes: +ASPI81TA26 PO; +BAYE81TA10 PO; +EZET10TA21 PO; +LEVO150T7 PO; +MAGN100T PO; +MAGN200T PO; +MYRB50TA PO; +OXYB15TA14 PO; +SERT50TA29 PO; +VITA50TA6 PO; +[UNRECOGNIZED DRUG - CODE] PO
== END ==
LOC: M EKG 14:40
PROVIDERS: ATTEND Internal Medicine
DX: R53.83 Other fatigue (principal); R06.02 Shortness of breath

== ENCOUNTER 2024-03-25 07:41 | Day surgery (SDC) | payer OTHER ==
[~2024-03-25] VITALS: Ht 157.5 cm; Wt 84.9 kg
[2024-03-25] MEDS: NS 1,000 ML IV SCH (08:01)
[2024-03-25] MEDS ORDERED: propofoL 200 MG/20 ML VIAL As Ordered ONE (08:56)
[2024-03-25 09:13] VITALS: TEMP 97.5
[2024-03-25 09:45] VITALS: BP 128/58; O2SAT 95
== END 2024-03-25 09:51 | disposition home or self-care (01) ==
LOC: M OPP 07:41
PROVIDERS: ATTEND Internal Medicine Gastroenterology
DX: Z86.010 Personal history of colon polyps (principal); K64.0 First degree hemorrhoids; I10 Essential (primary) hypertension; E03.9 Hypothyroidism, unspecified; Z79.02 Long term (current) use of antithrombotics/antiplatelets; Z79.51 Long term (current) use of inhaled steroids; Z79.82 Long term (current) use of aspirin; Z79.83 Long term (current) use of bisphosphonates; Z79.890 Hormone replacement therapy; Z88.6 Allergy status to analgesic agent; Z88.8 Allergy status to other drugs, medicaments and biological substances; Z87.891 Personal history of nicotine dependence

== ENCOUNTER → 2024-04-15 | Outpatient (CLI) | payer OTHER ==
[2024-04-15 16:39] LABS: ALBUMIN 3.6 G/DL (3.2-5.2); ALKALINE PHOSPHATASE 152 U/L (46-116); ALT/SGPT 19 U/L (7.0-40); AST/SGOT 17 U/L (<34); BILIRUBIN,TOTAL 0.4 MG/DL (0.3-1.2); BLOOD UREA NITROGEN 11 MG/DL (9-23); CALCIUM LEVEL 8.5 MG/DL (8.3-10.6); CARBON DIOXIDE LEVEL 27 MMOL/L (20-31); CHLORIDE LEVEL 104 MMOL/L (98-107); CHOLESTEROL LEVEL 168 MG/DL (<200); CHOLESTEROL RISK RATIO 3.71 (<5); CREATININE FOR GFR 1.14 MG/DL (0.55-1.30); FOLATE > 24.0 NG/ML (>5.4); FREE T4 1.15 NG/DL (0.89-1.76); GLOMERULAR FILTRATION RATE 50.2 (>39); GLUCOSE, FASTING 112 MG/DL (74-106); HDL CHOLESTEROL 45.2 MG/DL (>40); LDL CHOLESTEROL 86.4 MG/DL (<100); NON-HDL-C 122.8 MG/DL; SODIUM LEVEL 137 MMOL/L (136-145); THYROID STIMULATING HORMONE 9.295 uIU/ML (0.55-4.78); TOTAL PROTEIN 7.2 G/DL (5.7-8.2); TRIGLYCERIDES LEVEL 182 MG/DL (<150)
[2024-04-15 16:41] LABS: VITAMIN B12 LEVEL 780 PG/ML (211-911)
== END ==
LOC: M PLALAB 13:32
PROVIDERS: ATTEND Nurse Practitioner Adult Health
DX: G25.0 Essential tremor (principal); K59.1 Functional diarrhea; Z13.220 Encounter for screening for lipoid disorders; E53.8 Deficiency of other specified B group vitamins; E03.9 Hypothyroidism, unspecified

== ENCOUNTER → 2024-05-11 | Outpatient (CLI) | payer OTHER ==
[~2024-05-11] MED LIST changes: +GASTROGRAFIN SOLUTION 30ML ONE; +ISOVUE-370 76% 100ML VIAL ONE
== END ==
LOC: M PLAIMG 10:40
PROVIDERS: ATTEND Specialist
DX: D64.9 Anemia, unspecified (principal); C81.90 Hodgkin lymphoma, unspecified, unspecified site; Z90.49 Acquired absence of other specified parts of digestive tract; R16.1 Splenomegaly, not elsewhere classified; I25.10 Atherosclerotic heart disease of native coronary artery without angina pectoris; I70.0 Atherosclerosis of aorta; J98.11 Atelectasis; R91.1 Solitary pulmonary nodule
CPT/HCPCS: 71260; 74177; Q9963; Q9967

== ENCOUNTER 2024-05-22 14:16 | Outpatient (CLI) | payer OTHER ==
[2024-05-22] VITALS (9 sets, daily range): BP systolic 115–126; BP diastolic 67–71; TEMP 97–98.1; O2SAT 95–99
[~2024-05-22 14:16] MED LIST changes: -GASTROGRAFIN SOLUTION 30ML ONE; -ISOVUE-370 76% 100ML VIAL ONE
[2024-05-22] MEDS: diphenhydrAMINE 25MG CAP PO ONE (16:54)
[2024-05-22] MEDS: ACETAMINOPHEN TAB 650MG DOSE (2X325MG) PO ONE (16:54)
== END 2024-05-22 21:55 | disposition home or self-care (01) ==
LOC: M OPCLI5PR 14:16 → M MS5PR 14:17 → M OPCLI5PR 21:55
PROVIDERS: ATTEND Internal Medicine Hematology & Oncology
DX: D64.9 Anemia, unspecified (principal); Z85.72 Personal history of non-Hodgkin lymphomas
CPT/HCPCS: 36415; 86850; 86900; 86901; 86920; P9016

== ENCOUNTER → 2024-05-25 | Outpatient (CLI) | payer OTHER ==
[2024-05-25 12:56] LABS: BASO # 0.1 10^3/uL (0.0-0.2); BASO % 2.4 % (0.0-1.0); EOS % 0.5 % (0.0-3.0); HEMATOCRIT 31.6 % (36.0-47.0); HEMOGLOBIN 10.5 g/dl (12.0-15.5); LYMPH # 1.9 10^3/uL (1.5-5.0); LYMPH % 33.2 % (24.0-44.0); MEAN CORPUSCULAR HEMOGLOBIN 28.3 pg (27.0-33.0); MEAN CORPUSCULAR HGB CONC 33.2 g/dl (32.0-36.5); MEAN CORPUSCULAR VOLUME 85.2 fl (80.0-96.0); MONO # 0.7 10^3/uL (0.0-0.8); MONO % 12.7 % (2.0-8.0); NEUTROPHILS # 2.1 10^3/uL (1.5-8.5); NEUTROPHILS % 36.7 % (36.0-66.0); PLATELET COUNT, AUTOMATED 140 10^3/uL (150-450); RED BLOOD COUNT 3.71 10^6/uL (4.00-5.40); WHITE BLOOD COUNT 5.8 10^3/uL (4.0-10.0)
== END ==
LOC: M LAB 11:37
PROVIDERS: ATTEND Specialist
DX: D50.9 Iron deficiency anemia, unspecified (principal)

== ENCOUNTER → 2024-06-08 | Outpatient (CLI) | payer OTHER | LOC: M PLARAD 10:13 | PROVIDERS: ATTEND Internal Medicine Hematology & Oncology | DX: C82.98 Follicular lymphoma, unspecified, lymph nodes of multiple sites (principal) | CPT/HCPCS: 78815; A9552 ==

== ENCOUNTER 2024-07-01 09:42 | Day surgery (SDC) | payer OTHER ==
[~2024-07-01] VITALS: Ht 160 cm; Wt 77.9 kg
[2024-07-01] MEDS ORDERED: dexmedeTOMIDine (4MCG/ML)200MCG/50ML BTL (PRECEDEX) As Ordered ONE (10:45)
[2024-07-01] MEDS ORDERED: propofoL 200 MG/20 ML VIAL As Ordered ONE (10:45)
[2024-07-01] MEDS ORDERED: LIDOCAINE 2% 100MG/5ML SDV (FOR ANES.) As Ordered ONE (10:45)
[2024-07-01 11:49] VITALS: TEMP 97.8
[2024-07-01 12:15] VITALS: BP 112/66; O2SAT 96
== END 2024-07-01 12:19 | disposition home or self-care (01) ==
LOC: M OPP 09:42
PROVIDERS: ATTEND Internal Medicine Gastroenterology
DX: D50.9 Iron deficiency anemia, unspecified (principal); K29.70 Gastritis, unspecified, without bleeding; K52.9 Noninfective gastroenteritis and colitis, unspecified; K21.9 Gastro-esophageal reflux disease without esophagitis; C85.90 Non-Hodgkin lymphoma, unspecified, unspecified site; Z90.49 Acquired absence of other specified parts of digestive tract; I10 Essential (primary) hypertension; E03.9 Hypothyroidism, unspecified; E78.00 Pure hypercholesterolemia, unspecified; J44.9 Chronic obstructive pulmonary disease, unspecified; R32 Unspecified urinary incontinence; N32.81 Overactive bladder; Z79.899 Other long term (current) drug therapy; Z79.890 Hormone replacement therapy; Z79.51 Long term (current) use of inhaled steroids; Z88.8 Allergy status to other drugs, medicaments and biological substances; Z90.710 Acquired absence of both cervix and uterus

== ENCOUNTER → 2024-07-16 | Outpatient (REF) | payer OTHER | LOC: M SFHCPLAZ 13:50 | PROVIDERS: ATTEND Student in an Organized Health Care Education/Training Program | DX: Z53.9 Procedure and treatment not carried out, unspecified reason (principal) ==

== ENCOUNTER → 2024-07-16 | Outpatient (CLI) | payer OTHER ==
[2024-07-16 15:21] LABS: HEMATOCRIT 25.7 % (36.0-47.0); HEMOGLOBIN 8.3 g/dl (12.0-15.5); MEAN CORPUSCULAR HEMOGLOBIN 27.2 pg (27.0-33.0); MEAN CORPUSCULAR HGB CONC 32.3 g/dl (32.0-36.5); MEAN CORPUSCULAR VOLUME 84.3 fl (80.0-96.0); PLATELET COUNT, AUTOMATED 111 10^3/uL (150-450); RED BLOOD COUNT 3.05 10^6/uL (4.00-5.40); WHITE BLOOD COUNT 11.2 10^3/uL (4.0-10.0)
[2024-07-16 15:37] LABS: CALCIUM LEVEL 8.8 MG/DL (8.3-10.6); CREATININE FOR GFR 1.08 MG/DL (0.55-1.30); GLOMERULAR FILTRATION RATE 53.4 (>39); POTASSIUM SERUM 3.6 MMOL/L (3.5-5.1)
[2024-07-16 20:12] LABS: ATYPICAL LYMPH 2 % (0-5); BASOPHILS 3 % (0-1); LYMPHOCYTES 29 % (16-44); METAMYELOCYTES 2 % (0-0); MONOCYTES 5 % (0-5); MYELOCYTES 4 % (0-0); NEUTROPHILS 50 % (28-66)
[2024-07-16 20:13] LABS: ANISOCYTOSIS 3+
[2024-07-16 20:14] LABS: PLATELET ESTIMATE DECREASED (NORMAL)
[2024-07-16 20:15] LABS: TEAR DROP CELLS 2+
[2024-07-16 20:18] LABS: POIKILOCYTOSIS 2+
== END ==
LOC: M PLALAB 13:57
PROVIDERS: ATTEND Student in an Organized Health Care Education/Training Program
DX: R06.02 Shortness of breath (principal)

== ENCOUNTER → 2024-10-26 | Outpatient (CLI) | payer MEDICARE ==
[~2024-10-26] MED LIST changes: +ATIV1TAB10 PO
[2024-10-26 13:05] LABS: THYROID STIMULATING HORMONE 13.098 uIU/ML (0.55-4.78)
[2024-10-26 13:07] LABS: FREE T4 1.21 NG/DL (0.89-1.76)
== END ==
LOC: M LAB 11:35
PROVIDERS: ATTEND Nurse Practitioner Adult Health
DX: E03.9 Hypothyroidism, unspecified (principal)

== ENCOUNTER 2024-11-20 15:39 | Inpatient (IN) | payer MEDICARE ==
[~2024-11-20] VITALS: Ht 162.6 cm; Wt 73.4 kg
[2024-11-20] MEDS: NS (Normal Saline) 0.9% 1,000 ML IV SCH (16:34)
[2024-11-20 16:37] LABS: HEMATOCRIT 31.6 % (36.0-47.0); HEMOGLOBIN 10.2 g/dl (12.0-15.5); MEAN CORPUSCULAR HEMOGLOBIN 25.6 pg (27.0-33.0); MEAN CORPUSCULAR HGB CONC 32.3 g/dl (32.0-36.5); MEAN CORPUSCULAR VOLUME 79.4 fl (80.0-96.0); PLATELET COUNT, AUTOMATED 128 10^3/uL (150-450); RED BLOOD COUNT 3.98 10^6/uL (4.00-5.40)
[2024-11-20 16:46] LABS: INR 0.97; PARTIAL THROMBOPLASTIN TIME 27.3 SECONDS (24.8-34.2); PROTHROMBIN TIME 13.2 SECONDS (12.5-14.5)
[2024-11-20 17:00] LABS: ETHYL ALCOHOL (ETHANOL) < 0.003 % (0.000-0.010)
[2024-11-20 17:02] LABS: ALBUMIN 3.5 G/DL (3.2-5.2); ALKALINE PHOSPHATASE 109 U/L (35-104); ALT/SGPT 21 U/L (7.0-40); AST/SGOT 20 U/L (<34); BILIRUBIN,DIRECT 0.2 MG/DL (<0.4); BILIRUBIN,TOTAL 0.7 MG/DL (0.3-1.2); BLOOD UREA NITROGEN 18 MG/DL (9-23); CALCIUM LEVEL 8.3 MG/DL (8.3-10.6); CARBON DIOXIDE LEVEL 24 MMOL/L (20-31); CHLORIDE LEVEL 102 MMOL/L (98-107); CK-MB VALUE MASS < 1.0 NG/ML (<3.6); CPK CREATINE PHOSPHOKINASE 37 U/L (34-145); CREATININE FOR GFR 1.33 MG/DL (0.55-1.30); GLUCOSE, FASTING 123 MG/DL (74-106); SODIUM LEVEL 137 MMOL/L (136-145); TOTAL PROTEIN 7.4 G/DL (5.7-8.2)
[2024-11-20 17:04] LABS: BASOPHILS 1 % (0-1); FREE T4 1.53 NG/DL (0.89-1.76); LYMPHOCYTES 19 % (16-44); METAMYELOCYTES 5 % (0-0); MONOCYTES 6 % (0-5); MYELOCYTES 1 % (0-0); NEUTROPHILS 65 % (28-66); THYROID STIMULATING HORMONE 3.041 uIU/ML (0.55-4.78)
[2024-11-20 17:05] LABS: PLATELET ESTIMATE NORMAL (NORMAL); TEAR DROP CELLS 2+
[2024-11-20 17:06] LABS: ANISOCYTOSIS 3+; MICROCYTOSIS 1+; POLYCHROMASIA 2+
[2024-11-20 17:08] LABS: KETONE, URINE AUTO RFX NEGATIVE (NEGATIVE); NITRITE, URINE AUTO RFX NEGATIVE (NEGATIVE); RBC, URINE AUTO RFX 7 /HPF (0-3); SQUAM EPITHELIAL CELL UR AURFX 2 /HPF (0-6)
[2024-11-20 17:09] LABS: LEUKOCYTE ESTERASE UR AUTO RFX 3+ (NEGATIVE); WBC, URINE AUTO RFX 153 /HPF (0-3)
[2024-11-20] MEDS: ACETAMINOPHEN 325 MG TAB PO ONE (17:12)
[2024-11-20] MEDS: cefTRIAXone SOD 2 GM in DEXTROSE 5% (D5W) ADV/MINI-BAG 50 ML IV ONE (17:36)
[2024-11-20] MEDS: LR 1,000 ML IV ONE ×2 (18:30→19:36)
[2024-11-20] MEDS ORDERED: LEVO175T2 PO (18:54)
[2024-11-20] MEDS ORDERED: HOME MED LIST COMPLETE! XX SCH (18:55)
[2024-11-20] MEDS ORDERED: ALBUTEROL SULFATE 2.5MG/0.5ML INH NEB SOLN INH PRN (19:15)
[2024-11-20] MEDS: LR 1,000 ML IV SCH (19:37)
[2024-11-20 20:23] LABS: CALCIUM LEVEL 7.7 MG/DL (8.3-10.6); CREATININE FOR GFR 1.24 MG/DL (0.55-1.30); GLOMERULAR FILTRATION RATE 45.5 (>39); POTASSIUM SERUM 4.3 MMOL/L (3.5-5.1)
[2024-11-20] MEDS: PANTOPRAZOLE 40MG TAB (PROTONIX) PO SCH (20:57)
[2024-11-20] MEDS ORDERED: oxyBUTYnin *DITROPAN XL* 5 MG TABCR PO SCH (21:00)
[2024-11-20] MEDS ORDERED: PROHANCE 279.3MG/ML 15ML VIAL As Ordered ONE (21:26)
[2024-11-20 22:26] VITALS: BP 127/62; TEMP 98.7; O2SAT 97
[2024-11-20] MEDS: ACETAMINOPHEN 500 MG TAB PO SCH (23:06)
[2024-11-21 01:25] LABS: CALCIUM LEVEL 8.1 MG/DL (8.3-10.6); CREATININE FOR GFR 1.16 MG/DL (0.55-1.30); GLOMERULAR FILTRATION RATE 49.2 (>39); POTASSIUM SERUM 3.6 MMOL/L (3.5-5.1)
[2024-11-21 04:10] VITALS: BP 116/55; TEMP 98.2; O2SAT 96
[2024-11-21 08:53] LABS: HEMATOCRIT 24.6 % (36.0-47.0); MEAN CORPUSCULAR HEMOGLOBIN 25.9 pg (27.0-33.0); MEAN CORPUSCULAR HGB CONC 32.5 g/dl (32.0-36.5); MEAN CORPUSCULAR VOLUME 79.6 fl (80.0-96.0); RED BLOOD COUNT 3.09 10^6/uL (4.00-5.40); WHITE BLOOD COUNT 9.4 10^3/uL (4.0-10.0)
[2024-11-21] MEDS: PYRIDOXINE 50 MG TAB PO SCH (08:58)
[2024-11-21] MEDS: FOLIC ACID 1MG TAB PO SCH (08:58)
[2024-11-21] MEDS: SERTRALINE HCL 50 MG TAB PO SCH (08:58)
[2024-11-21 09:15] LABS: PLATELET COUNT, AUTOMATED 98 10^3/uL (150-450)
[2024-11-21 09:16] LABS: CALCIUM LEVEL 8.5 MG/DL (8.3-10.6); CREATININE FOR GFR 1.19 MG/DL (0.55-1.30); GLOMERULAR FILTRATION RATE 47.7 (>39); MAGNESIUM LEVEL 1.9 MG/DL (1.8-2.4); POTASSIUM SERUM 3.7 MMOL/L (3.5-5.1)
[2024-11-21 09:24] LABS: ATYPICAL LYMPH 3 % (0-5); BASOPHILS 2 % (0-1); LYMPHOCYTES 14 % (16-44); METAMYELOCYTES 3 % (0-0); MONOCYTES 6 % (0-5); MYELOCYTES 2 % (0-0); NEUTROPHILS 59 % (28-66); PLATELET ESTIMATE DECREASED (NORMAL)
[2024-11-21 09:25] LABS: ANISOCYTOSIS 3+
[2024-11-21 09:26] LABS: MICROCYTOSIS 1+; POLYCHROMASIA 1+; TEAR DROP CELLS 4+
[2024-11-21 09:27] LABS: SCHISTOCYTES 1+
[2024-11-21 12:30] VITALS: BP 117/57; TEMP 98.3; O2SAT 96
[2024-11-21 13:41] LABS: CALCIUM LEVEL 8.7 MG/DL (8.3-10.6); CREATININE FOR GFR 1.18 MG/DL (0.55-1.30); GLOMERULAR FILTRATION RATE 48.2 (>39); POTASSIUM SERUM 3.7 MMOL/L (3.5-5.1)
[2024-11-21 18:30] VITALS: BP 149/66; TEMP 100.3; O2SAT 96
[2024-11-21] MEDS: cefTRIAXone SOD 2 GM in DEXTROSE 5% (D5W) ADV/MINI-BAG 50 ML IV SCH (18:40)
[2024-11-21 19:40] VITALS: BP 143/79; O2SAT 96
[2024-11-21 19:40] LABS: CALCIUM LEVEL 7.9 MG/DL (8.3-10.6); CREATININE FOR GFR 1.19 MG/DL (0.55-1.30); GLOMERULAR FILTRATION RATE 47.7 (>39); POTASSIUM SERUM 3.5 MMOL/L (3.5-5.1)
[2024-11-21 19:53] VITALS: TEMP 102.5
[2024-11-21] MEDS: ACETAMINOPHEN 500 MG TAB PO ONE (20:34)
[2024-11-21 23:09] VITALS: BP 117/66; TEMP 99.4; O2SAT 97
[2024-11-22] MEDS ORDERED: ACETAMINOPHEN 500 MG TAB PO PRN (03:00)
[2024-11-22 04:17] VITALS: BP 125/52; TEMP 97.5; O2SAT 97
[2024-11-22] MEDS: LEVOTHYROXINE 25MCG TABLET (0.025MG) PO SCH (05:35)
[2024-11-22] MEDS: LEVOTHYROXINE 150MCG TABLET (0.15MG) PO SCH (05:35)
[2024-11-22 06:24] LABS: BASO # 0.1 10^3/uL (0.0-0.2); BASO % 1.1 % (0.0-1.0); EOS % 0.4 % (0.0-3.0); HEMATOCRIT 26.7 % (36.0-47.0); HEMOGLOBIN 8.5 g/dl (12.0-15.5); LYMPH # 1.9 10^3/uL (1.5-5.0); LYMPH % 17.7 % (24.0-44.0); MEAN CORPUSCULAR HEMOGLOBIN 25.5 pg (27.0-33.0); MEAN CORPUSCULAR HGB CONC 31.8 g/dl (32.0-36.5); MEAN CORPUSCULAR VOLUME 80.2 fl (80.0-96.0); MONO # 0.9 10^3/uL (0.0-0.8); MONO % 8.5 % (2.0-8.0); NEUTROPHILS # 5.6 10^3/uL (1.5-8.5); RED BLOOD COUNT 3.33 10^6/uL (4.00-5.40); WHITE BLOOD COUNT 10.7 10^3/uL (4.0-10.0)
[2024-11-22 06:27] LABS: PLATELET COUNT, AUTOMATED 98 10^3/uL (150-450)
[2024-11-22 06:54] LABS: CALCIUM LEVEL 8.4 MG/DL (8.3-10.6); CREATININE FOR GFR 1.12 MG/DL (0.55-1.30); GLOMERULAR FILTRATION RATE 51.2 (>39); POTASSIUM SERUM 3.2 MMOL/L (3.5-5.1)
[2024-11-22] MEDS ORDERED: CEFD1CAP9 PO (07:01)
[2024-11-22] MEDS ORDERED: BACI1CAP PO (07:01)
[2024-11-22 07:56] VITALS: BP 144/59; TEMP 100.2; O2SAT 95
[2024-11-22] MEDS: POTASSIUM CHLORIDE 10MEQ SR TABLET PO ONE (09:46)
[2024-11-22] MEDS: MAGNESIUM OXIDE 400MG TAB (MAG-OX) PO SCH (09:46)
[2024-11-22 12:00] VITALS: BP 141/69; TEMP 97.7; O2SAT 98
[2024-11-22] MEDS ORDERED: METH-855 PO (13:57)
[2024-11-22 14:06] LABS: CALCIUM LEVEL 7.8 MG/DL (8.3-10.6); CREATININE FOR GFR 1.03 MG/DL (0.55-1.30); GLOMERULAR FILTRATION RATE 56.4 (>39); POTASSIUM SERUM 3.4 MMOL/L (3.5-5.1)
[2024-11-22] MEDS: cefTRIAXone SOD 2GM VIAL IM ONE (15:32)
[2024-11-22] MEDS: LIDOCAINE 1% SDV 5ML VIAL DILUENT ONE (15:32)
== END 2024-11-22 16:36 | disposition home or self-care (01) | DRG 871 ==
LOC: M ED 15:39 → M ED INP 17:29 → M MS4PR 22:15 → M MSPAV 11-21 19:26
PROVIDERS: ADMIT General Practice; ATTEND General Practice
DX: A41.9 Sepsis, unspecified organism (principal); G93.41 Metabolic encephalopathy; C82.90 Follicular lymphoma, unspecified, unspecified site; N39.0 Urinary tract infection, site not specified; J44.9 Chronic obstructive pulmonary disease, unspecified; B96.20 Unspecified Escherichia coli [E. coli] as the cause of diseases classified elsewhere; M79.7 Fibromyalgia; N18.30 Chronic kidney disease, stage 3 unspecified; J45.909 Unspecified asthma, uncomplicated; K21.9 Gastro-esophageal reflux disease without esophagitis; R32 Unspecified urinary incontinence; D63.8 Anemia in other chronic diseases classified elsewhere; E03.9 Hypothyroidism, unspecified; F32.A Depression, unspecified; F41.9 Anxiety disorder, unspecified; K44.9 Diaphragmatic hernia without obstruction or gangrene; Z92.859 Personal history of cellular therapy, unspecified; Z92.3 Personal history of irradiation; Z90.49 Acquired absence of other specified parts of digestive tract; Z90.79 Acquired absence of other genital organ(s); Z87.891 Personal history of nicotine dependence; Z79.890 Hormone replacement therapy; Z79.899 Other long term (current) drug therapy; Z91.040 Latex allergy status; Z88.8 Allergy status to other drugs, medicaments and biological substances

== ENCOUNTER → 2024-11-26 | Outpatient (CLI) | payer MEDICARE ==
[~2024-11-26] MED LIST changes: +BACI1CAP PO; +CEFD1CAP9 PO; +LEVO175T2 PO; +LIDOCAINE 1% MDV 20ML VIAL As Ordered ONE; +METH-855 PO
[2024-11-26 11:25] VITALS: TEMP 97.7
[2024-11-26 11:54] LABS: HEMATOCRIT 24.8 % (36.0-47.0); HEMOGLOBIN 8.3 g/dl (12.0-15.5); MEAN CORPUSCULAR HEMOGLOBIN 26.2 pg (27.0-33.0); MEAN CORPUSCULAR HGB CONC 33.5 g/dl (32.0-36.5); MEAN CORPUSCULAR VOLUME 78.2 fl (80.0-96.0); PLATELET COUNT, AUTOMATED 131 10^3/uL (150-450); RED BLOOD COUNT 3.17 10^6/uL (4.00-5.40); WHITE BLOOD COUNT 13.2 10^3/uL (4.0-10.0)
[2024-11-26 12:33] LABS: BASOPHILS 4 % (0-1); LYMPHOCYTES 16 % (16-44); METAMYELOCYTES 2 % (0-0); MONOCYTES 6 % (0-5); MYELOCYTES 11 % (0-0); NEUTROPHILS 42 % (28-66)
[2024-11-26 12:34] LABS: ANISOCYTOSIS 3+; MICROCYTOSIS 1+; PLATELET ESTIMATE DECREASED (NORMAL); POLYCHROMASIA 1+
[2024-11-26 12:35] LABS: TEAR DROP CELLS 2+
[2024-11-26 12:57] VITALS: BP 127/73; O2SAT 98
== END ==
LOC: M IRPRO 11:14
PROVIDERS: ATTEND Nurse Practitioner Women's Health
DX: D50.9 Iron deficiency anemia, unspecified (principal); C82.90 Follicular lymphoma, unspecified, unspecified site

== ENCOUNTER 2025-03-01 15:11 | Inpatient (IN) | payer MEDICARE ==
[~2025-03-01] VITALS: Ht 157.5 cm; Wt 70.1 kg
[~2025-03-01 15:11] MED LIST changes: -LIDOCAINE 1% MDV 20ML VIAL As Ordered ONE
[2025-03-01 16:25] LABS: BASO # 0.2 10^3/uL (0.0-0.2); BASO % 1.5 % (0.0-1.0); EOS # 0.1 10^3/uL (0.0-0.5); EOS % 0.8 % (0.0-3.0); LYMPH # 1.9 10^3/uL (1.5-5.0); LYMPH % 11.9 % (24.0-44.0); MONO # 2.0 10^3/uL (0.0-0.8); MONO % 12.6 % (2.0-8.0); NEUTROPHILS # 8.9 10^3/uL (1.5-8.5); NEUTROPHILS % 57.0 % (36.0-66.0); PLATELET COUNT, AUTOMATED 141 10^3/uL (150-450)
[2025-03-01 16:36] LABS: ALT/SGPT 19.0 U/L (7.0-40); AST/SGOT 27.0 U/L (<34); CALCIUM LEVEL 8.6 MG/DL (8.3-10.6); CARBON DIOXIDE LEVEL 24.0 MMOL/L (20-31); CHLORIDE LEVEL 98.0 MMOL/L (98-107); CREATININE FOR GFR 2.06 MG/DL (0.55-1.30); GLOMERULAR FILTRATION RATE 25.3 (>39); POTASSIUM SERUM 4.2 MMOL/L (3.5-5.1); SODIUM LEVEL 135.0 MMOL/L (136-145)
[2025-03-01 17:20] LABS: KETONE, URINE AUTO RFX NEGATIVE (NEGATIVE); NITRITE, URINE AUTO RFX NEGATIVE (NEGATIVE); RBC, URINE AUTO RFX 8 /HPF (0-3); SQUAM EPITHELIAL CELL UR AURFX 2 /HPF (0-6)
[2025-03-01 17:21] LABS: LEUKOCYTE ESTERASE UR AUTO RFX 1+ (NEGATIVE); WBC, URINE AUTO RFX 20 /HPF (0-3)
[2025-03-01] MEDS: NS (Normal Saline) 0.9% 1,000 ML IV SCH (17:28)
[2025-03-01] MEDS ORDERED: DULO60CA35 PO (21:17)
[2025-03-01] MEDS ORDERED: HOME MED LIST COMPLETE! XX SCH (21:20)
[2025-03-01] MEDS ORDERED: ONDANSETRON 4MG 2ML VIAL IV PRN (22:40)
[2025-03-01] MEDS ORDERED: ACETAMINOPHEN 325 MG TAB PO PRN (22:40)
[2025-03-01] MEDS ORDERED: MOM 30 ML SUSPENSION UDC PO PRN (22:40)
[2025-03-01] MEDS ORDERED: MAALOX 30 ML SUSP *UDC PO PRN (22:40)
[2025-03-02 00:30] VITALS: BP 145/70; TEMP 98.1; O2SAT 98
[2025-03-02] MEDS: cefTRIAXone SOD 1 GM in DEXTROSE 5% (D5W) ADV/MINI-BAG 50 ML IV SCH (00:49)
[2025-03-02 03:45] VITALS: BP 144/68; TEMP 98.8; O2SAT 95
[2025-03-02] MEDS: NS (Normal Saline) 0.9% 1,000 ML IV SCH (04:40)
[2025-03-02 05:55] LABS: PLATELET COUNT, AUTOMATED 110 10^3/uL (150-450)
[2025-03-02 06:17] LABS: ALT/SGPT 16.0 U/L (7.0-40); AST/SGOT 21.0 U/L (<34); CALCIUM LEVEL 7.8 MG/DL (8.3-10.6); CARBON DIOXIDE LEVEL 24.0 MMOL/L (20-31); CHLORIDE LEVEL 102.0 MMOL/L (98-107); CREATININE FOR GFR 1.94 MG/DL (0.55-1.30); GLOMERULAR FILTRATION RATE 27.2 (>39); MAGNESIUM LEVEL 1.8 MG/DL (1.8-2.4); POTASSIUM SERUM 3.9 MMOL/L (3.5-5.1); SODIUM LEVEL 138.0 MMOL/L (136-145)
[2025-03-02 07:16] LABS: BASOPHILS 2 % (0-1); BLAST CELLS 1 % (0-0); EOSINOPHILS 3 % (0-3); LYMPHOCYTES 17 % (16-44); METAMYELOCYTES 1 % (0-0); MONOCYTES 2 % (0-5); MYELOCYTES 2 % (0-0); NEUTROPHILS 72 % (28-66); PLATELET ESTIMATE DECREASED (NORMAL)
[2025-03-02 08:00] VITALS: BP 132/80; TEMP 98.6; O2SAT 96
[2025-03-02] MEDS: DOCUSATE SODIUM 100 MG CAPSULE PO SCH (08:50)
[2025-03-02] MEDS: ENOXAPARIN 30 MG/0.3 ML SYRINGE (J1650 PER 10MG) SC SCH (08:50)
[2025-03-02] MEDS: PYRIDOXINE 50 MG TAB PO SCH (09:00)
[2025-03-02] MEDS: PRIMIDONE 50MG TAB PO SCH (09:00)
[2025-03-02] MEDS: SERTRALINE HCL 50 MG TAB PO SCH (11:46)
[2025-03-02] MEDS: LEVOTHYROXINE 75 MCG TABLET (0.075 MG) PO SCH (11:46)
[2025-03-02] MEDS: LEVOTHYROXINE 100 MCG TABLET (0.1 MG) PO SCH (11:46)
[2025-03-02] MEDS: FOLIC ACID 1 MG TAB PO SCH (11:46)
[2025-03-02 12:00] VITALS: BP 122/79; TEMP 98.1; O2SAT 95
[2025-03-02 13:22] LABS: IRON (FE) 21.0 UG/DL (50-170); PERCENT SATURATION 9.5 % (13.2-45.0)
[2025-03-02] MEDS ORDERED: PERCOCET 5MG/325MG TAB PO PRN (14:55)
[2025-03-02] MEDS: PERCOCET 5MG/325MG TAB PO PRN (15:00)
[2025-03-02 19:39] VITALS: BP 124/76; TEMP 97.7; O2SAT 96
[2025-03-02] MEDS: PANTOPRAZOLE 40MG TAB PO SCH (21:03)
[2025-03-03] VITALS (10 sets, daily range): BP systolic 135–162; BP diastolic 70–86; TEMP 97.5–98.1; O2SAT 95–100
[2025-03-03 06:25] LABS: BASO # 0.2 10^3/uL (0.0-0.2); BASO % 1.5 % (0.0-1.0); EOS # 0.1 10^3/uL (0.0-0.5); EOS % 0.6 % (0.0-3.0); LYMPH # 1.9 10^3/uL (1.5-5.0); LYMPH % 13.7 % (24.0-44.0); MONO # 1.6 10^3/uL (0.0-0.8); MONO % 11.5 % (2.0-8.0); NEUTROPHILS # 6.8 10^3/uL (1.5-8.5); NEUTROPHILS % 49.0 % (36.0-66.0); PLATELET COUNT, AUTOMATED 111 10^3/uL (150-450)
[2025-03-03 07:00] LABS: CALCIUM LEVEL 7.8 MG/DL (8.3-10.6); CARBON DIOXIDE LEVEL 25.0 MMOL/L (20-31); CHLORIDE LEVEL 104.0 MMOL/L (98-107); CREATININE FOR GFR 1.86 MG/DL (0.55-1.30); GLOMERULAR FILTRATION RATE 28.6 (>39); MAGNESIUM LEVEL 1.8 MG/DL (1.8-2.4); POTASSIUM SERUM 4.4 MMOL/L (3.5-5.1); SODIUM LEVEL 140.0 MMOL/L (136-145)
[2025-03-03] MEDS ORDERED: DEXTROSE 50% 50 ML SYRINGE IV PRN (08:30)
[2025-03-03] MEDS ORDERED: GLUCOSE 4 GM CHEW PO PRN (08:30)
[2025-03-03] MEDS ORDERED: GLUCAGON INJ 1 MG VIAL SC PRN (08:30)
[2025-03-03] MEDS: HEPARIN SOD 5000 UNITS/ML 1 ML VIAL/SYRINGE SQ SCH (09:00)
[2025-03-03] MEDS: LIDOCAINE 2% 5 ML JELLY UROJET As Ordered ONE (12:49)
[2025-03-03] MEDS ORDERED: LIDOCAINE 2% 100 MG/5 ML SDV (FOR ANES.) As Ordered ONE (12:51)
[2025-03-03] MEDS ORDERED: GLYCOPYRROLATE INJ 0.2 MG/ML 2 ML VIAL As Ordered ONE (12:51)
[2025-03-03] MEDS ORDERED: dexAMETHasone 4 MG/ML 1 ML VIAL As Ordered ONE (12:51)
[2025-03-03] MEDS ORDERED: ONDANSETRON 4MG 2ML VIAL As Ordered ONE (12:51)
[2025-03-03] MEDS ORDERED: KETOROLAC 30 MG/ML 1 ML VIAL As Ordered ONE (12:51)
[2025-03-03] MEDS ORDERED: ACETAMINOPHEN 1000MG/100ML IV BAG As Ordered ONE (13:30)
[2025-03-03] MEDS: ISOVUE-300 61% 100 ML VIAL As Ordered ONE (13:50)
[2025-03-03] MEDS ORDERED: MIDAZOLAM INJ 2 MG/2 ML VIAL As Ordered ONE (13:58)
[2025-03-03 19:49] LABS: PLATELET COUNT, AUTOMATED 103 10^3/uL (150-450)
[2025-03-03 20:16] LABS: ATYPICAL LYMPH 2 % (0-5); BASOPHILS 3 % (0-1); EOSINOPHILS 1 % (0-3); LYMPHOCYTES 14 % (16-44); METAMYELOCYTES 3 % (0-0); MONOCYTES 3 % (0-5); MYELOCYTES 4 % (0-0); NEUTROPHILS 65 % (28-66)
[2025-03-03 20:17] LABS: PLATELET ESTIMATE DECREASED (NORMAL)
[2025-03-03] MEDS: ceFAZolin SODIUM 2 GM in DEXTROSE 5% (D5W) ADV/MINI-BAG 50 ML IV ONE (22:41)
[2025-03-04] VITALS (7 sets, daily range): BP systolic 139–154; BP diastolic 73–90; TEMP 96.8–98.8; O2SAT 95–100
[2025-03-04 06:30] LABS: BASO # 0.4 10^3/uL (0.0-0.2); BASO % 2.2 % (0.0-1.0); EOS # 0.1 10^3/uL (0.0-0.5); EOS % 0.6 % (0.0-3.0); LYMPH # 2.1 10^3/uL (1.5-5.0); LYMPH % 13.7 % (24.0-44.0); MONO # 1.8 10^3/uL (0.0-0.8); MONO % 11.4 % (2.0-8.0); NEUTROPHILS # 7.3 10^3/uL (1.5-8.5); NEUTROPHILS % 47.2 % (36.0-66.0)
[2025-03-04 06:39] LABS: PLATELET COUNT, AUTOMATED 98 10^3/uL (150-450)
[2025-03-04 06:55] LABS: CALCIUM LEVEL 7.9 MG/DL (8.3-10.6); CARBON DIOXIDE LEVEL 22.0 MMOL/L (20-31); CHLORIDE LEVEL 103.0 MMOL/L (98-107); CREATININE FOR GFR 1.76 MG/DL (0.55-1.30); GLOMERULAR FILTRATION RATE 30.6 (>39); MAGNESIUM LEVEL 1.6 MG/DL (1.8-2.4); POTASSIUM SERUM 3.9 MMOL/L (3.5-5.1); SODIUM LEVEL 139.0 MMOL/L (136-145)
[2025-03-04] MEDS: MAG SULF 1GM/100ML (MAG RUN) 1 GM in IV 1 EA IV SCH (09:00)
[2025-03-04] MEDS: ALBUTEROL SULFATE 2.5 MG/0.5 ML INH CONCENTRATE NEB SOLN INH PRN (09:29)
[2025-03-04] MEDS: DOXYCYCLINE HYCLATE 100 MG TABLET PO SCH (10:40)
[2025-03-04] MEDS: FUROSEMIDE 20 MG/2 ML VIAL IV ONE (15:40)
[2025-03-05 04:14] VITALS: BP 167/88; TEMP 98.2; O2SAT 94
[2025-03-05 06:01] LABS: BASO # 0.3 10^3/uL (0.0-0.2); BASO % 1.9 % (0.0-1.0); EOS # 0.1 10^3/uL (0.0-0.5); EOS % 0.7 % (0.0-3.0); LYMPH # 2.7 10^3/uL (1.5-5.0); LYMPH % 16.1 % (24.0-44.0); MONO # 1.5 10^3/uL (0.0-0.8); MONO % 9.2 % (2.0-8.0); NEUTROPHILS # 8.8 10^3/uL (1.5-8.5); NEUTROPHILS % 53.5 % (36.0-66.0)
[2025-03-05 06:05] LABS: PLATELET COUNT, AUTOMATED 98 10^3/uL (150-450)
[2025-03-05 06:23] LABS: CALCIUM LEVEL 8.2 MG/DL (8.3-10.6); CARBON DIOXIDE LEVEL 26.0 MMOL/L (20-31); CHLORIDE LEVEL 101.0 MMOL/L (98-107); CREATININE FOR GFR 1.72 MG/DL (0.55-1.30); GLOMERULAR FILTRATION RATE 31.4 (>39); MAGNESIUM LEVEL 1.9 MG/DL (1.8-2.4); POTASSIUM SERUM 3.5 MMOL/L (3.5-5.1); SODIUM LEVEL 140.0 MMOL/L (136-145)
[2025-03-05 12:00] VITALS: BP 139/73; TEMP 97.9; O2SAT 98
[2025-03-05 20:36] VITALS: BP 142/81; TEMP 97.9; O2SAT 99
[2025-03-06] VITALS (7 sets, daily range): BP systolic 109–137; BP diastolic 71–75; TEMP 97.7–97.9; O2SAT 96–97
[2025-03-06 05:39] LABS: BASO # 0.3 10^3/uL (0.0-0.2); BASO % 1.8 % (0.0-1.0); EOS # 0.1 10^3/uL (0.0-0.5); EOS % 0.7 % (0.0-3.0); LYMPH # 2.6 10^3/uL (1.5-5.0); LYMPH % 14.4 % (24.0-44.0); MONO # 1.7 10^3/uL (0.0-0.8); MONO % 9.6 % (2.0-8.0); NEUTROPHILS # 8.8 10^3/uL (1.5-8.5); NEUTROPHILS % 48.9 % (36.0-66.0)
[2025-03-06 05:44] LABS: PLATELET COUNT, AUTOMATED 96 10^3/uL (150-450)
[2025-03-06 05:57] LABS: C REACTIVE PROTEIN QUANTITATIV 8.61 MG/DL (<1.0); CALCIUM LEVEL 8.2 MG/DL (8.3-10.6); CARBON DIOXIDE LEVEL 26.0 MMOL/L (20-31); CHLORIDE LEVEL 102.0 MMOL/L (98-107); CREATININE FOR GFR 1.5 MG/DL (0.55-1.30); GLOMERULAR FILTRATION RATE 37.0 (>39); MAGNESIUM LEVEL 1.7 MG/DL (1.8-2.4); POTASSIUM SERUM 3.6 MMOL/L (3.5-5.1); SODIUM LEVEL 138.0 MMOL/L (136-145)
[2025-03-06] MEDS: POTASSIUM CHLORIDE 10MEQ SR TABLET PO ONE (10:30)
[2025-03-06] MEDS: MAGNESIUM OXIDE 400 MG TAB PO SCH (11:08)
[2025-03-07 03:43] VITALS: BP 158/86; TEMP 97.9; O2SAT 98
[2025-03-07 06:01] LABS: PLATELET COUNT, AUTOMATED 86 10^3/uL (150-450)
[2025-03-07 06:16] LABS: CALCIUM LEVEL 8.7 MG/DL (8.3-10.6); CARBON DIOXIDE LEVEL 24.0 MMOL/L (20-31); CHLORIDE LEVEL 103.0 MMOL/L (98-107); CREATININE FOR GFR 1.51 MG/DL (0.55-1.30); GLOMERULAR FILTRATION RATE 36.7 (>39); MAGNESIUM LEVEL 1.7 MG/DL (1.8-2.4); POTASSIUM SERUM 3.8 MMOL/L (3.5-5.1); SODIUM LEVEL 139.0 MMOL/L (136-145)
[2025-03-07 06:32] LABS: ATYPICAL LYMPH 2 % (0-5); EOSINOPHILS 1 % (0-3); LYMPHOCYTES 18 % (16-44); METAMYELOCYTES 3 % (0-0); MONOCYTES 9 % (0-5); MYELOCYTES 2 % (0-0); NEUTROPHILS 60 % (28-66); PLATELET ESTIMATE DECREASED (NORMAL)
[2025-03-07 12:00] VITALS: BP 140/74; TEMP 97.5; O2SAT 98
[2025-03-07] MEDS: MAGNESIUM OXIDE 400 MG TAB PO SCH (12:16)
[2025-03-07] MEDS: POTASSIUM CHLORIDE 10MEQ SR TABLET PO ONE (12:16)
[2025-03-07 20:33] VITALS: BP 137/76; TEMP 98.1; O2SAT 97
[2025-03-08 05:08] VITALS: BP 137/75; TEMP 98.2; O2SAT 97
[2025-03-08 06:47] LABS: CALCIUM LEVEL 8.5 MG/DL (8.3-10.6); CARBON DIOXIDE LEVEL 23.0 MMOL/L (20-31); CHLORIDE LEVEL 103.0 MMOL/L (98-107); CREATININE FOR GFR 1.56 MG/DL (0.55-1.30); GLOMERULAR FILTRATION RATE 35.3 (>39); MAGNESIUM LEVEL 1.8 MG/DL (1.8-2.4); POTASSIUM SERUM 4.2 MMOL/L (3.5-5.1); SODIUM LEVEL 140.0 MMOL/L (136-145)
[2025-03-08] MEDS ORDERED: CEFD300C PO (10:15)
[2025-03-08] MEDS ORDERED: DOXY-440 PO (10:18)
== END 2025-03-08 11:17 | disposition home or self-care (01) | DRG 656 ==
LOC: M ED 15:11 → M ED INP 22:37 → M MSPAV 03-02 00:25
PROVIDERS: ADMIT Student in an Organized Health Care Education/Training Program; ATTEND Student in an Organized Health Care Education/Training Program
PROC: 30233N1 Transfusion of Nonautologous Red Blood Cells into Peripheral Vein, Percutaneous Approach (ICD-10-PCS; 2025-03-03)
PROC: 0T768DZ Dilation of Right Ureter with Intraluminal Device, Via Natural or Artificial Opening Endoscopic (ICD-10-PCS; principal; 2025-03-03 12:30)
DX: C66.1 Malignant neoplasm of right ureter (principal); J18.9 Pneumonia, unspecified organism; G93.41 Metabolic encephalopathy; N17.9 Acute kidney failure, unspecified; N39.0 Urinary tract infection, site not specified; Z94.84 Stem cells transplant status; J44.9 Chronic obstructive pulmonary disease, unspecified; E03.9 Hypothyroidism, unspecified; N18.30 Chronic kidney disease, stage 3 unspecified; F32.A Depression, unspecified; D50.9 Iron deficiency anemia, unspecified; K21.9 Gastro-esophageal reflux disease without esophagitis; M19.90 Unspecified osteoarthritis, unspecified site; H91.90 Unspecified hearing loss, unspecified ear; F41.9 Anxiety disorder, unspecified; I12.9 Hypertensive chronic kidney disease with stage 1 through stage 4 chronic kidney disease, or unspecified chronic kidney disease; R16.1 Splenomegaly, not elsewhere classified; R31.0 Gross hematuria; Z85.72 Personal history of non-Hodgkin lymphomas; Z98.41 Cataract extraction status, right eye; Z98.42 Cataract extraction status, left eye; Z66 Do not resuscitate; Z79.899 Other long term (current) drug therapy; Z88.2 Allergy status to sulfonamides; Z91.040 Latex allergy status; Z88.8 Allergy status to other drugs, medicaments and biological substances; Z79.890 Hormone replacement therapy

== ENCOUNTER → 2025-03-18 | Outpatient (REF) | payer MEDICARE ==
[~2025-03-18] MED LIST changes: +CEFD300C PO; +DOXY-440 PO; +DULO60CA35 PO
== END ==
LOC: M SFHCPLAZ 11:56
PROVIDERS: ATTEND Nurse Practitioner Adult Health
DX: R19.7 Diarrhea, unspecified (principal)

== ENCOUNTER → 2025-04-06 | Outpatient (CLI) | payer MEDICARE | LOC: M PLARAD 08:11 | PROVIDERS: ATTEND Specialist | DX: C82.98 Follicular lymphoma, unspecified, lymph nodes of multiple sites (principal) | CPT/HCPCS: 78815; A9552 ==

== ENCOUNTER → 2025-04-07 | Outpatient (REF) | payer MEDICARE ==
[2025-04-07 19:03] LABS: APPEARANCE, URINE CLOUDY (CLEAR); BACTERIA, URINE AUTO NEGATIVE (NEGATIVE); BILIRUBIN, URINE AUTO NEGATIVE (NEGATIVE); BLOOD, URINE BLOOD 2+ (NEGATIVE); GLUCOSE, URINE (UA) AUTO NEGATIVE (NEGATIVE); KETONE, URINE AUTO NEGATIVE (NEGATIVE); LEUKOCYTE ESTERASE, URINE AUTO 3+ (NEGATIVE); NITRITE, URINE AUTO NEGATIVE (NEGATIVE); PROTEIN, URINE AUTO 3+ mg/dL (NEGATIVE); RBC, URINE AUTO 36 /HPF (0-3); SPECIFIC GRAVITY URINE AUTO 1.014 (1.002-1.035); SQUAMOUS EPITHELIAL CELL UR AU 3 /HPF (0-6); UROBILINOGEN, URINE AUTO 0.2 mg/dL (0.0-2.0); WBC, URINE AUTO TNTC /HPF (0-3); YEAST LIKE CELL URINE AUTO SMALL
== END ==
LOC: M SMT 17:28
PROVIDERS: ATTEND Physician Assistant
DX: Z01.818 Encounter for other preprocedural examination (principal); Z79.899 Other long term (current) drug therapy

== ENCOUNTER 2025-04-09 10:45 | Day surgery (SDC) | payer MEDICARE ==
[~2025-04-09] VITALS: Ht 157.5 cm; Wt 67.6 kg
[~2025-04-09 10:45] MED LIST changes: +LR 1,000 ML IV SCH
[2025-04-09] MEDS: ceFAZolin SOD 2 GM IV ONCE IV ONE (14:06)
[2025-04-09] MEDS: ISOVUE-300 61% 100 ML VIAL As Ordered ONE (14:16)
[2025-04-09] MEDS ORDERED: ALBUTEROL SULFATE 2.5 MG/0.5 ML INH CONCENTRATE NEB SOLN INH ONE (14:55)
[2025-04-09] MEDS ORDERED: HYDROMORPHONE HCL 0.5 MG/0.5 ML SYRINGE IV PRN (14:55)
[2025-04-09] MEDS ORDERED: LR 1,000 ML IV SCH (14:55)
[2025-04-09 15:45] VITALS: BP 113/55; TEMP 97.8; O2SAT 96
[2025-04-10] MEDS ORDERED: HEPARIN SOD 5000 UNITS/ML 1 ML VIAL/SYRINGE SC SCH ×2 (03:05→03:30)
[2025-04-10] MEDS ORDERED: MAALOX 30 ML SUSP *UDC PO PRN ×2 (03:05→03:30)
[2025-04-10] MEDS ORDERED: ACETAMINOPHEN 325 MG TAB PO PRN ×2 (03:05→03:30)
[2025-04-10] MEDS ORDERED: SODIUM CHLORIDE 0.9% 1000 ML IV SCH (03:05)
[2025-04-10] MEDS ORDERED: MOM 30 ML SUSPENSION UDC PO PRN ×2 (03:05→03:30)
[2025-04-10] MEDS ORDERED: cefTRIAXone SOD 1 GM in DEXTROSE 5% (D5W) ADV/MINI-BAG 50 ML IV SCH (03:25)
[2025-04-10] MEDS ORDERED: CIPR500T39 PO (04:36)
[2025-04-10] MEDS ORDERED: LEVOTHYROXINE 75 MCG TABLET (0.075 MG) PO SCH (06:00)
[2025-04-10] MEDS ORDERED: LEVOTHYROXINE 100 MCG TABLET (0.1 MG) PO SCH (06:00)
[2025-04-10] MEDS ORDERED: PYRIDOXINE 50 MG TAB PO SCH (09:00)
[2025-04-10] MEDS ORDERED: DOCUSATE SODIUM 100 MG CAPSULE PO SCH ×2 (09:00)
[2025-04-10] MEDS ORDERED: SERTRALINE HCL 50 MG TAB PO SCH (09:00)
[2025-04-10] MEDS ORDERED: PANTOPRAZOLE 40MG VIAL IV SCH (09:00)
[2025-04-10] MEDS ORDERED: PRIMIDONE 50MG TAB PO SCH (09:00)
== END 2025-04-09 16:06 | disposition home or self-care (01) ==
LOC: M SDC 10:45 → M ED INP 04-10 03:04 → UNDOADMIN 04-10 03:04
PROVIDERS: ATTEND Urology
DX: C67.9 Malignant neoplasm of bladder, unspecified (principal); E78.5 Hyperlipidemia, unspecified; E03.9 Hypothyroidism, unspecified; J44.9 Chronic obstructive pulmonary disease, unspecified; D64.9 Anemia, unspecified; K21.9 Gastro-esophageal reflux disease without esophagitis; M79.7 Fibromyalgia; Z79.51 Long term (current) use of inhaled steroids; Z92.3 Personal history of irradiation; Z92.21 Personal history of antineoplastic chemotherapy; Z79.899 Other long term (current) drug therapy

== ENCOUNTER 2025-04-09 22:45 | Inpatient (IN) | payer MEDICARE ==
[~2025-04-09] VITALS: Ht 160 cm; Wt 75.2 kg
[~2025-04-09 22:45] MED LIST changes: -LR 1,000 ML IV SCH
[2025-04-09] MEDS: NS (Normal Saline) 0.9% 1,000 ML IV ONE (23:42)
[2025-04-09] MEDS: ACETAMINOPHEN *IV* 1,000 MG in IV 1 EA IV ONE (23:43)
[2025-04-09] MEDS: PIPERACILLIN/TAZOBACTAM SOD 4.5 GM in DEXTROSE 5% (D5W) ADV/MINI-BAG 50 ML IV ONE (23:43)
[2025-04-09 23:53] LABS: ALT/SGPT 14.0 U/L (7.0-40); AST/SGOT 22.0 U/L (<34); CALCIUM LEVEL 8.0 MG/DL (8.3-10.6); CARBON DIOXIDE LEVEL 24.0 MMOL/L (20-31); CHLORIDE LEVEL 106.0 MMOL/L (98-107); CREATININE FOR GFR 1.32 MG/DL (0.55-1.30); GLOMERULAR FILTRATION RATE 43.2 (>39); POTASSIUM SERUM 4.4 MMOL/L (3.5-5.1); SODIUM LEVEL 142.0 MMOL/L (136-145)
[2025-04-10] VITALS (63 sets, daily range): BP systolic 117–179; BP diastolic 58–80; TEMP 97.6–103.9; O2SAT 88–100
[2025-04-10 00:27] LABS: PLATELET COUNT, AUTOMATED 98 10^3/uL (150-450)
[2025-04-10 00:54] LABS: KETONE, URINE AUTO RFX NEGATIVE (NEGATIVE); NITRITE, URINE AUTO RFX NEGATIVE (NEGATIVE); RBC, URINE AUTO RFX TNTC /HPF (0-3); SQUAM EPITHELIAL CELL UR AURFX 1 /HPF (0-6)
[2025-04-10 00:56] LABS: LEUKOCYTE ESTERASE UR AUTO RFX 2+ (NEGATIVE); WBC, URINE AUTO RFX TNTC /HPF (0-3)
[2025-04-10 01:08] LABS: ATYPICAL LYMPH 5 % (0-5); BASOPHILS 1 % (0-1); LYMPHOCYTES 17 % (16-44); METAMYELOCYTES 7 % (0-0); MONOCYTES 7 % (0-5); MYELOCYTES 4 % (0-0); NEUTROPHILS 51 % (28-66)
[2025-04-10 01:10] LABS: PLATELET ESTIMATE DECREASED (NORMAL)
[2025-04-10] MEDS: NS (Normal Saline) 0.9% 1,000 ML IV ONE ×2 (02:54→12:24)
[2025-04-10 04:09] LABS: BASO # 0.1 10^3/uL (0.0-0.2); BASO % 0.9 % (0.0-1.0); EOS # 0.1 10^3/uL (0.0-0.5); EOS % 0.8 % (0.0-3.0); LYMPH # 1.4 10^3/uL (1.5-5.0); LYMPH % 13.7 % (24.0-44.0); MONO # 1.3 10^3/uL (0.0-0.8); MONO % 12.6 % (2.0-8.0); NEUTROPHILS # 5.5 10^3/uL (1.5-8.5); NEUTROPHILS % 55.9 % (36.0-66.0); PLATELET COUNT, AUTOMATED 100 10^3/uL (150-450)
[2025-04-10] MEDS ORDERED: CIPR500T39 PO (04:36)
[2025-04-10] MEDS ORDERED: HOME MED LIST COMPLETE! XX SCH (04:40)
[2025-04-10] MEDS ORDERED: MAALOX 30 ML SUSP *UDC PO PRN (05:10)
[2025-04-10] MEDS ORDERED: MOM 30 ML SUSPENSION UDC PO PRN (05:10)
[2025-04-10] MEDS: LEVOTHYROXINE 100 MCG TABLET (0.1 MG) PO SCH (05:43)
[2025-04-10] MEDS: cefTRIAXone SOD 1 GM in DEXTROSE 5% (D5W) ADV/MINI-BAG 50 ML IV SCH (05:43)
[2025-04-10] MEDS: LEVOTHYROXINE 75 MCG TABLET (0.075 MG) PO SCH (05:43)
[2025-04-10] MEDS: NS (Normal Saline) 0.9% 1,000 ML IV SCH (06:10)
[2025-04-10 06:40] LABS: PLATELET COUNT, AUTOMATED 103 10^3/uL (150-450)
[2025-04-10 07:23] LABS: ALT/SGPT 25.0 U/L (7.0-40); AST/SGOT 41.0 U/L (<34); CALCIUM LEVEL 7.9 MG/DL (8.3-10.6); CARBON DIOXIDE LEVEL 20.0 MMOL/L (20-31); CHLORIDE LEVEL 108.0 MMOL/L (98-107); CREATININE FOR GFR 1.31 MG/DL (0.55-1.30); GLOMERULAR FILTRATION RATE 43.6 (>39); MAGNESIUM LEVEL 1.5 MG/DL (1.8-2.4); POTASSIUM SERUM 4.6 MMOL/L (3.5-5.1); SODIUM LEVEL 142.0 MMOL/L (136-145)
[2025-04-10] MEDS ORDERED: HEPARIN SOD 5000 UNITS/ML 1 ML VIAL/SYRINGE SC SCH (09:00)
[2025-04-10] MEDS: PYRIDOXINE 50 MG TAB PO SCH (09:28)
[2025-04-10] MEDS: PANTOPRAZOLE 40MG VIAL IV SCH (09:28)
[2025-04-10] MEDS: PRIMIDONE 50MG TAB PO SCH (09:28)
[2025-04-10] MEDS: DOCUSATE SODIUM 100 MG CAPSULE PO SCH (09:28)
[2025-04-10] MEDS: ACETAMINOPHEN 325 MG TAB PO PRN (11:46)
[2025-04-10] MEDS: MAG SULF 1GM/100ML (MAG RUN) 1 GM in IV 1 EA IV ONE (13:29)
[2025-04-10] MEDS: FUROSEMIDE 40 MG/4 ML VIAL IV ONE (16:24)
[2025-04-10] MEDS ORDERED: ISOVUE-370 76% 100 ML VIAL As Ordered ONE (16:35)
[2025-04-10] MEDS ORDERED: IPRATROPIUM 0.5 MG/2.5 ML (0.02%) SOLN NEB INH PRN (16:50)
[2025-04-10] MEDS ORDERED: LEVALBUTEROL 1.25 MG 0.5ML CONCENTRATE NEB INH PRN (16:50)
[2025-04-10 16:52] LABS: ABG BASE EXCESS -4.4 (-2.0-2.0); ABG HCO3 19.6 MMOL/L (22.0-26.0); ABG O2 SATURATION 93.1 % (95.0-99.0); ABG PARTIAL PRESSURE CO2 32.2 mmHg (35.0-45.0); ABG PARTIAL PRESSURE O2 67.6 mmHg (75.0-100.0); ABG STANDARD HCO3 20.7 MMOL/L. (22.0-26.0); ABG TOTAL CO2 20.6 MMOL/L (23.0-31.0); ABG pH (ARTERIAL) 7.402 UNITS (7.350-7.450)
[2025-04-10] MEDS: FUROSEMIDE 20 MG/2 ML VIAL IV ONE (17:20)
[2025-04-10] MEDS: IPRATROPIUM 0.5 MG/ALBUTEROL 2.5 MG INH SOL UD 3 ML NEB SCH (17:24)
[2025-04-10] MEDS: PIPERACILLIN/TAZOBACTAM SOD 4.5 GM in DEXTROSE 5% (D5W) ADV/MINI-BAG 50 ML IV SCH (17:25)
[2025-04-10] MEDS ORDERED: VANCOMYCIN HCL 1,000 MG in IV FLUID PLACE HOLDER 1 EA IV SCH (17:35)
[2025-04-10 17:53] LABS: INR 1.15
[2025-04-10 17:55] LABS: BASO # 0.1 10^3/uL (0.0-0.2); BASO % 1.3 % (0.0-1.0); EOS # 0.1 10^3/uL (0.0-0.5); EOS % 0.6 % (0.0-3.0); LYMPH # 1.0 10^3/uL (1.5-5.0); LYMPH % 9.7 % (24.0-44.0); MONO # 1.3 10^3/uL (0.0-0.8); MONO % 12.5 % (2.0-8.0); NEUTROPHILS # 6.4 10^3/uL (1.5-8.5); NEUTROPHILS % 59.0 % (36.0-66.0)
[2025-04-10 18:03] LABS: PLATELET COUNT, AUTOMATED 90 10^3/uL (150-450)
[2025-04-10 18:03] LABS: CALCIUM LEVEL 7.6 MG/DL (8.3-10.6); CARBON DIOXIDE LEVEL 24.0 MMOL/L (20-31); CHLORIDE LEVEL 106.0 MMOL/L (98-107); CREATININE FOR GFR 1.29 MG/DL (0.55-1.30); GLOMERULAR FILTRATION RATE 44.4 (>39); MAGNESIUM LEVEL 1.6 MG/DL (1.8-2.4); PHOSPHORUS LEVEL 3.7 MG/DL (2.4-5.1); POTASSIUM SERUM 3.8 MMOL/L (3.5-5.1); SODIUM LEVEL 140.0 MMOL/L (136-145)
[2025-04-10] MEDS: IPRATROPIUM 0.5 MG/2.5 ML (0.02%) SOLN NEB INH SCH (19:05)
[2025-04-10] MEDS: LEVALBUTEROL 1.25 MG 0.5ML CONCENTRATE NEB INH SCH (19:05)
[2025-04-10] MEDS: VANCOMYCIN HCL 1,500 MG, VIAL MATE ADAPTER 1 EACH in NS 500 ML IV ONE (19:07)
[2025-04-11] VITALS (49 sets, daily range): BP systolic 138–149; BP diastolic 71–80; TEMP 97.2–99.1; O2SAT 87–97
[2025-04-11 00:45] LABS: PLATELET COUNT, AUTOMATED 82 10^3/uL (150-450)
[2025-04-11] MEDS: CALCIUM GLUCONATE 1,000 MG in DEXTROSE 5% (D5W) MINI-BAG PLU 100 ML IV ONE ×2 (05:16→17:20)
[2025-04-11] MEDS: MAG SULF 1GM/100ML (MAG RUN) 1 GM in IV 1 EA IV ONE ×2 (05:26→17:20)
[2025-04-11] MEDS: FUROSEMIDE 40 MG/4 ML VIAL IV ONE (05:34)
[2025-04-11 05:40] LABS: BASO # 0.2 10^3/uL (0.0-0.2); BASO % 1.3 % (0.0-1.0); EOS # 0.1 10^3/uL (0.0-0.5); EOS % 0.5 % (0.0-3.0); LYMPH # 1.7 10^3/uL (1.5-5.0); LYMPH % 13.3 % (24.0-44.0); MONO # 1.2 10^3/uL (0.0-0.8); MONO % 9.5 % (2.0-8.0); NEUTROPHILS # 7.2 10^3/uL (1.5-8.5); NEUTROPHILS % 55.2 % (36.0-66.0)
[2025-04-11 05:41] LABS: PLATELET COUNT, AUTOMATED 89 10^3/uL (150-450)
[2025-04-11 06:07] LABS: VANCOMYCIN RANDOM 18.8 UG/ML
[2025-04-11 06:09] LABS: CALCIUM LEVEL 7.9 MG/DL (8.3-10.6); CARBON DIOXIDE LEVEL 26.0 MMOL/L (20-31); CHLORIDE LEVEL 104.0 MMOL/L (98-107); CREATININE FOR GFR 1.32 MG/DL (0.55-1.30); GLOMERULAR FILTRATION RATE 43.2 (>39); POTASSIUM SERUM 3.3 MMOL/L (3.5-5.1); SODIUM LEVEL 143.0 MMOL/L (136-145)
[2025-04-11] MEDS ORDERED: VANCOMYCIN HCL 500 MG in DEXTROSE 5% (D5W) MINI-BAG PLU 100 ML IV SCH (08:00)
[2025-04-11 11:12] LABS: C REACTIVE PROTEIN QUANTITATIV 20.89 MG/DL (<1.0)
[2025-04-11] MEDS: POTASSIUM CHLORIDE 10MEQ SR TABLET PO ONE ×2 (12:07→17:21)
[2025-04-11] MEDS: D5W/LR 1,000 ML IV SCH (15:34)
[2025-04-11] MEDS: VANCOMYCIN HCL 750 MG, VIAL MATE ADAPTER 1 EACH in NS 250 ML IV SCH (15:34)
[2025-04-11 16:53] LABS: CALCIUM LEVEL 7.9 MG/DL (8.3-10.6); CARBON DIOXIDE LEVEL 26.0 MMOL/L (20-31); CHLORIDE LEVEL 101.0 MMOL/L (98-107); CREATININE FOR GFR 1.36 MG/DL (0.55-1.30); GLOMERULAR FILTRATION RATE 41.7 (>39); MAGNESIUM LEVEL 1.9 MG/DL (1.8-2.4); POTASSIUM SERUM 2.9 MMOL/L (3.5-5.1); SODIUM LEVEL 140.0 MMOL/L (136-145)
[2025-04-11] MEDS: POTASSIUM CHLORIDE 10MEQ SR TABLET PO SCH (21:16)
[2025-04-12] VITALS (18 sets, daily range): BP systolic 121–138; BP diastolic 60–71; TEMP 96.8–97.9; O2SAT 18–100
[2025-04-12 05:39] LABS: PLATELET COUNT, AUTOMATED 116 10^3/uL (150-450)
[2025-04-12 06:13] LABS: CALCIUM LEVEL 7.9 MG/DL (8.3-10.6); CARBON DIOXIDE LEVEL 25.0 MMOL/L (20-31); CHLORIDE LEVEL 103.0 MMOL/L (98-107); CREATININE FOR GFR 1.23 MG/DL (0.55-1.30); GLOMERULAR FILTRATION RATE 47.0 (>39); POTASSIUM SERUM 4.0 MMOL/L (3.5-5.1); SODIUM LEVEL 139.0 MMOL/L (136-145)
[2025-04-12 06:26] LABS: ATYPICAL LYMPH 10 % (0-5); BASOPHILS 7 % (0-1); EOSINOPHILS 4 % (0-3); LYMPHOCYTES 5 % (16-44); METAMYELOCYTES 3 % (0-0); MONOCYTES 5 % (0-5); MYELOCYTES 3 % (0-0); NEUTROPHILS 56 % (28-66); PLATELET ESTIMATE DECREASED (NORMAL)
[2025-04-12 12:24] LABS: LDH LACTATE DEHYDROGENASE 671.0 U/L (120-246)
[2025-04-12 12:57] LABS: ALT/SGPT 12.0 U/L (7.0-40); AST/SGOT 23.0 U/L (<34)
[2025-04-12 17:20] LABS: IRON (FE) 14.0 UG/DL (50-170); PERCENT SATURATION 7.1 % (13.2-45.0)
[2025-04-13 04:15] VITALS: BP 129/60; TEMP 97.3; O2SAT 98
[2025-04-13 05:23] LABS: BASO # 0.3 10^3/uL (0.0-0.2); BASO % 1.7 % (0.0-1.0); EOS # 0.1 10^3/uL (0.0-0.5); EOS % 0.7 % (0.0-3.0); LYMPH # 2.3 10^3/uL (1.5-5.0); LYMPH % 15.0 % (24.0-44.0); MONO # 0.9 10^3/uL (0.0-0.8); MONO % 5.9 % (2.0-8.0); NEUTROPHILS # 9.3 10^3/uL (1.5-8.5); NEUTROPHILS % 60.8 % (36.0-66.0)
[2025-04-13 05:28] LABS: PLATELET COUNT, AUTOMATED 99 10^3/uL (150-450)
[2025-04-13 05:47] LABS: CALCIUM LEVEL 8.0 MG/DL (8.3-10.6); CARBON DIOXIDE LEVEL 23.0 MMOL/L (20-31); CHLORIDE LEVEL 103.0 MMOL/L (98-107); CREATININE FOR GFR 1.2 MG/DL (0.55-1.30); GLOMERULAR FILTRATION RATE 48.4 (>39); POTASSIUM SERUM 4.6 MMOL/L (3.5-5.1); SODIUM LEVEL 137.0 MMOL/L (136-145)
[2025-04-13 07:21] VITALS: BP 146/70; TEMP 97; O2SAT 96
[2025-04-13 15:36] VITALS: BP 134/73; TEMP 97.1; O2SAT 98
[2025-04-14 05:57] LABS: BASO # 0.3 10^3/uL (0.0-0.2); BASO % 1.7 % (0.0-1.0); EOS # 0.1 10^3/uL (0.0-0.5); EOS % 0.8 % (0.0-3.0); LYMPH # 2.5 10^3/uL (1.5-5.0); LYMPH % 16.6 % (24.0-44.0); MONO # 0.8 10^3/uL (0.0-0.8); MONO % 5.5 % (2.0-8.0); NEUTROPHILS # 8.5 10^3/uL (1.5-8.5); NEUTROPHILS % 57.2 % (36.0-66.0); PLATELET COUNT, AUTOMATED 112 10^3/uL (150-450)
[2025-04-14 06:27] LABS: CALCIUM LEVEL 8.2 MG/DL (8.3-10.6); CARBON DIOXIDE LEVEL 23.0 MMOL/L (20-31); CHLORIDE LEVEL 102.0 MMOL/L (98-107); CREATININE FOR GFR 1.21 MG/DL (0.55-1.30); GLOMERULAR FILTRATION RATE 47.9 (>39); POTASSIUM SERUM 5.4 MMOL/L (3.5-5.1); SODIUM LEVEL 134.0 MMOL/L (136-145)
[2025-04-14 07:18] VITALS: BP 116/72; TEMP 97.2; O2SAT 96
[2025-04-14] MEDS: PATIROMER SORBITEX CALCIUM 8.4GM POWDER PACKET PO ONE (09:51)
[2025-04-14] MEDS: FUROSEMIDE 40 MG/4 ML VIAL IV ONE (09:54)
[2025-04-14 12:00] VITALS: BP 142/65; TEMP 97; O2SAT 99
[2025-04-14 12:30] LABS: CALCIUM LEVEL 8.7 MG/DL (8.3-10.6); CARBON DIOXIDE LEVEL 25.0 MMOL/L (20-31); CHLORIDE LEVEL 98.0 MMOL/L (98-107); CREATININE FOR GFR 1.25 MG/DL (0.55-1.30); GLOMERULAR FILTRATION RATE 46.1 (>39); POTASSIUM SERUM 5.1 MMOL/L (3.5-5.1); SODIUM LEVEL 132.0 MMOL/L (136-145)
[2025-04-14 12:58] VITALS: BP 139/66
[2025-04-14] MEDS: FUROSEMIDE 20 MG/2 ML VIAL IV ONE (12:58)
[2025-04-14 13:59] VITALS: BP 158/69
[2025-04-14] MEDS ORDERED: FERR324T21 PO (14:39)
[2025-04-15 15:17] LABS: BORRELIA SPECIES DNA NOT DETECTED (NOT DETECT)
== END 2025-04-14 16:06 | disposition home or self-care (01) | DRG 872 ==
LOC: M ED 22:45 → M ED INP 04-10 03:04 → UNDOADMIN 04-10 03:42 → M PCU 04-10 05:08
PROVIDERS: ADMIT Student in an Organized Health Care Education/Training Program; ATTEND Student in an Organized Health Care Education/Training Program
PROC: 30233N1 Transfusion of Nonautologous Red Blood Cells into Peripheral Vein, Percutaneous Approach (ICD-10-PCS; principal; 2025-04-10)
DX: A41.9 Sepsis, unspecified organism (principal); D62 Acute posthemorrhagic anemia; C64.9 Malignant neoplasm of unspecified kidney, except renal pelvis; Z94.2 Lung transplant status; N39.0 Urinary tract infection, site not specified; E83.42 Hypomagnesemia; N18.30 Chronic kidney disease, stage 3 unspecified; E83.51 Hypocalcemia; D69.6 Thrombocytopenia, unspecified; E03.9 Hypothyroidism, unspecified; R74.01 Elevation of levels of liver transaminase levels; K21.9 Gastro-esophageal reflux disease without esophagitis; N13.9 Obstructive and reflux uropathy, unspecified; R16.1 Splenomegaly, not elsewhere classified; R29.6 Repeated falls; J44.9 Chronic obstructive pulmonary disease, unspecified; D50.9 Iron deficiency anemia, unspecified; F32.A Depression, unspecified; E87.5 Hyperkalemia; F41.9 Anxiety disorder, unspecified; Z66 Do not resuscitate; I27.20 Pulmonary hypertension, unspecified; Z79.899 Other long term (current) drug therapy; Z79.890 Hormone replacement therapy

== ENCOUNTER 2025-04-18 14:07 | Emergency (ER) | payer MEDICARE ==
[~2025-04-18] VITALS: Ht 162.6 cm; Wt 67.1 kg
[~2025-04-18 14:07] MED LIST changes: +CIPR500T39 PO; +FERR324T21 PO
[2025-04-18 15:54] LABS: PLATELET COUNT, AUTOMATED 152 10^3/uL (150-450)
[2025-04-18 15:57] LABS: KETONE, URINE AUTO RFX NEGATIVE (NEGATIVE); MUCUS, URINE RFX SMALL (NEGATIVE); NITRITE, URINE AUTO RFX NEGATIVE (NEGATIVE); RBC, URINE AUTO RFX 29 /HPF (0-3); SQUAM EPITHELIAL CELL UR AURFX 1 /HPF (0-6); YEAST LIKE CELL URINE AUTO RFX SMALL
[2025-04-18 16:02] LABS: LEUKOCYTE ESTERASE UR AUTO RFX 3+ (NEGATIVE); WBC, URINE AUTO RFX TNTC /HPF (0-3)
[2025-04-18 16:06] LABS: CALCIUM LEVEL 7.7 MG/DL (8.3-10.6); CARBON DIOXIDE LEVEL 24.0 MMOL/L (20-31); CHLORIDE LEVEL 103.0 MMOL/L (98-107); CREATININE FOR GFR 1.19 MG/DL (0.55-1.30); GLOMERULAR FILTRATION RATE 48.9 (>39); POTASSIUM SERUM 4.7 MMOL/L (3.5-5.1); SODIUM LEVEL 139.0 MMOL/L (136-145)
[2025-04-18 16:36] LABS: ATYPICAL LYMPH 1 % (0-5); BASOPHILS 2 % (0-1); LYMPHOCYTES 19 % (16-44); METAMYELOCYTES 3 % (0-0); MONOCYTES 7 % (0-5); MYELOCYTES 6 % (0-0); NEUTROPHILS 53 % (28-66); NUCLEATED RED BLOOD CELL 1 % (0-0)
[2025-04-18 16:38] LABS: PLATELET ESTIMATE NORMAL (NORMAL)
[2025-04-18] MEDS ORDERED: LOTR1CRE12 TOP (18:09)
[2025-04-18] MEDS: FLUCONAZOLE 50 MG TABLET PO ONE (18:13)
[2025-04-18 18:25] VITALS: BP 147/76; TEMP 97; O2SAT 97
== END 2025-04-18 18:26 | disposition home or self-care (01) ==
LOC: M ED 14:07
DX: B35.6 Tinea cruris (principal); J44.9 Chronic obstructive pulmonary disease, unspecified; K21.9 Gastro-esophageal reflux disease without esophagitis; N18.30 Chronic kidney disease, stage 3 unspecified; Z79.52 Long term (current) use of systemic steroids; Z79.899 Other long term (current) drug therapy

== ENCOUNTER → 2025-05-04 | Outpatient (CLI) | payer MEDICARE ==
[~2025-05-04] VITALS: Ht 157.5 cm; Wt 65.5 kg
[~2025-05-04] MED LIST changes: +LOTR1CRE12 TOP; +SERT50TA29
[2025-05-04 13:15] VITALS: BP 144/77; O2SAT 97
== END ==
LOC: M PAL 12:44
PROVIDERS: ATTEND Physician Assistant
DX: Z51.5 Encounter for palliative care (principal); Z66 Do not resuscitate; D52.0 Dietary folate deficiency anemia; C82.90 Follicular lymphoma, unspecified, unspecified site; C64.9 Malignant neoplasm of unspecified kidney, except renal pelvis; Z79.891 Long term (current) use of opiate analgesic; J44.9 Chronic obstructive pulmonary disease, unspecified; Z79.899 Other long term (current) drug therapy

== ENCOUNTER 2025-05-09 08:55 | Inpatient (IN) | payer MEDICARE ==
[~2025-05-09] VITALS: Ht 160 cm; Wt 71.4 kg
[~2025-05-09 08:55] MED LIST changes: -EZET10TA21 PO; +EZET10TA57 PO; +METH-1100 PO; -METH-855 PO; -SERT50TA29
[2025-05-09] MEDS: LIDOCAINE 2% 5 ML JELLY UROJET TOP ONE ×2 (09:10→09:25)
[2025-05-09 09:16] LABS: VENOUS BASE EXCESS -1.9 (-2.0-2.0); VENOUS HCO3 22.6 MMOL/L (23.0-27.0); VENOUS O2 SATURATION 79.4 % (60.0-80.0); VENOUS PARTIAL PRESSURE CO2 36.7 mmHg (38.0-50.0); VENOUS PARTIAL PRESSURE O2 45.0 mmHg (30.0-50.0); VENOUS PH 7.407 UNITS (7.330-7.430); VENOUS STANDARD HCO3 22.7 MMOL/L; VENOUS TOTAL CO2 23.7 MMOL/L (24.0-28.0)
[2025-05-09 09:22] LABS: PLATELET COUNT, AUTOMATED 229 10^3/uL (150-450)
[2025-05-09] MEDS: NS (Normal Saline) 0.9% 1,000 ML IV ONE ×3 (09:34→17:17)
[2025-05-09] MEDS: ACETAMINOPHEN *IV* 1,000 MG in IV 1 EA IV ONE ×2 (09:35→17:17)
[2025-05-09] MEDS: PIPERACILLIN/TAZOBACTAM SOD 4.5 GM in DEXTROSE 5% (D5W) ADV/MINI-BAG 50 ML IV ONE (09:54)
[2025-05-09 09:55] LABS: CK-MB VALUE MASS < 1.0 NG/ML (<3.6)
[2025-05-09 09:57] LABS: ETHYL ALCOHOL (ETHANOL) < 0.003 % (0.000-0.010)
[2025-05-09 09:58] LABS: CPK CREATINE PHOSPHOKINASE < 15 U/L (34-145)
[2025-05-09 09:59] LABS: ALT/SGPT 18 U/L (7.0-40); AST/SGOT 27 U/L (<34); CALCIUM LEVEL 8.3 MG/DL (8.3-10.6); CARBON DIOXIDE LEVEL 22 MMOL/L (20-31); CHLORIDE LEVEL 99 MMOL/L (98-107); CREATININE FOR GFR 1.59 MG/DL (0.55-1.30); GLOMERULAR FILTRATION RATE 34.5 (>39); MAGNESIUM LEVEL 1.7 MG/DL (1.8-2.4); POTASSIUM SERUM 4.3 MMOL/L (3.5-5.1); SALICYLATE LEVEL < 3.0 MG/DL (<30); SODIUM LEVEL 135 MMOL/L (136-145)
[2025-05-09 10:02] LABS: ATYPICAL LYMPH 3 % (0-5); BLAST CELLS 2 % (0-0); LYMPHOCYTES 9 % (16-44); METAMYELOCYTES 6 % (0-0); MONOCYTES 6 % (0-5); MYELOCYTES 2 % (0-0); NEUTROPHILS 63 % (28-66)
[2025-05-09 10:06] LABS: C REACTIVE PROTEIN QUANTITATIV 10.49 MG/DL (<1.0)
[2025-05-09 10:07] LABS: INR 1.16
[2025-05-09 10:10] LABS: PLATELET ESTIMATE NORMAL (NORMAL)
[2025-05-09 10:12] LABS: KETONE, URINE AUTO RFX NEGATIVE (NEGATIVE); RBC, URINE AUTO RFX 68 /HPF (0-3); SQUAM EPITHELIAL CELL UR AURFX 7 /HPF (0-6)
[2025-05-09 10:18] LABS: AMPHETAMINES LEVEL URINE NEGATIVE (NEGATIVE); BENZODIAZEPINES URINE NEGATIVE (NEGATIVE); CANNABINOIDS URINE NEGATIVE (NEGATIVE); COCAINE METABOLITE URINE NEGATIVE (NEGATIVE); METHADONE URINE NEGATIVE (NEGATIVE); OPIATES URINE NEGATIVE (NEGATIVE); PHENCYCLIDINE URINE NEGATIVE (NEGATIVE)
[2025-05-09 10:19] LABS: LEUKOCYTE ESTERASE UR AUTO RFX 3+ (NEGATIVE); NITRITE, URINE AUTO RFX POSITIVE (NEGATIVE); WBC, URINE AUTO RFX TNTC /HPF (0-3)
[2025-05-09 10:21] LABS: BARBITURATES URINE POSITIVE (NEGATIVE)
[2025-05-09] MEDS ORDERED: FERR324T21 PO (10:29)
[2025-05-09] MEDS ORDERED: HOME MED LIST COMPLETE! XX SCH (10:30)
[2025-05-09] MEDS: MAG SULF 1GM/100ML (MAG RUN) 1 GM in IV 1 EA IV ONE ×2 (10:30→17:59)
[2025-05-09 10:44] LABS: CK-MB VALUE MASS < 1.0 NG/ML (<3.6)
[2025-05-09 10:47] LABS: CPK CREATINE PHOSPHOKINASE 17 U/L (34-145)
[2025-05-09] MEDS ORDERED: ALBUTEROL 90 MCG/ACT 8 GM HFA INHALER INH PRN (12:00)
[2025-05-09] MEDS: PRIMIDONE 50MG TAB PO SCH (13:17)
[2025-05-09] MEDS: PANTOPRAZOLE 40MG TAB PO SCH (13:17)
[2025-05-09] MEDS: FOLIC ACID 1 MG TAB PO SCH (13:17)
[2025-05-09] MEDS: FERROUS GLUCONATE 324 MG TAB PO SCH (13:17)
[2025-05-09] MEDS: CYANOCOBALAMIN 500 MCG TAB PO SCH (13:17)
[2025-05-09] MEDS: SERTRALINE HCL 50 MG TAB PO SCH (13:17)
[2025-05-09] MEDS: PYRIDOXINE 50 MG TAB PO SCH (13:17)
[2025-05-09 16:20] VITALS: BP 163/75; TEMP 100.8; O2SAT 94
[2025-05-09] MEDS: PIPERACILLIN/TAZOBACTAM SOD 3.375 GM in DEXTROSE 5% (D5W) ADV/MINI-BAG 50 ML IV SCH (16:45)
[2025-05-09 18:00] VITALS: TEMP 102.5; TEMP 103.5
[2025-05-09] MEDS ORDERED: PIPERACILLIN/TAZOBACTAM SOD 4.5 GM in DEXTROSE 5% (D5W) ADV/MINI-BAG 50 ML IV SCH (18:00)
[2025-05-09 19:25] VITALS: TEMP 101
[2025-05-09 19:51] VITALS: BP 106/52; O2SAT 96
[2025-05-09 21:20] VITALS: TEMP 99.4
[2025-05-09 23:51] VITALS: BP 115/56; TEMP 98.9; O2SAT 92
[2025-05-10] VITALS (14 sets, daily range): BP systolic 117–172; BP diastolic 56–93; TEMP 97.4–102.3; O2SAT 93–99
[2025-05-10] MEDS ORDERED: ACETAMINOPHEN *IV* 500 MG in IV 1 EA IV ONE (03:40)
[2025-05-10] MEDS: ACETAMINOPHEN *IV* 500 MG in IV 1 EA IV ONE (03:55)
[2025-05-10 08:31] LABS: BASO # 0.1 10^3/uL (0.0-0.2); BASO % 0.6 % (0.0-1.0); EOS # 0.0 10^3/uL (0.0-0.5); EOS % 0.2 % (0.0-3.0); LYMPH # 1.2 10^3/uL (1.5-5.0); LYMPH % 10.7 % (24.0-44.0); MONO # 1.2 10^3/uL (0.0-0.8); MONO % 11.5 % (2.0-8.0); NEUTROPHILS # 6.0 10^3/uL (1.5-8.5); NEUTROPHILS % 56.1 % (36.0-66.0); PLATELET COUNT, AUTOMATED 161 10^3/uL (150-450)
[2025-05-10 09:07] LABS: CALCIUM LEVEL 7.5 MG/DL (8.3-10.6); CARBON DIOXIDE LEVEL 21.0 MMOL/L (20-31); CHLORIDE LEVEL 105.0 MMOL/L (98-107); CREATININE FOR GFR 1.54 MG/DL (0.55-1.30); GLOMERULAR FILTRATION RATE 35.9 (>39); POTASSIUM SERUM 3.8 MMOL/L (3.5-5.1); SODIUM LEVEL 138.0 MMOL/L (136-145)
[2025-05-10] MEDS: ACETAMINOPHEN 500 MG TAB PO ONE (10:22)
[2025-05-11 03:20] VITALS: BP 153/78; TEMP 97; O2SAT 94
[2025-05-11 07:35] VITALS: BP 158/75; TEMP 98; O2SAT 94
[2025-05-11 08:33] LABS: BASO # 0.2 10^3/uL (0.0-0.2); BASO % 1.0 % (0.0-1.0); EOS # 0.1 10^3/uL (0.0-0.5); EOS % 0.3 % (0.0-3.0); LYMPH # 2.5 10^3/uL (1.5-5.0); LYMPH % 14.0 % (24.0-44.0); MONO # 1.3 10^3/uL (0.0-0.8); MONO % 7.3 % (2.0-8.0); NEUTROPHILS # 9.9 10^3/uL (1.5-8.5); NEUTROPHILS % 55.5 % (36.0-66.0); PLATELET COUNT, AUTOMATED 190 10^3/uL (150-450)
[2025-05-11 08:42] LABS: ERYTHROCYTE SEDIMENTATION RATE 78 mm/hr (0-30)
[2025-05-11 08:58] LABS: CALCIUM LEVEL 7.5 MG/DL (8.3-10.6); CARBON DIOXIDE LEVEL 23.0 MMOL/L (20-31); CHLORIDE LEVEL 103.0 MMOL/L (98-107); CREATININE FOR GFR 1.63 MG/DL (0.55-1.30); GLOMERULAR FILTRATION RATE 33.5 (>39); MAGNESIUM LEVEL 1.9 MG/DL (1.8-2.4); POTASSIUM SERUM 3.5 MMOL/L (3.5-5.1); SODIUM LEVEL 137.0 MMOL/L (136-145)
[2025-05-11 09:10] LABS: C REACTIVE PROTEIN QUANTITATIV 20.6 MG/DL (<1.0)
[2025-05-11] MEDS: POTASSIUM CHLORIDE 10MEQ SR TABLET PO ONE (13:37)
[2025-05-11] MEDS: CALCIUM GLUCONATE 1,000 MG in DEXTROSE 5% (D5W) MINI-BAG PLU 100 ML IV ONE (13:47)
[2025-05-11] MEDS: MAG SULF 1GM/100ML (MAG RUN) 1 GM in IV 1 EA IV ONE (13:47)
[2025-05-11 15:31] VITALS: BP 136/72; TEMP 98.1; O2SAT 98
[2025-05-11 19:38] VITALS: BP 128/66; TEMP 99; O2SAT 96
[2025-05-12] VITALS (9 sets, daily range): BP systolic 120–149; BP diastolic 60–71; TEMP 97.3–100.1; O2SAT 95–99
[2025-05-12] MEDS: ACETAMINOPHEN 500 MG TAB PO ONE (05:04)
[2025-05-12 11:21] LABS: BASO # 0.1 10^3/uL (0.0-0.2); BASO % 0.6 % (0.0-1.0); EOS # 0.1 10^3/uL (0.0-0.5); EOS % 0.4 % (0.0-3.0); LYMPH # 2.0 10^3/uL (1.5-5.0); LYMPH % 10.1 % (24.0-44.0); MONO # 1.8 10^3/uL (0.0-0.8); MONO % 9.5 % (2.0-8.0); NEUTROPHILS # 12.5 10^3/uL (1.5-8.5); NEUTROPHILS % 64.5 % (36.0-66.0)
[2025-05-12 11:27] LABS: PLATELET COUNT, AUTOMATED 174 10^3/uL (150-450)
[2025-05-12 11:33] LABS: ERYTHROCYTE SEDIMENTATION RATE 124 mm/hr (0-30)
[2025-05-12 11:45] LABS: CALCIUM LEVEL 8.1 MG/DL (8.3-10.6); CARBON DIOXIDE LEVEL 22.0 MMOL/L (20-31); CHLORIDE LEVEL 101.0 MMOL/L (98-107); CREATININE FOR GFR 1.51 MG/DL (0.55-1.30); GLOMERULAR FILTRATION RATE 36.7 (>39); POTASSIUM SERUM 5.5 MMOL/L (3.5-5.1); SODIUM LEVEL 134.0 MMOL/L (136-145)
[2025-05-12 11:51] LABS: C REACTIVE PROTEIN QUANTITATIV 13.57 MG/DL (<1.0)
[2025-05-12] MEDS: PATIROMER SORBITEX CALCIUM 8.4GM POWDER PACKET PO ONE (13:20)
[2025-05-12] MEDS: NS (Normal Saline) 0.9% 1,000 ML IV SCH (15:33)
[2025-05-12] MEDS: CALCIUM GLUCONATE 1,000 MG in DEXTROSE 5% (D5W) MINI-BAG PLU 100 ML IV ONE (15:34)
[2025-05-12 22:43] LABS: CALCIUM LEVEL 7.6 MG/DL (8.3-10.6); CARBON DIOXIDE LEVEL 22.0 MMOL/L (20-31); CHLORIDE LEVEL 103.0 MMOL/L (98-107); CREATININE FOR GFR 1.46 MG/DL (0.55-1.30); GLOMERULAR FILTRATION RATE 38.3 (>39); POTASSIUM SERUM 3.5 MMOL/L (3.5-5.1); SODIUM LEVEL 136.0 MMOL/L (136-145)
[2025-05-13 04:03] VITALS: BP 144/69; TEMP 97; O2SAT 96
[2025-05-13 05:44] LABS: PLATELET COUNT, AUTOMATED 158 10^3/uL (150-450)
[2025-05-13 06:06] LABS: CALCIUM LEVEL 7.7 MG/DL (8.3-10.6); CARBON DIOXIDE LEVEL 21.0 MMOL/L (20-31); CHLORIDE LEVEL 104.0 MMOL/L (98-107); CREATININE FOR GFR 1.46 MG/DL (0.55-1.30); GLOMERULAR FILTRATION RATE 38.3 (>39); POTASSIUM SERUM 3.3 MMOL/L (3.5-5.1); SODIUM LEVEL 137.0 MMOL/L (136-145)
[2025-05-13 06:25] LABS: ATYPICAL LYMPH 5 % (0-5); BASOPHILS 1 % (0-1); BLAST CELLS 2 % (0-0); LYMPHOCYTES 7 % (16-44); METAMYELOCYTES 8 % (0-0); MONOCYTES 4 % (0-5); MYELOCYTES 4 % (0-0); NEUTROPHILS 62 % (28-66)
[2025-05-13 06:31] LABS: PLATELET ESTIMATE NORMAL (NORMAL)
[2025-05-13 07:54] VITALS: BP 133/68; TEMP 98.4; O2SAT 98
[2025-05-13] MEDS ORDERED: ACETAMINOPHEN 325 MG TAB PO PRN (08:35)
[2025-05-13] MEDS ORDERED: CEFP200T PO (12:51)
[2025-05-13] MEDS ORDERED: BACI1CAP PO (12:52)
[2025-05-13] MEDS ORDERED: VITA500C24 PO (12:52)
[2025-05-13] MEDS ORDERED: COLA100C5 PO (12:52)
[2025-05-13] MEDS ORDERED: FERR324T21 PO (12:52)
[2025-05-13] MEDS: POTASSIUM CHLORIDE 10MEQ SR TABLET PO ONE (13:58)
== END 2025-05-13 15:31 | disposition home or self-care (01) | DRG 871 ==
LOC: M ED 08:55 → M ED INP 10:52 → M PCU 16:21
PROVIDERS: ADMIT General Practice; ATTEND General Practice
PROC: 30233N1 Transfusion of Nonautologous Red Blood Cells into Peripheral Vein, Percutaneous Approach (ICD-10-PCS; principal; 2025-05-10)
DX: A41.9 Sepsis, unspecified organism (principal); G93.41 Metabolic encephalopathy; C68.0 Malignant neoplasm of urethra; C64.1 Malignant neoplasm of right kidney, except renal pelvis; C78.01 Secondary malignant neoplasm of right lung; N17.9 Acute kidney failure, unspecified; E87.1 Hypo-osmolality and hyponatremia; N39.0 Urinary tract infection, site not specified; Z94.84 Stem cells transplant status; N10 Acute pyelonephritis; N13.2 Hydronephrosis with renal and ureteral calculous obstruction; J44.9 Chronic obstructive pulmonary disease, unspecified; N18.30 Chronic kidney disease, stage 3 unspecified; F32.A Depression, unspecified; E83.42 Hypomagnesemia; K21.9 Gastro-esophageal reflux disease without esophagitis; M79.7 Fibromyalgia; E87.5 Hyperkalemia; R91.1 Solitary pulmonary nodule; K44.9 Diaphragmatic hernia without obstruction or gangrene; K64.8 Other hemorrhoids; K57.90 Diverticulosis of intestine, part unspecified, without perforation or abscess without bleeding; I65.22 Occlusion and stenosis of left carotid artery; Z87.891 Personal history of nicotine dependence; D50.9 Iron deficiency anemia, unspecified; Z79.899 Other long term (current) drug therapy; Z79.890 Hormone replacement therapy; E03.9 Hypothyroidism, unspecified; G25.0 Essential tremor; F41.9 Anxiety disorder, unspecified; Z98.41 Cataract extraction status, right eye; Z98.42 Cataract extraction status, left eye; Z66 Do not resuscitate; Z92.3 Personal history of irradiation; Z92.21 Personal history of antineoplastic chemotherapy

== ENCOUNTER 2025-05-21 09:05 | Emergency (ER) | payer MEDICARE ==
[~2025-05-21] VITALS: Ht 157.5 cm; Wt 67.8 kg
[~2025-05-21 09:05] MED LIST changes: +CEFP200T PO; +COLA100C5 PO; +VITA500C24 PO
[2025-05-21 11:45] LABS: BASO # 0.2 10^3/uL (0.0-0.2); BASO % 1.0 % (0.0-1.0); EOS # 0.1 10^3/uL (0.0-0.5); EOS % 0.3 % (0.0-3.0); LYMPH # 3.4 10^3/uL (1.5-5.0); LYMPH % 17.1 % (24.0-44.0); MONO # 2.3 10^3/uL (0.0-0.8); MONO % 11.6 % (2.0-8.0); NEUTROPHILS # 9.3 10^3/uL (1.5-8.5); NEUTROPHILS % 46.8 % (36.0-66.0); PLATELET COUNT, AUTOMATED 165 10^3/uL (150-450)
[2025-05-21 11:57] LABS: CALCIUM LEVEL 8.0 MG/DL (8.3-10.6); CARBON DIOXIDE LEVEL 28.0 MMOL/L (20-31); CHLORIDE LEVEL 96.0 MMOL/L (98-107); CREATININE FOR GFR 1.24 MG/DL (0.55-1.30); GLOMERULAR FILTRATION RATE 46.5 (>39); POTASSIUM SERUM 3.5 MMOL/L (3.5-5.1); SODIUM LEVEL 130.0 MMOL/L (136-145)
[2025-05-21] MEDS: ACETAMINOPHEN 325 MG TAB PO ONE (12:00)
[2025-05-21 12:37] LABS: KETONE, URINE MANUAL REFLEX OBSCURED mg/dL (NEGATIVE); NITRITE, URINE MANUAL RFX OBSCURED (NEGATIVE); PROTEIN, URINE MANUAL REFLEX 3+ mg/dL (NEGATIVE); SP GRAVITY,URINE MANUAL REFLEX 1.015 (1.002-1.035); UROBILINOGEN, UA MANUAL REFLEX OBSCURED mg/dl (NORMAL)
[2025-05-21 12:40] LABS: RBC, URINE MAN REFLEX TNTC /hpf (0-3); SQUAMOUS EPITHELIAL URINE RFX MOD AMOUNT /hpf (SMALL AMT); WBC, URINE MAN RFX 40-50 /hpf (0-3)
[2025-05-21 12:41] LABS: MUCUS, URINE REFLEX MOD AMOUNT (NEGATIVE); YEAST, URINE RFX LARGE AMOUNT
[2025-05-21 12:42] LABS: HYALINE CAST, URINE RFX NONE SEEN /lpf (0-1); MICROSCOPIC EXAM RFX PERFORMED
[2025-05-21 12:46] LABS: C REACTIVE PROTEIN QUANTITATIV 4.27 MG/DL (<1.0)
[2025-05-21 14:58] VITALS: BP 122/61; TEMP 97; O2SAT 97
[2025-05-21] MEDS ORDERED: CIPR500T39 PO (15:18)
== END 2025-05-21 15:27 | disposition home or self-care (01) ==
LOC: M ED 09:05
DX: N10 Acute pyelonephritis (principal); R31.0 Gross hematuria; K21.9 Gastro-esophageal reflux disease without esophagitis; N18.30 Chronic kidney disease, stage 3 unspecified; J98.11 Atelectasis; R91.1 Solitary pulmonary nodule; R16.0 Hepatomegaly, not elsewhere classified; Z90.89 Acquired absence of other organs; Z79.2 Long term (current) use of antibiotics; Z79.899 Other long term (current) drug therapy; Z79.52 Long term (current) use of systemic steroids

== ENCOUNTER → 2025-06-01 | Outpatient (CLI) | payer MEDICARE ==
[~2025-06-01] VITALS: Ht 157.5 cm; Wt 66.2 kg
[2025-06-01 13:45] VITALS: BP 142/70; O2SAT 99
== END ==
LOC: M PAL 13:22
PROVIDERS: ATTEND Physician Assistant
DX: Z51.5 Encounter for palliative care (principal); Z66 Do not resuscitate; C85.90 Non-Hodgkin lymphoma, unspecified, unspecified site; A41.9 Sepsis, unspecified organism; N13.9 Obstructive and reflux uropathy, unspecified; N13.0 Hydronephrosis with ureteropelvic junction obstruction; D64.9 Anemia, unspecified; E87.8 Other disorders of electrolyte and fluid balance, not elsewhere classified; C67.9 Malignant neoplasm of bladder, unspecified; R63.6 Underweight; Z79.891 Long term (current) use of opiate analgesic; Z79.899 Other long term (current) drug therapy

== ENCOUNTER 2025-06-04 09:54 | Inpatient (IN) | payer MEDICARE ==
[~2025-06-04] VITALS: Ht 157.5 cm; Wt 64.5 kg
[2025-06-04 12:15] LABS: BASO # 0.1 10^3/uL (0.0-0.2); BASO % 0.6 % (0.0-1.0); EOS # 0.1 10^3/uL (0.0-0.5); EOS % 0.5 % (0.0-3.0); LYMPH # 2.8 10^3/uL (1.5-5.0); LYMPH % 13.5 % (24.0-44.0); MONO % 14.4 % (2.0-8.0); NEUTROPHILS # 10.7 10^3/uL (1.5-8.5); NEUTROPHILS % 51.8 % (36.0-66.0)
[2025-06-04 12:17] LABS: MONO # 3.0 10^3/uL (0.0-0.8)
[2025-06-04 12:20] LABS: PLATELET COUNT, AUTOMATED 83 10^3/uL (150-450)
[2025-06-04 12:38] LABS: ALT/SGPT 17.0 U/L (7.0-40); AST/SGOT 23.0 U/L (<34); CALCIUM LEVEL 7.7 MG/DL (8.3-10.6); CARBON DIOXIDE LEVEL 21.0 MMOL/L (20-31); CHLORIDE LEVEL 101.0 MMOL/L (98-107); CREATININE FOR GFR 1.79 MG/DL (0.55-1.30); GLOMERULAR FILTRATION RATE 30.0 (>39); MAGNESIUM LEVEL 1.8 MG/DL (1.8-2.4); POTASSIUM SERUM 4.2 MMOL/L (3.5-5.1); SODIUM LEVEL 130.0 MMOL/L (136-145)
[2025-06-04] MEDS ORDERED: ACET-683 PO (13:48)
[2025-06-04] MEDS ORDERED: VITA100018 PO (13:48)
[2025-06-04] MEDS ORDERED: ASCO500T PO (13:48)
[2025-06-04] MEDS ORDERED: MAGN400T2 PO (13:48)
[2025-06-04] MEDS ORDERED: VITA100066 PO (13:48)
[2025-06-04] MEDS ORDERED: HOME MED LIST COMPLETE! XX SCH (13:50)
[2025-06-04 15:10] VITALS: BP 123/65; TEMP 97.9; O2SAT 98
[2025-06-04] MEDS ORDERED: ONDANSETRON 4MG ORAL DISINTEGRATING TAB PO PRN (15:15)
[2025-06-04] MEDS ORDERED: SCOPOLAMINE 1MG TRANSDERMAL PATCH TOP PRN (15:15)
[2025-06-04 15:30] VITALS: BP 124/57; TEMP 98.3; O2SAT 98
[2025-06-04 15:46] LABS: KETONE, URINE AUTO RFX NEGATIVE (NEGATIVE); NITRITE, URINE AUTO RFX NEGATIVE (NEGATIVE); RBC, URINE AUTO RFX TNTC /HPF (0-3); SQUAM EPITHELIAL CELL UR AURFX 6 /HPF (0-6)
[2025-06-04 15:51] LABS: LEUKOCYTE ESTERASE UR AUTO RFX 2+ (NEGATIVE); WBC, URINE AUTO RFX 17 /HPF (0-3)
[2025-06-04 16:15] VITALS: BP 138/67; TEMP 97.7; O2SAT 100
[2025-06-04] MEDS: cefTRIAXone SOD 1 GM in DEXTROSE 5% (D5W) ADV/MINI-BAG 50 ML IV ONE (16:52)
[2025-06-04] MEDS: LORazepam 1 MG TAB PO PRN (20:10)
[2025-06-04] MEDS: ACETAMINOPHEN 325 MG TAB PO PRN (20:11)
[2025-06-05] MEDS: MORPHINE 10 MG/0.5 ML ORAL CONCENTRATE SOLUTION U/D SL PRN (06:24)
[2025-06-05 22:57] VITALS: O2SAT 94
[2025-06-06] MEDS: MORPHINE 10 MG/0.5 ML ORAL CONCENTRATE SOLUTION U/D SL PRN (08:46)
[2025-06-07] MEDS: IPRATROPIUM 0.5 MG/ALBUTEROL 2.5 MG INH SOL UD 3 ML NEB PRN (09:17)
[2025-06-09 07:55] VITALS: O2SAT 93
[2025-06-09] MEDS ORDERED: MORP1SOL5 PO (13:06)
[2025-06-09] MEDS ORDERED: HYOS125TA PO (13:06)
[2025-06-09] MEDS ORDERED: ATIV1TAB10 PO (13:06)
== END 2025-06-09 14:50 | disposition hospice, home (50) | DRG 951 ==
LOC: M ED 09:54 → M ED INP 15:14 → M MSPAV 16:11
PROVIDERS: ADMIT Internal Medicine; ATTEND Student in an Organized Health Care Education/Training Program
DX: Z51.5 Encounter for palliative care (principal); N17.9 Acute kidney failure, unspecified; I50.32 Chronic diastolic (congestive) heart failure; C85.90 Non-Hodgkin lymphoma, unspecified, unspecified site; E87.1 Hypo-osmolality and hyponatremia; C78.00 Secondary malignant neoplasm of unspecified lung; M79.7 Fibromyalgia; F32.A Depression, unspecified; E03.9 Hypothyroidism, unspecified; I65.29 Occlusion and stenosis of unspecified carotid artery; K21.9 Gastro-esophageal reflux disease without esophagitis; J44.9 Chronic obstructive pulmonary disease, unspecified; N18.30 Chronic kidney disease, stage 3 unspecified; D50.9 Iron deficiency anemia, unspecified; M54.9 Dorsalgia, unspecified; K44.9 Diaphragmatic hernia without obstruction or gangrene; D69.6 Thrombocytopenia, unspecified; F41.9 Anxiety disorder, unspecified; F03.90 Unspecified dementia, unspecified severity, without behavioral disturbance, psychotic disturbance, mood disturbance, and anxiety; D72.829 Elevated white blood cell count, unspecified; G25.0 Essential tremor; C67.9 Malignant neoplasm of bladder, unspecified; Z79.890 Hormone replacement therapy; Z79.899 Other long term (current) drug therapy